=== PATIENT | male | born 1980 | race Caucasian/White ===

== ENCOUNTER 2018-01-23 11:58 | Emergency (ER) | payer MEDICAID, SELFPAY ==
[2018-01-23] VITALS (48 sets, daily range): BP systolic 102–119; BP diastolic 41–70; PULSE 62–82; RESP 8–27; TEMP 36.9; O2SAT 90–99
--- NOTE | 2018-01-23 12:13 | DI.RPTCT_ITS ---
SYMPTOM/DIAGNOSIS: CHEST PAIN, SOB, ABD PAIN, VOMITING CTA CHEST/ABDOMEN AND PELVIS: CT angiography was performed with multi slice acquisition and multi planar and 3D reconstruction. Comparison is made with 06/19/17. ABDOMEN AND PELVIS: There is diffuse decreased attenuation of the liver consistent with fatty infiltration. No hepatic mass is seen. The portal and superior mesenteric veins are patent. The gallbladder is negative by CT criteria. There is no biliary ductal dilatation. The pancreas and spleen are unremarkable. The adrenal glands appear stable. The kidneys show normal and symmetric enhancement. No evidence of a solid renal mass or obstruction. The urinary bladder is intact. The reproductive organs are unremarkable. The bowel shows no evidence of obstruction or inflammation. No findings to suggest an acute appendicitis are present. The abdominal aorta is of normal caliber. No aneurysmal dilatation or dissection is seen. No significant abdominal or pelvic adenopathy, ascites or pneumoperitoneum is present. The bones are intact. IMPRESSION: No evidence of an acute abdomen. CHEST: The thoracic aorta is of normal caliber. No evidence of aneurysm or dissection is present. Heart size is within normal limits. No pericardial effusion is seen. The visualized pulmonary arteries show no evidence of an embolus. No pleural effusion or pneumothorax is identified. No pulmonary infiltrates are seen. The tracheobronchial tree is unremarkable. The bones are intact. IMPRESSION: Negative examination.
--- NOTE | 2018-01-23 12:19 | ED.GENADUL ---
Disposition Clinical Impression: SOB (shortness of breath) Disposition: HOME Condition: Good Instructions: Asthma (ED), Dyspnea (ED) Additional Instructions: Please take your albuterol inhaler 2 puffs every 6 hours for the next week. Please take the steroid as directed. Please stop smoking. We will be scheduling an outpatient stress test for you. It is imperative that you have close follow-up with your primary care provider. Please drink 8-10 cups of water throughout the day. Avoid the hot sun at work as best as possible. Take your insulin and metformin as directed without missing any days. If you notice any worsening of your symptoms, or any new symptoms such as vomiting, diarrhea, fever, chills, shortness of breath, chest pain, numbness, weakness, or fainting , please return immediately to the emergency department for reevaluation. Please follow up with your primary care provider as soon as possible for reassessment and reevaluation. As always, it was a pleasure participating in your medical care today. Prescriptions: Prednisone 50 mg PO DAILY #5 tablet Referrals: Sandy Sanchez NP [Primary Care Provider] - Medical Decision Making - Medical Decision Making This is a pleasant 37-year-old male who presents with multiple complaints. Complaints include both cardiac and GI symptoms. Will evaluate with cardiac workup, CT angios of the chest abdomen and pelvis, we will rehydrate the patient, and look for any electrolyte abnormalities. Patient does have notable family history of cardiac risk factors, and personal history of cardiac risk factors which I feel does merit evaluation of potential cardiac etiology in spite of his young age. 1208 Rate 77, sinus rhythm, intervals normal, no ST elevations or depressions. No T-wave inversions. No significant Q waves. 17:27 Rate 71, intervals normal, normal sinus rhythm, no ST elevations or depressions, no T wave inversions. No significant Q waves. The patient's laboratory workup has returned totally normal. CT angiogram is returned normal. Findings per virtual radiology no evidence of PE, no significant focal consolidation, no pleural effusion, no pneumothorax, no adenopathy, unremarkable upper abdomen. No acute mediastinal aortic abnormality. Impression no specific etiology identified for the patient's symptoms. CT scan of the abdomen demonstrates fatty infiltration of the liver, appendix appears normal, abdominal aorta and visceral vessels appear unremarkable, normal-appearing solid organs, no intestinal obstruction, no obstructive uropathy, no free fluid. No free air. No inflammatory changes, no specific etiology identified for the patient's symptoms. Patient was given a breathing treatment, and he had near complete resolution of his symptoms. I feel that the patient's symptoms are most likely secondary to his history of asthma, and continued smoking. Although I feel that the patient's symptoms are unrelated to a cardiac etiology I did discuss with the patient the potential for observation, continued serial troponins and inpatient stress test, patient made it very clear that he would prefer to be discharged home for an outpatient follow-up. I had a long discussion with him regarding red flags for which to return the patient understands. Additionally we will set up an outpatient stress test for the patient. We discussed the importance of close follow-up with his primary care provider as well. With 2 normal serial troponins, normal EKG x2, normal laboratory workup, normal CT angiogram of the chest abdomen and pelvis, normal vital signs and no hemodynamic instability, I feel that he can be safely discharged home with his current clinical setting and evaluation. Repeat exam continues to demonstrate a well-appearing patient. Patient will be discharged home with outpatient exercise stress test, close follow-up with PCP, and a good understanding of red flags for which she should return. I have extensively reviewed the treatment plan and discharge instructions with the patient. I have addressed all patient concerns at this time. The patient was made aware of what symptoms to monitor for that would warrant a return to the emergency department. Discussed the plan with the patient, they demonstrate verbal understanding and agreement with our assessment and plan at this time. History of Present Illness - General Stated complaint: CHEST PAIN Time Seen by Provider: 01/23/18 12:12 - History of Present Illness Initial comments: This is a 37-year-old male with a past medical history of poorly controlled diabetes for which he takes 50 of Lantus, and metformin on an unregulated basis, sleep apnea, tobacco abuse, strong family history of cardiac disease, who presents today for multiple complaints including chest pain, vomiting, diarrhea, malaise, fatigue, shortness of breath, and occasional syncope. The patient states that over the last few weeks he has had intermittent vomiting and diarrhea, the vomit is usually comprised of just sputum with no bleeding or hematemesis, however the diarrhea is watery, nonbloody. He denies any diarrhea for the last 48 hours old. He has had no foreign travel and been on no antibiotics recently. 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 Over the last 4 days the patient has had chest pain which she describes as mild chest tightness and is associated with mild shortness of breath. It is improved when he takes his albuterol, however he rarely takes this. He denies any pleuritic chest pain though. Symptoms are worse at night after he has been up working all day. They are made worse by palpation, movement of the arms, and occasionally eating. He does have some pain in both of his arms which he describes as an achy-like sensation which is notably made worse with movement of the arms, but not worsened with generalized exertion. States that it may be slightly worse in the left arm than the right. Denies PE risk factors such as recent long car rides, immobilization, recent surgery, prior history of DVT or PE, family history of PE or DVT, morbid obesity, exogenous estrogen and smoking, hemoptysis, history of cancer. Patient denies any previous abdominal surgeries. He denies any other sick contacts. His family history of cardiac disease is notable for having heart attacks in their late 30s to early 40s. Patient has no other complaints at this time. - Related Data Aspirin/Acetaminophen/Caffeine [Excedrin Extra Strength Caplet] 1 each PO PRN #2 05/15/16 Onetouch Ultra Mini 1 PRN 05/15/16 Insulin Glargine [Lantus Solostar] 48 u SQ HS #3 box 02/05/17 Blood Sugar Diagnostic [Onetouch Ultra Blue Test Strp] 1 each MC BID #200 strip 02/26/17 Lancets [Onetouch Delica] 1 each MC BID #200 each 07/14/17 Venlafaxine HCl [Venlafaxine HCl ER] 225 mg PO DAILY #90 tab-cap 07/14/17 Venlafaxine HCl [Venlafaxine HCl ER] 225 mg PO DAILY #90 tab-cap 07/14/17 Albuterol Sulfate [Proair Hfa] 1 - 2 puff IH Q4-6H PRN #1 inhaler 08/26/17 Aspirin [Aspir 81] 81 mg PO DAILY #90 tab-cap 08/26/17 Empagliflozin [Jardiance] 25 mg PO DAILY #90 tab-cap 08/26/17 Fluticasone Propionate [Flonase Allergy Relief] 1 - 2 sprays NS DAILY PRN #1 bottle 08/26/17 Gabapentin 300 mg PO HS #90 tab-cap 08/26/17 MetFORMIN [Glucophage] 0 PO See Instructions #225 tab-cap 08/26/17 Blood-Glucose Meter [Blood Glucose Meter] 1 each MC DAILY #1 unit 11/19/17 Bupropion HCl [Wellbutrin Xl] 450 mg PO DAILY #135 tab-cap 11/19/17 Epinephrine [Epipen 2-Jesus Alberto] 0.3 mg IM ONCE PRN #1 kit 11/19/17 Hydroxyzine HCl 25 - 50 mg PO QID PRN #60 tab-cap 11/19/17 Pen Needle, Diabetic [Bd Ultra-Fine Pen Needle] 1 ndl SQ DAILY #100 11/19/17 Prednisone 50 mg PO DAILY #5 tablet 01/23/18 Allergies Allergy/AdvReac Type Severity Reaction Status Date / Time insect venom Allergy Unknown Anaphylaxsi Unverified 01/23/18 13:23 s Sulfa (Sulfonamide Allergy Unknown HIVES, RASH Unverified 01/23/18 13:23 Antibiotics) Review of Systems Other: 10 point review of systems was performed, pertinent positives and negatives are noted in the history of present illness. Past Medical History - Past Medical History Medical history: diabetes diabetic neuropathy, sleep apnea, migraines Surgical history: no surgical history Family history: CAD/[place], cancer, diabetes - Social History Alcohol use: none Drug use: none General Exam - Other Other exam information: 1.Const: Well-nourished, Well-developed, appearing stated age, notably obese 2.Eyes: PERRL, no conjunctival injection, and symmetrical lids. 3.ENT: Atraumatic external nose and ears. Dry MM. Neck: Symmetric, trachea midline, No thyromegaly. 4.CVS: +S1/S2, No murmurs or gallops. Peripheral pulses 2+ and equal in all extremities. Brisk capillary refill in all extremities. 5.RESP: Unlabored respiratory effort. Clear to auscultation bilaterally. No wheezes rales or rhonchi. Notable reproducible chest pain on palpation of the lower chest and epigastric region. 6.GI: Soft, Nondistended, No hepatosplenomegaly. No guarding or rebound. Tenderness noted in the epigastric region on palpation. No guarding or rebound. No pain at McBurney's point. No focal pain at Knight's point. 7.MSK: Normocephalic/Atraumatic, Extremities w/o deformity or ttp No cyanosis or clubbing, Normal movement of all extremities. No calf tenderness. 8.Skin: Warm, Dry. No rashes or lesions. 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 Sensation grossly intact, no focal neurologic deficits. Sensation is intact in all extremities. Normal muscle strength in all extremities. 10.Psych: (AAO) x3. Appropriate mood and affect Course Vital Signs - 24 hr 01/23/18 01/23/18 12:10 12:13 Temperature 36.9 C Pulse 76 Respiratory 19 23 Rate Blood Pressure 106/49 Pulse Oximetry 98
[2018-01-23] MEDS: Aspirin 81 MG CHEW 324 MG CH (12:20)
[2018-01-23 12:24] LABS: BE (Venous) 4.2 mmol/L (-3-3); HCO3 (Venous) 30 mmol/L (22-28); O2 Sat (Venous) 62 % (70-80); TCO2 (Venous) 27 mmol/L (22-29); pCO2 (Venous) 56 mm/Hg (34-47); pH (Venous) 7.34 (7.32-7.43); pO2 (Venous) 34 mm/Hg (28-44)
--- NOTE | 2018-01-23 12:24 | ED.GENADUL_ITS ---
Disposition Clinical Impression: SOB (shortness of breath) Disposition: HOME Condition: Good Instructions: Asthma (ED), Dyspnea (ED) Additional Instructions: Please take your albuterol inhaler 2 puffs every 6 hours for the next week. Please take the steroid as directed. Please stop smoking. We will be scheduling an outpatient stress test for you. It is imperative that you have close follow-up with your primary care provider. Please drink 8-10 cups of water throughout the day. Avoid the hot sun at work as best as possible. Take your insulin and metformin as directed without missing any days. If you notice any worsening of your symptoms, or any new symptoms such as vomiting, diarrhea, fever, chills, shortness of breath, chest pain, numbness, weakness, or fainting , please return immediately to the emergency department for reevaluation. Please follow up with your primary care provider as soon as possible for reassessment and reevaluation. As always, it was a pleasure participating in your medical care today. Prescriptions: Prednisone 50 mg PO DAILY #5 tablet Referrals: Sandy Sanchez NP [Primary Care Provider] - Medical Decision Making - Medical Decision Making This is a pleasant 37-year-old male who presents with multiple complaints. Complaints include both cardiac and GI symptoms. Will evaluate with cardiac workup, CT angios of the chest abdomen and pelvis, we will rehydrate the patient , and look for any electrolyte abnormalities. Patient does have notable family history of cardiac risk factors, and personal history of cardiac risk factors which I feel does merit evaluation of potential cardiac etiology in spite of his young age. 1208 Rate 77, sinus rhythm, intervals normal, no ST elevations or depressions. No T- wave inversions. No significant Q waves. 17:27 Rate 71, intervals normal, normal sinus rhythm, no ST elevations or depressions , no T wave inversions. No significant Q waves. The patient's laboratory workup has returned totally normal. CT angiogram is returned normal. Findings per virtual radiology no evidence of PE, no significant focal consolidation, no pleural effusion, no pneumothorax, no adenopathy, unremarkable upper abdomen. No acute mediastinal aortic abnormality. Impression no specific etiology identified for the patient's symptoms. CT scan of the abdomen demonstrates fatty infiltration of the liver , appendix appears normal, abdominal aorta and visceral vessels appear unremarkable, normal-appearing solid organs, no intestinal obstruction, no obstructive uropathy, no free fluid. No free air. No inflammatory changes, no specific etiology identified for the patient's symptoms. Patient was given a breathing treatment, and he had near complete resolution of his symptoms. I feel that the patient's symptoms are most likely secondary to his history of asthma, and continued smoking. Although I feel that the patient's symptoms are unrelated to a cardiac etiology I did discuss with the patient the potential for observation, continued serial troponins and inpatient stress test, patient made it very clear that he would prefer to be discharged home for an outpatient follow-up. I had a long discussion with him regarding red flags for which to return the patient understands. Additionally we will set up an outpatient stress test for the patient. We discussed the importance of close follow-up with his primary care provider as well. With 2 normal serial troponins, normal EKG x2, normal laboratory workup, normal CT angiogram of the chest abdomen and pelvis, normal vital signs and no hemodynamic instability, I feel that he can be safely discharged home with his current clinical setting and evaluation. Repeat exam continues to demonstrate a well-appearing patient. Patient will be discharged home with outpatient exercise stress test, close follow-up with PCP, and a good understanding of red flags for which she should return. I have extensively reviewed the treatment plan and discharge instructions with the patient. I have addressed all patient concerns at this time. The patient was made aware of what symptoms to monitor for that would warrant a return to the emergency department. Discussed the plan with the patient, they demonstrate verbal understanding and agreement with our assessment and plan at this time. History of Present Illness - General Stated complaint: CHEST PAIN Time Seen by Provider: 01/23/18 12:12 - History of Present Illness Initial comments: This is a 37-year-old male with a past medical history of poorly controlled diabetes for which he takes 50 of Lantus, and metformin on an unregulated basis, sleep apnea, tobacco abuse, strong family history of cardiac disease, who presents today for multiple complaints including chest pain, vomiting, diarrhea, malaise, fatigue, shortness of breath, and occasional syncope. The patient states that over the last few weeks he has had intermittent vomiting and diarrhea, the vomit is usually comprised of just sputum with no bleeding or hematemesis, however the diarrhea is watery, nonbloody. He denies any diarrhea for the last 48 hours old. He has had no foreign travel and been on no antibiotics recently. 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 Over the last 4 days the patient has had chest pain which she describes as mild chest tightness and is associated with mild shortness of breath. It is improved when he takes his albuterol, however he rarely takes this. He denies any pleuritic chest pain though. Symptoms are worse at night after he has been up working all day. They are made worse by palpation, movement of the arms, and occasionally eating. He does have some pain in both of his arms which he describes as an achy-like sensation which is notably made worse with movement of the arms, but not worsened with generalized exertion. States that it may be slightly worse in the left arm than the right. Denies PE risk factors such as recent long car rides, immobilization, recent surgery, prior history of DVT or PE, family history of PE or DVT, morbid obesity, exogenous estrogen and smoking, hemoptysis , history of cancer. Patient denies any previous abdominal surgeries. He denies any other sick contacts. His family history of cardiac disease is notable for having heart attacks in their late 30s to early 40s. Patient has no other complaints at this time. - Related Data Aspirin/Acetaminophen/Caffeine [Excedrin Extra Strength Caplet] 1 each PO PRN # 2 05/15/16 Onetouch Ultra Mini 1 PRN 05/15/16 Insulin Glargine [Lantus Solostar] 48 u SQ HS #3 box 02/05/17 Blood Sugar Diagnostic [Onetouch Ultra Blue Test Strp] 1 each MC BID #200 strip 02/26/17 Lancets [Onetouch Delica] 1 each MC BID #200 each 07/14/17 Venlafaxine HCl [Venlafaxine HCl ER] 225 mg PO DAILY #90 tab-cap 07/14/17 Venlafaxine HCl [Venlafaxine HCl ER] 225 mg PO DAILY #90 tab-cap 07/14/17 Albuterol Sulfate [Proair Hfa] 1 - 2 puff IH Q4-6H PRN #1 inhaler 08/26/17 Aspirin [Aspir 81] 81 mg PO DAILY #90 tab-cap 08/26/17 Empagliflozin [Jardiance] 25 mg PO DAILY #90 tab-cap 08/26/17 Fluticasone Propionate [Flonase Allergy Relief] 1 - 2 sprays NS DAILY PRN #1 bottle 08/26/17 Gabapentin 300 mg PO HS #90 tab-cap 08/26/17 MetFORMIN [Glucophage] 0 PO See Instructions #225 tab-cap 08/26/17 Blood-Glucose Meter [Blood Glucose Meter] 1 each MC DAILY #1 unit 11/19/17 Bupropion HCl [Wellbutrin Xl] 450 mg PO DAILY #135 tab-cap 11/19/17 Epinephrine [Epipen 2-Jesus Alberto] 0.3 mg IM ONCE PRN #1 kit 11/19/17 Hydroxyzine HCl 25 - 50 mg PO QID PRN #60 tab-cap 11/19/17 Pen Needle, Diabetic [Bd Ultra-Fine Pen Needle] 1 ndl SQ DAILY #100 11/19/17 Prednisone 50 mg PO DAILY #5 tablet 01/23/18 Allergies Allergy/AdvReac Type Severity Reaction Status Date / Time insect venom Allergy Unknown Anaphylaxsi Unverified 01/23/18 13:23 s Sulfa (Sulfonamide Allergy Unknown HIVES, RASH Unverified 01/23/18 13:23 Antibiotics) Review of Systems Other: 10 point review of systems was performed, pertinent positives and negatives are noted in the history of present illness. Past Medical History - Past Medical History Medical history: diabetes diabetic neuropathy, sleep apnea, migraines Surgical history: no surgical history Family history: CAD/[place], cancer, diabetes - Social History Alcohol use: none Drug use: none General Exam - Other Other exam information: 1.Const: Well-nourished, Well-developed, appearing stated age, notably obese 2.Eyes: PERRL, no conjunctival injection, and symmetrical lids. 3.ENT: Atraumatic external nose and ears. Dry MM. Neck: Symmetric, trachea midline, No thyromegaly. 4.CVS: +S1/S2, No murmurs or gallops. Peripheral pulses 2+ and equal in all extremities. Brisk capillary refill in all extremities. 5.RESP: Unlabored respiratory effort. Clear to auscultation bilaterally. No wheezes rales or rhonchi. Notable reproducible chest pain on palpation of the lower chest and epigastric region. 6.GI: Soft, Nondistended, No hepatosplenomegaly. No guarding or rebound. Tenderness noted in the epigastric region on palpation. No guarding or rebound. No pain at McBurney's point. No focal pain at Knight's point. 7.MSK: Normocephalic/Atraumatic, Extremities w/o deformity or ttp No cyanosis or clubbing, Normal movement of all extremities. No calf tenderness. 8.Skin: Warm, Dry. No rashes or lesions. 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 Sensation grossly intact, no focal neurologic deficits. Sensation is intact in all extremities. Normal muscle strength in all extremities. 10.Psych: (AAO) x3. Appropriate mood and affect Course Vital Signs - 24 hr 01/23/18 01/23/18 12:10 12:13 Temperature 36.9 C Pulse 76 Respiratory 19 23 Rate Blood Pressure 106/49 Pulse Oximetry 98
[2018-01-23] MEDS: Ondansetron 4 MG/2 ML VIAL IVP (12:30)
[2018-01-23] MEDS: Albuterol/Ipratropium 3 ML UPD VIAL UPD (12:30)
[2018-01-23 12:33] LABS: Abs Immature Grans 0.01 k/cumm (0.0-0.09); Absolute Basophil Count 0.01 k/cumm (0.0-0.2); Absolute Eosinophil Count 0.07 k/cumm (0.0-0.7); Absolute Lymphocyte Count 1.77 k/cumm (1.2-3.4); Absolute Monocyte Count 0.32 k/cumm (0.11-0.7); Basophils % 0.1; HGB 15.1 g/dL (13.5-17.5); Immature Grans % 0.1; Lymphocytes % 26.1; Mean Corp. HGB Concentration 32.8 g/dL (32.0-36.0); Mean Corpuscular Hemoglobin 28.8 pg (27.0-33.0); Mean Corpuscular Volume 87.8 fL (80-95); Mean Platelet Volume 9.3 fL (8.0-11.0); Monocytes % 4.7; Platelet Count 267 x1000/uL (130-400); RBC 5.24 m/cumm (4.50-6.00); RBC Distribution Width 16.1 % (11.8-14.1); White Blood Cell Count 6.78 k/cumm (4.4-10.8)
[2018-01-23] MEDS: Normal Saline 1,000 ML 1000 ML IV (12:37)
[2018-01-23] MEDS: methylPREDNISolone SUCC 125 MG VIAL IVP (12:37)
[2018-01-23 12:49] LABS: ALT 65 U/L (12-78); AST 30 U/L (15-37); Albumin 3.6 g/dL (3.4-5.0); Alkaline Phosphatase 97 U/L (46-116); Anion Gap 8.3 mmol/L (3-11); BUN 17 mg/dL (7-18); Bilirubin, Total 0.6 mg/dL (0.2-1.0); CO2 28.7 mmol/L (21.0-32.0); CREATININE 1.21 mg/dL (0.70-1.30); Calcium 8.9 mg/dL (8.5-10.1); Chloride 100 mmol/L (98-107); Glucose 238 mg/dL (70-100); Lipase 125 U/L (73-393); Potassium 3.6 mmol/L (3.5-5.1); Sodium 137 mmol/L (136-145)
[2018-01-23] MEDS: Omnipaque 350 MG/ML 100 ML BTL IV (12:53)
[2018-01-23 12:55] LABS: Troponin I < 0.02 ng/mL (0.00-0.06)
[2018-01-23 13:12] LABS: Bilirubin Negative (Negative); Blood Negative (Negative); Clarity Clear; Glucose 500 mg/dL (Negative); Ketones Negative (Negative); Leukocyte Esterase Negative (Negative); Nitrite Negative (Negative); Urobilinogen 0.2 EU/dL (Up TO 0.2)
--- NOTE | 2018-01-23 13:51 | DI.VRAD_ITS ---
EXAM: CT Angiography Chest With Intravenous Contrast CLINICAL HISTORY: 37 years old, male; Signs and symptoms; Other: Chest pain, shortness of epigastric, and abdominal pain with vomiting; Prior surgery; Surgery date: 6+ months; Surgery type: Gallbladder TECHNIQUE: Axial computed tomographic angiography images of the chest with intravenous contrast using pulmonary embolism protocol. All CT scans at this facility use at least one of these dose optimization techniques: automated exposure control; mA and/or kV adjustment per patient size (includes targeted exams where dose is matched to clinical indication); or iterative reconstruction. MIP reconstructed images were created and reviewed. COMPARISON: No relevant prior studies available. FINDINGS: No evidence of PE. No significant focal consolidation. No pleural effusion. No pneumothorax. No adenopathy. Unremarkable upper abdomen. No acute mediastinal or aortic abnormality. Impression: No specific etiology identified for the patient's symptoms. EXAM: CT Angiography Abdomen and Pelvis With Intravenous Contrast CLINICAL HISTORY: 37 years old, male; Signs and symptoms; Other: Chest pain, shortness of epigastric, and abdominal pain with vomiting; Prior surgery; Surgery date: 6+ months; Surgery type: Gallbladder TECHNIQUE: Axial computed tomographic angiography images of the abdomen and pelvis with intravenous contrast. All CT scans at this facility use at least one of these dose optimization techniques: automated exposure control; mA and/or kV adjustment per patient size (includes targeted exams where dose is matched to clinical indication); or iterative reconstruction. MIP reconstructed images were created and reviewed. COMPARISON: FINDINGS: Fatty infiltration of the liver. Appendix appears normal. Abdominal aorta and visceral vessels appear unremarkable. Otherwise normal appearing solid organs. No intestinal obstruction. No obstructive uropathy. No free fluid. No free air. The No inflammatory changes. Impression: No specific etiology identified for the patient's symptoms. Dictated and Authenticated by: Dominic Ospina MD. Ordering:YAMILEX VALVERDE MD
[2018-01-23 16:35] LABS: Troponin I < 0.02 ng/mL (0.00-0.06)
== END 2018-01-23 17:41 | disposition home or self-care (01) ==
PROVIDERS: Emergency Provider Student in an Organized Health Care Education/Training Program; PCP Nurse Practitioner Family
DX: R06.02 Shortness of breath (principal); E11.40 Type 2 diabetes mellitus with diabetic neuropathy, unspecified; Z79.84 Long term (current) use of oral hypoglycemic drugs
CPT/HCPCS: 36415; 74177; 80053; 82805; 83690; 93005; 96361; 96374; 96375; 99285; 81003; 84484; 85025; 93010; J2270; J2405; J2930; J3490; J7620

== ENCOUNTER 2018-02-02 00:14 | Outpatient (CLI) | payer MEDICAID, SELFPAY ==
--- NOTE | 2018-02-02 14:00 | ETT_ITS ---
*[facility]* *[facility]* [address] [place] [address] Stress Electrocardiography Saurabh protocol Date of study: 02/02/2018 *PATIENT PRESENTATION* Height: 167.6cm (66in) Blood Pressure: Weight: 131.8kg (290lb) BSA: 2.55m^2 Ordering physician: Gus Womack Impressions: Indeterminate stress test due to inadequate heart rate. Summary: 1. Stress ECG conclusions: The stress ECG is negative to less than 85% MPHR. The stress ECG is non-diagnostic. The sensitivity of this test is limited by a failure to achieve target heart rate. 2. Stress: The target heart rate was not achieved. The heart rate response to stress is normal. There is a normal resting blood pressure with an appropriate response to stress. The patient experienced no chest pain during stress. Exercise capacity is mildly diminished for age. History: Patient's presenting symptoms: asymptomatic. REASON FOR VISIT: PATIENT PRESENTED TO EMERGENCY ROOM ON 01/23/18 FOR MULTIPLE COMPLAINTS INCLUDING CHEST PAIN, VOMITING, DIARRHEA, MALAISE, FATIGUE, SHORTNESS OF BREATH, AND OCCASIONAL SYNCOPE. FOR FOUR DAYS PATIENT REPORTS 8/10 STERNAL CHEST TIGHTNESS RADIATING DOWN BILATERAL ARMS, ASSOCIATED WITH MILD SHORTNESS OF BREATH. SYMPTOMS ARE WORSE AT NIGHT, WITH PALPATION, MOVEMENT OF ARMS, AND OCCASIONALLY WITH EATING. SYMPTOMS ARE NOT WORSENED WITH EXERTION. PATIENT REPORTS CHEST PAIN LASTS FOR A COUPLE OF DAYS AT A TIME WHEN IT OCCURS. CHEST PAIN LAST OCCURED YESTERDAY. NO CHEST PAIN TODAY. PAST MEDICAL HISTORY: DIABETES, SLEEP APNEA, MIGRAINES, TOBACCO ABUSE, ANXIETY. FAMILY HISTORY: NOT KNOWN. SMOKING STATUS:30 PACK YEAR HISTORY. EXERCISE STATUS: NONE. PMH: Asthma. Risk factors: Family history of coronary artery disease. Current tobacco use. Hypertension. Diabetes mellitus. Obesity. Dyslipidemia. Cholesterol: 210mg/dl. HDL: 31mg/dl. LDL: 152mg/dl. Triglycerides: 176mg/dl. ALLERGIES: INSECT VENOM, SULFA. MEDICATIONS: ALBUTEROL SULFATE 1-2 PUFF, PRN. ASPIRIN 81MG, DAILY. EXCEDRIN EXTRA STRENGTH, PRN. BUPROPION HCL 450MG, DAILY. EMPAGLIFLOZIN 25MG, DAILY. EPINEPHRINE INJECTION 0.3MG, PRN. FLUTICASONE, PRN. GABAPENTIN 300MG, HS. HYDROXYZINE 25-50MG, PRN. INSULIN GLARGINE 48UNITS, HS. METFORMIN 1500MG AM / 1000MG PM. VENLAFAXINE 225MG, DAILY. Protocol: Saurabh protocol. Baseline ECG: SINUS RHYTHM. HEART RATE 65 BPM. Stress protocol: + +---+ + + + !Stage !HR !BP (mmHg) !Symptoms !Comments ! + +---+ + + + !Baseline supine !65 !142/82 (102)! ! ! + +---+ + + + !Baseline standing!69 !112/80 (91) ! !BP 130/68 ON ! ! ! ! ! !RECHECK. ! + +---+ + + + !Stage I; 1.7mph, !98 !154/84 (107)! ! ! !10degrees; 3 min ! ! ! ! ! + +---+ + + + !Stage II; 2.5mph,!117!184/90 (121)!Leg fatigue, leg ! ! !12degrees; 3 min ! ! !pain ! ! + +---+ + + + !Stage III; !---! !Mild dyspnea, leg! ! !3.4mph, ! ! !pain ! ! !14degrees; 3 min ! ! ! ! ! + +---+ + + + !Peak stress !119! ! ! ! + +---+ + + + !Recovery; 1 min !106!170/88 (115)! ! ! + +---+ + + + !Recovery; 3 min !74 !172/80 (111)! ! ! + +---+ + + + !Recovery; 6 min !---!150/78 (102)! ! ! + +---+ + + + * Stress results: Maximal heart rate during stress was 119bpm (65% of maximal predicted heart rate). The maximal predicted heart rate was 183bpm. The target heart rate was not achieved. The heart rate response to stress is normal. There is a normal resting blood pressure with an appropriate response to stress. The rate-pressure product for the peak heart rate and blood pressure was 53280ku Hg/min. The patient experienced no chest pain during stress. Exercise capacity is mildly diminished for age. Stress ECG: TREADMILL PORTION OF EXERCISE STRESS TEST ENDED IN 6MIN 11SEC DUE TO PATIENT COMPLAINTS OF LEG PAIN/BURNING AND DYSPNEA. HYPOTENSIVE BLOOD PRESSURE RESPONSE TO STANDING WITH REPORTS OF LIGHTHEADEDNESS. RESOLVED AFTER FEW SECONDS WITH IMPROVEMENT OF BLOOD PRESSURE ON RECHECK. APPROPRIATE HEART RATE AND BLOOD PRESSURE RESPONSE TO EXERCISE. MAXIMAL HEART RATE 119 BPM, 65% OF TARGET. APPROXIMATE METS ACHIEVED 7.32. NO ANGINA REPORTED. NO ECTOPY NOTED. NO SIGNIFICANT ST SEGMENT CHANGES. MODERATELY DIMINISHED FUNCTIONAL CAPACITY. The stress ECG is negative to less than 85% MPHR. The stress ECG is non-diagnostic. The sensitivity of this test is limited by a failure to achieve target heart rate. Study data: Main Retana MD supervised and was readily available during the procedure. This study was interpreted by [facility]. Study status: Routine. Consent: The risks, benefits, and alternatives to the procedure were explained to the patient and informed consent was obtained. Procedure: Initial setup. A baseline ECG was recorded. Surface ECG leads and manual cuff blood pressure measurements were monitored. Heart sounds: Normal. Lung sounds: Normal. Treadmill exercise testing was performed using the Saruabh protocol. Study completion: The patient tolerated the procedure well and was discharged from the lab. Discharge: The patient left the laboratory in stable condition. Birthdate: Patient birthdate: 1980. Sex: Gender: male. Study date: Study date: 02/02/2018. Study time: 02:00 PM. Signature Documentation: The Stress ECG portion of this study was interpreted by Main Retana MD. Electronically signed by Main Retana 02/02/2018 16:30
== END 2018-02-02 00:34 ==
PROVIDERS: PCP Nurse Practitioner Family; Visit Provider Student in an Organized Health Care Education/Training Program
DX: R07.9 Chest pain, unspecified (principal); R06.02 Shortness of breath; R53.83 Other fatigue; R94.30 Abnormal result of cardiovascular function study, unspecified; R00.2 Palpitations; E11.9 Type 2 diabetes mellitus without complications; Z79.4 Long term (current) use of insulin; I10 Essential (primary) hypertension; Z82.49 Family history of ischemic heart disease and other diseases of the circulatory system
CPT/HCPCS: 93017

== ENCOUNTER 2018-04-26 16:31 | Emergency (ER) | payer MEDICAID, SELFPAY ==
[2018-04-26 16:45] VITALS: BP 136/76; PULSE 83; RESP 16; TEMP 36.6; O2SAT 98
--- NOTE | 2018-04-26 17:03 | W.ED.GENAD ---
Discharge Plan Disposition Patient Disposition: HOME Condition: Fair Discharge Details Chief Complaint: Orthopedic Clinical Impression: Ankle sprain Reason For Visit: left ankle pain Primary Care Provider: Sandy Sanchez ED Provider: Leia Blum Home Meds and New Rx's Prescriptions: New ibuprofen 600 mg tablet 600 mg PO QID PRN (Reason: pain) Qty: 20 RF: 0 Continue [id number]-[id number]-ptfgdsly [Excedrin Extra Strength] 1 EACH tablet 1 ea PO PRN Qty: 2 RF: 0 OneTouch Ultra Mini 1 PRN RF: 0 insulin glargine [Lantus Solostar U-100 Insulin] 100 UNIT/1 ML insulin pen 48 u SQ HS Qty: 3 RF: 3 blood sugar diagnostic [OneTouch Ultra Test] 1 EACH strip 1 ea Miscellaneous BID Qty: 200 RF: 3 venlafaxine 75 MG capsule,extended release 24hr 225 mg PO DAILY Qty: 90 RF: 3 venlafaxine 150 MG capsule,extended release 24hr 225 mg PO DAILY Qty: 90 RF: 3 lancets [OneTouch Delica Lancets] 1 EACH misc 1 ea Miscellaneous BID Qty: 200 RF: 3 aspirin [Aspir-81] 81 MG tablet,delayed release (DR/EC) 81 mg PO DAILY Qty: 90 RF: 3 metformin [Glucophage] 1,000 MG tablet PO See Instructions Qty: 225 RF: 3 albuterol sulfate [ProAir HFA] 8.5 GM HFA aerosol inhaler 1 - 2 puff Inhalation Q4-6H PRN Qty: 1 RF: 3 fluticasone [Flonase Allergy Relief] 9.9 ML spray,suspension 1 - 2 spry NS DAILY PRNQty: 1 RF: 3 empagliflozin [Jardiance] 25 MG tablet 25 mg PO DAILY Qty: 90 RF: 3 blood-glucose meter 1 EACH misc 1 ea Miscellaneous DAILY Qty: 1 RF: 0 epinephrine [EpiPen 2-Jesus Alberto] 0.3 MG/0.3 ML auto-injector 0.3 mg IM ONCE PRNQty: 1 RF: 0 pen needle, diabetic [BD Ultra-Fine Orig Pen Needle] 1 EACH needle 1 ndl SQ DAILY Qty: 100 RF: 3 bupropion HCl [Wellbutrin XL] 150 MG tablet extended release 24 hr 450 mg PO DAILY Qty: 135 RF: 0 Discharge Instructions Instructions: Ankle Sprain (ED) Additional Instructions: Encourage rest, ice, elevation. Tylenol and/or Ibuprofen as needed for discomfort. Please use lace up ankle brace for the next week, if pain persists after this please continue with use. Please follow up with primary care in 2 weeks if symptoms persist. If you develop new/worsening symptoms please seek care urgently once again. Stand Alone Forms: Work Release Referrals: Sandy Sanchez NP [Primary Care Provider] - Medical Decision Making Patient 37-year-old male presents today with chief complaint left ankle pain. He reports that a few hours prior to arrival he missed stepped and the last step going down stairs in his home, suffered internal rotational event and had a sudden onset of pain along the lateral aspect of the ankle. Is concerned that he may have a fracture. Reports the pain is maximal over the lateral and anterior aspect of the ankle. Patient does have history of peripheral neuropathy and reports that he has chronic low-grade discomfort in the foot which is unchanged since the incident. Benefit was not easily reproducible. Did not seem point tender in one spot. However, given the peripheral neuropathy I feel that imaging of this is appropriate as well. Achilles is palpated to be intact. No pain in the fibular head or neck. Plan to obtain x-ray of the patient's ankle and foot. We will treat his discomfort with ibuprofen and Tylenol. He is currently icing and elevating the extremity. Reports that he also struck his head but this is minimal. Denies headache at this time. No loss conscious. No nausea vomiting. Reports that this is not was bring him to the department at this time X-ray left ankle was reviewed by radiologist. Intact ankle mortise. No fracture dislocation. Small calcaneal spurs. Swelling of the lateral left ankle soft tissues. Swelling of anterior ankle soft tissues. No fracture. X-ray of the patient's left foot reviewed by radiologist no acute abnormalities noted Discussed the findings with the patient. Advised likely ankle sprain his pain is maximal over the ATFL. Encouraged rest, ice, elevation. Tylenol and/or ibuprofen as needed for discomfort. Patient will be fitted with a lace up ankle brace. Was ambulated prior to presentation, did ambulate into the department with an antalgic gait. Discussed activities that he should avoid. Work note was given that allowed for elevation. We discussed new/worsening symptoms and when to seek care urgently once again. Advised follow-up with primary care in 2 weeks if symptoms have not improved. All of his questions and concerns were addressed and he is in agreement with this plan HPI General Mode of arrival: ambulatory. Date/Time Provider Initiated Documentation: 04/26/18 17:03. Limitations to Documentation: no limitations. Information obtained by: patient. History of Present Illness 37 year old M presents to the emergency department with the chief complaint of left ankle, described as moderate, with intensity rated at 8. Quality is described as sharp, and is localized to the left and lower extremity. Patient reports no radiation. Patient started experiencing this hour(s) (fell at 1400) and it has been constant. Immobilization improves symptom(s), Movement worsens symptoms . Patient notes no other symptoms.; denies fever/chills, nausea/vomiting, rash and weakness. Patient did receive the following treatments prior to arrival, none Related Data Home Medications Medication Instructions Recorded Confirmed Onetouch Ultra Mini 1 PRN 05/15/16 [id number] 1 ea PO PRN #2 05/15/16 04/26/18 [Excedrin Extra Strength] insulin glargine [Lantus Solostar 48 u SQ HS #3 box 02/05/17 04/26/18 U-100 Insulin] blood sugar diagnostic [OneTouch #200 strip 02/26/17 Ultra Test] lancets [OneTouch Delica Lancets] #200 ea 07/14/17 venlafaxine 225 mg PO DAILY #90 tab-cap 07/14/17 04/26/18 venlafaxine 225 mg PO DAILY #90 tab-cap 07/14/17 04/26/18 albuterol sulfate [ProAir HFA] 1 - 2 puff INHALATION Q4-6H PRN #1 08/26/17 04/26/18 inhaler aspirin [Aspir-81] 81 mg PO DAILY #90 tab-cap 08/26/17 04/26/18 empagliflozin [Jardiance] 25 mg PO DAILY #90 tab-cap 08/26/17 04/26/18 fluticasone [Flonase Allergy 1 - 2 spry NS DAILY PRN #1 bottle 08/26/17 04/26/18 Relief] metformin [Glucophage] 0 PO See Instructions #225 tab-cap 08/26/17 blood-glucose meter #1 unit 11/19/17 bupropion HCl [Wellbutrin XL] 450 mg PO DAILY #135 tab-cap 18 04/26/18 epinephrine [EpiPen 2-Jesus Alberto] 0.3 mg IM ONCE PRN #1 kit 11/19/17 pen needle, diabetic [BD #100 11/19/17 Ultra-Fine Orig Pen Needle] ibuprofen 600 mg PO QID PRN #20 tab 04/26/18 Previous Rx's Medication Instructions Recorded blood sugar diagnostic [OneTouch #200 strip 02/26/17 Ultra Test] lancets [OneTouch Delica Lancets] #200 ea 07/14/17 venlafaxine 225 mg PO DAILY #90 tab-cap 07/14/17 venlafaxine 225 mg PO DAILY #90 tab-cap 07/14/17 albuterol sulfate [ProAir HFA] 1 - 2 puff INHALATION Q4-6H PRN #1 08/26/17 inhaler aspirin [Aspir-81] 81 mg PO DAILY #90 tab-cap 08/26/17 empagliflozin [Jardiance] 25 mg PO DAILY #90 tab-cap 08/26/17 blood-glucose meter #1 unit 11/19/17 bupropion HCl [Wellbutrin XL] 450 mg PO DAILY #135 tab-cap 11/19/17 pen needle, diabetic [BD #100 11/19/17 Ultra-Fine Orig Pen Needle] ibuprofen 600 mg PO QID PRN #20 tab 04/26/18 Allergies Allergy/AdvReac Type Severity Reaction Status Date / Time insect venom Allergy Unknown Anaphylaxsi Unverified 04/26/18 16:49 s Sulfa (Sulfonamide Allergy Unknown HIVES, RASH Unverified 04/26/18 16:49 Antibiotics) General Stated Complaint: Orthopedic GERARDO: 4 Review of Systems Constitutional Reports as per HPI, Denies chills, Denies fever(s), Denies headache(s) and Denies weakness ENT Denies headache(s) Cardiovascular Reports as per HPI Respiratory Reports as per HPI and Denies cough Musculoskeletal Reports as per HPI and Reports abnormal gait (ambulating with antalgic gait) Integumentary/Breasts Reports as per HPI, Denies rash and Denies wounds Neurologic Reports abnormal gait (ambulating with antalgic gait), Denies headache(s), Reports paresthesias (patient has history of peripheral neuropathy, no acute changes) and Denies weakness PFSH Family History Daughter Chiari malformation type I Seizure disorder Mother Diabetes Sister Mental disorder Sister No problems noted. Sister No problems noted. Brother Substance abuse Brother Substance abuse Brother Substance abuse Brother Substance abuse Daughter No problems noted. Father No problems noted. Grandmother Neoplasm Cerebrovascular accident Medical History Depression with Irritability and anxiety Diabetes Mellitus Type II Elevated BP GERD without esophagitis Increased BMI Left Sciatica Male erectile disorder Obstructive Sleep apnea PTSD Thush Tobacco Use Social History Smoking/Tobacco Use Status: Current every day Exam Const General: cooperative, healthy appearing, comfortable, no acute distress, well developed and well groomed Nutritional Appearance: average body habitus and well nourished Orientation: alert and awake HENMT Head: normal to inspection, normocephalic and atraumatic Ears: hearing grossly normal bilaterally Resp Effort & Inspection: normal respiratory effort, able to speak in complete sentences and no respiratory distress Cardio Rate: regular rate Rhythm: regular rhythm Skin General skin exam: no rashes or lesions noted Lesions: no lesions Rashes: no rashes Trauma: no lacerations or abrasions Neuro General: alert and awake Cognition: normal cognition Speech: speech normal Gait: antalgic Motor: muscle tone normal throughout Sensory Exam: no sensory deficits noted Extrem Left lower extremity: normal capillary refill; abnormal to inspection (patient has swelling to lateral malleolus. No discoloration, no opening in the skin. Patient was on palpation over this area, particularly over the ATFL. Patient will not range the ankle secondary to discomfort. He is also expressing pain in the foot this is not easily reproducible. Reports he d), no cyanosis, no edema and joint enlargement noted Psych Appearance: grossly normal and well kempt Mental Status: mental status grossly normal Speech and Movement: speech and movement normal Course Vital Signs Temperature 36.6 C 04/26/18 16:45 Pulse 83 04/26/18 16:45 Respiratory Rate 16 04/26/18 16:45 Blood Pressure 136/76 04/26/18 16:45 Pulse Oximetry 98 04/26/18 16:45 Temperature 36.6 C 04/26/18 16:45 Temperature Source Temporal Artery Scan 04/26/18 16:45 Pulse 83 11/27/18 16:45 Respiratory Rate 16 04/26/18 16:45 Respiratory Effort Non-Labored 04/26/18 17:01 Blood Pressure 136/76 04/26/18 16:45 Blood Pressure Position Standing 04/26/18 16:45 Pulse Oximetry 98 04/26/18 16:45 Pain Level 8 04/26/18 16:45
--- NOTE | 2018-04-26 17:04 | DI.RAD_ITS ---
SYMPTOMS/DIAGNOSIS: TRAUMA LEFT ANKLE: No fracture or dislocation is seen. The ankle mortise is not widened. Heel spurs are incidentally noted. IMPRESSION: No acute abnormality. LEFT FOOT: No fracture or dislocation is seen. Heel spurs are noted. There is mild soft tissue swelling. There are no bony erosions. IMPRESSION: No acute abnormality.
[2018-04-26] MEDS: Acetaminophen 500 MG TAB 1000 MG PO (17:17)
[2018-04-26] MEDS: Ibuprofen 600 MG TAB PO (17:17)
--- NOTE | 2018-04-26 17:18 | ED.GENADUL_ITS ---
Discharge Plan Disposition Patient Disposition: HOME Condition: Fair Discharge Details Chief Complaint: Orthopedic Clinical Impression: Ankle sprain Reason For Visit: left ankle pain Primary Care Provider: Sandy Sanchez ED Provider: Leia Blum Home Meds and New Rx's Prescriptions: New ibuprofen 600 mg tablet 600 mg PO QID PRN (Reason: pain) Qty: 20 RF: 0 Continue [id number] [Excedrin Extra Strength] 1 EACH tablet 1 ea PO PRN Qty: 2 RF: 0 OneTouch Ultra Mini 1 PRN RF: 0 insulin glargine [Lantus Solostar U-100 Insulin] 100 UNIT/1 ML insulin pen 48 u SQ HS Qty: 3 RF: 3 blood sugar diagnostic [OneTouch Ultra Test] 1 EACH strip 1 ea Miscellaneous BID Qty: 200 RF: 3 venlafaxine 75 MG capsule,extended release 24hr 225 mg PO DAILY Qty: 90 RF: 3 venlafaxine 150 MG capsule,extended release 24hr 225 mg PO DAILY Qty: 90 RF: 3 lancets [OneTouch Delica Lancets] 1 EACH misc 1 ea Miscellaneous BID Qty: 200 RF: 3 aspirin [Aspir-81] 81 MG tablet,delayed release (DR/EC) 81 mg PO DAILY Qty: 90 RF: 3 metformin [Glucophage] 1,000 MG tablet PO See Instructions Qty: 225 RF: 3 albuterol sulfate [ProAir HFA] 8.5 GM HFA aerosol inhaler 1 - 2 puff Inhalation Q4-6H PRN Qty: 1 RF: 3 fluticasone [Flonase Allergy Relief] 9.9 ML spray,suspension 1 - 2 spry NS DAILY PRNQty: 1 RF: 3 empagliflozin [Jardiance] 25 MG tablet 25 mg PO DAILY Qty: 90 RF: 3 blood-glucose meter 1 EACH misc 1 ea Miscellaneous DAILY Qty: 1 RF: 0 epinephrine [EpiPen 2-Jesus Alberto] 0.3 MG/0.3 ML auto-injector 0.3 mg IM ONCE PRNQty: 1 RF: 0 pen needle, diabetic [BD Ultra-Fine Orig Pen Needle] 1 EACH needle 1 ndl SQ DAILY Qty: 100 RF: 3 bupropion HCl [Wellbutrin XL] 150 MG tablet extended release 24 hr 450 mg PO DAILY Qty: 135 RF: 0 Discharge Instructions Instructions: Ankle Sprain (ED) Additional Instructions: Encourage rest, ice, elevation. Tylenol and/or Ibuprofen as needed for discomfort. Please use lace up ankle brace for the next week, if pain persists after this please continue with use. Please follow up with primary care in 2 weeks if symptoms persist. If you develop new/worsening symptoms please seek care urgently once again. Stand Alone Forms: Work Release Referrals: Sandy Sanchez NP [Primary Care Provider] - Medical Decision Making Patient 37-year-old male presents today with chief complaint left ankle pain. He reports that a few hours prior to arrival he missed stepped and the last step going down stairs in his home, suffered internal rotational event and had a sudden onset of pain along the lateral aspect of the ankle. Is concerned that he may have a fracture. Reports the pain is maximal over the lateral and anterior aspect of the ankle. Patient does have history of peripheral neuropathy and reports that he has chronic low-grade discomfort in the foot which is unchanged since the incident. Benefit was not easily reproducible. Did not seem point tender in one spot. However, given the peripheral neuropathy I feel that imaging of this is appropriate as well. Achilles is palpated to be intact. No pain in the fibular head or neck. Plan to obtain x- ray of the patient's ankle and foot. We will treat his discomfort with ibuprofen and Tylenol. He is currently icing and elevating the extremity. Reports that he also struck his head but this is minimal. Denies headache at this time. No loss conscious. No nausea vomiting. Reports that this is not was bring him to the department at this time X-ray left ankle was reviewed by radiologist. Intact ankle mortise. No fracture dislocation. Small calcaneal spurs. Swelling of the lateral left ankle soft tissues. Swelling of anterior ankle soft tissues. No fracture. X-ray of the patient's left foot reviewed by radiologist no acute abnormalities noted Discussed the findings with the patient. Advised likely ankle sprain his pain is maximal over the ATFL. Encouraged rest, ice, elevation. Tylenol and/or ibuprofen as needed for discomfort. Patient will be fitted with a lace up ankle brace. Was ambulated prior to presentation, did ambulate into the department with an antalgic gait. Discussed activities that he should avoid. Work note was given that allowed for elevation. We discussed new/worsening symptoms and when to seek care urgently once again. Advised follow-up with primary care in 2 weeks if symptoms have not improved. All of his questions and concerns were addressed and he is in agreement with this plan HPI General Mode of arrival: ambulatory . Date/Time Provider Initiated Documentation: 04/26/18 17:03 . Limitations to Documentation: no limitations . Information obtained by: patient . History of Present Illness 37 year old M presents to the emergency department with the chief complaint of left ankle, described as moderate, with intensity rated at 8. Quality is described as sharp, and is localized to the left and lower extremity. Patient reports no radiation. Patient started experiencing this hour(s) (fell at 1400) and it has been constant. Immobilization improves symptom(s), Movement worsens symptoms . Patient notes no other symptoms.; denies fever/ chills, nausea/vomiting, rash and weakness. Patient did receive the following treatments prior to arrival, none Related Data Home Medications Medication Instructions Recorded Confirmed Onetouch Ultra Mini 1 PRN 05/15/16 [id number] 1 ea PO PRN #2 05/15/16 04/26/18 [Excedrin Extra Strength] insulin glargine [Lantus Solostar 48 u SQ HS #3 box 02/05/17 04/26/18 U-100 Insulin] blood sugar diagnostic [OneTouch #200 strip 02/26/17 Ultra Test] lancets [OneTouch Delica Lancets] #200 ea 07/14/17 venlafaxine 225 mg PO DAILY #90 tab-cap 07/14/17 04/26/18 venlafaxine 225 mg PO DAILY #90 tab-cap 07/14/17 04/26/18 albuterol sulfate [ProAir HFA] 1 - 2 puff INHALATION Q4-6H PRN #1 08/26/1704/26 inhaler aspirin [Aspir-81] 81 mg PO DAILY #90 tab-cap 08/26/17 04/26/18 empagliflozin [Jardiance] 25 mg PO DAILY #90 tab-cap 08/26/17 04/26/18 fluticasone [Flonase Allergy 1 - 2 spry NS DAILY PRN #1 bottle 08/26/17 04/26/18 Relief] metformin [Glucophage] 0 PO See Instructions #225 tab-cap 08/26/17 blood-glucose meter #1 unit 11/19/17 bupropion HCl [Wellbutrin XL] 450 mg PO DAILY #135 tab-cap 18 04/26/18 epinephrine [EpiPen 2-Jesus Alberto] 0.3 mg IM ONCE PRN #1 kit 11/19/17 pen needle, diabetic [BD #100 11/19/17 Ultra-Fine Orig Pen Needle] ibuprofen 600 mg PO QID PRN #20 tab 04/26/18 Previous Rx's Medication Instructions Recorded blood sugar diagnostic [OneTouch #200 strip 02/26/17 Ultra Test] lancets [OneTouch Delica Lancets] #200 ea 07/14/17 venlafaxine 225 mg PO DAILY #90 tab-cap 07/14/17 venlafaxine 225 mg PO DAILY #90 tab-cap 07/14/17 albuterol sulfate [ProAir HFA] 1 - 2 puff INHALATION Q4-6H PRN #1 08/26/17 inhaler aspirin [Aspir-81] 81 mg PO DAILY #90 tab-cap 08/26/17 empagliflozin [Jardiance] 25 mg PO DAILY #90 tab-cap 08/26/17 blood-glucose meter #1 unit 11/19/17 bupropion HCl [Wellbutrin XL] 450 mg PO DAILY #135 tab-cap 11/19/17 pen needle, diabetic [BD #100 11/19/17 Ultra-Fine Orig Pen Needle] ibuprofen 600 mg PO QID PRN #20 tab 04/26/18 Allergies Allergy/AdvReac Type Severity Reaction Status Date / Time insect venom Allergy Unknown Anaphylaxsi Unverified 04/26/18 16:49 s Sulfa (Sulfonamide Allergy Unknown HIVES, RASH Unverified 04/26/18 16:49 Antibiotics) General Stated Complaint: Orthopedic GERARDO: 4 Review of Systems Constitutional Reports as per HPI, Denies chills, Denies fever(s), Denies headache(s) and Denies weakness ENT Denies headache(s) Cardiovascular Reports as per HPI Respiratory Reports as per HPI and Denies cough Musculoskeletal Reports as per HPI and Reports abnormal gait (ambulating with antalgic gait) Integumentary/Breasts Reports as per HPI, Denies rash and Denies wounds Neurologic Reports abnormal gait (ambulating with antalgic gait), Denies headache(s), Reports paresthesias (patient has history of peripheral neuropathy, no acute changes) and Denies weakness PFSH Family History Daughter Chiari malformation type I Seizure disorder Mother Diabetes Sister Mental disorder Sister No problems noted. Sister No problems noted. Brother Substance abuse Brother Substance abuse Brother Substance abuse Brother Substance abuse Daughter No problems noted. Father No problems noted. Grandmother Neoplasm Cerebrovascular accident Medical History Depression with Irritability and anxiety Diabetes Mellitus Type II Elevated BP GERD without esophagitis Increased BMI Left Sciatica Male erectile disorder Obstructive Sleep apnea PTSD Thush Tobacco Use Social History Smoking/Tobacco Use Status: Current every day Exam Const General: cooperative, healthy appearing, comfortable, no acute distress, well developed and well groomed Nutritional Appearance: average body habitus and well nourished Orientation: alert and awake HENMT Head: normal to inspection, normocephalic and atraumatic Ears: hearing grossly normal bilaterally Resp Effort & Inspection: normal respiratory effort, able to speak in complete sentences and no respiratory distress Cardio Rate: regular rate Rhythm: regular rhythm Skin General skin exam: no rashes or lesions noted Lesions: no lesions Rashes: no rashes Trauma: no lacerations or abrasions Neuro General: alert and awake Cognition: normal cognition Speech: speech normal Gait: antalgic Motor: muscle tone normal throughout Sensory Exam: no sensory deficits noted Extrem Left lower extremity: normal capillary refill; abnormal to inspection (patient has swelling to lateral malleolus. No discoloration, no opening in the skin. Patient was on palpation over this area, particularly over the ATFL. Patient will not range the ankle secondary to discomfort. He is also expressing pain in the foot this is not easily reproducible. Reports he d), no cyanosis, no edema and joint enlargement noted Psych Appearance: grossly normal and well kempt Mental Status: mental status grossly normal Speech and Movement: speech and movement normal Course Vital Signs Temperature 36.6 C 04/26/18 16:45 Pulse 83 04/26/18 16:45 Respiratory Rate 16 04/26/18 16:45 Blood Pressure 136/76 04/26/18 16:45 Pulse Oximetry 98 04/26/18 16:45 Temperature 36.6 C 04/26/18 16:45 Temperature Source Temporal Artery Scan 04/26/18 16:45 Pulse 83 11/27/18 16:45 Respiratory Rate 16 04/26/18 16:45 Respiratory Effort Non-Labored 04/26/18 17:01 Blood Pressure 136/76 04/26/18 16:45 Blood Pressure Position Standing 04/26/18 16:45 Pulse Oximetry 98 04/26/18 16:45 Pain Level 8 04/26/18 16:45
--- NOTE | 2018-04-26 17:41 | DI.VRAD_ITS ---
EXAM: XR Left Foot Complete, 3 or more Views EXAM DATE/TIME: 04/26/2018 5:10 PM CLINICAL HISTORY: 37 years old, male; Signs and symptoms; Other: Trauma TECHNIQUE: XR Left foot 3 or more views. COMPARISON: CR LEFT FOOT COMPLETE 07/11/2016 10:08 AM FINDINGS: Bones/joints: Small superior and inferior calcaneal spurs. Normal bone density. No fracture or dislocation. Soft tissues: Mild swelling of the foot soft tissues. IMPRESSION: No fracture. Dictated and Authenticated by: Zoran August MD. Ordering:PARUL SORIA MD
--- NOTE | 2018-04-26 17:42 | DI.VRAD_ITS ---
EXAM: XR Left Ankle Complete, 3 or more Views EXAM DATE/TIME: 04/26/2018 5:10 PM CLINICAL HISTORY: 37 years old, male; Signs and symptoms; Other: Trauma TECHNIQUE: XR Left ankle 3 or more views. COMPARISON: CR LEFT ANKLE COMPLETE 07/11/2016 10:08 AM FINDINGS: Bones/joints: Intact ankle mortise. No fracture or dislocation. Small calcaneal spurs. Soft tissues: Swelling of the lateral ankle soft tissues. Swelling of the anterior ankle soft tissues. IMPRESSION: No fracture. Dictated and Authenticated by: Zoran August MD. Ordering:PARUL SORIA MD
== END 2018-04-26 18:48 | disposition home or self-care (01) ==
PROVIDERS: Emergency Provider Physician Assistant; PCP Nurse Practitioner Family
DX: S93.402A Sprain of unspecified ligament of left ankle, initial encounter (principal); W10.8XXA Fall (on) (from) other stairs and steps, initial encounter
CPT/HCPCS: 29125; 99283; 73610; 73630; 99282; L1902

== ENCOUNTER 2018-06-16 08:44 | Outpatient (CLI) | payer MEDICAID, SELFPAY ==
[2018-06-16 09:54] LABS: Cholesterol 179 mg/dL (50-200); HDL Cholesterol 27 mg/dL (40-60); LDL CHOLESTEROL 127 mg/dL (<100); Triglyceride 163 mg/dL (30-150)
== END 2018-06-16 09:04 ==
PROVIDERS: PCP Nurse Practitioner Family; Visit Provider Nurse Practitioner Family
DX: E78.5 Hyperlipidemia, unspecified (principal)
CPT/HCPCS: 36415; 80061; 83721

== ENCOUNTER 2018-06-20 00:15 | Outpatient (CLI) | payer MEDICAID, SELFPAY ==
--- NOTE | 2018-06-20 10:25 | DI.CT_ITS ---
SYMPTOMS/DIAGNOSIS: ADRENAL NODULE, E27.9, INCIDENTAL, 1-YEAR F/U CT SCAN OF THE ABDOMEN AND PELVIS: CT scan of the abdomen and pelvis was performed following the uneventful administration of intravenous contrast material. Oral contrast was also administered. Comparison examinations are 06/19/17 and 01/23/18. The lung bases are clear. There is diffuse decreased attenuation of the liver consistent with hepatic steatosis. No discrete hepatic mass is seen. The gallbladder is negative. No biliary ductal dilatation is present. The portal, superior mesenteric and splenic veins are patent. The pancreas and spleen are unremarkable. The left adrenal gland has a normal appearance. There is again seen a hypodense fat attenuation 1.9 cm x 1.2 cm nodule on the right adrenal gland. This is unchanged in size or appearance compared to the prior examination. The kidneys show normal and symmetric enhancement. No evidence of a solid renal mass, calculus or obstruction is identified. The urinary bladder is intact. The reproductive organs are unremarkable. The abdominal aorta is of normal caliber. No aneurysmal dilatation is present. No significant abdominal or pelvic adenopathy, ascites or pneumoperitoneum is present. The bowel is unremarkable. No findings to suggest an acute appendicitis are present. The bones are intact. IMPRESSION: 1. Stable right adrenal nodule. 2. Hepatic steatosis.
[2018-06-20] MEDS: Breeza Beverage 473 ML BTL PO ×2 (13:55→13:56)
[2018-06-20] MEDS: Omnipaque 350 MG/ML 50 ML BTL PO (13:56)
== END 2018-06-20 00:35 ==
PROVIDERS: PCP Nurse Practitioner Family; Visit Provider Nurse Practitioner Family
DX: E27.9 Disorder of adrenal gland, unspecified (principal); K76.0 Fatty (change of) liver, not elsewhere classified
CPT/HCPCS: 74177; Q9967

== ENCOUNTER 2018-11-21 16:28 | Outpatient (CLI) | payer MEDICAID, SELFPAY ==
[2018-11-21 18:04] LABS: HCT 44.5 % (40.0-50.0); HGB 14.9 g/dL (13.5-17.5); Mean Corp. HGB Concentration 33.5 g/dL (32.0-36.0); Mean Corpuscular Hemoglobin 29.7 pg (27.0-33.0); Mean Corpuscular Volume 88.6 fL (80-95); Mean Platelet Volume 9.4 fL (8.0-11.0); Platelet Count 291 x1000/uL (130-400); RBC 5.02 m/cumm (4.50-6.00); White Blood Cell Count 8.17 k/cumm (4.4-10.8)
[2018-11-21 23:02] LABS: ALT 62 U/L (12-78); AST 26 U/L (15-37); Albumin 3.8 g/dL (3.4-5.0); Alkaline Phosphatase 96 U/L (46-116); Anion Gap 11.8 mmol/L (3-11); BUN 16 mg/dL (7-18); Bilirubin, Total 0.3 mg/dL (0.2-1.0); CO2 28.2 mmol/L (21.0-32.0); Calcium 9.1 mg/dL (8.5-10.1); Chloride 101 mmol/L (98-107); Glucose 137 mg/dL (70-100); Potassium 4.1 mmol/L (3.5-5.1); Sodium 141 mmol/L (136-145); TSH (W/Ref FT4) 1.61 uIU/mL (0.358-3.74); Total Protein 7.3 g/dL (6.4-8.2)
== END 2018-11-21 16:48 ==
PROVIDERS: Nurse Practitioner; PCP Nurse Practitioner Family; Visit Provider Nurse Practitioner Family
DX: R00.0 Tachycardia, unspecified (principal); R11.0 Nausea; R42 Dizziness and giddiness; I10 Essential (primary) hypertension
CPT/HCPCS: 36415; 80053; 85027; 84443

== ENCOUNTER 2018-11-23 05:52 | Emergency (ER) | payer MEDICAID, SELFPAY ==
[2018-11-23 05:54] VITALS: BP 100/60; PULSE 81; RESP 18; TEMP 36.4; O2SAT 98
--- NOTE | 2018-11-23 05:57 | ED.GENADUL_ITS ---
Discharge Plan Disposition Patient Disposition: HOME Condition: Stable Discharge Details Chief Complaint: EyeProblem Clinical Impression: Dermatitis Primary Care Provider: Sandy Sanchez ED Provider: Cesar Liu Home Meds and New Rx's Prescriptions: New triamcinolone acetonide 0.1 % ointment 1 applic TP TID 7 Days Qty: 30 RF: 0 erythromycin 5 mg/gram (0.5 %) ointment 1.25 cm OP TID 7 Days Qty: 3.5 RF: 0 No Action albuterol sulfate [ProAir HFA] 90 mcg/actuation HFA aerosol inhaler 1 - 2 puff Inhalation .Q4-6H PRN (Reason: shortness of breath or wheezing) Qty: 1 RF: 3 epinephrine [EpiPen 2-Jesus Alberto] 0.3 mg/0.3 mL auto-injector 0.3 mg IM ONCE PRN (Reason: anaphylaxis) Qty: 1 RF: 0 OneTouch Ultra Test strip 1 ea Miscellaneous BID Qty: 200 RF: 3 lancets [OneTouch Delica Lancets] 33 gauge misc 1 ea Miscellaneous BID Qty: 200 RF: 3 Jardiance 25 mg tablet 25 mg PO DAILY Qty: 90 RF: 3 venlafaxine 150 mg capsule,extended release 24hr 225 mg PO DAILY Qty: 90 RF: 3 venlafaxine 75 mg capsule,extended release 24hr 225 mg PO DAILY Qty: 90 RF: 3 metformin [Glucophage] 1,000 mg tablet See Rx Instructions PO BID Qty: 225 RF: 3 bupropion HCl [Wellbutrin XL] 150 mg tablet extended release 24 hr 450 mg PO DAILY Qty: 135 RF: 0 Excedrin Extra Strength 1 EACH tablet 1 ea PO PRN Qty: 2 RF: 0 OneTouch Ultra Mini 1 PRN RF: 0 aspirin [Aspir-81] 81 MG tablet,delayed release (DR/EC) 81 mg PO DAILY Qty: 90 RF: 3 fluticasone propionate [Flonase Allergy Relief] 9.9 ML spray,suspension 1 - 2 spry NS DAILY PRNQty: 1 RF: 3 blood-glucose meter 1 EACH misc 1 ea Miscellaneous DAILY Qty: 1 RF: 0 pen needle, diabetic [BD Ultra-Fine Orig Pen Needle] 1 EACH needle 1 ndl SQ DAILY Qty: 100 RF: 3 Lantus Solostar U-100 Insulin 100 unit/mL (3 mL) insulin pen 48 unit subcut HS Qty: 15 RF: 0 ibuprofen 600 mg tablet 600 mg PO QID PRN (Reason: pain) Qty: 20 RF: 0 Discharge Instructions Additional Instructions: use the steroid cream on the skin below the eyes and the antibiotic in the eye if not better after 5 days see your primary care provider if you feel you are worsening, have high fevers or severe worsening of pain return to the emergency department Discharge Data Discharge Date/Time-TO BE ENTERED AT DEPARTURE: 11/23/18 06:04 Medical Decision Making 38 yo male comes in with burning sensation around his lower eyes since this morning. Denies any trauma, falls, vision changes. He has mild erythema of the skin inferior to the eyes bilaterally with no warmth, no tenderness or crepitus. HAs very mild conjunctival injection of lower eyes bilaterally otherwise no corneal abrasions, perrl, eomi without pain. NO deep eye pain. Appears to have some local dermatitis of the skin so will start topical abx and also start topical abx to cover for conjunctivitis. No findings to suggest oribtal cellulitis and skin doesn't have appearnace of cellulitis. ADvised f/u with his ancillary specialist if not better within a week and return if worsening Differential Diagnosis dermatitis, conjunctivitis HPI General Mode of arrival: ambulatory . Date/Time Provider Initiated Documentation: 11/23/18 05:52 . Limitations to Documentation: no limitations . Information obtained by: patient . History of Present Illness 38 year old M presents to the emergency department with the chief complaint of burning around the eyes, described as mild, Quality is described as burning, and is localized to the eyes. Patient reports no radiation. and it has been constant. No relieving factors improve symptom(s), No exacerbating factors reported . Patient notes no other symptoms.. Patient did receive the following treatments prior to arrival, none Related Data Home Medications Medication Instructions Recorded Confirmed Excedrin Extra Strength 1 ea PO PRN #2 05/15/16 11/23/18 Onetouch Ultra Mini 1 PRN 05/15/16 11/21/18 aspirin [Aspir-81] 81 mg PO DAILY #90 tab-cap 08/26/17 11/23/18 fluticasone propionate [Flonase 1 - 2 spry NS DAILY PRN #1 bottle 08/26/17 11/23/18 Allergy Relief] blood-glucose meter #1 unit 11/19/17 11/21/18 pen needle, diabetic [BD #100 11/19/17 11/21/18 Ultra-Fine Orig Pen Needle] ibuprofen 600 mg PO QID PRN #20 tab 04/26/18 11/23/18 insulin glargine (U-100) 100 48 unit SUBCUT HS #15 ml 08/31/18 11/23/18 unit/mL (3 mL) subcutaneous pen albuterol sulfate HFA 90 1 - 2 puff INHALATION .Q4-6H PRN 09/14/18 11/23/18 mcg/actuation aerosol inhaler #1 device blood sugar diagnostic strips #200 strip 09/14/18 11/21/18 empagliflozin 25 mg tablet 25 mg PO DAILY #90 tab-cap 09/14/18 11/23/18 epinephrine 0.3 mg/0.3 mL 0.3 mg IM ONCE PRN #1 kit 09/14/18 11/23/18 injection, auto-injector lancets 33 gauge #200 ea 09/14/18 11/21/18 metformin 1,000 mg tablet See Rx Instructions PO BID #225 09/14/18 11/23/18 tab-cap venlafaxine ER 150 mg 225 mg PO DAILY #90 tab-cap 09/14/18 11/23/18 capsule,extended release 24 hr venlafaxine ER 75 mg 225 mg PO DAILY #90 tab-cap 09/14/18 11/23/18 capsule,extended release 24 hr bupropion HCl XL 150 mg 24 hr 450 mg PO DAILY #135 tab-cap 10/19/18 11/23/18 tablet, extended release erythromycin 1.25 cm OP TID 7 Days #3.5 gm 11/23/18 triamcinolone acetonide 1 applic TP TID 7 Days #30 gm 11/23/18 Previous Rx's Medication Instructions Recorded aspirin [Aspir-81] 81 mg PO DAILY #90 tab-cap 08/26/17 blood-glucose meter #1 unit 11/19/17 pen needle, diabetic [BD #100 11/19/17 Ultra-Fine Orig Pen Needle] ibuprofen 600 mg PO QID PRN #20 tab 04/26/18 insulin glargine (U-100) 100 48 unit SUBCUT HS #15 ml 08/31/18 unit/mL (3 mL) subcutaneous pen albuterol sulfate HFA 90 1 - 2 puff INHALATION .Q4-6H PRN 09/14/18 mcg/actuation aerosol inhaler #1 device blood sugar diagnostic strips #200 strip 09/14/18 empagliflozin 25 mg tablet 25 mg PO DAILY #90 tab-cap 09/14/18 epinephrine 0.3 mg/0.3 mL 0.3 mg IM ONCE PRN #1 kit 09/14/18 injection, auto-injector lancets 33 gauge #200 ea 09/14/18 metformin 1,000 mg tablet See Rx Instructions PO BID #225 09/14/18 tab-cap venlafaxine ER 150 mg 225 mg PO DAILY #90 tab-cap 09/14/18 capsule,extended release 24 hr venlafaxine ER 75 mg 225 mg PO DAILY #90 tab-cap 09/14/18 capsule,extended release 24 hr bupropion HCl XL 150 mg 24 hr 450 mg PO DAILY #135 tab-cap 10/19/18 tablet, extended release erythromycin 1.25 cm OP TID 7 Days #3.5 gm 11/23/18 triamcinolone acetonide 1 applic TP TID 7 Days #30 gm 11/23/18 Allergies Allergy/AdvReac Type Severity Reaction Status Date / Time insect venom Allergy Unknown Anaphylaxsi Verified 11/21/18 15:42 s Sulfa (Sulfonamide Allergy Unknown HIVES, RASH Verified 11/21/18 15:42 Antibiotics) General Stated Complaint: EyeProblem GERARDO: 4 Review of Systems Review of Systems All systems reviewed & are unremarkable except as noted in HPI and below Constitutional Denies chills, Denies fever(s) and Denies weakness Cardiovascular Denies chest pain and Denies dyspnea Respiratory Denies cough and Denies dyspnea Gastrointestinal Denies abdominal pain, Denies nausea and Denies vomiting Integumentary/Breasts Denies rash Neurologic Denies weakness PFS Social History Smoking/Tobacco Use Status: Current every day Tobacco Type: cigarettes Alcohol Intake: current Alcohol Intake frequency: holidays/special occasions only Drug use: Never Substance use type: does not use Caregiver/Support person: No Household members: spouse Number of Children: 2 Communication Needs: None Education Level: high school Details: 10 current occupation: [employer] Pets and animals: Yes Pets and animals: cat(s), dog(s) and guinea pig(s) Current gender identity: male What type of physical activity do you participate in: none Seatbelt use: sometimes Helmet use: No Do you feel safe at home: Yes Do you feel safe in your relationship?: Yes Exam Const General: no acute distress Orientation: alert HENMT Head: normal to inspection Ears: external ears normal General nose exam: external nose normal Mouth: moist mucous membranes Eyes Pupils: PERRL Neck Neck: normal visual inspection Resp Effort & Inspection: normal respiratory effort and able to speak in complete sentences Cardio Rate: regular rate Skin General skin exam: no rashes or lesions noted Neuro General: alert and oriented x3 Extrem General: normal to inspection Psych Mental Status: mental status grossly normal Course Vital Signs Temperature 36.4 C L 11/23/18 05:54 Pulse 81 11/23/18 05:54 Respiratory Rate 18 11/23/18 05:54 Blood Pressure 100/60 11/23/18 05:54 Pulse Oximetry 98 11/23/18 05:54 Temperature 36.4 C L 11/23/18 05:54 Temperature Source Temporal Artery Scan 11/23/18 05:54 Pulse 81 11/23/18 05:54 Respiratory Rate 18 11/23/18 05:54 Respiratory Effort 11/23/18 05:54 Blood Pressure 100/60 11/23/18 05:54 Pulse Oximetry 98 11/23/18 05:54 Oxygen Delivery Method Room Air 11/23/18 05:54 Oxygen Flow Rate 0 11/23/18 05:54
== END 2018-11-23 06:04 | disposition home or self-care (01) ==
LOC: ER 06:02
PROVIDERS: Emergency Provider Emergency Medicine; PCP Nurse Practitioner Family
DX: L30.9 Dermatitis, unspecified (principal); E11.9 Type 2 diabetes mellitus without complications; Z79.4 Long term (current) use of insulin
CPT/HCPCS: 99283

== ENCOUNTER 2018-11-24 01:50 | Outpatient (CLI) | payer MEDICAID, SELFPAY ==
--- NOTE | 2018-11-29 13:21 | HOLTER_ITS ---
DATE OF DICTATION: November 29, 2018 STUDY INDICATION: Heart racing. REQUESTING PROVIDER: Sonya Saul N.P. FINDINGS: The patient was monitored for 1 day and 4 hours. Baseline sinus rhythm. Average heart rate 83 bpm, range 62-120 bpm. One PVC. One PAC. One 3-beat atrial run 133 bpm. No pauses greater than 3 seconds. No high-degree heart block. No patient events. FINAL INTERPRETATION: No significant tachy- or bradyarrhythmias.
== END 2018-11-24 02:10 ==
PROVIDERS: PCP Nurse Practitioner Family; Visit Provider Nurse Practitioner
DX: R42 Dizziness and giddiness (principal); R00.2 Palpitations
CPT/HCPCS: 93225

== ENCOUNTER 2018-11-28 16:48 | Outpatient (CLI) | payer MEDICAID, SELFPAY | END 2018-11-28 17:08 | PROVIDERS: PCP Nurse Practitioner Family; Visit Provider Nurse Practitioner | DX: R42 Dizziness and giddiness (principal); R00.2 Palpitations | CPT/HCPCS: 93226 ==

== ENCOUNTER 2019-03-24 16:13 | Outpatient (REF) | payer MEDICAID, SELFPAY ==
[2019-03-24 20:35] LABS: COMMENT (LAB VIEW ONLY) 44.02 mg/dL; Microalb ug/mg Crea 11.1 ug/mg Cr
== END 2019-03-24 16:33 ==
LOC: LBN 16:13
PROVIDERS: PCP Nurse Practitioner Family; Visit Provider Nurse Practitioner Family
DX: E11.65 Type 2 diabetes mellitus with hyperglycemia (principal)
CPT/HCPCS: 82043; 82570

== ENCOUNTER 2019-05-30 22:37 | Emergency (ER) | payer MEDICAID, SELFPAY ==
[2019-05-30 22:41] VITALS: BP 137/73; PULSE 83; RESP 16; TEMP 36.2; O2SAT 99
--- NOTE | 2019-05-30 22:54 | ED.GENADUL_ITS ---
Discharge Plan Disposition Patient Disposition: HOME Condition: Good Discharge Details Chief Complaint: Nausea/Vomit/Diar Clinical Impression: Gastroenteritis Primary Care Provider: Sandy Sanchez ED Provider: Edilson Kendrick Home Meds and New Rx's Prescriptions: No Action Victoza 3-Jesus Alberto 0.6 mg/0.1 mL (18 mg/3 mL) pen injector 1.2 mg SC DAILY Qty: 9 RF: 3 Lantus Solostar U-100 Insulin 100 unit/mL (3 mL) insulin pen 52 unit subcut HS Qty: 45 RF: 3 (DME) pen needle, diabetic [BD Ultra-Fine Orig Pen Needle] 29 gauge x 1/2 needle 1 ndl SQ DAILY Qty: 100 RF: 3 fluticasone propionate [Flonase Allergy Relief] 50 mcg/actuation spray,suspension 1 - 2 spray NS DAILY PRN (Reason: nasal congestion) Qty: 1 RF: 3 albuterol sulfate [ProAir HFA] 90 mcg/actuation HFA aerosol inhaler 1 - 2 puff Inhalation .Q4-6H PRN (Reason: shortness of breath or wheezing) Qty: 1 RF: 3 epinephrine [EpiPen 2-Jesus Alberto] 0.3 mg/0.3 mL auto-injector 0.3 mg IM ONCE PRN (Reason: anaphylaxis) Qty: 1 RF: 0 (DME) OneTouch Ultra Test strip 1 ea Miscellaneous BID Qty: 200 RF: 3 (DME) lancets [OneTouch Delica Lancets] 33 gauge misc 1 ea Miscellaneous BID Qty: 200 RF: 3 Jardiance 25 mg tablet 25 mg PO DAILY Qty: 90 RF: 3 venlafaxine 150 mg capsule,extended release 24hr 225 mg PO DAILY Qty: 90 RF: 3 venlafaxine 75 mg capsule,extended release 24hr 225 mg PO DAILY Qty: 90 RF: 3 metformin [Glucophage] 1,000 mg tablet See Rx Instructions PO BID Qty: 225 RF: 3 Excedrin Extra Strength 1 EACH tablet 1 ea PO PRN Qty: 2 RF: 0 aspirin [Aspir-81] 81 MG tablet,delayed release (DR/EC) 81 mg PO DAILY Qty: 90 RF: 3 (DME) blood-glucose meter 1 EACH misc 1 ea Miscellaneous DAILY Qty: 1 RF: 0 bupropion HCl [Wellbutrin XL] 150 mg tablet extended release 24 hr 450 mg PO DAILY Qty: 270 RF: 3 ibuprofen 600 mg tablet 600 mg PO QID PRN (Reason: pain) Qty: 20 RF: 0 Discharge Instructions Instructions: Gastroenteritis (ED) Additional Instructions: At this time after imaging and labs I suspect your symptoms are from gastroenteritis which is likely from a virus. Please continue to drink plenty of fluids, and try to stick with an easy diet of bread, rice, applesauce. Avoid anything spicy or greasy. Please take twoc-bto-ocehtro Pepto-Bismol as needed to help with the diarrhea. Once you do have a bowel movement please bring it back in for testing. If you notice any worsening of your symptoms, or any new symptoms such as vomiting, diarrhea, fever, chills, shortness of breath, chest pain, numbness, weakness, or fainting , please return immediately to the emergency department for reevaluation. Please follow up with your primary care provider as soon as possible for reassessment and reevaluation. As always, it was a pleasure participating in your medical care today. Referrals: Sandy Sanchez NP [Primary Care Provider] - Medical Decision Making This is a 38-year-old male who presents with 4 days of diffuse watery diarrhea, abdominal cramping, epigastric and mid abdominal pain, with occasional dry heaving and vomiting. Exam demonstrates mild tenderness in these areas. No red flags of bleeding, bloody stool, foreign travel, recent antibiotics, or other abnormalities. He did have some sick contacts with diarrhea few weeks ago, but there was quite the variability between when his family members data and when he had it. Due to the patient's longevity of symptoms, mild abdominal tenderness, we will rehydrate, get a CT scan and reassess. 12:[address] results have returned, no evidence of acute process per radiology. No evidence of appendicitis or acute gallbladder pathology. There is evidence of mild enteritis, no evidence of obstruction. Laboratory work-up is unremarkable, the patient has not yet had a bowel movement here. We will give a stool slip for home. Electrolytes are normal. Lipase normal. After fluids and medication patient feels much better and would like to go home. Signs and symptoms appear clinically consistent with gastroenteritis, likely of a viral etiology. Recommend Pepto-Bismol for home use, continued fluids and brat diet. I have extensively reviewed the treatment plan and discharge instructions with the patient. I have addressed all patient concerns at this time. The patient was made aware of what symptoms to monitor for that would warrant a return to the emergency department. Discussed the plan with the patient, they demonstrate verbal understanding and agreement with our assessment and plan at this time. FINDINGS: Liver: Mild fatty liver changes. Gallbladder and bile ducts: Normal. No calcified stones. No ductal dilation. Pancreas: Normal. No ductal dilation. Spleen: Normal. No splenomegaly. Adrenals: Benign fatty right adrenal nodule measuring 19 mm. . No mass. Kidneys and ureters: Normal. No hydronephrosis. Stomach and bowel: Bowel pattern consistent with enteritis. Fluid-filled small bowel loops and large bowel loops without edema or obstructive pattern. Appendix: No evidence of appendicitis. Intraperitoneal space: Unremarkable. No free air. No significant fluid collection. Vasculature: Unremarkable. No abdominal aortic aneurysm. Lymph nodes: Lymph nodes are seen scattered through the mesenteric root measuring up to approximately 11 mm in transverse diameter. Bladder: Unremarkable as visualized. Reproductive: Unremarkable as visualized. Bones/joints: Unremarkable. No acute fracture. Soft tissues: Unremarkable. IMPRESSION: 1. Bowel pattern suggesting enteritis. No mechanical obstruction. Mild mesenteric adenitis. 2. Fatty liver changes. 3. Benign right adrenal nodule. Thank you for allowing us to participate in the care of your patient. Dictated and Authenticated by: Julian Lowe MD [facility] General Date/Time Provider Initiated Documentation: 05/30/19 22:41 . [facility] Narrative: This is a 38-year-old male with past medical history of diabetes, obesity, high cholesterol who presents today for evaluation of diarrhea. The patient states that few weeks ago multiple family members had brief 2 to 3-day episodes of diarrhea. Over the last 4 days he has endured diarrhea, nausea, dry heaving, and 1 or 2 episodes of vomiting. States he has 10 episodes of loose watery stool per day. He denies any blood. He denies any foreign travel, camping, antibiotic use, history of C. difficile. He does admit to mild generalized abdominal pain she describes in the supraumbilical region. He has no other complaints at this time. He has not been eating much because of his illness. He denies any other complaints at this time. No other modifying factors. Related Data Home Medications Medication Instructions Recorded Confirmed Excedrin Extra Strength 1 ea PO PRN #2 05/15/16 11/23/18 aspirin [Aspir-81] 81 mg PO DAILY #90 tab-cap 08/26/17 11/23/18 blood-glucose meter #1 unit 11/19/17 11/21/18 ibuprofen 600 mg PO QID PRN #20 tab 04/26/18 11/23/18 albuterol sulfate 90 mcg/actuation 1 - 2 puff INHALATION .Q4-6H PRN 09/14/18 11/23/18 aerosol inhaler #1 device blood sugar diagnostic #200 strip 09/14/18 11/21/18 empagliflozin 25 mg tablet 25 mg PO DAILY #90 tab-cap 09/14/18 11/23/18 epinephrine 0.3 mg/0.3 mL 0.3 mg IM ONCE PRN #1 kit 09/14/18 11/23/18 injection, auto-injector lancets 33 gauge #200 ea 09/14/18 11/21/18 metformin 1,000 mg tablet See Rx Instructions PO BID #225 09/14/18 11/23/18 tab-cap venlafaxine 150 mg 225 mg PO DAILY #90 tab-cap 09/14/18 11/23/18 capsule,extended release 24 hr venlafaxine 75 mg capsule,extended 225 mg PO DAILY #90 tab-cap 09/14/18 11/23/18 release 24 hr insulin glargine 100 unit/mL (3 52 unit SUBCUT HS #45 syringe 12/23/18 12/23/18 mL) subcutaneous pen liraglutide 0.6 mg/0.1 mL (18 mg/3 1.2 mg SC DAILY #9 ml 12/23/18 12/23/18 mL) subcutaneous pen injector pen needle, diabetic 29 gauge x #100 each 12/23/18 12/23/18 1/2 bupropion HCl 150 mg 24 hr tablet, 450 mg PO DAILY #270 tab-cap 03/22/19 extended release fluticasone propionate 50 1 - 2 spray NS DAILY PRN #1 unit 03/24/19 03/24/19 mcg/actuation nasal spray,suspension Previous Rx's Medication Instructions Recorded aspirin [Aspir-81] 81 mg PO DAILY #90 tab-cap 08/26/17 blood-glucose meter #1 unit 11/19/17 ibuprofen 600 mg PO QID PRN #20 tab 04/26/18 albuterol sulfate 90 mcg/actuation 1 - 2 puff INHALATION .Q4-6H PRN 09/14/18 aerosol inhaler #1 device blood sugar diagnostic #200 strip 09/14/18 empagliflozin 25 mg tablet 25 mg PO DAILY #90 tab-cap 09/14/18 epinephrine 0.3 mg/0.3 mL 0.3 mg IM ONCE PRN #1 kit 09/14/18 injection, auto-injector lancets 33 gauge #200 ea 09/14/18 metformin 1,000 mg tablet See Rx Instructions PO BID #225 09/14/18 tab-cap venlafaxine 150 mg 225 mg PO DAILY #90 tab-cap 09/14/18 capsule,extended release 24 hr venlafaxine 75 mg capsule,extended 225 mg PO DAILY #90 tab-cap 09/14/18 release 24 hr insulin glargine 100 unit/mL (3 52 unit SUBCUT HS #45 syringe 12/23/18 mL) subcutaneous pen liraglutide 0.6 mg/0.1 mL (18 mg/3 1.2 mg SC DAILY #9 ml 12/23/18 mL) subcutaneous pen injector pen needle, diabetic 29 gauge x #100 each 12/23/18 1/2 bupropion HCl 150 mg 24 hr tablet, 450 mg PO DAILY #270 tab-cap 03/22/19 extended release fluticasone propionate 50 1 - 2 spray NS DAILY PRN #1 unit 03/24/19 mcg/actuation nasal spray,suspension Allergies Allergy/AdvReac Type Severity Reaction Status Date / Time insect venom Allergy Unknown Anaphylaxsi Verified 05/30/19 22:44 s Sulfa (Sulfonamide Allergy Unknown HIVES, RASH Verified 05/30/19 22:44 Antibiotics) General Stated Complaint: Nausea/Vomit/Diar GERARDO: 3 Review of Systems All systems reviewed & are unremarkable except as noted in HPI and below [facility] Medical History (Updated 03/24/19 @ 16:36 by Sandy Sanchez NP) Adrenal mass, right (Chronic) 06/20/2018 1 year follow-up CT: stable --> recommended 2-year f/u (due 05/2020) Adult BMI > 30 (Chronic) Agoraphobia with panic attacks (Chronic) Anxiety disorder, unspecified (Chronic 06/15/16) Chronic laryngitis (Chronic 05/13/17) Chronic post-traumatic stress disorder (PTSD) (Chronic) 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 (Chronic 06/10/16) Last eye exam 06/10/2016: mild B/L GERD without esophagitis (Chronic) Hepatic steatosis (Chronic) Hyperlipidemia (Chronic 07/01/16) Major depressive disorder (Chronic) Male erectile disorder (Chronic) Mild intermittent asthma without complication (Chronic) Obstructive sleep apnea (Chronic) CPAP Peripheral polyneuropathy (Chronic 03/19/17) Tobacco use disorder (Chronic) 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) Goal HbA1c </= 7% Type 2 diabetes mellitus, with long-term current use of insulin (Acute) Social History Smoking/Tobacco Use Status: Current every day Tobacco Type: cigarettes Smoking packs per day: 1 Smoking cigarettes per day: 20.0 Years smoked: 20 Smoking pack- years: 20.00 Alcohol Intake: current Alcohol Intake frequency: holidays/special occasions only Drug use: Never Substance use type: does not use Caregiver/Support person: No Household members: spouse Number of Children: 2 Communication Needs: None and Corrective Lenses Education Level: high school Details: 10 current occupation: [employer] Pets and animals: Yes Pets and animals: cat(s), dog(s) and guinea pig(s) Current gender identity: male What is your relationship status?: Panel score (0-1 are the most socially isolated patients): 1 What type of physical activity do you participate in: none Seatbelt use: sometimes Helmet use: No Do you feel safe at home: Yes Do you feel safe in your relationship?: Yes Exam Narrative Exam Narrative: 1.Const: Well-nourished, Well-developed, appearing stated age 2.Eyes: PERRL, no conjunctival injection, and symmetrical lids. 3.ENT: Atraumatic external nose and ears. Moist MM. Neck: Symmetric, trachea midline, No thyromegaly. 4.CVS: +S1/S2, No murmurs or gallops. Peripheral pulses 2+ and equal in all extremities. Brisk capillary refill in all extremities. 5.RESP: Unlabored respiratory effort. Clear to auscultation bilaterally. No wheezes rales or rhonchi 6.GI: Soft,nondistended, No hepatosplenomegaly. No guarding or rebound. Mild tenderness throughout, primarily over the epigastric region, as well as the left mid abdominal quadrant. No genital pain or tenderness. 7.MSK: Normocephalic/Atraumatic, Extremities w/o deformity or ttp No cyanosis or clubbing, Normal movement of all extremities 8.Skin: Warm, Dry. No rashes or lesions. 9.Neuro: design assistant II-XII grossly intact. Sensation grossly intact, no focal neurolog ic deficits. 10.Psych: (AAO) x3. Appropriate mood and affect Course Vital Signs Vital signs: Vital Signs Temperature 36.2 C L 05/30/19 22:41 Pulse 83 05/30/19 22:41 Respiratory Rate 16 05/30/19 22:41 Blood Pressure 137/73 05/30/19 22:41 Pulse Oximetry 99 05/30/19 22:41 Temperature 36.2 C L 05/30/19 22:41 Temperature Source Temporal Artery Scan 05/30/19 22:41 Pulse 83 05/30/19 22:41 Respiratory Rate 16 05/30/19 22:41 Respiratory Effort Non-Labored 05/30/19 22:41 Blood Pressure 137/73 05/30/19 22:41 Blood Pressure Position Sitting 05/30/19 22:41 Pulse Oximetry 99 05/30/19 22:41 Oxygen Delivery Method Room Air 05/30/19 22:41 Oxygen Flow Rate 0 05/30/19 22:41 Pain Level 2 05/30/19 22:41
[2019-05-30 22:59] LABS: Lactate 1.5 mmol/L (0.6-1.4)
[2019-05-30 23:00] LABS: Abs Immature Grans 0.01 k/cumm (0.0-0.09); Absolute Basophil Count 0.02 k/cumm (0.0-0.2); Absolute Eosinophil Count 0.11 k/cumm (0.0-0.7); Absolute Lymphocyte Count 2.67 k/cumm (1.2-3.4); Absolute Monocyte Count 0.58 k/cumm (0.11-0.7); Absolute Neutrophil Count 4.72 k/cumm (1.2-6.7); Basophils % 0.2; Eosinophils % 1.4; HCT 49.9 % (40.0-50.0); HGB 17.1 g/dL (13.5-17.5); Immature Grans % 0.1; Lymphocytes % 32.9; Mean Corp. HGB Concentration 34.3 g/dL (32.0-36.0); Mean Corpuscular Hemoglobin 29.4 pg (27.0-33.0); Mean Corpuscular Volume 85.7 fL (80-95); Mean Platelet Volume 8.6 fL (8.0-11.0); Monocytes % 7.2; Neutrophils % 58.2; Platelet Count 298 x1000/uL (130-400); RBC 5.82 m/cumm (4.50-6.00); RBC Distribution Width 14.9 % (11.8-14.1); White Blood Cell Count 8.11 k/cumm (4.4-10.8)
[2019-05-30] MEDS: Ondansetron 4 MG/2 ML VIAL IVP (23:06)
[2019-05-30] MEDS: Normal Saline 1,000 ML 1000 ML IV (23:07)
[2019-05-30 23:14] LABS: ALT 82 U/L (16-63); AST 30 U/L (15-37); Albumin 3.8 g/dL (3.4-5.0); Alkaline Phosphatase 91 U/L (46-116); Anion Gap 12.6 mmol/L (3-11); BUN 13 mg/dL (7-18); Bilirubin, Total 0.4 mg/dL (0.2-1.0); CO2 25.4 mmol/L (21.0-32.0); CREATININE 1.13 mg/dL (0.70-1.30); Calcium 8.7 mg/dL (8.5-10.1); Chloride 103 mmol/L (98-107); Glucose 156 mg/dL (74-106); Lipase 117 U/L (73-393); Potassium 3.8 mmol/L (3.5-5.1); Sodium 141 mmol/L (136-145); Total Protein 8.1 g/dL (6.4-8.2)
[2019-05-30] MEDS: Omnipaque 350 MG/ML 100 ML BTL IJ (23:17)
--- NOTE | 2019-05-30 23:19 | DI.CT_ITS ---
EXAM: CT ABDOMEN PELVIS W CLINICAL HISTORY: Vomiting, generalized abdominal pain, diarrhea. TECHNIQUE: FINDINGS: CT examination of the abdomen and pelvis was performed with bolus infusion of 100 cc of Omnipaque 35 0. Images obtained through the lung bases are unremarkable. No significant abdominal wall hernia se en. Mild prominence of lymph nodes noted in the mesenteric root. Liver and spleen are grossly unrem arkable as is the pancreas. Adrenals and kidneys appear normal. Abdominal aorta is of normal diamet er and no major vascular abnormality is seen. Appendix is normal. No evidence of diverticulitis. M ild prominence of fluid-filled small bowel loops noted, this could be associated with enteritis. No other focal bowel abnormality seen. IMPRESSION: Section no evidence of acute intra-abdominal process except for possible enteritis.
[2019-05-30 23:34] VITALS: O2SAT 97
[2019-05-30 23:35] VITALS: BP 115/62; PULSE 70; O2SAT 97
--- NOTE | 2019-05-30 23:54 | DI.VRAD_ITS ---
PROCEDURE INFORMATION: Exam: CT Abdomen And Pelvis With Contrast Exam date and time: 05/30/2019 11:19 PM Age: 38 years old Clinical indication: Vomiting and other: Diarrhea; Patient HX: Diarrhea, vomiting, generalized abdominal pain TECHNIQUE: Imaging protocol: Computed tomography of the abdomen and pelvis with intravenous contrast. Radiation optimization: All CT scans at this facility use at least one of these dose optimization techniques: automated exposure control; mA and/or kV adjustment per patient size (includes targeted exams where dose is matched to clinical indication); or iterative reconstruction. Contrast material: OMNIPAQUE 350; Contrast volume: 100 ml; Contrast route: IV RAC; COMPARISON: CT Abdomen^ROUTINE ABDOMEN PELVIS WITH CONTRAST (Adult) 06/20/2018 3:08 PM FINDINGS: Liver: Mild fatty liver changes. Gallbladder and bile ducts: Normal. No calcified stones. No ductal dilation. Pancreas: Normal. No ductal dilation. Spleen: Normal. No splenomegaly. Adrenals: Benign fatty right adrenal nodule measuring 19 mm. . No mass. Kidneys and ureters: Normal. No hydronephrosis. Stomach and bowel: Bowel pattern consistent with enteritis. Fluid-filled small bowel loops and large bowel loops without edema or obstructive pattern. Appendix: No evidence of appendicitis. Intraperitoneal space: Unremarkable. No free air. No significant fluid collection. Vasculature: Unremarkable. No abdominal aortic aneurysm. Lymph nodes: Lymph nodes are seen scattered through the mesenteric root measuring up to approximately 11 mm in transverse diameter. Bladder: Unremarkable as visualized. Reproductive: Unremarkable as visualized. Bones/joints: Unremarkable. No acute fracture. Soft tissues: Unremarkable. IMPRESSION: 1. Bowel pattern suggesting enteritis. No mechanical obstruction. Mild mesenteric adenitis. 2. Fatty liver changes. 3. Benign right adrenal nodule. Dictated and Authenticated by: Julian Lowe MD. Ordering:YAMILEX Waggoner MD
[2019-05-31 00:21] VITALS: BP 109/63; PULSE 71; RESP 16; TEMP 36.7; O2SAT 96
== END 2019-05-31 00:20 | disposition home or self-care (01) ==
PROVIDERS: Emergency Provider Student in an Organized Health Care Education/Training Program; PCP Nurse Practitioner Family
DX: R10.13 Epigastric pain (principal); K52.9 Noninfective gastroenteritis and colitis, unspecified; E11.9 Type 2 diabetes mellitus without complications; Z79.4 Long term (current) use of insulin
CPT/HCPCS: 36415; 80053; 83690; 96361; 96374; 96375; 99285; 74177; 83605; 85025; 99284; J2405; J3490

== ENCOUNTER 2019-06-29 03:29 | Emergency (ER) | payer MEDICAID, SELFPAY ==
[2019-06-29 03:37] VITALS: BP 130/69; PULSE 81; RESP 20; TEMP 36.5; O2SAT 98
--- NOTE | 2019-06-29 04:01 | ED.GENADUL_ITS ---
Discharge Plan Disposition Patient Disposition: HOME Condition: Good Discharge Details Chief Complaint: RespSymp Clinical Impression: Viral URI Primary Care Provider: Sandy Sanchez ED Provider: Lance Curtis [place] Meds and New Rx's Prescriptions: Continued Victoza 3-Jesus Alberto 0.6 mg/0.1 mL (18 mg/3 mL) pen injector 1.2 mg SC DAILY Qty: 9 RF: 3 Lantus Solostar U-100 Insulin 100 unit/mL (3 mL) insulin pen 52 unit subcut HS Qty: 45 RF: 3 (DME) pen needle, diabetic [BD Ultra-Fine Orig Pen Needle] 29 gauge x 1/2 needle 1 ndl SQ DAILY Qty: 100 RF: 3 fluticasone propionate [Flonase Allergy Relief] 50 mcg/actuation spray,suspension 1 - 2 spray NS DAILY PRN (Reason: nasal congestion) Qty: 1 RF: 3 albuterol sulfate [ProAir HFA] 90 mcg/actuation HFA aerosol inhaler 1 - 2 puff Inhalation .Q4-6H PRN (Reason: shortness of breath or wheezing) Qty: 1 RF: 3 epinephrine [EpiPen 2-Jesus Alberto] 0.3 mg/0.3 mL auto-injector 0.3 mg IM ONCE PRN (Reason: anaphylaxis) Qty: 1 RF: 0 (DME) OneTouch Ultra Test strip 1 ea Miscellaneous BID Qty: 200 RF: 3 (DME) lancets [OneTouch Delica Lancets] 33 gauge misc 1 ea Miscellaneous BID Qty: 200 RF: 3 Jardiance 25 mg tablet 25 mg PO DAILY Qty: 90 RF: 3 venlafaxine 150 mg capsule,extended release 24hr 225 mg PO DAILY Qty: 90 RF: 3 venlafaxine 75 mg capsule,extended release 24hr 225 mg PO DAILY Qty: 90 RF: 3 metformin [Glucophage] 1,000 mg tablet See Rx Instructions PO BID Qty: 225 RF: 3 Excedrin Extra Strength 1 EACH tablet 1 ea PO PRN Qty: 2 RF: 0 aspirin [Aspir-81] 81 MG tablet,delayed release (DR/EC) 81 mg PO DAILY Qty: 90 RF: 3 (DME) blood-glucose meter 1 EACH misc 1 ea Miscellaneous DAILY Qty: 1 RF: 0 bupropion HCl [Wellbutrin XL] 150 mg tablet extended release 24 hr 450 mg PO DAILY Qty: 270 RF: 3 ibuprofen 600 mg tablet 600 mg PO QID PRN (Reason: pain) Qty: 20 RF: 0 Discharge Instructions Instructions: Upper Respiratory Infection (ED), How to Use a Metered-Dose Inhaler and a Spacer (ED) Additional Instructions: Rest and stay hydrated. Continue ibuprofen and pseudoephedrine as directed on the packaging. Use your inhaler every 4-6 hours with a spacer we have provided. Follow-up with your doctor next week if not doing better. Return to ED for altered mental status, increased difficulty breathing, new or worsening chest pain, vomiting, other concerns or problems. Referrals: Sandy Sanchez NP [Primary Care Provider] - Medical Decision Making Suspect this is all viral URI and bronchitis. Cough and chest burning likely related to the bronchitis mild asthma that he has history of. Doubt that this is cardiac at all. However he is obese, smokes and has diabetes. Will obtain EKG and troponin, but if troponin negative after having 3 days of chest pain not cardiac. Will give DuoNeb treatment here. We will also check glucose. EKG is normal. Troponin is negative. Glucose is just above 200. Chest burning and inability to take deep breaths better after DuoNeb. Patient will be given spacer to use with his inhaler. Recommend ibuprofen and pseudoephedrine on a regular basis as opposed to just twice daily. Patient to follow-up with primary care next week if not better. Return to ED if worse. Lab Data Lab results reviewed: Yes I reviewed the patient's lab results. ECG Data Attestation: I personally reviewed and interpreted this ECG (s) as follows: Interpretation: Sinus rhythm at 74. Normal axis and intervals. Normal ST segments. HPI General Mode of arrival: ambulatory . Date/Time Provider Initiated Documentation: 06/29/19 03:51 . Limitations to Documentation: no limitations . Information obtained by: patient and RN notes reviewed . HPI Narrative: Patient presents to ED with complaint of congestion, earache, cough. He has a burning sensation in his chest and feels like he cannot take a deep breath. That has been going on for about 3 to 4 days. He is feeling worse with congestion and ear pain. He denies having fever. He denies body aches, nausea, vomiting or abdominal pain. He has been using his inhalers. He took ibuprofen and pseudoephedrine yesterday morning but nothing since. He does smoke. He is also diabetic and obese. Related Data Home Medications Medication Instructions Recorded Confirmed Excedrin Extra Strength 1 ea PO PRN #2 05/15/16 06/29/19 aspirin [Aspir-81] 81 mg PO DAILY #90 tab-cap 08/26/17 06/29/19 blood-glucose meter #1 unit 11/19/17 06/29/19 ibuprofen 600 mg PO QID PRN #20 tab 04/26/18 06/29/19 albuterol sulfate 90 mcg/actuation 1 - 2 puff INHALATION .Q4-6H PRN 09/14/18 06/29/19 aerosol inhaler #1 device blood sugar diagnostic #200 strip 09/14/18 06/29/19 empagliflozin 25 mg tablet 25 mg PO DAILY #90 tab-cap 09/14/18 06/29/19 epinephrine 0.3 mg/0.3 mL 0.3 mg IM ONCE PRN #1 kit 09/14/18 06/29/19 injection, auto-injector lancets 33 gauge #200 ea 09/14/18 06/29/19 metformin 1,000 mg tablet See Rx Instructions PO BID #225 09/14/18 06/29/19 tab-cap venlafaxine 150 mg 225 mg PO DAILY #90 tab-cap 09/14/18 06/29/19 capsule,extended release 24 hr venlafaxine 75 mg capsule,extended 225 mg PO DAILY #90 tab-cap 09/14/18 06/29/19 release 24 hr insulin glargine 100 unit/mL (3 52 unit SUBCUT HS #45 syringe 12/23/18 06/29/19 mL) subcutaneous pen liraglutide 0.6 mg/0.1 mL (18 mg/3 1.2 mg SC DAILY #9 ml 12/23/18 06/29/19 mL) subcutaneous pen injector pen needle, diabetic 29 gauge x #100 each 12/23/18 06/29/19 1/2 bupropion HCl 150 mg 24 hr tablet, 450 mg PO DAILY #270 tab-cap 03/22/19 06/29/19 extended release fluticasone propionate 50 1 - 2 spray NS DAILY PRN #1 unit 03/24/19 06/29/19 mcg/actuation nasal spray,suspension Previous Rx's Medication Instructions Recorded aspirin [Aspir-81] 81 mg PO DAILY #90 tab-cap 08/26/17 blood-glucose meter #1 unit 11/19/17 ibuprofen 600 mg PO QID PRN #20 tab 04/26/18 albuterol sulfate 90 mcg/actuation 1 - 2 puff INHALATION .Q4-6H PRN 09/14/18 aerosol inhaler #1 device blood sugar diagnostic #200 strip 09/14/18 empagliflozin 25 mg tablet 25 mg PO DAILY #90 tab-cap 09/14/18 epinephrine 0.3 mg/0.3 mL 0.3 mg IM ONCE PRN #1 kit 09/14/18 injection, auto-injector lancets 33 gauge #200 ea 09/14/18 metformin 1,000 mg tablet See Rx Instructions PO BID #225 09/14/18 tab-cap venlafaxine 150 mg 225 mg PO DAILY #90 tab-cap 09/14/18 capsule,extended release 24 hr venlafaxine 75 mg capsule,extended 225 mg PO DAILY #90 tab-cap 09/14/18 release 24 hr insulin glargine 100 unit/mL (3 52 unit SUBCUT HS #45 syringe 12/23/18 mL) subcutaneous pen liraglutide 0.6 mg/0.1 mL (18 mg/3 1.2 mg SC DAILY #9 ml 12/23/18 mL) subcutaneous pen injector pen needle, diabetic 29 gauge x #100 each 12/23/18 1/2 bupropion HCl 150 mg 24 hr tablet, 450 mg PO DAILY #270 tab-cap 03/22/19 extended release fluticasone propionate 50 1 - 2 spray NS DAILY PRN #1 unit 03/24/19 mcg/actuation nasal spray,suspension Allergies Allergy/AdvReac Type Severity Reaction Status Date / Time insect venom Allergy Unknown Anaphylaxsi Verified 06/29/19 03:39 s Sulfa (Sulfonamide Allergy Unknown HIVES, RASH Verified 06/29/19 03:39 Antibiotics) General Stated Complaint: RespSymp GERARDO: 3 Review of Systems Narrative: As documented in HPI otherwise negative as below. 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 (Chronic 06/10/16) Last eye exam 06/10/2016: mild B/L GERD without esophagitis (Chronic) Hepatic steatosis (Chronic) Hyperlipidemia (Chronic 07/01/16) Major depressive disorder (Chronic) Male erectile disorder (Chronic) Mild intermittent asthma without complication (Chronic) Obstructive sleep apnea (Chronic) CPAP Peripheral polyneuropathy (Chronic 03/19/17) Tobacco use disorder (Chronic) 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) Goal HbA1c </= 7% Type 2 diabetes mellitus, with long-term current use of insulin (Acute) Social History Smoking/Tobacco Use Status: Current every day Tobacco Type: cigarettes Smoking packs per day: 1 Smoking cigarettes per day: 20.0 Years smoked: 20 Smoking pack- years: 20.00 Alcohol Intake: current Alcohol Intake frequency: holidays/special occasions only Substance use type: marijuana Caregiver/Support person: No Household members: spouse Number of Children: 2 Communication Needs: None and Corrective Lenses Education Level: high school Details: 10 current occupation: [employer] Pets and animals: Yes Pets and animals: cat(s), dog(s) and guinea pig(s) Current gender identity: male What is your relationship status?: Panel score (0-1 are the most socially isolated patients): 1 What type of physical activity do you participate in: none Seatbelt use: sometimes Helmet use: No Do you feel safe at home: Yes Do you feel safe in your relationship?: Yes Exam Narrative Exam Narrative: Vitals: Afebrile. Normal vital signs and room air pulse oximetry. Const: Obese male in NAD. HEENT: NC/AT. Normal facial exam. TMs are retracted without effusion, mild erythema. Eyes: Normal conjunctiva and sclera. Neck: Supple. Trachea midline. Lungs: Normal respiratory effort. Lungs diminished slightly with faint wheezing heard. Cor: RRR without murmur/gallop. Good radial pulses. Neuro: A+O x 3. Normal speech, mentation, gait. Cranial nerves II - XII grossly intact. No gross motor or sensory deficit. Skin: Warm and dry without rash. Course Vital Signs Vital signs: Vital Signs Temperature 97.7 F 06/29/19 03:37 Pulse 81 06/29/19 03:37 Respiratory Rate 20 06/29/19 03:37 Blood Pressure 130/69 06/29/19 03:37 Pulse Oximetry 98 06/29/19 03:37 Temperature 97.7 F 06/29/19 03:37 Temperature Source Temporal Artery Scan 06/29/19 03:37 Pulse 81 06/29/19 03:37 Respiratory Rate 20 06/29/19 03:37 Respiratory Effort 06/29/19 03:40 Respiratory Depth Normal 06/29/19 03:40 Blood Pressure 130/69 06/29/19 03:37 Pulse Oximetry 98 06/29/19 03:37 Oxygen Delivery Method Room Air 06/29/19 03:37 Oxygen Flow Rate 0 06/29/19 03:37 Pain Level 4 06/29/19 03:37
[2019-06-29 04:20] VITALS: RESP 1
[2019-06-29] MEDS: Albuterol/Ipratropium 3 ML UPD VIAL UPD (04:20)
[2019-06-29 04:27] LABS: Glucose 208 mg/dL (74-106); Troponin I < 0.05 ng/Ml (<0.06)
[2019-06-29] MEDS: Inhaler, Assist Device 1 EACH MC (04:50)
[2019-06-29 04:53] VITALS: BP 130/69; PULSE 81; RESP 20; TEMP 36.5; O2SAT 98
== END 2019-06-29 04:50 | disposition home or self-care (01) ==
PROVIDERS: Emergency Provider Emergency Medicine; PCP Nurse Practitioner Family
DX: J06.9 Acute upper respiratory infection, unspecified (principal); J20.9 Acute bronchitis, unspecified; F17.210 Nicotine dependence, cigarettes, uncomplicated; E11.9 Type 2 diabetes mellitus without complications; Z79.4 Long term (current) use of insulin
CPT/HCPCS: 36416; 82947; 82962; 93005; 94640; 99283; 84484; 93010; J7620

== ENCOUNTER 2019-11-21 01:08 | Outpatient (CLI) | payer MEDICAID, SELFPAY ==
[2019-11-21 08:31] LABS: Hemoglobin A1C 8.5 % (3.8-5.6)
[2019-11-21 09:58] LABS: ALT 68 U/L (16-63); AST 29 U/L (15-37); Albumin 3.7 g/dL (3.4-5.0); Alkaline Phosphatase 95 U/L (46-116); Anion Gap 10.3 mmol/L (3-11); BUN 21 mg/dL (7-18); Bilirubin, Total 0.3 mg/dL (0.2-1.0); CO2 27.7 mmol/L (21.0-32.0); CREATININE 1.15 mg/dL (0.70-1.30); Calcium 9.2 mg/dL (8.5-10.1); Chloride 102 mmol/L (98-107); Cholesterol 213 mg/dL (<200); Glucose 204 mg/dL (74-106); HDL Cholesterol 22 mg/dL (40-60); Sodium 140 mmol/L (136-145); Total Protein 7.3 g/dL (6.4-8.2); Triglyceride 448 mg/dL (<150)
[2019-11-21 10:11] LABS: LDL CHOLESTEROL 128 mg/dL (<100)
== END 2019-11-21 01:28 ==
PROVIDERS: PCP Nurse Practitioner Family; Visit Provider Nurse Practitioner Family
DX: E11.65 Type 2 diabetes mellitus with hyperglycemia (principal); K76.0 Fatty (change of) liver, not elsewhere classified; E78.5 Hyperlipidemia, unspecified
CPT/HCPCS: 36415; 80053; 80061; 83721; 83036

== ENCOUNTER 2019-12-21 11:11 | Outpatient (CLI) | payer MEDICAID, SELFPAY ==
--- NOTE | 2019-12-21 13:45 | DI.CT_ITS ---
EXAM: CT ABDOMEN PELVIS W CLINICAL HISTORY: perianal abscess, hematoma L hip trauma ?infection, K61.0, S70.02XA, E11.42 TECHNIQUE: Imaging Protocol: Axial computed tomography images with coronal and sagittal reformatted images were created and reviewed CONTRAST MATERIAL: Intravenous: Omnipaque 350 Contrast volume:125 mL Oral: Yes COMPARISON: CT CT ABDOMEN PELVIS W from 05/30/2019 FINDINGS: ABDOMEN: Lung Bases: Normal where visualized. Liver: Diffuse fatty infiltration. No measurable mass. 21 cm in length. Portal, Superior Mesenteric, and Splenic Veins: Unremarkable. Gallbladder and Biliary Tract: No radiodense calculus or dilation. Pancreas: Normal density, no abnormal calcifications or inflammatory process. Spleen: Normal. 17 cm in length. Adrenals: 2.2 x 1.7 cm fat density right adrenal mass. This probably represents a myelolipoma. Kidneys: Normal size, contour and axis. No radiodense stones or obstructive uropathy. No masses seen. Abdominal Aorta: Abdominal portion non-dilated. Bowel: No obstruction or bowel wall thickening. Appendix is unremarkable. Peritoneal Cavity: No ascites, collection or mesenteric inflammatory response. Lymph Nodes: Within normal limits. Bones: Mild degenerative changes. Soft Tissues: There is a 4.1 cm AP x 2 cm transverse by 3.1 cm craniocaudad thick-walled enhancing fl uid collection in the perianal soft tissues suggestive of an abscess. There is a 10.2 x 5.7 x 10.9 cm subcutaneous fluid collection adjacent to the left hip. It does not involve the underlying musculatu re. PELVIS: Bladder: Symmetric distention, no gross wall thickening. Reproductive Organs: Unremarkable as visualized. Lymph Nodes: Within normal limits. Bones: Mild degenerative changes. IMPRESSION: 1. 4.1 x 2 x 3.1 cm in capsulated fluid collection in the perianal soft tissues most suggestive of an abscess. 2. 10.2 x 5.7 x 10.9 cm subcutaneous fluid collection adjacent to the left hip. This may represent a hematoma, seroma or possible abscess. 3. Incidental findings in the abdomen or pelvis as described above. RADIATION DOSE DELIVERED: Total DLP DATA REPOSITORY: All CT scans at this facility are submitted to the National Radiology Data Registry (NRDR) Dose Index Registry (DIR) with the [employer] (ACR). RADIATION OPTIMIZATION: All CT scans at this facility use at least one of these dose optimization te chniques: automated exposure control; mA and/or kV adjustment per patient size (includes targeted exa ms where dose is matched to clinical indication); or iterative reconstruction.
[2019-12-21] MEDS: Omnipaque 350 MG/ML 50 ML BTL IJ ×2 (14:08→14:09)
[2019-12-21] MEDS: Omnipaque 350 MG/ML 100 ML BTL IJ (14:08)
[2019-12-21 14:38] LABS: INR 1.1 (0.9-1.1); Prothrombin Time 10.8 sec (9.3-11.0)
== END 2019-12-21 11:31 ==
PROVIDERS: PCP Nurse Practitioner Family; Visit Provider Physical Therapy Assistant
DX: E11.42 Type 2 diabetes mellitus with diabetic polyneuropathy (principal); K61.0 Anal abscess; S70.02XA Contusion of left hip, initial encounter; Z79.4 Long term (current) use of insulin; X58.XXXA Exposure to other specified factors, initial encounter
CPT/HCPCS: 36415; 74177; 85610; J3490; Q9967

== ENCOUNTER 2019-12-21 12:05 | Outpatient (REF) | payer MEDICAID, SELFPAY ==
[2019-12-21 12:19] LABS: Abs Immature Grans 0.02 k/cumm (0.0-0.09); Absolute Basophil Count 0.01 k/cumm (0.0-0.2); Absolute Eosinophil Count 0.06 k/cumm (0.0-0.7); Absolute Lymphocyte Count 1.73 k/cumm (1.2-3.4); Absolute Monocyte Count 0.42 k/cumm (0.11-0.7); Basophils % 0.1; Eosinophils % 0.7; HCT 47.3 % (40.0-50.0); HGB 15.8 g/dL (13.5-17.5); Immature Grans % 0.2 %; Lymphocytes % 20.3; Mean Corp. HGB Concentration 33.4 g/dL (32.0-36.0); Mean Corpuscular Hemoglobin 29.3 pg (27.0-33.0); Mean Corpuscular Volume 87.8 fL (80-95); Mean Platelet Volume 9.5 fL (8.0-11.0); Monocytes % 4.9; Neutrophils % 73.8; Platelet Count 303 x1000/uL (130-400); RBC 5.39 m/cumm (4.50-6.00); RBC Distribution Width 15.5 % (11.8-14.1); White Blood Cell Count 8.54 k/cumm (4.4-10.8)
[2019-12-21 13:08] LABS: BUN 17 mg/dL (7-18); Chloride 100 mmol/L (98-107); Glucose 229 mg/dL (74-106); Potassium 4.1 mmol/L (3.5-5.1); Sodium 139 mmol/L (136-145)
== END 2019-12-21 12:25 ==
LOC: LBN 12:05
PROVIDERS: PCP Nurse Practitioner Family; Visit Provider Physical Therapy Assistant
DX: K61.0 Anal abscess (principal); S70.02XA Contusion of left hip, initial encounter
CPT/HCPCS: 80048; 85025

== ENCOUNTER 2019-12-21 16:32 | Inpatient (IN) | payer MEDICAID, SELFPAY ==
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
[2019-12-21 17:31] VITALS: BP 128/77; PULSE 78; RESP 20; TEMP 37; O2SAT 97
[2019-12-21 17:42] VITALS: BP 128/77; PULSE 78; RESP 20; TEMP 37; O2SAT 97
[2019-12-21] MEDS: Normal Saline Flush 10 ML SYR IVP ×2 (19:02→22:05)
[2019-12-21] MEDS: PIPERACILLIN/TAZO 3.375 GM in Normal Saline 50 ML IVPB (19:02)
[2019-12-21 19:20] VITALS: BP 111/67; PULSE 83; RESP 17; TEMP 36.5; O2SAT 97
[2019-12-21] MEDS: busPIRone 5 MG TAB 7.5 MG PO (20:26)
[2019-12-21] MEDS: Sennosides/Docusate Sodium TAB 1 TAB PO (20:26)
[2019-12-21] MEDS: Acetaminophen 500 MG TAB 1000 MG PO (20:36)
[2019-12-21] MEDS: MORPHine 2 MG/ML SYR IVP (22:03)
[2019-12-21] MEDS: Chlorhexidine 4% 120 ML BTL TP (22:47)
[2019-12-21 23:40] VITALS: BP 121/83; PULSE 67; RESP 17; TEMP 36.5; O2SAT 98
[2019-12-22] VITALS (10 sets, daily range): BP systolic 106–134; BP diastolic 60–84; PULSE 61–73; RESP 16–20; TEMP 36–36.6; O2SAT 96–99
[2019-12-22] MEDS: PIPERACILLIN/TAZO 3.375 GM in Normal Saline 50 ML IVPB ×5 (00:49→23:56)
[2019-12-22] MEDS: Venlafaxine 37.5 MG CAPCR 75 MG PO (08:33)
[2019-12-22] MEDS: busPIRone 5 MG TAB 7.5 MG PO ×2 (08:33→19:16)
[2019-12-22] MEDS: MORPHine 2 MG/ML SYR IVP (08:33)
[2019-12-22] MEDS: Venlafaxine 150 MG CAPCR PO (08:33)
[2019-12-22] MEDS: Acetaminophen 500 MG TAB 1000 MG PO (08:33)
[2019-12-22] MEDS: Normal Saline Flush 10 ML SYR IVP ×4 (08:34→23:56)
[2019-12-22 14:30] LABS: COVID-19 RT-PCR UVMMC Result Negative (Negative)
--- NOTE | 2019-12-22 15:10 | PHACLINREV_ITS ---
Pharmacy Admission Review - Admission Clinical Review (Last Reviewed 12/16/19 @ 07:15 by Tamy Arenas DO) Hematoma of left hip (Acute) Perianal abscess (Acute) bee venom protein (honey bee) Allergy (Severe, Verified 12/21/19 08:50) Anaphylaxsis Sulfa (Sulfonamide Antibiotics) Allergy (Unknown, Verified 12/21/19 08:50) HIVES, RASH Height 5 ft 6.14 in Weight 128.367 kg - Renal Dosing Medications needing adjustments: Reviewed (Crcl ~114.5 mL/min using adjusted body weight. Current meds okay) - Anticoagulation DVT Prohphylaxis: Reviewed (OR today, watch for start postop) - Opiate Usage Scheduled Bowel Reg ordered if on Opiates?: Yes - Relevant Labs Electrolytes, C-Reactive P, ESR: N/A - DM Control DM Control: Finger Stick Blood Glucose 166 Finger Stick Blood Glucose 166 Finger Stick Blood Glucose 174 Insulin Dosing: Reviewed (currently has sliding scale aspart ordered and pt's own jardiance (has not been brought in)) - Heart Failure/[place] EF%, ALYSSA's, B-Blockers, Diuretics: N/A - BP Control BP Control: Blood Pressure 106/71 Blood Pressure 122/84 Blood Pressure 110/65 If elevated: N/A - Qtc Review If Elevated: N/A - IV to PO Switch IV Medications: N/A - Home Meds Home Med List reviewed: Reviewed (venlafaxine may enhance the tachycardic effect of epinephrine; avoid if possible or if used monitor for increased sympathomimetic effects. Empagliflozin and liraglutide may increase the hypoglycemic effects of insulin glargine, consider decreasing insulin dose when initiating therpy and monitor closely. Some discrepancies between home med list and external med history. I talked to the provider about this before verifying med orders. Some meds held while admitted (Insulin glargine, liraglutide).) Relevent Home Meds Not ordered & why?: aspirin, excedrin, ibuprofen, insulin glargine (held), liraglutide (held), metformin (held due to iohexol dose yest erday) - Current meds Current Medication Order Review: Intervened (talked to provider about home med orders and duplicate meds (different doses/frequencies)) - Comments Comments/Follow Ups: Watch BG and for med changes (dvt/pe prophylaxis postop). Antibiotic Activity - Pharmacy Antibiotic Review Pharmacy Antibiotic Activity: Reviewed, no change (zosyn continues (day 2 starts this afternoon), watch for BC results (currently pending))
[2019-12-22] MEDS: Lactated Ringers 1,000 ML 30 ML IV (15:15)
[2019-12-22] MEDS: Bupivacaine 0.5% Pres-Free 30 ML VIAL (15:45)
[2019-12-22] MEDS: Bupivacaine LIPOSOME/PF 133 MG/10 ML VIAL IJ (16:01)
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
[2019-12-22] MEDS: Ketorolac 30 MG/ML VIAL IVP ×2 (16:30→22:39)
[2019-12-22] MEDS: Insulin Aspart 300 UNITS/3 ML PEN SC (17:12)
[2019-12-22] MEDS: Sennosides/Docusate Sodium TAB 1 TAB PO (19:16)
[2019-12-23 03:47] VITALS: BP 127/78; PULSE 66; RESP 18; TEMP 36.6; O2SAT 99
[2019-12-23] MEDS: Normal Saline Flush 10 ML SYR IVP ×2 (03:56→06:49)
[2019-12-23] MEDS: Ketorolac 30 MG/ML VIAL IVP (04:01)
[2019-12-23] MEDS: PIPERACILLIN/TAZO 3.375 GM in Normal Saline 50 ML IVPB (06:48)
--- NOTE | 2019-12-23 07:16 | PGE_ITS ---
Date of Service Date of service: 12/23/19 Time of Service: 07:16 Assessment and Plan Assessment and plan (1) Hematoma of left hip: Status: Acute Assessment and plan: A\\ POD #1 s/p Incision and drainage. JARRED drain in place. I cut the tubing just past the small puncture and re-attached to the bulb. Bulb now suctioning without issue. P\\ Teach patient how to care for the JARRED drain and suction bulb Follow up with Dr. Lujan next week Qualifiers: Encounter type: initial encounter Qualified Code(s): S70.02XA - Contusion of left hip, initial encounter (2) Perianal abscess: Status: Acute Assessment and plan: A\\ POD #1 s/p Incision and drainage of abscess. Packing removed P\\ Showers 3-4 times a day and after each BM. 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 Patient states that is normal for him in the am. P\\ Albuterol is ordered will have nursing give him 2 puffs. (5) Mild intermittent asthma without complication: Status: Chronic Subjective Subjective Interval history since last seen: Mr. Bañuelos is doing well. Pain is controlled. Per Nursing staff they could not get the bulb to suction because of a small leak in the tubing. They tried placing tape over it. Exam Const General: cooperative, comfortable and no acute distress Orientation: alert and oriented x3 HENMT Head: normocephalic and atraumatic Resp Effort & Inspection: normal respiratory effort Auscultation: wheezes expiratory wheezes Cardio Rate: regular rate Rhythm: regular rhythm Heart Sounds: no murmurs GI Inspection: normal to inspection and obesity Palpation: soft and nontender Auscultation: normal bowel sounds Other: Jie-rectal area- abscess cavity with packing. There is serosanguinous discharge on the peripad. Packing removed. Extrem Other: Left Hip- JARRED drain in place. Serosanguinous discharge in the bulb. Objective Objective Clinical Data: Vital Signs Temperature 97.9 F 12/23/19 03:47 Temperature Source Tympanic 12/23/19 03:47 Pulse 66 12/23/19 03:47 Pulse Rhythm Regular 12/23/19 01:12 Respiratory Rate 18 12/23/19 03:47 Respiratory Effort Non-Labored 12/23/19 01:12 Respiratory Depth Normal 12/23/19 01:12 Respiratory Pattern Normal 12/23/19 01:12 Blood Pressure 127/78 12/23/19 03:47 Pulse Oximetry 99 12/23/19 03:47 Oxygen Delivery Method Room Air 12/23/19 03:47 Oxygen Flow Rate 0 12/23/19 03:47 Fraction of Inspired Oxygen (FIO2) 21 12/22/19 10:05 Pain Level 3 12/23/19 03:47 Intake & Output 12/22/19 12/22/19 12/23/19 11:59 23:59 11:59 Intake Total 340 / 1006.5 666.5 / 1006.5 50 / 50 Output Total 1400 / 1400 50 / 50 Balance -1060 / -393.5 666.5 / -393.5 0 / 0 Intake: IV 100 / 516.5 416.5 / 516.5 50 / 50 Oral 240 / 490 250 / 490 Output: Drainage 50 / 50 Left Posterior Sacrum 50 / 50 Urine 1400 / 1400 Other: Urine Color Yellow Yellow Straw Urine Appearance Clear Clear Cloudy Urine Odor Normal Strong Comment not viewed Emesis Description None Voiding Methods Toilet Toilet Laboratory Results COVID-19 PCR Negative (Negative) 12/22/19 07:10 Nasopharyn COVID-19 PCR Not Applicable 12/22/19 07:10 Ref Test Perform Site [place] [facility] 12/22/19 07:10
[2019-12-23 07:58] VITALS: BP 140/79; PULSE 69; RESP 18; TEMP 36.1; O2SAT 100
[2019-12-23] MEDS: Insulin Aspart 300 UNITS/3 ML PEN SC (08:12)
[2019-12-23] MEDS: busPIRone 5 MG TAB 7.5 MG PO (08:12)
[2019-12-23] MEDS: Venlafaxine 37.5 MG CAPCR 75 MG PO (08:12)
[2019-12-23] MEDS: Venlafaxine 150 MG CAPCR PO (08:13)
[2019-12-23] MEDS: Aspirin E.C. 81 MG TABEC PO (08:13)
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
--- NOTE | 2019-12-23 09:33 | PDOC.HHF2F_ITS ---
Home Health Certification Home Health Certification: 1. Encounter Date and Reason I certify that NIDU BARRIENTOS was seen by Jessica Dwyer MD on 12/23/19 and that I had a [id number] encounter with this patient that meets the physician face to face encounter requirements. 2. Clinical Findings Supporting Skilled Need and Homebound Status I certify that home health services are medically necessary, include either intermittent group home and/or physical/speech therapy, and that this pat ient is homebound in that absences from the home require considerable and taxing effort and are infrequent or of short duration, or are attributable to the need to receive medical care. [X] (a) Attached documentation from encounter provides clinical findings supporting skilled need and homebound status (including what assistance patient requires to leave the home). The encounter with the patient was in whole, or in part, for the following medical condition, which is the primary reason for home health care: L HIP ABSCESS VS HEMATOMA,PERIANAL ABSCESS Retirement: JARRED drain left hip. Please assist patient with JARRED care Has a perirectal wound Physical Therapy: Speech Therapy: Homebound: Patient is Homebound except for Dr. Tolbert due to drain in left Hip. 3. Certification and Authentication I certify that I composed the above information based on my clinical judgement relating to this patient's medical condition and, if applicable, clinical findings communicated to me by the NPP or inpatient physician who performed the Home Health Referral. All further orders will be obtained through Dr. Lujan
== END 2019-12-23 10:32 | disposition home health service (06) | DRG 982 ==
PROVIDERS: Admitting Provider Surgery; PCP Nurse Practitioner Family; Visit Provider Surgery
PROC: 0J9900Z Drainage of Buttock Subcutaneous Tissue and Fascia with Drainage Device, Open Approach (ICD-10-PCS; CPT 46040; principal; 2019-12-22 15:00)
DX: S30.0XXA Contusion of lower back and pelvis, initial encounter (principal); K61.1 Rectal abscess; F41.9 Anxiety disorder, unspecified; F43.12 Post-traumatic stress disorder, chronic; K21.9 Gastro-esophageal reflux disease without esophagitis; E11.9 Type 2 diabetes mellitus without complications; G47.33 Obstructive sleep apnea (adult) (pediatric); F17.210 Nicotine dependence, cigarettes, uncomplicated; Z11.59 Encounter for screening for other viral diseases; Z79.4 Long term (current) use of insulin; J45.20 Mild intermittent asthma, uncomplicated
CPT/HCPCS: 10140; 46040; 87040; 99223; NC; U0003; 71046; J1885; J2001; J2250; J2270; J2543; J2704

== ENCOUNTER 2020-06-17 11:52 | Outpatient (REF) | payer MEDICAID, SELFPAY ==
[2020-06-17 14:14] LABS: COMMENT (LAB VIEW ONLY) 93.54 mg/dL; Microalb ug/mg Crea 7.2 ug/mg Cr
== END 2020-06-17 12:12 ==
LOC: LBN 11:52
PROVIDERS: PCP Nurse Practitioner Family; Visit Provider Nurse Practitioner Family
DX: E11.42 Type 2 diabetes mellitus with diabetic polyneuropathy (principal); Z79.4 Long term (current) use of insulin
CPT/HCPCS: 82043; 82570

== ENCOUNTER 2020-06-18 01:02 | Outpatient (CLI) | payer MEDICAID, SELFPAY ==
--- NOTE | 2020-06-18 08:15 | DI.RAD_ITS ---
EXAM: XR SHOULDER RT COMPLETE 2+V CLINICAL HISTORY: persistent R should pain, s/p PT,M25.511. TECHNIQUE: 2D digital imaging was performed. COMPARISON: No exams were available for comparison FINDINGS: BONES: No acute fracture is present. No bony destructive lesion is seen. JOINTS: No dislocation present. SOFT TISSUE: Normal. IMPRESSION: Unremarkable radiographs of the right shoulder. DATA REPOSITORY: RADIATION DOSE DELIVERED:
== END 2020-06-18 01:22 ==
PROVIDERS: PCP Nurse Practitioner Family; Visit Provider Nurse Practitioner Family
DX: M25.511 Pain in right shoulder (principal)
CPT/HCPCS: 73030

== ENCOUNTER 2020-11-29 16:15 | Emergency (ER) | payer MEDICAID, SELFPAY ==
[2020-11-29 16:16] VITALS: BP 136/89; PULSE 82; RESP 20; TEMP 37.2; O2SAT 96
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
[2020-11-29 16:30] VITALS: PULSE 81; RESP 21; O2SAT 95
[2020-11-29] MEDS: Dexamethasone 10 MG/ML VIAL PO (16:34)
[2020-11-29] MEDS: FAMOTIDINE 20 MG/50 ML BAG 200 MG IVPB (16:34)
[2020-11-29 16:40] VITALS: PULSE 75; RESP 20
[2020-11-29 16:50] VITALS: PULSE 73; RESP 19
[2020-11-29] MEDS: predniSONE 20 MG TAB 60 MG PO (17:42)
[2020-11-29] MEDS: EPINEPHrine 0.3 MG KIT IM (17:42)
[2020-11-29] MEDS: Famotidine 20 MG TAB PO (17:42)
[2020-11-29 17:44] VITALS: BP 126/62; PULSE 70; RESP 18; O2SAT 99
--- NOTE | 2020-11-29 18:31 | NUR.NOTE ---
patient informed me that he is unable to pay for a new epipen. PAtient is here due to an allergic reaction from bees. His epipen had . With further questioning, patient stated that he does not have food in his house to feed himself, and 2 children. I reached out to . CM informed me that it was 1630 on wednesday of a holiday weekend and there was nothing she could do. I then called [facility] food services. They were very helpful with supplying 4 days of food for this family. I also sent them home with information of area food shelves, community health and RCT.
== END 2020-11-29 18:20 | disposition home or self-care (01) ==
PROVIDERS: Emergency Provider Registered Nurse Emergency; PCP Nurse Practitioner Family
DX: T63.441A Toxic effect of venom of bees, accidental (unintentional), initial encounter (principal)
CPT/HCPCS: 96374; 99284; 99283; J0171; J1100; J7512

== ENCOUNTER 2020-12-30 01:08 | Outpatient (CLI) | payer MEDICAID, SELFPAY ==
--- NOTE | 2020-12-30 | DI.MRI_ITS ---
Exam(s) MR UPPER JOINT RT WO EXAM: MR UPPER JOINT RT WO CLINICAL HISTORY: persistent pain, weakness,rt rotator cuff tear.tendonitis,m75.101,m75.21, TECHNIQUE: Multiplanar multisequence MRI of the shoulder was performed. COMPARISON: CR XR SHOULDER RT COMPLETE 2+V from 06/18/2020 CR XR SHOULDER RT COMPLETE 2+V from 06/18/2020 CR XR EYE FOREIGN BODY from 12/30/2020 FINDINGS: MARROW:There is no evidence of fracture, Hill-Sachs deformity, bony Bankart lesion, nor ominous osseo us lesions. ROTATOR CUFF MECHANISM: AC JOINT/ACROMIUM: Minimal degenerative changes in the AC joint. No impingement. Undersurface of th e acromion is flat. No undersurface hook.. There is no evidence of os acromiale. Supraspinatus: Some mild tendinitis signal is seen. No full-thickness tear. No fluid in the subacro mial-subdeltoid bursa. No retraction of the musculotendinous junction. No muscle atrophy. Infraspinatus: Mild tendinitis. No significant tearing. No atrophy. Teres Minor: Intact. No evidence of tear nor muscle atrophy. Subscapularis/anterior cuff: Intact. No abnormal signal at the level of the multipennate insertional fibers. No significant tear nor atrophy. BICEPS TENDON: Normally position in the intertubercular groove. However, there appears to be some sp litting of this structure within the intertubercular groove. LABRUM: No obvious tearing of the superior labrum although there is a degenerative subarticular cyst in the posterior osseous glenoid.. Posterior labrum appears intact. Inferior labrum appears intact. Anterior labrum appears intact. No evidence of paralabral cyst GLENOHUMERAL JOINT: Small amount of increased joint fluid. No loose intra-articular body. No osteop hytes. No evidence of capsular tear. The inferior glenohumeral ligament is intact. QUADRILATERAL SPACE: No evidence of mass in the region of the axillary nerve and dorsal circumflex hu meral vessels. Visualized triceps muscle at this level appears unremarkable. IMPRESSION: 1. There is some tendinitis signal evident at the rotator cuff foot pad insertional tendon above the greater tuberosity. There does not appear to be a full-thickness tear. 2. No muscle atrophy. Minimal degenerative changes at the level of the AC joint mild impingement. 3. There appears to be some splitting of the biceps tendon within the intertubercular groove. Howeve r it does not appear detached from the labrum. There is no obvious labral tearing. No evidence of p aralabral cyst 4. Minimal amount of increased fluid in the glenohumeral joint. No large joint effusion. No intra- articular loose body evident. DATA REPOSITORY:
--- NOTE | 2020-12-30 13:35 | DI.RAD_ITS ---
Exam(s) XR EYE FOREIGN BODY EXAM: XR EYE FOREIGN BODY CLINICAL HISTORY: PRE MRI FOR ? FB IN EYE,[id number]. TECHNIQUE: 2D digital imaging was performed. COMPARISON: No exams were available for comparison FINDINGS: No fractures no radiopaque foreign body seen in the region of the orbits. No fluid in the visualized paranasal sinuses. IMPRESSION: DATA REPOSITORY: RADIATION DOSE DELIVERED:
== END 2020-12-30 01:28 ==
PROVIDERS: PCP Nurse Practitioner Family; Visit Provider Student in an Organized Health Care Education/Training Program
DX: Z01.818 Encounter for other preprocedural examination (principal); M75.21 Bicipital tendinitis, right shoulder; M75.101 Unspecified rotator cuff tear or rupture of right shoulder, not specified as traumatic; M19.011 Primary osteoarthritis, right shoulder; M25.811 Other specified joint disorders, right shoulder; M75.51 Bursitis of right shoulder; R53.1 Weakness
CPT/HCPCS: 70030; 73221

== ENCOUNTER 2021-01-03 02:39 | Outpatient (CLI) | payer MEDICAID, SELFPAY | END 2021-01-03 02:40 | disposition home or self-care (01) | PROVIDERS: PCP Nurse Practitioner Family; Visit Provider Internal Medicine Endocrinology, Diabetes & Metabolism | DX: E27.8 Other specified disorders of adrenal gland (principal) | CPT/HCPCS: 36415; 82533 ==

== ENCOUNTER 2021-05-10 21:21 | Observation (INO) | payer MEDICAID, SELFPAY ==
[2021-05-10 21:31] VITALS: BP 133/84; PULSE 84; RESP 18; TEMP 36.7; O2SAT 98
[2021-05-10 21:58] LABS: Abs Immature Grans 0.02 10^3/uL (0.0-0.06); Absolute Basophil Count 0.03 10^3/uL (0.0-0.2); Absolute Eosinophil Count 0.07 10^3/uL (0.0-0.7); Absolute Lymphocyte Count 2.61 10^3/uL (1.2-3.4); Absolute Monocyte Count 0.51 10^3/uL (0.1-0.8); Absolute Neutrophil Count 5.61 10^3/uL (1.2-6.7); Basophils % 0.3; Eosinophils % 0.8; HCT 49.2 % (40.0-50.0); HGB 16.5 g/dL (13.5-17.5); Immature Grans % 0.2; Lymphocytes % 29.5; MCH 29.2 pg (27.0-33.0); MCHC 33.5 % (32.0-36.0); MCV 87.1 fL (80-95); MPV 8.8 fL (8.0-11.0); Monocytes % 5.8; Neutrophils % 63.4; Nucleated RBC 0 %; Platelet Count 278 10^3/uL (130-400); RBC 5.65 10^6/uL (4.36-5.78); RDW 13.7 % (11.8-14.1); RDW-SD 43.6 fL; WBC 8.85 10^3/uL (4.4-10.8)
--- NOTE | 2021-05-10 22:04 | SUR.PHASEI ---
pt states he wants to shoot himself in the head pt states he has multiple fire arms
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
[2021-05-10 22:15] LABS: Bilirubin Negative (Negative); Blood Negative (Negative); Clarity Clear (Clear); Glucose Negative (Negative); Ketones Negative (Negative); Leukocyte Esterase Negative (Negative); Nitrite Negative (Negative); Specific Gravity >= 1.030 (1.005-1.025); Urobilinogen 0.2 EU/dL (Up TO 0.2); pH 5.5 (5-8)
[2021-05-10 22:20] LABS: *AMPHETAMINES SCREEN URINE Negative (Negative); *BARBITURATES SCREEN URINE Negative (Negative); *BENZODIAZEPINES SCREEN URINE Negative (Negative); Cannabinoids THC Positive (Negative); Cocaine Screen,Urine Negative (Negative); METHADONE URINE SCREEN Negative (Negative); OPIATES URINE SCREEN Negative (Negative); Tricyclic Antidepressants Negative (Negative)
[2021-05-10 22:23] LABS: ALT 39 U/L (16-63); AST 17 U/L (15-37); Albumin 3.7 g/dL (3.4-5.0); Alkaline Phosphatase 93 U/L (46-116); Anion Gap 9.1 mmol/L (3-11); BUN 21 mg/dL (7-18); Bilirubin, Total 0.5 mg/dL (0.2-1.0); CO2 25.9 mmol/L (21.0-32.0); Calcium 8.6 mg/dL (8.5-10.1); Chloride 104 mmol/L (98-107); Glucose 108 mg/dL (74-106); Potassium 3.7 mmol/L (3.5-5.1); Sodium 139 mmol/L (136-145); TSH (W/Ref FT4) 3.06 uIU/mL (0.36-3.74); Total Protein 7.8 g/dL (6.4-8.2)
[2021-05-10 22:24] LABS: ETHANOL BLOOD < 3.0 mg/dL (<10)
[2021-05-10 22:26] LABS: Acetaminophen < 2 ug/mL (10-30); Salicylate < 2.8 mg/dL (<2.8)
[2021-05-10 23:08] LABS: Source Nasal/Nares
[2021-05-10] MEDS: Nicotine 21 MG/24 HR PATCH TD (23:27)
--- NOTE | 2021-05-10 23:32 | PDOC.MHCN_ITS ---
Date of service: 05/10/21 Time of Service: 23:33 Mental Health Crisis Note Presenting Issue How did you arrive at the ED and why did you come: Client arrived via [facility] after a MH warrant was written due to client endorsing SI with intent and plan. Precipitating Factors Client is currently endorsing SI, however he denies current intent or plan. He took a considerable amount of time to answer if he was having HI, however when he did answer he states: No I would rather see myself hurt than anybody else. Disposition BEHAVIOR: Client is laying down on hospital bed dressed in proper paper hospital attire when this telegraphic typewriter installer arrives via zoom. Client sits up and engages with this clinician answering all questions that are asked of him. Client is cooperative. EYE CONTACT: Client makes good eye contact. MOOD: Clients mood appears to be depressed, he stated that he is disappointed and is in the middle of a mental breakdown. AFFECT: Client presents with flat affect. APPETITE: Client states that he does not have an appetite and has not eaten anything today. Client states that the last time he ate anything was Wednesday morning. SLEEP(trouble falling/staying asleep: Client states that he always has trouble falling asleep, but states that recently it has gotten worse. Client states that on average he gets about 2-4 hours of sleep a night. Plan Client stated that he would like to go voluntary instead of being held involuntary. Client states that he feels like he needs to get his thoughts organized and thinks that he would benefit from inpatient treatment. All hospitals called and referrals will be sent to [place], [facility], and [facility]. Pennie nt will screened daily by [facility] until secure placement can be found or client can safety plan to go home. Should client attempt to leave the hospital AMA [facility] ES should ne notified so client can be assessed. Signature Clinician's Name/Title: Katelyn Murphy [facility] Emergency Clinician
[2021-05-10 23:46] LABS: COVID-19 PCR Negative (Negative)
[2021-05-11] MEDS: buPROPion-XL 150 MG TABCR 300 MG PO (08:19)
[2021-05-11] MEDS: Venlafaxine 150 MG CAPCR PO (08:19)
[2021-05-11] MEDS: Nicotine 21 MG/24 HR PATCH TD ×2 (08:36→23:14)
[2021-05-11] MEDS: metFORMIN C.R. 500 MG TABCR 2000 MG PO (09:00)
--- NOTE | 2021-05-11 10:35 | PDOC.MHCN ---
Date of service: 05/11/21 Time of Service: 10:35 Mental Health Crisis Note Presenting Issue How did you arrive at the ED and why did you come: Client arrived at [facility] ED on 05/10/21 via [facility] after MH warrant was executed due to client making SI statements with intent and plan. Client was screened last night and his status changed from involuntary to voluntary. Client is seen today for check-in assessment. Precipitating Factors Client denies current SI/HI with no intent or plan. Disposition BEHAVIOR: Client is laying down in hospital bed dressed in proper paper hospital attire when this food writer arrives via zoom Client is cooperative and engages with this food writer answering all questions that are being asked of him. EYE CONTACT: Client makes good eye contact with this food writer. MOOD: Clients mood appears to be depressed and hopeless, however he is able to crack jokes at times. AFFECT: Normal affect. APPETITE: Client states that he was able to eat breakfast this morning, prior to this morning he reports that he had not eaten since Wednesday morning. SLEEP(trouble falling/staying asleep: Client states that he did not sleep well last night. He states that he always has trouble falling asleep, however he states that there was a lot of noise in the ED. Client states he probably got about 3-4 hours of sleep. Plan Client will remain at [facility] ED on voluntary status awaiting inpatient hospitalization. Updated with Dr. King. Referrals have been sent to [place], [facility], and [facility]. Client will be screened daily by [facility] until proper placement can be secured. Signature Clinician's Name/Title: Katelyn Murphy [facility] Emergency Clinician.
--- NOTE | 2021-05-11 11:08 | PDOC.CMSAFED ---
- If Service Date Differs Date of service: 05/11/21 Time of Service: 11:09 Care Management Safety Plan Status: Voluntary - Reason for Wait Reason for Wait: Inpatient Admission VOLUNTARY FOR INPATIENT PSYCHIATRIC STABILIZATION. Patient is appropriate in all interactions since arriving at [facility]; Pt has demonstrated appropriate coping and communication skills, has articulated his or her needs and concerns and is fully engaged during staff interactions. Brought in by [facility] on EE Warrant filed by [facility]-2nd Cert cleared Ramana-he is now on VOLUNTARY status, seeking placement for suicidal ideation and intent with plan. Identifies feeling as if he is in the middle of a mental breakdown per [facility] crisis note. Was able to eat this morning; reports not eating since Wednesday prior to breakfast today. Also struggles with sleep and did not sleep well last night. Ramana reports current seperation from his is exacerbating his mental health, suicidal ideation with intent and plan, please refer to psychiatric note for further information. Safety plan has been established with patient, and care team, to adhere to patient goals, identify restrictions based on behavioral status, address nutrition, and determine allowed personal belongings, tools for hygiene and personal care. Determine level of activity including ambulation, level of supervision, visitors, and determine privileges based on behaviors and level of engagement by pt. SAFETY PLAN: 1. Will remain on suicide precautions. In Paper Clothes. 2. Will remain in room under direct supervision of one-on-one staff at all times provided by [employer]; JUAN, CHIEF TECHNICAL OFFICER silk winding machine operator. 3. May have paper cups, plates, finger foods as well as a cardboard spoon with which to eat meals. 4. Follow [facility] Management of the Admitted Behavioral Health Patient policy. 5. Comfort bath system only. 6. No personal belongings at this time. 7. Visitors-No visitors at this time 8. Activities: soft cart items, tablet permitted at RN discretion. 9. Bathroom privileges with escort in ED. 10. Phone: incoming and outgoing calls permitted, per patient preference at RN discretion. 11. Due to VOLUNTARY status, if patient wishes to leave [facility], staff will contact [facility] Crisis Screener ([phone]) and On-Call Alarm Adjuster ([phone]) as soon as possible. In the event of elopement, notify [facility] Police ([phone]). Patient is currently voluntarily at [facility] and seeking inpatient admission when a bed becomes available. [facility] Frontline Strategic Partnership Manager will continue seeking placement. Please contact the Legal Writing Professor Alarm Adjuster ([phone]) and [facility] Strategic Partnership Manager ([phone]) for any needed changes in the Safety Plan. Safety plan has been provided to interdepartmental care team.
[2021-05-11 12:51] VITALS: BP 131/88; PULSE 78; RESP 18; TEMP 36; O2SAT 97
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
[2021-05-11] MEDS: Venlafaxine 37.5 MG CAPCR 75 MG PO (14:49)
[2021-05-11 16:06] VITALS: BP 155/88; PULSE 83; RESP 19; TEMP 37; O2SAT 97
[2021-05-11] MEDS: ARIPiprazole 5 MG TAB 10 MG PO (21:19)
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
[2021-05-11] MEDS: Atorvastatin 20 MG TAB PO (21:20)
[2021-05-11] MEDS: LORazepam 1 MG TAB PO (21:20)
[2021-05-11] MEDS: Mirtazapine 15 MG TAB PO (21:21)
[2021-05-11 22:30] VITALS: BP 125/79; PULSE 72; RESP 16; TEMP 36.2; O2SAT 97
[2021-05-11 23:00] VITALS: BP 125/79; PULSE 72; RESP 16; TEMP 36.2; O2SAT 97
[2021-05-12 07:55] VITALS: BP 113/74; PULSE 68; RESP 18; TEMP 34.6; O2SAT 97
[2021-05-12] MEDS: Aspirin E.C. 81 MG TABEC PO (08:05)
[2021-05-12] MEDS: buPROPion-XL 150 MG TABCR 300 MG PO (08:05)
[2021-05-12] MEDS: metFORMIN C.R. 500 MG TABCR 1000 MG PO ×2 (08:05→16:44)
[2021-05-12] MEDS: Venlafaxine 75 MG TAB 225 MG PO (08:33)
--- NOTE | 2021-05-12 15:00 | PDOC.CMSAFE ---
- If Service Date Differs Date of service: 05/12/21 Time of Service: 15:00 Care Management Safety Plan Status: Voluntary - Reason for Wait Reason for Wait: Inpatient Admission VOLUNTARY FOR INPATIENT PSYCHIATRIC STABILIZATION. Patient is appropriate in all interactions since arriving at [facility]; Pt has demonstrated appropriate coping and communication skills, has articulated his or her needs and concerns and is fully engaged during staff interactions. Brought in by P on EE Warrant filed by [facility]-2nd Cert cleared Ramana-he is now on VOLUNTARY status, seeking placement for suicidal ideation and intent with plan. Identifies feeling as if he is in the middle of a mental breakdown per [facility] crisis note. 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 A huddle is held at approximately 13:30 pm with Marycruz, Nursing Staff Readiness Officer, Lilliam, Coordinator, ERIK Melissa, and JEROMY Hernandez, in attendance. Safety plan has been established with patient, and care team, to adhere to patient goals, identify restrictions based on behavioral status, address nutrition, and determine allowed personal belongings, tools for hygiene and personal care. Determine level of activity including ambulation, level of supervision, visitors, and determine privileges based on behaviors and level of engagement by pt. SAFETY PLAN: 1. Will remain on suicide precautions. In Paper Clothes. 2. Will remain in room under direct supervision of one-on-one staff at all times provided by CPSO, JUAN, SUPERVISOR DENTURE DEPARTMENT supervisor dock. 3. May have paper cups, plates, finger foods as well as a cardboard spoon with which to eat meals. 4. Follow [facility] Management of the Admitted Behavioral Health Patient policy. 5. May shower with supervision and at RN discretion. 6. No personal belongings at this time. 7. Visitors-No visitors at this time 8. Activities: soft cart items, crayons, coloring book, paper, music tablet, television, and other activities at RN discretion. 9. May use bathroom in room without restriction. 10. Phone: incoming and outgoing calls permitted, per patient preference at RN discretion. 11. Due to VOLUNTARY status, if patient wishes to leave [facility], staff will contact [facility] Crisis Screener ([phone]) and On-Call Scientific Database Curator ([phone]) as soon as possible. In the event of elopement, notify [facility] Police ([phone]). Patient is currently voluntarily at [facility] and seeking inpatient admission when a bed becomes available. [facility] Frontline Envelope Machine Operator will continue seeking placement. Please contact the [employer] Helper Scientific Database Curator ([phone]) and [facility] Envelope Machine Operator ([phone]) for any needed changes in the Safety Plan. Safety plan has been provided to interdepartmental care team.
--- NOTE | 2021-05-12 15:12 | PGE_ITS ---
Documented by User: Iveth Carrero NP 05/12/21 15:19 Date of Service Date of service: 05/12/21 Time of Service: 15:12 Assessment and Plan Assessment and plan (1) Suicidal ideations: Start date: 05/12/21 Start time: 15:17 Status: Acute Assessment and plan: Depression with suicidal ideation apparently secondary to stress of divorce. Change medication based on telehealth with Dr. Flores Continue CPSO 2. DM: usual meds, track FBS 3. Tobacco: prn Nicotrol Discussed with Dr. Holder Subjective Subjective Patient reports: other Interval history since last seen: Continues to have thoughts of harm, continue CPSO. Met with Dr. Flores will follow medical recommendations. Exam Narrative Exam Narrative: AAOx3. HEENT atraumatic; neck supple; lungs clear; heart RRR; abdomen soft and NT; extremities w/o edema; neuro Ox3, lucid, calm and a ppropriate, moves all 4s Psych Mental Status: mental status grossly abnormal and other Speech and Movement: speech and movement normal Mood: other Affect: sad Attitude: cooperative Thought Process: illogical Thought Content: suicidality Insight: poor Judgment: poor Objective Last Vital Signs Temp 34.6 C L 05/12/21 07:55 Pulse 68 05/12/21 07:55 Resp 18 05/12/21 07:55 BP 113/74 05/12/21 07:55 Pulse Ox 97 05/12/21 07:55 PAWSS Have you Been Recently Intoxicated or Drunk Within the Last 30 days?: Yes Have you Ever Experienced Previous Episodes of Alcohol Withdrawal?: No Have you ever Experienced Withdrawal Seizures?: No Have you ever Experienced Delirium Tremens(DT)s?: No Have you ever undergone Alcohol Rehabilitation Treatment (i.e, inpt ot outpatient treatment programs)?: No Have you ever Experienced Blackouts?: No Have you ever Combined Alcohol with other Downers within the last 90 days?: No Have you ever Combined Alcohol with any other Substance of Abuse during the last 90 days?: No Positive Blood Alcohol level on Presentation? [PCS.BAL]: Unable to Obtain Evidence of Increased Autonomic Activity (i.e. HR>120, tremor, sweating, agitation, nausea)?: No Result: 1 Documented by User: Candi Simmons 05/13/21 10:29
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
--- NOTE | 2021-05-12 18:15 | RT.EKG_ITS ---
APPROVED REPORT Exam: Resting ECG Reason for Exam: required for transfer Patient Location: I HR:67 bpm ECG Measurements Heart Rate 67 AXIS DE 164 P 38 QRSd 98 QRS -22 QT 389 T 66 QTc 411 Conclusion Sinus rhythm...normal P axis, V-rate 60- 99 Normal Electrocardiogram
[2021-05-12 20:30] VITALS: BP 134/84; PULSE 72; RESP 18; TEMP 36.4; O2SAT 97
[2021-05-12] MEDS: Atorvastatin 20 MG TAB PO (20:32)
[2021-05-12] MEDS: Mirtazapine 15 MG TAB PO (21:53)
[2021-05-12] MEDS: ARIPiprazole 5 MG TAB 10 MG PO (21:53)
[2021-05-12] MEDS: LORazepam 0.5 MG TAB PO (22:48)
[2021-05-12] MEDS: Calcium Carbonate *TUMS* 500 MG CHEW PO (22:48)
[2021-05-12 23:20] VITALS: BP 130/85; PULSE 81; RESP 18; TEMP 36.3; O2SAT 97
[2021-05-13 08:12] VITALS: BP 126/85; PULSE 78; RESP 18; TEMP 36.4; O2SAT 98
[2021-05-13] MEDS: metFORMIN C.R. 500 MG TABCR 1000 MG PO (08:26)
[2021-05-13] MEDS: Pantoprazole 40 MG TABCR PO (08:26)
[2021-05-13] MEDS: Aspirin E.C. 81 MG TABEC PO (08:26)
[2021-05-13] MEDS: buPROPion-XL 150 MG TABCR 300 MG PO (08:26)
[2021-05-13] MEDS: Venlafaxine 150 MG CAPCR 300 MG PO (08:27)
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
--- NOTE | 2021-05-13 13:14 | CMDISCH_ITS ---
- If Service Date Differs Date of service: 05/13/21 Time of Service: 13:14 LACE Index Scoring Tool - Questions: Length of Stay (in days): 2 Acuity (Admit via E.D.?): Yes Comorbidities: Diabetes w/o Complication E.D. Visits: 2 - Answers: Total Score: 8 Risk of Readmission: Low Risk Care Management Discharge Reason for Hospitalization: Suicidal ideation. Discharge Plan: Ronni is discharged to the community on a safety plan. He will reside with his friend, Chan, will do daily check-in phone calls at 10:00 am with [facility], and will follow up with his PCP, community providers, and plan of care as instructed. Ronni is driven home by his friend via private vehicle. Patient/Family Education Needs: Review discharge instructions and discuss Ask Me Three and self-management. - Disposition Disposition: Community Discharge Transport via of: Private Vechicle (with friend Chan.)
--- NOTE | 2021-05-14 08:22 | PDOC.MHCN ---
Date of service: 05/14/21 Time of Service: 08:22 Mental Health Crisis Note Presenting Issue How did you arrive at the ED and why did you come: Pt arrived on 05.11.2021 via a MH Warrant executed by SRINATH Victor. He had made suicidal statements and left his home with a handgun. Precipitating Factors Pt denied SI and HI today. He reported that he is heart broken and knows he needs to address this in healthier ways. He is not showing any signs of delusions at the time of this assessment. Disposition BEHAVIOR: Pt is cooperative and engaged. He has good insight and judgment. He has already made plans for his firearms to be locked up by a friend. He shared this friends information with this clinician so this clinician could verify. EYE CONTACT: Pt made good eye contact. MOOD: Pt's mood appears depressed. AFFECT: Pt's affect is congruent to mood. APPETITE: Pt reported he has been eating. SLEEP(trouble falling/staying asleep: Pt reported his sleep has been fair. Plan Pt would like to go home today although he does not have a home to go to since his admission. This clinician explained that [facility] would like to see him remain stable, locate housing, and be set up with services prior to discharge. As well, this clinician would like to verify with his friend that he will secure the firearms where the Pt cannot get to them. He is agreeable to this plan. Discharge planning will be discussed again on 05.13.2021. Signature Clinician's Name/Title: Keri Cortez MS, [facility] Emergency Services Clinician, [facility]
== END 2021-05-13 15:04 | disposition home or self-care (01) ==
LOC: ER 05-11 21:39 → MS 05-11 22:14
PROVIDERS: Physician Assistant; Admitting Provider General Practice; Emergency Provider Emergency Medicine; PCP Nurse Practitioner Family; Visit Provider General Practice
DX: F31.30 Bipolar disorder, current episode depressed, mild or moderate severity, unspecified (principal); R45.851 Suicidal ideations; Z79.899 Other long term (current) drug therapy; F12.90 Cannabis use, unspecified, uncomplicated; E11.42 Type 2 diabetes mellitus with diabetic polyneuropathy; Z79.4 Long term (current) use of insulin; F17.210 Nicotine dependence, cigarettes, uncomplicated; G47.33 Obstructive sleep apnea (adult) (pediatric); E78.5 Hyperlipidemia, unspecified; K21.9 Gastro-esophageal reflux disease without esophagitis; J45.20 Mild intermittent asthma, uncomplicated; Z23 Encounter for immunization; Z20.822 Contact with and (suspected) exposure to COVID-19
CPT/HCPCS: 80053; 80307; 87635; 90686; 99285; Q3014; 80320; 80329; 81003; 84443; 85025; 93005; 93010; 99217; 99218; 99225; G0378

== ENCOUNTER 2021-08-13 11:08 | Outpatient (REF) | payer MEDICAID, SELFPAY ==
[2021-08-13 15:17] LABS: COMMENT (LAB VIEW ONLY) 132.34 mg/dL; Microalb ug/mg Crea 8.5 ug/mg Cr
== END 2021-08-13 11:09 | disposition home or self-care (01) ==
LOC: LBN 11:08
PROVIDERS: PCP Nurse Practitioner Family; Referring Provider Nurse Practitioner Family; Visit Provider Nurse Practitioner Family
DX: E11.9 Type 2 diabetes mellitus without complications (principal)
CPT/HCPCS: 82043; 82570

== ENCOUNTER 2021-08-19 03:21 | Outpatient (CLI) | payer MEDICAID, SELFPAY | END 2021-08-19 03:22 | disposition home or self-care (01) | LOC: DS 03:21 | PROVIDERS: PCP Nurse Practitioner Family; Visit Provider Dietitian, Registered ==

== ENCOUNTER 2021-09-20 04:40 | Emergency (ER) | payer MEDICAID, SELFPAY ==
[2021-09-20] VITALS (21 sets, daily range): BP systolic 110–149; BP diastolic 52–94; PULSE 78–93; RESP 14–24; TEMP 36.6–36.7; O2SAT 94–100
--- NOTE | 2021-09-20 04:45 | RT.EKG_ITS ---
APPROVED REPORT Exam: Resting ECG Reason for Exam: chest pain Patient Location: E HR:82 bpm ECG Measurements Heart Rate 82 AXIS IA 157 P 39 QRSd 98 QRS -20 QT 366 T 67 QTc 428 Conclusion Sinus rhythm...normal P axis, V-rate 60- 99 Physician: no stemi, no significant st elevations or depressions. V2 ST morphology unchanged from zechariah or ekg on 05/12/21
--- NOTE | 2021-09-20 04:45 | DI.RAD_ITS ---
Exam(s) XR PORTABLE CHEST AP EXAM: XR PORTABLE CHEST AP CLINICAL HISTORY: cough, sob, r/o pneumonia TECHNIQUE: COMPARISON: CR,XR XR CHEST 2V PA LATERAL from 12/23/2019 FINDINGS: Portable AP chest at 0605 hours. The heart is not enlarged. Lungs are grossly clear and well expand ed. IMPRESSION: No evidence of acute process. RADIATION DOSE DELIVERED: Total DLP
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
[2021-09-20] MEDS: Albuterol/Ipratropium 3 ML UPD VIAL 6 ML UPD (05:17)
[2021-09-20] MEDS: Normal Saline 500 ML IV (05:18)
[2021-09-20] MEDS: ACETAMINOPHEN 1,000 MG/100 ML BTL 400 MG IVPB (05:24)
[2021-09-20 05:48] LABS: BE (Venous) 1 mmol/L (-2-3); HCO3 (Venous) 26 mmol/L (23-28); O2 Sat (Venous) 97 %; TCO2 (Venous) 23 mmol/L (24-29); pCO2 (Venous) 41 mmHg (41-51); pH (Venous) 7.41 (7.31-7.41); pO2 (Venous) 84 mmHg
[2021-09-20 06:15] LABS: Abs Immature Grans 0.01 10^3/uL (0.0-0.06); Absolute Basophil Count 0.01 10^3/uL (0.0-0.2); Absolute Eosinophil Count 0.05 10^3/uL (0.0-0.7); Absolute Lymphocyte Count 1.13 10^3/uL (1.2-3.4); Absolute Monocyte Count 0.48 10^3/uL (0.1-0.8); Absolute Neutrophil Count 2.84 10^3/uL (1.2-6.7); Basophils % 0.2; Eosinophils % 1.1; HCT 40.7 % (40.0-50.0); HGB 13.8 g/dL (13.5-17.5); Immature Grans % 0.2; MCH 29.4 pg (27.0-33.0); MCHC 33.9 % (32.0-36.0); MCV 86.6 fL (80-95); MPV 9.3 fL (8.0-11.0); Monocytes % 10.6; Neutrophils % 62.9; Platelet Count 230 10^3/uL (130-400); RDW 12.7 % (11.8-14.1); RDW-SD 40.5 fL; WBC 4.52 10^3/uL (4.4-10.8)
[2021-09-20 06:18] LABS: Bilirubin Negative (Negative); Blood Negative (Negative); Clarity Clear (Clear); Glucose >=1000 mg/dL (Negative); Ketones Negative (Negative); Leukocyte Esterase Negative (Negative); Nitrite Negative (Negative); Specific Gravity 1.015 (1.005-1.025); Urobilinogen 0.2 EU/dL (Up TO 0.2)
[2021-09-20 06:20] LABS: ALT 47 U/L (16-63); AST 18 U/L (15-37); Albumin 3.4 g/dL (3.4-5.0); Alkaline Phosphatase 84 U/L (46-116); Anion Gap 6.8 mmol/L (3-11); BUN 11 mg/dL (7-18); Bilirubin, Total 0.5 mg/dL (0.2-1.0); CO2 27.2 mmol/L (21.0-32.0); CREATININE 1.1 mg/dL (0.70-1.30); Calcium 8.4 mg/dL (8.5-10.1); Chloride 100 mmol/L (98-107); Glucose 464 mg/dL (74-106); Lipase 150 U/L (73-393); NT-proBNP 120 pg/mL (<300); Potassium 3.8 mmol/L (3.5-5.1); Sodium 134 mmol/L (136-145); Troponin I < 50 ng/L (<or=60)
[2021-09-20] MEDS: Insulin REGULAR-Human 100 UNITS/ML UNIT 12 UNITS SC (06:38)
[2021-09-20 07:11] LABS: COVID-19 PCR Negative (Negative); Influenza A PCR Negative (Negative); Influenza B PCR Negative (Negative); RSV PCR Negative (Negative)
[2021-09-20 07:13] LABS: Source Nasopharynx
[2021-09-20] MEDS: Doxycycline Hyclate 100 MG CAP PO (07:32)
[2021-09-20] MEDS: Doxycycline Hyclate 100 MG, 2 CAPS/BTL PO (07:33)
[2021-09-20] MEDS: Inhaler, Assist Device 1 EACH MC (07:34)
[2021-09-20] MEDS: Albuterol HFA 8 GM 60 PUFF INH IH (07:34)
--- NOTE | 2021-09-20 08:40 | DI.VRAD_ITS ---
PROCEDURE INFORMATION: Exam: XR Chest Exam date and time: 09/20/2021 5:47 AM Age: 40 years old Clinical indication: Shortness of breath TECHNIQUE: Imaging protocol: XR of the chest. Views: 1 view. COMPARISON: CR XR CHEST 2V PA LATERAL 12/23/2019 8:20 AM FINDINGS: Lungs: Symmetric hypoinflation of the lungs with linear and patchy perihilar and bibasilar opacities. Pleural spaces: No pleural effusion. No pneumothorax. Heart/Mediastinum: Cardiac silhouette is accentuated by technique and hypoinflation, likely within normal limits. Bones/joints: No acute osseous findings. IMPRESSION: Low lung volumes with patchy atelectasis. Dictated and Authenticated by: Laura Huff MD. Ordering:YAMILEX Waggoner MD
== END 2021-09-20 07:42 | disposition home or self-care (01) ==
PROVIDERS: Emergency Provider Student in an Organized Health Care Education/Training Program; PCP Nurse Practitioner Family
DX: J18.9 Pneumonia, unspecified organism (principal); E11.9 Type 2 diabetes mellitus without complications; Z79.4 Long term (current) use of insulin; Z20.822 Contact with and (suspected) exposure to COVID-19
CPT/HCPCS: 36415; 80053; 82805; 83690; 87637; 93005; 94640; 96361; 96365; 96372; 99285; 71045; 81003; 83880; 84484; 85025; 93010; 99284; J0131; J7620

== ENCOUNTER → 2021-11-20 02:34 | Outpatient (CLI) | payer MEDICAID, SELFPAY | PROVIDERS: PCP Nurse Practitioner Family; Visit Provider Nurse Practitioner Family ==

== ENCOUNTER → 2022-04-30 10:08 | Outpatient (CLI) | payer MEDICAID, SELFPAY ==
--- NOTE | 2022-04-30 09:30 | DI.RAD_ITS ---
Exam(s) XR CHEST 2V PA LATERAL EXAM: XR CHEST 2V PA LATERAL CLINICAL HISTORY: 8 wk PNA f/u J18.9 PNEUMONIA TECHNIQUE: 2D digital imaging was performed. COMPARISON: CR,XR XR PORTABLE CHEST AP from 09/20/2021 FINDINGS: The heart is not enlarged. The lungs are clear and well expanded. No pleural effusion seen. Mediastin al contours appear intact. IMPRESSION: Normal chest. RADIATION DOSE DELIVERED: Total DLP
== END ==
PROVIDERS: PCP Nurse Practitioner Family; Visit Provider Nurse Practitioner Family
DX: J18.9 Pneumonia, unspecified organism (principal)
CPT/HCPCS: 71046

== ENCOUNTER 2022-05-20 18:03 | Emergency (ER) | payer MEDICAID, SELFPAY ==
[2022-05-20] VITALS (21 sets, daily range): BP systolic 114–140; BP diastolic 52–74; PULSE 63–76; RESP 15–23; TEMP 36.4; O2SAT 94–99
--- NOTE | 2022-05-20 18:00 | RT.EKG_ITS ---
APPROVED REPORT Exam: Resting ECG Reason for Exam: chest pain Patient Location: E HR:71 bpm ECG Measurements Heart Rate 71 AXIS MS 162 P 36 QRSd 100 QRS -31 QT 389 T 65 QTc 424 Conclusion Sinus rhythm...normal P axis, V-rate 60- 99 Left axis deviation...QRS axis (-30,-90)
--- NOTE | 2022-05-20 18:15 | DI.RAD_ITS ---
Exam(s) XR CHEST 2V PA LATERAL EXAM: XR CHEST 2V PA LATERAL CLINICAL HISTORY: cough, back pain TECHNIQUE: 2D digital imaging was performed. COMPARISON: CR XR CHEST 2V PA LATERAL from 04/30/2022 FINDINGS: HEART: Normal size. Aorta: Not dilated. PULMONARY VASCULATURE: Normal. LUNGS: Clear. PLEURAL SPACE: No pleural effusion or pneumothorax. BONE:Unremarkable for age. IMPRESSION: No acute abnormality. DATA REPOSITORY: RADIATION DOSE DELIVERED:
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
[2022-05-20 18:41] LABS: Abs Immature Grans 0.02 10^3/uL (0.0-0.06); Absolute Basophil Count 0.04 10^3/uL (0.0-0.2); Absolute Eosinophil Count 0.06 10^3/uL (0.0-0.7); Absolute Lymphocyte Count 2.12 10^3/uL (1.2-3.4); Absolute Monocyte Count 0.37 10^3/uL (0.1-0.8); Absolute Neutrophil Count 5.08 10^3/uL (1.2-6.7); Basophils % 0.5; Eosinophils % 0.8; HCT 48.7 % (40.0-50.0); HGB 16.2 g/dL (13.5-17.5); Immature Grans % 0.3; Lymphocytes % 27.6; MCH 29.2 pg (27.0-33.0); MCHC 33.3 % (32.0-36.0); MCV 88 fL (80-95); Monocytes % 4.8; Platelet Count 260 10^3/uL (130-400); RBC 5.54 10^6/uL (4.36-5.78); RDW 13.8 % (11.8-14.1); RDW-SD 44.1 fL; WBC 7.69 10^3/uL (4.4-10.8)
[2022-05-20] MEDS: Ketorolac 15 MG/ML VIAL IVP (18:49)
[2022-05-20] MEDS: Normal Saline Flush 10 ML SYR IVP (18:50)
[2022-05-20 18:59] LABS: ALT 43 U/L (16-63); AST 23 U/L (15-37); Albumin 3.9 g/dL (3.4-5.0); Alkaline Phosphatase 103 U/L (46-116); Anion Gap 5.8 mmol/L (3-11); BUN 23 mg/dL (7-18); Bilirubin, Total 0.4 mg/dL (0.2-1.0); CO2 33.2 mmol/L (21.0-32.0); CREATININE 1.3 mg/dL (0.70-1.30); Calcium 9.3 mg/dL (8.5-10.1); Chloride 100 mmol/L (98-107); Estimated GFR 70.78 (mL/min/1.73m2); Glucose 249 mg/dL (74-106); Magnesium 2.1 mg/dL (1.8-2.4); Potassium 3.7 mmol/L (3.5-5.1); Sodium 139 mmol/L (136-145); Troponin I < 50 ng/L (<or=60)
--- NOTE | 2022-05-20 19:00 | DI.VRAD_ITS ---
PROCEDURE INFORMATION: Exam: XR Chest Exam date and time: 05/20/2022 6:52 PM Age: 41 years old Clinical indication: Cough and other: Back pain TECHNIQUE: Imaging protocol: Radiologic exam of the chest. Views: 2 views. COMPARISON: XR PORTABLE CHEST AP 09/20/2021 5:47 AM FINDINGS: Lungs: Mild chronic interstitial prominence. No consolidation. Pleural spaces: Unremarkable. No pleural effusion. No pneumothorax. Heart/Mediastinum: Unremarkable. No cardiomegaly. Bones/joints: Unremarkable. IMPRESSION: No acute findings. No radiographic evidence for pneumonia Dictated and Authenticated by: Osbaldo Layton MD. Ordering:COLEMAN Bob MD
[2022-05-20 19:35] LABS: COVID-19 PCR Negative (Negative); Influenza A PCR Negative (Negative); Influenza B PCR Negative (Negative); RSV PCR Negative (Negative)
[2022-05-20 19:38] LABS: Source Nasopharynx
== END 2022-05-20 20:17 | disposition home or self-care (01) ==
PROVIDERS: Emergency Provider Emergency Medicine; PCP Nurse Practitioner Family
DX: B34.9 Viral infection, unspecified (principal); E11.319 Type 2 diabetes mellitus with unspecified diabetic retinopathy without macular edema; Z79.82 Long term (current) use of aspirin; Z20.822 Contact with and (suspected) exposure to COVID-19; Z79.4 Long term (current) use of insulin
CPT/HCPCS: 80053; 87637; 93005; 96374; 99284; 71046; 83735; 84484; 85025; 93010; 99285; J1885

== ENCOUNTER 2022-06-12 11:33 | Outpatient (REF) | payer MEDICAID, SELFPAY | END 2022-06-12 11:34 | disposition home or self-care (01) | LOC: LBN 11:33 | PROVIDERS: PCP Nurse Practitioner Family; Visit Provider Nurse Practitioner Family | DX: J02.9 Acute pharyngitis, unspecified (principal) | CPT/HCPCS: 87070 ==

== ENCOUNTER 2022-09-11 00:24 | Outpatient (CLI) | payer MEDICAID, SELFPAY ==
--- NOTE | 2022-09-11 08:28 | DI.MRI_ITS ---
Exam(s) MR UPPER JOINT RT WO EXAM: MR UPPER JOINT RT WO CLINICAL HISTORY: R SHOULDER PAIN,rt rotator cuff tear, m75.101. TECHNIQUE: Multiplanar multisequence MRI was performed. COMPARISON: Plain films 18 June 2020 and MRI 30 December 2020. FINDINGS: Exam is limited by patient motion and body habitus. BONES: There is no fracture or contusion pattern. Degenerative signal changes in the glenoid. JOINTS:The acromioclavicular joint is normal. The glenohumeral joint shows no effusion. TENDONS: Supraspinatus: Mild thickening and increased signal consistent with tendinitis, similar appearance to prior. Infraspinatus: Unremarkable. Subscapularis: Unremarkable. Teres Minor: Unremarkable. Biceps and [place]: Again there is a question of a longitudinal split of the biceps tendon. Not well evaluated due to lack of surrounding fluid. MUSCLES: Unremarkable. GLENOID LABRUM: Not well seen due to lack of joint effusion. SOFT TISSUES: Unremarkable. OTHER: Subacromial and subdeltoid bursae shows no fluid.. IMPRESSION: Limited exam due to motion and body habitus. Supraspinatus tendon thickening this is and high signal consistent with tendinitis. Longitudinal split of the biceps tendon. Degenerative signal changes i n the glenoid. DATA REPOSITORY:
== END 2022-09-11 00:44 ==
LOC: DI 00:24
PROVIDERS: PCP Nurse Practitioner Family; Visit Provider Student in an Organized Health Care Education/Training Program
DX: M75.101 Unspecified rotator cuff tear or rupture of right shoulder, not specified as traumatic (principal)
CPT/HCPCS: 73221

== ENCOUNTER 2022-10-07 21:24 | Emergency (ER) | payer MEDICAID, SELFPAY ==
[2022-10-07 21:29] VITALS: BP 142/86; PULSE 75; RESP 20; TEMP 36.3; O2SAT 98
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
[2022-10-07] MEDS: Amoxicillin 875/Clav. 125 TAB PO (21:57)
== END 2022-10-07 22:01 | disposition home or self-care (01) ==
PROVIDERS: Emergency Provider Nurse Practitioner Acute Care; PCP Nurse Practitioner Family
DX: H66.92 Otitis media, unspecified, left ear (principal)
CPT/HCPCS: 99283; 99284

== ENCOUNTER 2022-11-18 16:04 | Outpatient (CLI) | payer MEDICAID, SELFPAY ==
--- NOTE | 2022-11-18 14:45 | DI.RAD_ITS ---
Exam(s) XR FOOT RT COMPLETE EXAM: XR FOOT RT COMPLETE CLINICAL HISTORY: pain prox to 5th toe s/p fall M79.671 PAIN RT FOOT G89.29 CHRONIC PAIN. TECHNIQUE: 2D digital imaging was performed of the right foot. Three images were obtained. AP, obl ique and lateral views were obtained. COMPARISON: No exams were available for comparison FINDINGS: BONES: No acute fracture is present. No bony destructive lesion is seen. There is a small plantar aggie caneal spur. There is an enthesophyte at the posterior calcaneus. JOINTS: No dislocation present. SOFT TISSUE: Normal. IMPRESSION: No acute fracture or dislocation. DATA REPOSITORY: RADIATION DOSE DELIVERED:
== END 2022-11-18 16:24 ==
LOC: DI 16:05
PROVIDERS: PCP Nurse Practitioner Family; Visit Provider Nurse Practitioner Family
DX: G89.29 Other chronic pain (principal); M79.671 Pain in right foot
CPT/HCPCS: 73630

== ENCOUNTER 2022-12-16 10:29 | Emergency (ER) | payer OTHER, SELFPAY ==
[2022-12-16 10:31] VITALS: BP 140/98; PULSE 80; RESP 16; TEMP 36.6; O2SAT 100
--- NOTE | 2022-12-16 11:00 | DI.RAD_ITS ---
Exam(s) XR FINGER RT INDEX EXAM: XR FINGER RT INDEX CLINICAL HISTORY: Laceration R/O Glass FB. TECHNIQUE: 2D digital imaging was performed. Three views. COMPARISON: No exams were available for comparison FINDINGS: BONES: No acute fracture is present. No bony destructive lesion is seen. JOINTS: No dislocation present. SOFT TISSUE: Gauze overlies the finger. No foreign body visible. IMPRESSION: Visible foreign body. DATA REPOSITORY: RADIATION DOSE DELIVERED:
--- NOTE | 2022-12-16 11:04 | W.ED.GENAD ---
Discharge Plan Disposition Patient Disposition: Home Condition: Stable Discharge Details Clinical Impression: Soft tissue avulsion, Laceration of right index finger Primary Care Provider: Sandy Sanchez ED Provider: Urszula Molina Home Meds and New Rx's Prescriptions: New cephalexin 500 mg tablet 500 mg PO BID 7 Days Qty: 14 0RF No Action (DME) FreeStyle Hina 2 [place] Misc See Rx Instructions .ROUTE .MEDSUPPLY Qty: 1 0RF Rx Instructions: As directed polyethylene glycol 3350 17 gram/dose powder 17 g PO ONCE Qty: 238 0RF Patient Comments: pt states not taking Rx Instructions: To be taken as directed by prescriber's office for colonoscopy prep. fluticasone propionate 50 mcg/actuation spray,suspension 1 - 2 spray NS DAILY PRN (Reason: nasal congestion) Qty: 47.4 3RF (DME) lancets [OneTouch Delica Lancets] 33 gauge misc 1 ea Miscellaneous BID Qty: 200 3RF Rx Instructions: To check twice daily blood glucose to maintain HbA1c less than 7%. On insulin. (DME) pen needle, diabetic [BD Ultra-Fine Orig Pen Needle] 29 gauge x 1/2 needle 1 ndl SQ DAILY Qty: 200 3RF Rx Instructions: Dx: E11.9 to maintain HbA1C less than 7% (31 g X 5 mm) atorvastatin 20 mg tablet 20 mg PO DAILY Qty: 90 3RF bupropion HCl [Wellbutrin XL] 300 mg tablet extended release 24 hr 300 mg PO QAM Qty: 90 1RF Jardiance 25 mg tablet 25 mg PO DAILY Qty: 90 3RF insulin aspart U-100 [Novolog FlexPen U-100 Insulin] 100 unit/mL (3 mL) insulin pen 4 unit subcut AC Qty: 11 3RF insulin glargine [Lantus Solostar U-100 Insulin] 100 unit/mL (3 mL) insulin pen 56 unit subcut HS Qty: 51 3RF mirtazapine 15 mg tablet 15 mg PO HS Qty: 90 0RF albuterol sulfate [ProAir HFA] 90 mcg/actuation HFA aerosol inhaler 1 - 2 puff Inhalation .Q4-6H PRN (Reason: shortness of breath or wheezing) Qty: 1 3RF Rx Instructions: DISPENSE ALBUTEROL INHALER BRAND COVERED BY INSURANCE (DME) FreeStyle Hina 2 Sensor Kit See Rx Instructions .ROUTE .MEDSUPPLY Qty: 6 3RF Rx Instructions: As directed epinephrine [EpiPen 2-Jesus Alberto] 0.3 mg/0.3 mL auto-injector 0.3 mg IM ONCE PRN (Reason: anaphylaxis) Qty: 2 1RF acetic acid 2 % solution 5 drp otic (ear) TID Qty: 15 0RF Excedrin Extra Strength 1 EACH tablet 1 ea PO PRN Qty: 2 aspirin [Aspir-81] 81 MG tablet,delayed release (DR/EC) 81 mg PO DAILY Qty: 90 3RF Patient Comments: pt states not taking (DME) blood-glucose meter 1 EACH misc 1 ea Miscellaneous DAILY Qty: 1 0RF Rx Instructions: Dx: E11.9 to maintain HbA1c less than 7%. Takes insulin. Please dispense brand covered by insurance. (DME) Blood Glucose Test Strip See Rx Instructions .ROUTE .MEDSUPPLY Qty: 200 3RF Rx Instructions: As directed to check blood glucose twice daily. On insulin. Dispense covered brand. metformin 500 mg tablet extended release 24 hr 1,000 mg PO BID Qty: 360 3RF Rx Instructions: Administer once daily with the evening meal venlafaxine 150 mg capsule,extended release 24hr 300 mg PO DAILY Qty: 180 3RF aripiprazole 10 mg tablet 10 mg PO HS Qty: 90 0RF Ozempic 0.25 mg or 0.5 mg(2 mg/1.5 mL) pen injector 0.5 mg subcut QWEEK Qty: 4 3RF Rx Instructions: Take 0.25 mg once weekly for first 4 weeks, then increase to 0.5 mg once weekly thereafter. ibuprofen 600 mg tablet 600 mg PO QID PRN (Reason: pain) Qty: 20 0RF Discharge Instructions Instructions: Finger Laceration (ED) Additional Instructions: Please take the antibiotic twice daily as directed with yogurt or probiotic. Keep the dressing on for the next 12 to 24 hours. You may change it if it feels too tight. Do not scrub the tissue adhesive. Return if you are unable to get the bleeding to stop or if you have any signs of infection including red streaks drainage swelling. Follow up with primary care provider in 3-5 days. Return to ED sooner if any worsening or concerns. Increase oral fluids. Please take Tylenol or Ibuprofen with food every 4-6 hours as needed for pain and swelling. Stand Alone Forms: Work Release Referrals: Sandy Sanchez NP [Primary Care Provider] - 3 days Discharge Data Discharge Date/Time-TO BE ENTERED AT DEPARTURE: 12/16/22 12:49 Medical Decision Making 42-year-old male presents to the ER with a chief complaint of right index finger laceration/avulsion after throwing some trash approximately an hour prior to arrival. Patient states that there was glass in the trash bag and he was not wearing gloves and it cut his finger. Last tetanus vaccination was 2020. Upon arrival he does have full range of motion noted to his digit full sensation. He has approximately 2 cm avulsion to the dorsal aspect of his index finger pad and a small distal approximately 0.5 cm irregular laceration to the distal tip. Bleeding controlled with a pressure dressing upon arrival. Past medical history includes insulin-dependent type 2 diabetes with retinopathy, arthritis, tendinitis peripheral polyneuropathy, anxiety, allergy to bee stings hyperlipidemia bipolar disorder tobacco use disorder, hepatic steatosis, mild intermittent asthma. 3 sided ring block performed on patient's finger. Tolerated well. X-ray of digit ordered to rule out glass foreign body. Patient is up-to-date on his tetanus vaccination. At this time it does not appear there is a suturable laceration. Will consider Dermabond and or Telfa pressure dressing and heal by secondary intention. We will consider approximately 5 days of antibiotics due to the nature of the injury. X-ray shows no visible foreign body. Wound care performed by tax staff accountant and unit staff Chidi MARTINEZ with chlorhexidine. Tourniquet applied was on for less than 10 minutes. Dermabond applied. Bleeding was controlled with pressure thereafter. Xeroform gauze placed. Pressure dressing. I did discuss home care to allow wound to heal by secondary intention. Patient was given cephalexin 1 tablet here in the department and a prescription for 7 days to treat empirically for infection due to a contaminated wound. Instructed to follow-up with PCP verbalized understanding. This text was generated using Poolam[employer] system, please disregard any oddities of phrase or misspellings. Imaging Data Radiologic Study: Imaging: X-Ray My impression: No visible Foreign body Radiologist's impression: EXAM:? XR FINGER RT INDEX CLINICAL HISTORY: ? Laceration R/O Glass FB.? TECHNIQUE:? 2D digital imaging was performed.? Three views. COMPARISON:? No exams were available for comparison FINDINGS: BONES: No acute fracture is present. No bony destructive lesion is seen. JOINTS: No dislocation present. SOFT TISSUE: Gauze overlies the finger.? No foreign body visible. IMPRESSION: Visible foreign body. HPI General Mode of arrival: ambulatory. Date/Time Provider Initiated Documentation: 12/16/22 10:40. Limitations to Documentation: no limitations. Information obtained by: patient, RN notes reviewed and old records reviewed. HPI Narrative: 42-year-old male presents to the ER with a chief complaint of right index finger laceration/avulsion after throwing some trash approximately an hour prior to arrival. Patient states that there was glass in the trash bag and he was not wearing gloves and it cut his finger. Last tetanus vaccination was 2020. Upon arrival he does have full range of motion noted to his digit full sensation. He has approximately 2 cm avulsion to the dorsal aspect of his index finger pad and a small distal approximately 0.5 cm irregular laceration to the distal tip. Bleeding controlled with a pressure dressing upon arrival. Past medical history includes insulin-dependent type 2 diabetes with retinopathy, arthritis, tendinitis peripheral polyneuropathy, anxiety, allergy to bee stings hyperlipidemia bipolar disorder tobacco use disorder, hepatic steatosis, mild intermittent asthma. Related Data Home Medications Medication Instructions Recorded Confirmed [id number] 250 1 ea PO PRN ##2 05/15/16 12/16/22 mg-250 mg-65 mg tablet (Excedrin Extra Strength) aspirin 81 mg tablet,delayed 81 mg PO DAILY #90 tab-caps 08/26/17 11/18/22 release (Aspir-) blood-glucose meter #1 unit 11/19/17 11/18/22 ibuprofen 600 mg tablet 600 mg PO QID PRN pain #20 tabs 04/26/18 12/16/22 lancets 33 gauge (OneTouch Delica #200 ea 09/14/18 11/18/22 Lancets) pen needle, diabetic 29 gauge x #200 ea 02/08/20 11/18/22 1/2 (BD Ultra-Fine Original Pen Needle) blood sugar diagnostic (Blood #200 ea 06/20/20 11/18/22 Glucose Test strips) polyethylene glycol 3350 17 17 g PO ONCE #238 grams 09/11/21 11/18/22 gram/dose oral powder flash glucose scanning reader #1 ea 09/24/21 11/18/22 (FreeStyle Hina 2 [place]) metformin 500 mg tablet,extended 1,000 mg PO BID #360 tabs 04/08/22 12/16/22 release 24 hr venlafaxine 150 mg 300 mg PO DAILY #180 caps 04/08/22 12/16/22 capsule,extended release 24 hr albuterol sulfate 90 mcg/actuation 1 - 2 puff inhalation .Q4-6H PRN 06/12/22 12/16/22 aerosol inhaler (ProAir HFA) shortness of breath or wheezing #1 unit flash glucose sensor (FreeStyle #6 ea 06/12/22 11/18/22 Hina 2 Sensor kit) atorvastatin 20 mg tablet 20 mg PO DAILY #90 tab-caps 07/31/22 12/16/22 bupropion HCl 300 mg 24 hr tablet, 300 mg PO QAM #90 tab-caps 07/31/22 12/16/22 extended release (Wellbutrin XL) empagliflozin 25 mg tablet 25 mg PO DAILY #90 tab-caps 07/31/22 12/16/22 (Jardiance) insulin aspart U-100 100 unit/mL 4 unit (0.04 mL) subcut AC Dx: 07/31/22 12/16/22 (3 mL) subcutaneous pen (Novolog E11.9 to maintain HbA1c less than FlexPen U-100 Insulin aspart) 8% #11 mL insulin glargine 100 unit/mL (3 56 unit (0.56 mL) subcut HS Dx: 07/31/22 12/16/22 mL) subcutaneous pen (Lantus E11.9 to maintain HbA1c less than Solostar U-100 Insulin) 7% #51 mL mirtazapine 15 mg tablet 15 mg PO HS #90 tabs 07/31/22 12/16/22 aripiprazole 10 mg tablet 10 mg PO HS #90 tabs 08/04/22 12/16/22 semaglutide 0.25 mg or 0.5 mg (2 0.5 mg (0.4 mL) subcut QWEEK #4 08/14/22 12/16/22 mg/1.5 mL) subcutaneous pen SYRGS injector (Ozempic) epinephrine 0.3 mg/0.3 mL 0.3 mg (0.3 mL) IM ONCE PRN 10/12/22 12/16/22 injection, auto-injector (EpiPen anaphylaxis #2 ea 2-Jesus Alberto) fluticasone propionate 50 1 - 2 spray NS DAILY PRN nasal 10/30/22 12/16/22 mcg/actuation nasal congestion #47.4 grams spray,suspension acetic acid 2 % ear solution 5 drp otic (ear) TID #15 mL 11/18/22 12/16/22 cephalexin 500 mg tablet 500 mg PO BID 7 days #14 tabs 12/16/22 Previous Rx's Medication Instructions Recorded aspirin 81 mg tablet,delayed 81 mg PO DAILY #90 tab-caps 08/26/17 release (Aspir-) blood-glucose meter #1 unit 11/19/17 ibuprofen 600 mg tablet 600 mg PO QID PRN pain #20 tabs 04/26/18 lancets 33 gauge (OneTouch Delica #200 ea 09/14/18 Lancets) pen needle, diabetic 29 gauge x #200 ea 02/08/20 1/2 (BD Ultra-Fine Original Pen Needle) blood sugar diagnostic (Blood #200 ea 06/20/20 Glucose Test strips) polyethylene glycol 3350 17 17 g PO ONCE #238 grams 09/11/21 gram/dose oral powder flash glucose scanning reader #1 ea 09/24/21 (FreeStyle Hina 2 [place]) metformin 500 mg tablet,extended 1,000 mg PO BID #360 tabs 04/08/22 release 24 hr venlafaxine 150 mg 300 mg PO DAILY #180 caps 04/08/22 capsule,extended release 24 hr albuterol sulfate 90 mcg/actuation 1 - 2 puff inhalation .Q4-6H PRN 06/12/22 aerosol inhaler (ProAir HFA) shortness of breath or wheezing #1 unit flash glucose sensor (FreeStyle #6 ea 06/12/22 Hina 2 Sensor kit) atorvastatin 20 mg tablet 20 mg PO DAILY #90 tab-caps 07/31/22 bupropion HCl 300 mg 24 hr tablet, 300 mg PO QAM #90 tab-caps 07/31/22 extended release (Wellbutrin XL) empagliflozin 25 mg tablet 25 mg PO DAILY #90 tab-caps 07/31/22 (Jardiance) insulin aspart U-100 100 unit/mL 4 unit (0.04 mL) subcut AC Dx: 07/31/22 (3 mL) subcutaneous pen (Novolog E11.9 to maintain HbA1c less than FlexPen U-100 Insulin aspart) 8% #11 mL insulin glargine 100 unit/mL (3 56 unit (0.56 mL) subcut HS Dx: 07/31/22 mL) subcutaneous pen (Lantus E11.9 to maintain HbA1c less than Solostar U-100 Insulin) 7% #51 mL mirtazapine 15 mg tablet 15 mg PO HS #90 tabs 07/31/22 aripiprazole 10 mg tablet 10 mg PO HS #90 tabs 08/04/22 semaglutide 0.25 mg or 0.5 mg (2 0.5 mg (0.4 mL) subcut QWEEK #4 08/14/22 mg/1.5 mL) subcutaneous pen SYRGS injector (Ozempic) epinephrine 0.3 mg/0.3 mL 0.3 mg (0.3 mL) IM ONCE PRN 10/12/22 injection, auto-injector (EpiPen anaphylaxis #2 ea 2-Jesus Alberto) fluticasone propionate 50 1 - 2 spray NS DAILY PRN nasal 10/30/22 mcg/actuation nasal congestion #47.4 grams spray,suspension acetic acid 2 % ear solution 5 drp otic (ear) TID #15 mL 11/18/22 cephalexin 500 mg tablet 500 mg PO BID 7 days #14 tabs 12/16/22 Allergies Allergy/AdvReac Type Severity Reaction Status Date / Time bee venom protein (honey bee) Allergy Severe Anaphylaxsi Verified 12/16/22 10:35 s Sulfa (Sulfonamide Allergy Unknown HIVES, RASH Verified 12/16/22 10:35 Antibiotics) General Stated Complaint: Laceration GERARDO: 4 Review of Systems Integumentary/Breasts Skin/Breast: Reports as per HPI and Reports wounds (Right index finger laceration and avulsion) PFSH All Active Problems (Updated 12/16/22 @ 12:26 by Urszula Molina NP) Soft tissue avulsion (Acute) Laceration of right index finger (Acute) Chronic pain in right foot (Acute) Arthritis of right glenohumeral joint (Acute) Tendonitis of long head of biceps brachii of right shoulder (Acute) Obesity (Chronic) 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) Goal HbA1c </= 7% 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 (Chronic 06/10/16) Last eye exam 06/10/2016: mild B/L Peripheral polyneuropathy (Chronic 03/19/17) Anxiety disorder, unspecified (Chronic 06/15/16) Allergy to bee sting (Acute) Chronic post-traumatic stress disorder (PTSD) (Chronic) Male erectile disorder (Acute) Tobacco use disorder (Acute) Hepatic steatosis (Acute) Hyperlipidemia (Chronic 07/01/16) 05/2020: started moderate intensity statin Bipolar disorder (Chronic) Type 2 diabetes mellitus, with long-term current use of insulin (Acute) Obstructive sleep apnea (Chronic) CPAP Mild intermittent asthma without complication (Chronic) Agoraphobia with panic attacks (Chronic) Medical History Adrenal mass, right 09/2018 [facility] [place] consult: stable imaging, no further need for imaging & normal labs Arthritis of right acromioclavicular joint Bursitis of right shoulder Chronic laryngitis (05/13/17) GERD without esophagitis Hematoma of left hip Iliotibial band syndrome Intertrigo Lateral epicondylitis of right elbow Family History Daughter Chiari malformation type I Did well with operation Seizure disorder Mother Diabetes Sister Mental disorder Bipolar? Brother Substance abuse Brother Substance abuse Brother Substance abuse Brother Substance abuse Father Cancer Bladder Grandmother , Colon CA at age 70. Stroke Colon cancer Social History Smoking/Tobacco Use Status: Current every day Tobacco Type: cigarettes Smoking packs per day: 1 Smoking cigarettes per day: 20.0 Years smoked: 20 Smoking pack-years: 20.00 Quit status: considering quitting Second Hand Exposure: No Smoking risk assessment performed?: Yes Alcohol Intake: current Alcohol Intake frequency: holidays/special occasions only Drug use: Daily Substance use type: marijuana Adopted: No Caregiver/Support person: No Foster care: No Household members: significant other and other Housing: apartment Number of Children: 2 Communication Needs: None and Corrective Lenses Education Level: middle school Do you need help understanding health information?: Rarely 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) Pets and animals: No Sexually active: Yes Do you think of yourself as: straight/heterosexual Current gender identity: male What is your relationship status?: living with partner How often do you talk on the phone with friends or family?: once per week How often do you get together with friends or relatives?: once per week Do you belong to any clubs or organized social groups?: no Panel score (0-1 are the most socially isolated patients): 1 What type of physical activity do you participate in: walking Duration: 30-45 minutes/day Frequency: 3-4 times per week Janet/Jainism: None Seatbelt use: never Helmet use: No Drive intox or ride w/intox jukebox route driver: No Fire extinguisher in home: Yes Do you feel safe at home: Yes Do you feel safe in your relationship?: Yes Exam Extrem Right upper extremity: hand Details: normal capillary refill, neurosensory exam normal, tendon exam normal, normal ROM of fingers and laceration 2nd digit palmar aspect distal Details: irregular, L-shaped (Lac #1 Distal tip), avulsion (Lac #2), actively bleeding (Controlled with pressure bandage), contaminated, involving subcutaneous tissue and with sensation intact; no pulsatile bleeding Hand/finger images: 1. Approximately 2 cm avulsion shearing type laceration. Involves subcutaneous tissue slow venous ooze. 2. Approximately 0.5 cm irregular laceration bleeding controlled L-shaped. Course Vital Signs Vital signs: Vital Signs Temperature 36.6 C 12/16/22 10:31 Pulse 80 12/16/22 10:31 Respiratory Rate 16 12/16/22 10:31 Blood Pressure 140/98 H 12/16/22 10:31 Pulse Oximetry 100 12/16/22 10:31 Temperature 36.6 C 12/16/22 10:31 Temperature Source Oral 12/16/22 10:31 Pulse 80 12/16/22 10:31 Respiratory Rate 16 12/16/22 10:31 Respiratory Effort Normal, Non-Labored 12/16/22 10:37 Blood Pressure 140/98 H 12/16/22 10:31 Blood Pressure Position Sitting 12/16/22 10:31 Pulse Oximetry 100 12/16/22 10:31 Oxygen Delivery Method Room Air 12/16/22 10:31 Oxygen Flow Rate 0 12/16/22 10:31 Pain Level 3 12/16/22 10:31 Procedures Nerve Block Nerve Block 1: Time out performed: No Amount of anesthesia used (mL): 3 Side: right Nerve Blocks: digital Procedure Successful: Yes Patient Tolerated Procedure: well and no complications Complications: none
[2022-12-16] MEDS: Cephalexin 500 MG CAP PO (12:37)
== END 2022-12-16 12:49 | disposition home or self-care (01) ==
PROVIDERS: Emergency Provider Registered Nurse Emergency; PCP Nurse Practitioner Family
DX: S61.210A Laceration without foreign body of right index finger without damage to nail, initial encounter (principal); E11.319 Type 2 diabetes mellitus with unspecified diabetic retinopathy without macular edema; E78.5 Hyperlipidemia, unspecified; F17.210 Nicotine dependence, cigarettes, uncomplicated; Z79.4 Long term (current) use of insulin; Z79.82 Long term (current) use of aspirin; W25.XXXA Contact with sharp glass, initial encounter; Y93.89 Activity, other specified; Y92.89 Other specified places as the place of occurrence of the external cause; Y99.9 Unspecified external cause status
CPT/HCPCS: 12002; 99283; 73140

== ENCOUNTER 2022-12-31 15:41 | Outpatient (CLI) | payer MEDICAID, SELFPAY ==
--- NOTE | 2022-12-31 | DI.RAD_ITS ---
Exam(s) XR CHEST 2V PA LATERAL EXAM: XR CHEST 2V PA LATERAL CLINICAL HISTORY: COUGH, R05.8, EVALUATE FOR POSSIBILITY OF PNEUMONIA TECHNIQUE: 2D digital imaging was performed. COMPARISON: CR,XR XR CHEST 2V PA LATERAL from 05/20/2022 FINDINGS: HEART: Normal size. Aorta: Not dilated. PULMONARY VASCULATURE: Normal. LUNGS: Clear. PLEURAL SPACE: No pleural effusion or pneumothorax. BONE:Unremarkable for age. IMPRESSION: No acute abnormality. DATA REPOSITORY: RADIATION DOSE DELIVERED:
== END 2022-12-31 16:01 ==
PROVIDERS: PCP Nurse Practitioner Family; Visit Provider Physician Assistant Medical
DX: R05.8 Other specified cough (principal)
CPT/HCPCS: 71046

== ENCOUNTER 2023-02-15 07:33 | Emergency (ER) | payer MEDICAID, SELFPAY ==
[2023-02-15 07:48] VITALS: BP 145/110; PULSE 80; RESP 18; TEMP 37.1; O2SAT 98
[2023-02-15 08:55] LABS: Lactate 1.3 mmol/L (0.6-1.4)
[2023-02-15 08:58] LABS: Abs Immature Grans 0.02 10^3/uL (0.0-0.06); Absolute Basophil Count 0.02 10^3/uL (0.0-0.2); Absolute Eosinophil Count 0.07 10^3/uL (0.0-0.7); Absolute Lymphocyte Count 1.33 10^3/uL (1.2-3.4); Absolute Monocyte Count 0.34 10^3/uL (0.1-0.8); Absolute Neutrophil Count 4.43 10^3/uL (1.2-6.7); Basophils % 0.3; Eosinophils % 1.1; HCT 45.3 % (40.0-50.0); HGB 15.8 g/dL (13.5-17.5); Immature Grans % 0.3; Lymphocytes % 21.4; MCH 29.8 pg (27.0-33.0); MCHC 34.9 % (32.0-36.0); MCV 85 fL (80-95); Monocytes % 5.5; Neutrophils % 71.4; Platelet Count 258 10^3/uL (130-400); RBC 5.31 10^6/uL (4.36-5.78); RDW 13.3 % (11.8-14.1); RDW-SD 41.1 fL; WBC 6.21 10^3/uL (4.4-10.8)
--- NOTE | 2023-02-15 08:58 | ED.GENADUL_ITS ---
Discharge Plan Disposition Patient Disposition: Home Condition: Stable Discharge Details Clinical Impression: Anxiety disorder, unspecified, Depression with suicidal ideation, Poorly controlled diabetes mellitus, Noncompliance with medication regimen Primary Care Provider: Sandy Sanchez ED Provider: Leia Blum Home Meds and New Rx's Prescriptions: Continued (DME) FreeStyle Hina 2 [place] Misc See Rx Instructions .ROUTE .MEDSUPPLY Qty: 1 0RF Rx Instructions: As directed polyethylene glycol 3350 17 gram/dose powder 17 g PO ONCE Qty: 238 0RF Patient Comments: pt states not taking Rx Instructions: To be taken as directed by prescriber's office for colonoscopy prep. fluticasone propionate 50 mcg/actuation spray,suspension 1 - 2 spray NS DAILY PRN (Reason: nasal congestion) Qty: 47.4 3RF (DME) lancets [OneTouch Delica Lancets] 33 gauge misc 1 ea Miscellaneous BID Qty: 200 3RF Rx Instructions: To check twice daily blood glucose to maintain HbA1c less than 7%. On insulin. (DME) pen needle, diabetic [BD Ultra-Fine Orig Pen Needle] 29 gauge x 1/2 needle 1 ndl SQ DAILY Qty: 200 3RF Rx Instructions: Dx: E11.9 to maintain HbA1C less than 7% (31 g X 5 mm) atorvastatin 20 mg tablet 20 mg PO DAILY Qty: 90 3RF bupropion HCl [Wellbutrin XL] 300 mg tablet extended release 24 hr 300 mg PO QAM Qty: 90 1RF Jardiance 25 mg tablet 25 mg PO DAILY Qty: 90 3RF insulin aspart U-100 [Novolog FlexPen U-100 Insulin] 100 unit/mL (3 mL) insulin pen 4 unit subcut AC Qty: 11 3RF insulin glargine [Lantus Solostar U-100 Insulin] 100 unit/mL (3 mL) insulin pen 56 unit subcut HS Qty: 51 3RF mirtazapine 15 mg tablet 15 mg PO HS Qty: 90 0RF albuterol sulfate [ProAir HFA] 90 mcg/actuation HFA aerosol inhaler 1 - 2 puff Inhalation .Q4-6H PRN (Reason: shortness of breath or wheezing) Qty: 1 3RF Rx Instructions: DISPENSE ALBUTEROL INHALER BRAND COVERED BY INSURANCE (DME) FreeStyle Hina 2 Sensor Kit See Rx Instructions .ROUTE .MEDSUPPLY Qty: 6 3RF Rx Instructions: As directed epinephrine [EpiPen 2-Jesus Alberto] 0.3 mg/0.3 mL auto-injector 0.3 mg IM ONCE PRN (Reason: anaphylaxis) Qty: 2 1RF acetic acid 2 % solution 5 drp otic (ear) TID Qty: 15 0RF Excedrin Extra Strength 1 EACH tablet 1 ea PO PRN Qty: 2 aspirin [Aspir-81] 81 MG tablet,delayed release (DR/EC) 81 mg PO DAILY Qty: 90 3RF Patient Comments: pt states not taking (DME) blood-glucose meter 1 EACH misc 1 ea Miscellaneous DAILY Qty: 1 0RF Rx Instructions: Dx: E11.9 to maintain HbA1c less than 7%. Takes insulin. Please dispense brand covered by insurance. (DME) Blood Glucose Test Strip See Rx Instructions .ROUTE .MEDSUPPLY Qty: 200 3RF Rx Instructions: As directed to check blood glucose twice daily. On insulin. Dispense covered brand. metformin 500 mg tablet extended release 24 hr 1,000 mg PO BID Qty: 360 3RF Rx Instructions: Administer once daily with the evening meal venlafaxine 150 mg capsule,extended release 24hr 300 mg PO DAILY Qty: 180 3RF aripiprazole 10 mg tablet 10 mg PO HS Qty: 90 0RF Ozempic 0.25 mg or 0.5 mg(2 mg/1.5 mL) pen injector 0.5 mg subcut QWEEK Qty: 4 3RF Rx Instructions: Take 0.25 mg once weekly for first 4 weeks, then increase to 0.5 mg once we ekly thereafter. ibuprofen 600 mg tablet 600 mg PO QID PRN (Reason: pain) Qty: 20 0RF Discharge Instructions Instructions: Depression (ED), Help Prevent Suicide (ED) Additional Instructions: As we discussed, and there is not an emergent issue with your sugars today. However, your A1c is quite elevated and long-term this could cause a lot of problems. Please take your medications as prescribed by your primary care. Please keep your appointment this week for follow-up with primary care. Please follow the safety plan as set up by mental health. This will include your daily check ins, establishing therapist and continue with your medications. If you develop increased thoughts of self-harm, thoughts of harming others, fever/chills or other new/worsening symptom please seek care urgently once again. You may call [facility] anytime for further help at [phone]. Referrals: Sandy Sanchez NP [Primary Care Provider] - Discharge Data Discharge Date/Time-TO BE ENTERED AT DEPARTURE: 02/15/23 12:38 Medical Decision Making Patient is a pleasant 42 year old male with c/c of SI. States that he has had SI imtermittently for years, more consistent over recent months. Has attempted SI with gun in the past. Current plan is to not treat his DM and from the disease. He states his glucose has been >600 at home. Intermittently takes his mediations, sounds like this depends on where he is at mentally. States he iis concerned that he will be displaced soon for unkn own period of time. Denies ETOH. Smoke marijuana every other day to help with sleep. No real support system. Has had panic attacks. On exam, patient appears nontoxic. He is resting in bed. He has normal respiratory pattern with no evidence of tachypnea or difficulty breathing. His lungs are clear, normal cardiac exam. He does have thoughts of suicidality but the exact plan seems to be difficult for the patient to define although he does believe he will kill himself for his diabetes by not treating them appropriately. However, he does intermittently take his insulin and continues to take his other medications. Glucose 240 here. Clinical exam and his current glucose does not suggest DKA. However, at abundance of caution I do feel that it would be appropriate to continue with laboratory evaluation and ensure that there is no organic cause of his thoughts of self-harm. Patient has sitter at bedside, is in paper clothing. We will replace his nicotine as the patient smokes 1 to 2 packs/day. Patient evaluated by . They feel he is safe for d/c to home with safety plan in place. They advised that patient has largely fallen off of MH care as he stopped going but is now open. Theyw ill be checking in with him daily, they will set him up with therapist. Will also reach out to PCP. Discussed mental health recommendations with the patient. He does feel safe going home and is very interested in continuing with his outpatient care. He was also be in touch with community connections regarding his housing situation and that he would likely be displaced from set housing. Strict return precautions were discussed. I did encourage that he follow-up closely with his primary care. Contact information for emergent mental health care was given to the patient. Safety plan was completed and patient has a copy of this as well. At the time he left, call the primary care still unanswered. HPI General Date/Time Provider Initiated Documentation: 02/15/23 08:21 . Limitations to Documentation: no limitations . Information obtained by: patient and RN notes reviewed . History of Present Illness 42 year old M presents to the emergency department with the chief complaint of SI, described as moderate and similar to prior episodes (has attempted with gun in the past), and it has been intermittent. Other factors that worsen symptoms (social stressors) . Patient notes no other symptoms.. Patient did receive the following treatments prior to arrival, none Related Data Home Medications Medication Instructions Recorded Confirmed [id number] 250 1 ea PO PRN ##2 05/15/16 12/16/22 mg-250 mg-65 mg tablet (Excedrin Extra Strength) aspirin 81 mg tablet,delayed 81 mg PO DAILY #90 tab-caps 08/26/17 11/18/22 release (Aspir-) blood-glucose meter #1 unit 11/19/17 11/18/22 ibuprofen 600 mg tablet 600 mg PO QID PRN pain #20 tabs 04/26/18 12/16/22 lancets 33 gauge (OneTouch Delica #200 ea 09/14/18 11/18/22 Lancets) pen needle, diabetic 29 gauge x #200 ea 02/08/20 11/18/22 1/2 (BD Ultra-Fine Original Pen Needle) blood sugar diagnostic (Blood #200 ea 06/20/20 11/18/22 Glucose Test strips) polyethylene glycol 3350 17 17 g PO ONCE #238 grams 09/11/21 11/18/22 gram/dose oral powder flash glucose scanning reader #1 ea 09/24/21 11/18/22 (FreeStyle Hina 2 [place]) metformin 500 mg tablet,extended 1,000 mg PO BID #360 tabs 04/08/22 12/16/22 release 24 hr venlafaxine 150 mg 300 mg PO DAILY #180 caps 04/08/22 12/16/22 capsule,extended release 24 hr albuterol sulfate 90 mcg/actuation 1 - 2 puff inhalation .Q4-6H PRN 06/12/22 12/16/22 aerosol inhaler (ProAir HFA) shortness of breath or wheezing #1 unit flash glucose sensor (FreeStyle #6 ea 06/12/22 11/18/22 Hina 2 Sensor kit) atorvastatin 20 mg tablet 20 mg PO DAILY #90 tab-caps 07/31/22 12/16/22 bupropion HCl 300 mg 24 hr tablet, 300 mg PO QAM #90 tab-caps 07/31/22 12/16/22 extended release (Wellbutrin XL) empagliflozin 25 mg tablet 25 mg PO DAILY #90 tab-caps 07/31/22 12/16/22 (Jardiance) insulin aspart U-100 100 unit/mL 4 unit (0.04 mL) subcut AC Dx: 07/31/22 12/16/22 (3 mL) subcutaneous pen (Novolog E11.9 to maintain HbA1c less than FlexPen U-100 Insulin aspart) 8% #11 mL insulin glargine 100 unit/mL (3 56 unit (0.56 mL) subcut HS Dx: 07/31/22 12/16/22 mL) subcutaneous pen (Lantus E11.9 to maintain HbA1c less than Solostar U-100 Insulin) 7% #51 mL mirtazapine 15 mg tablet 15 mg PO HS #90 tabs 07/31/22 12/16/22 aripiprazole 10 mg tablet 10 mg PO HS #90 tabs 08/04/22 12/16/22 semaglutide 0.25 mg or 0.5 mg (2 0.5 mg (0.374 mL) subcut QWEEK #4 08/14/22 12/16/22 mg/1.5 mL) subcutaneous pen SYRGS injector (Ozempic) epinephrine 0.3 mg/0.3 mL 0.3 mg (0.3 mL) IM ONCE PRN 10/12/22 12/16/22 injection, auto-injector (EpiPen anaphylaxis #2 ea 2-Jesus Alberto) fluticasone propionate 50 1 - 2 spray NS DAILY PRN nasal 10/30/22 12/16/22 mcg/actuation nasal congestion #47.4 grams spray,suspension acetic acid 2 % ear solution 5 drp otic (ear) TID #15 mL 11/18/22 12/16/22 Previous Rx's Medication Instructions Recorded aspirin 81 mg tablet,delayed 81 mg PO DAILY #90 tab-caps 08/26/17 release (Aspir-) blood-glucose meter #1 unit 11/19/17 ibuprofen 600 mg tablet 600 mg PO QID PRN pain #20 tabs 04/26/18 lancets 33 gauge (OneTouch Delica #200 ea 09/14/18 Lancets) pen needle, diabetic 29 gauge x #200 ea 02/08/20 1/2 (BD Ultra-Fine Original Pen Needle) blood sugar diagnostic (Blood #200 ea 06/20/20 Glucose Test strips) polyethylene glycol 3350 17 17 g PO ONCE #238 grams 09/11/21 gram/dose oral powder flash glucose scanning reader #1 ea 09/24/21 (FreeStyle Hina 2 [place]) metformin 500 mg tablet,extended 1,000 mg PO BID #360 tabs 04/08/22 release 24 hr venlafaxine 150 mg 300 mg PO DAILY #180 caps 04/08/22 capsule,extended release 24 hr albuterol sulfate 90 mcg/actuation 1 - 2 puff inhalation .Q4-6H PRN 06/12/22 aerosol inhaler (ProAir HFA) shortness of breath or wheezing #1 unit flash glucose sensor (FreeStyle #6 ea 06/12/22 Hina 2 Sensor kit) atorvastatin 20 mg tablet 20 mg PO DAILY #90 tab-caps 07/31/22 bupropion HCl 300 mg 24 hr tablet, 300 mg PO QAM #90 tab-caps 07/31/22 extended release (Wellbutrin XL) empagliflozin 25 mg tablet 25 mg PO DAILY #90 tab-caps 07/31/22 (Jardiance) insulin aspart U-100 100 unit/mL 4 unit (0.04 mL) subcut AC Dx: 07/31/22 (3 mL) subcutaneous pen (Novolog E11.9 to maintain HbA1c less than FlexPen U-100 Insulin aspart) 8% #11 mL insulin glargine 100 unit/mL (3 56 unit (0.56 mL) subcut HS Dx: 07/31/22 mL) subcutaneous pen (Lantus E11.9 to maintain HbA1c less than Solostar U-100 Insulin) 7% #51 mL mirtazapine 15 mg tablet 15 mg PO HS #90 tabs 07/31/22 aripiprazole 10 mg tablet 10 mg PO HS #90 tabs 08/04/22 semaglutide 0.25 mg or 0.5 mg (2 0.5 mg (0.374 mL) subcut QWEEK #4 08/14/22 mg/1.5 mL) subcutaneous pen SYRGS injector (Ozempic) epinephrine 0.3 mg/0.3 mL 0.3 mg (0.3 mL) IM ONCE PRN 10/12/22 injection, auto-injector (EpiPen anaphylaxis #2 ea 2-Jesus Alberto) fluticasone propionate 50 1 - 2 spray NS DAILY PRN nasal 10/30/22 mcg/actuation nasal congestion #47.4 grams spray,suspension acetic acid 2 % ear solution 5 drp otic (ear) TID #15 mL 11/18/22 Allergies Allergy/AdvReac Type Severity Reaction Status Date / Time bee venom protein (honey bee) Allergy Severe Anaphylaxsi Verified 02/15/23 07:52 s Sulfa (Sulfonamide Allergy Unknown HIVES, RASH Verified 02/15/23 07:52 Antibiotics) General Stated Complaint: Diabetes GERARDO: 2 Review of Systems Constitutional Constitutional: Reports as per HPI, Denies fever(s), Denies headache(s) and Denies weakness Eyes Eyes: Denies change in vision ENT Ears, Nose, Mouth, and Throat: Denies headache(s) Cardiovascular Cardiovascular: Reports as per HPI, Denies chest pain, Denies lightheadedness, Denies dyspnea and Denies dyspnea on exertion Respiratory Respiratory: Reports as per HPI, Denies cough, Denies dyspnea and Denies dyspnea on exertion Gastrointestinal Gastrointestinal: Reports as per HPI, Denies abdominal pain, Denies change in bowel habits, Denies nausea and Denies vomiting Genitourinary Genitourinary: Denies system reviewed and no additional complaints, except as documented (denies any change in urinary habits) Integumentary/Breasts Skin/Breast: Reports as per HPI and Denies rash Neurologic Neurologic: Denies abnormal movements, Denies abnormal speech, Denies headache(s), Denies paresthesias and Denies weakness Psychiatric Psychiatric: Reports abnormal sleep pattern (difficulty sleeping), Reports anxiety, Reports depression, Denies auditory hallucinations, Reports hopelessness, Reports mood swings, Reports panic attacks, Denies homicidal ideation and Reports suicidal ideation PFSH All Active Problems (Updated 02/15/23 @ 12:30 by YUE Ames) Depression with suicidal ideation (Acute) Poorly controlled diabetes mellitus (Acute) Noncompliance with medication regimen (Acute) Chronic pain in right foot (Acute) Arthritis of right glenohumeral joint (Acute) Tendonitis of long head of biceps brachii of right shoulder (Acute) Obesity (Chronic) 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) Goal HbA1c </= 7% 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 (Chronic 06/10/16) Last eye exam 06/10/2016: mild B/L Peripheral polyneuropathy (Chronic 03/19/17) Anxiety disorder, unspecified (Chronic 06/15/16) Allergy to bee sting (Acute) Chronic post-traumatic stress disorder (PTSD) (Chronic) Male erectile disorder (Acute) Tobacco use disorder (Acute) Hepatic steatosis (Acute) Hyperlipidemia (Chronic 07/01/16) 05/2020: started moderate intensity statin Bipolar disorder (Chronic) Type 2 diabetes mellitus, with long-term current use of insulin (Acute) Obstructive sleep apnea (Chronic) CPAP Mild intermittent asthma without complication (Chronic) Agoraphobia with panic attacks (Chronic) Medical History Adrenal mass, right 09/2018 [facility] Endo consult: stable imaging, no further need for imaging & normal labs Arthritis of right acromioclavicular joint Bursitis of right shoulder Chronic laryngitis (05/13/17) GERD without esophagitis Hematoma of left hip Iliotibial band syndrome Intertrigo Lateral epicondylitis of right elbow Family History Daughter Chiari malformation type I Did well with operation Seizure disorder Mother Diabetes Sister Mental disorder Bipolar? Brother Substance abuse Brother Substance abuse Brother Substance abuse Brother Substance abuse Father Cancer Bladder Grandmother , Colon CA at age 70. Stroke Colon cancer Social History Smoking/Tobacco Use Status: Current every day Tobacco Type: cigarettes Smoking packs per day: 1 Smoking cigarettes per day: 20.0 Years smoked: 20 Smoking pack- years: 20.00 Quit status: considering quitting Second Hand Exposure: No Smoking risk assessment performed?: Yes Alcohol Intake: current Alcohol Intake frequency: holidays/special occasions only Drug use: Daily Substance use type: marijuana Adopted: No Caregiver/Support person: No Foster care: No Household members: significant other and other Housing: apartment Number of Children: 2 Communication Needs: None and Corrective Lenses Education Level: middle school Do you need help understanding health information?: Rarely 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) Pets and animals: No Sexually active: Yes Do you think of yourself as: straight/heterosexual Current gender identity: male What is your relationship status?: living with partner How often do you talk on the phone with friends or family?: once per week How often do you get together with friends or relatives?: once per week Do you belong to any clubs or organized social groups?: no Panel score (0-1 are the most socially isolated patients): 1 What type of physical activity do you participate in: walking Duration: 30-45 minutes/day Frequency: 3-4 times per week Janet/Rastafari: None Seatbelt use: never Helmet use: No Drive intox or ride w/intox tow motor driver: No Fire extinguisher in home: Yes Do you feel safe at home: Yes Do you feel safe in your relationship?: Yes Exam Const General: cooperative, healthy appearing, comfortable, no acute distress, well developed and well groomed Nutritional Appearance: well nourished and overweight Orientation: alert and awake Eyes General: appearance normal, both eyes and all related structures Resp Effort & Inspection: normal respiratory effort, able to speak in complete sentences and no respiratory distress Auscultation: clear to auscultation bilaterally, no rales, no rhonchi and no wheezes Cardio Rate: regular rate Rhythm: regular rhythm Heart Sounds: S1 normal and S2 normal Skin General skin exam: no rashes or lesions noted Trauma: no lacerations or abrasions Neuro General: patient alert and patient awake Cognition: normal cognition Speech: speech normal Gait: normal gait Psych Appearance: grossly normal and well kempt Mental Status: mental status grossly normal Speech and Movement: speech and movement normal Mood: congruent mood Affect: sad Attitude: cooperative Thought Process: normal Thought Content: suicidality Insight: fair Judgment: fair Course Vital Signs Vital signs: Vital Signs Temperature 37.1 C 02/15/23 07:48 Pulse 80 02/15/23 07:48 Respiratory Rate 18 02/15/23 07:48 Blood Pressure 145/110 H 02/15/23 07:48 Pulse Oximetry 98 02/15/23 07:48 Temperature 37.1 C 02/15/23 07:48 Temperature Source Skin 02/15/23 07:48 Pulse 80 02/15/23 07:48 Respiratory Rate 18 02/15/23 07:48 Blood Pressure 145/110 H 02/15/23 07:48 Blood Pressure Position Sitting 02/15/23 07:48 Pulse Oximetry 98 02/15/23 07:48 Oxygen Delivery Method Room Air 02/15/23 07:48 Oxygen Flow Rate 0 02/15/23 07:48 Pain Level 2 02/15/23 07:48 Lab/Test Results Lab/Test Results: Laboratory Tests Range/Units 02/15/23 08:40 VBG Lactate (0.6-1.4) mmol/L 1.3
[2023-02-15 09:17] LABS: Bilirubin Negative (Negative); Blood Negative (Negative); Clarity Clear (Clear); Glucose 250 mg/dL (Negative); Ketones Negative (Negative); Leukocyte Esterase Negative (Negative); Nitrite Negative (Negative); Specific Gravity >= 1.030 (1.005-1.025); pH 5.5 (5-8)
[2023-02-15 09:19] LABS: Salicylate 3.3 mg/dL (<2.8)
[2023-02-15 09:22] LABS: Acetaminophen < 2 ug/mL (10-30)
[2023-02-15 09:23] LABS: Bacteria Rare HPF (Negative); Crystals Negative HPF (Negative); Epithelial Cells Rare HPF (Negative); Mucus Moderate (Negative); Other Cells Negative (Negative); RBC 0-2 HPF (0-2); WBC 0-2 HPF (0-5)
[2023-02-15 09:24] LABS: C & S Indicated? No; Casts 3-5 Hyaline LPF (Negative)
[2023-02-15] MEDS: Nicotine 4 MG GUM CH (09:24)
[2023-02-15] MEDS: Acetaminophen 325 MG TAB 650 MG PO (09:24)
[2023-02-15 09:25] LABS: *AMPHETAMINES SCREEN URINE Negative (Negative); *BARBITURATES SCREEN URINE Negative (Negative); *BENZODIAZEPINES SCREEN URINE Negative (Negative); Cannabinoids THC Positive (Negative); Cocaine Screen,Urine Negative (Negative); METHADONE URINE SCREEN Negative (Negative); OPIATES URINE SCREEN Negative (Negative)
[2023-02-15 09:25] LABS: ALT 94 U/L (16-63); AST 45 U/L (15-37); Albumin 3.6 g/dL (3.4-5.0); Alkaline Phosphatase 111 U/L (46-116); Anion Gap 8.1 mmol/L (3-11); BUN 13 mg/dL (7-18); Bilirubin, Total 0.7 mg/dL (0.2-1.0); CO2 27.9 mmol/L (21.0-32.0); Calcium 9.4 mg/dL (8.5-10.1); Chloride 100 mmol/L (98-107); Estimated GFR 96.37 (mL/min/1.73m2); Glucose 283 mg/dL (74-106); Magnesium 1.9 mg/dL (1.8-2.4); Potassium 3.9 mmol/L (3.5-5.1); Sodium 136 mmol/L (136-145); TSH (W/Ref FT4) 1.35 uIU/mL (0.36-3.74); Total Protein 7.8 g/dL (6.4-8.2)
[2023-02-15 09:26] LABS: Tricyclic Antidepressants Negative (Negative)
[2023-02-15 09:26] LABS: ETHANOL BLOOD < 3.0 mg/dL (<10)
[2023-02-15 09:41] LABS: Hemoglobin A1C 12.1 % (<5.7)
[2023-02-15] MEDS: Lactated Ringers 1,000 ML 1000 ML IV (09:41)
[2023-02-15 12:42] VITALS: BP 135/90; PULSE 80; RESP 18; TEMP 37.1; O2SAT 98
--- NOTE | 2023-02-15 15:37 | PDOC.MHCN_ITS ---
Date of service: 02/15/23 Time of Service: 10:30 PHQ-9 Over the last 2 weeks, how often have you been bothered by any of the following problems? 1. Little interest or pleasure in doing things: several days 2. Feeling down, depressed, or hopeless: more than half the days 3. Trouble falling or staying asleep, or sleeping too much: several days 4. Feeling tired or having little energy: more than half the days 5. Poor appetite or overeating: several days 6. Feeling bad about yourself - or that you are a failure or have let yourself and your family down: several days 7. Trouble concentrating on things, such as reading the newspaper or watching television: not at all 8. Moving or speaking so slowly that other people could have noticed? - Or the opposite - being so fidgety or restless that you have been moving around a lot more than usual: several days 9. Thoughts that you would be better off or of hurting yourself in some way: several days Total score: 10 If you checked off any problems, how difficult have these problems made it for you to do your work, take care of things at home, or get along with other people?: somewhat difficult Source: Developed by Drs. Lance Rolon, Kaela Olvera, Gustavo Hargrove and colleagues, with an educational caty from [employer]. Suicide Severity Rate CSSRS Have you wished you were or wished you could go to sleep and not wake up?: No Have you actually had any thoughts of killing yourself?: Yes CSSRS2 Have you been thinking about how you might do this?: Yes Have you had these thoughts and had some intention of acting on them?: No Have you started to work out or worked out the details of how to kill yourself? Do you intend to carry out this plan?: No CSSRS4 Was this within the past three months?: No Screening Score Total Score: 2 Screening: Positive Mental Health Emergency Note Release [facility] release signed:: Yes Reason for Visit Client was feeling very hopeless and depressed and stopped taking all prescribed medications. In the last 2 weeks has the pt presented for ES prior to today?: No Client Information Client is: Adult Outpatient Well Housed: Yes Non Suicidal Self Injury Current: No History: yes, alcohol, marijuana sometimes daily Safety Risk/Harm to Self or Others Current Ideation to Harm Self or Others: No Risk: Does risk to harm exist?: yes. Risk: Low Risk Duty to warn indicated: Yes Asssessment/Mental Status Appearance: Other Attitude: Cooperative and Friendly Behavior: Unremarkable Speech: Normal Affect: Cogruent with mood Mood: Stressed, Depressed and Anxious Thought process: Unremarkable Hallucinations: No Delusions: No Attention: Unremarkable Perception: Not impaired Orientation: Fully orientated Memory: Intact Insight: Fair Judgement: Fair Neurovegetative Symptoms Sleep: Increase Appetitie: Disordered Interests: Decrease Energy: Decrease Libido: Not applicable Substance Use: Other Drug Issues: Other Do you use nicotine?: Yes Have you used substances in the last 7 days?: yes, daily Additional Issues: Assaultive/Threatening Behavior: No Medical Concerns: Yes Client engaged in active self harm w/weapon: No Threatening to run away: No Child reported abuse/neglect: No Voluntarily presenting for services: Yes Domestic violence is a concern: No Extreme Psychosis or extreme behavior is present: No Resources Reosurces reviewed and given:: 988 and [facility] Plan/Disposition Recommended Disposition: [facility] Services [facility] Services: Therapy, Therapy and Med management. Plan: This client will go home with a Safety Plan and engagement with [facility] services like therapy and med management Reports/communication Outcome discussed with: ED/Personnel
== END 2023-02-15 12:38 | disposition home or self-care (01) ==
PROVIDERS: Emergency Provider Physician Assistant; PCP Nurse Practitioner Family
DX: R45.851 Suicidal ideations (principal); F41.9 Anxiety disorder, unspecified; F32.A Depression, unspecified; E11.65 Type 2 diabetes mellitus with hyperglycemia; Z91.148 Patient's other noncompliance with medication regimen for other reason; Z79.4 Long term (current) use of insulin; Z79.84 Long term (current) use of oral hypoglycemic drugs; F17.210 Nicotine dependence, cigarettes, uncomplicated
CPT/HCPCS: 36415; 80053; 80307; 96360; 96361; 99285; 80320; 80329; 81003; 81015; 83036; 83605; 83735; 84443; 85025; 99284

== ENCOUNTER 2023-04-18 15:32 | Emergency (ER) | payer MEDICAID, SELFPAY ==
[2023-04-18] VITALS (26 sets, daily range): BP systolic 114–157; BP diastolic 58–84; PULSE 51–78; RESP 12–31; TEMP 36.7; O2SAT 95–98
--- NOTE | 2023-04-18 15:30 | RT.EKG_ITS ---
APPROVED REPORT Exam: Resting ECG Reason for Exam: chest pain Patient Location: E HR:77 bpm ECG Measurements Heart Rate 77 AXIS WA 170 P 61 QRSd 100 QRS -33 QT 375 T 85 QTc 426 Conclusion Sinus rhythm...normal P axis, V-rate 60- 99 Left axis deviation...QRS axis (-30,-90) ST elevation, consider inferior injury...ST >0.08mV, II III aVF sinus rhythm, normal rhythm, poor baseline inferior
[2023-04-18 16:08] LABS: Abs Immature Grans 0.01 10^3/uL (0.0-0.06); Absolute Basophil Count 0.02 10^3/uL (0.0-0.2); Absolute Eosinophil Count 0.08 10^3/uL (0.0-0.7); Absolute Monocyte Count 0.29 10^3/uL (0.1-0.8); Absolute Neutrophil Count 3.94 10^3/uL (1.2-6.7); Basophils % 0.4; Eosinophils % 1.4; HGB 14.9 g/dL (13.5-17.5); Immature Grans % 0.2; Lymphocytes % 21.7; MCH 29.4 pg (27.0-33.0); MCHC 33.9 % (32.0-36.0); MCV 87 fL (80-95); MPV 9.2 fL (8.0-11.0); Monocytes % 5.2; Neutrophils % 71.1; Platelet Count 208 10^3/uL (130-400); RBC 5.07 10^6/uL (4.36-5.78); RDW 13.6 % (11.8-14.1); RDW-SD 42.6 fL; WBC 5.54 10^3/uL (4.4-10.8)
[2023-04-18] MEDS: Normal Saline 1,000 ML 1000 ML IV (16:18)
[2023-04-18 16:19] LABS: Bilirubin Negative (Negative); Blood Negative (Negative); Clarity Clear (Clear); Glucose 500 mg/dL (Negative); Ketones Negative (Negative); Leukocyte Esterase Negative (Negative); Nitrite Negative (Negative); Specific Gravity <= 1.005 (1.005-1.025); Urobilinogen 0.2 mg/dL (Up to 0.2); pH 5.5 (5-8)
[2023-04-18 16:20] LABS: Lipase 36 U/L (16-77)
[2023-04-18 16:29] LABS: ALT 80 U/L (16-63); AST 39 U/L (15-37); Albumin 3.1 g/dL (3.4-5.0); Alkaline Phosphatase 103 U/L (46-116); Anion Gap 6.9 mmol/L (3-11); BUN 12 mg/dL (7-18); Bilirubin, Total 0.4 mg/dL (0.2-1.0); CO2 26.1 mmol/L (21.0-32.0); CREATININE 1.2 mg/dL (0.70-1.30); Calcium 8.6 mg/dL (8.5-10.1); Chloride 101 mmol/L (98-107); Estimated GFR 77.43 (mL/min/1.73m2); Glucose 492 mg/dL (74-106); Potassium 3.9 mmol/L (3.5-5.1); Sodium 134 mmol/L (136-145); Troponin I < 50 ng/L (<or=60)
[2023-04-18 16:30] LABS: COVID-19 PCR Negative (Negative); Influenza A PCR Negative (Negative); Influenza B PCR Negative (Negative); RSV PCR Negative (Negative)
--- NOTE | 2023-04-18 16:30 | DI.CT_ITS ---
Exam(s) CT ABDOMEN PELVIS W EXAM: CT ABDOMEN PELVIS W CLINICAL HISTORY: epigastric/LUQ pain/CVA tenderness. TECHNIQUE: Imaging Protocol: Axial computed tomography images with coronal and sagittal reformatted images were created and reviewed CONTRAST MATERIAL: Intravenous: Omnipaque 350 Contrast volume:100 ml Oral: no COMPARISON: CT CT ABDOMEN PELVIS W from 12/21/2019 FINDINGS: ABDOMEN and PELVIS: Lung Bases: No acute findings. Liver: Enlarged. Hepatic steatosis.. No measurable mass. Gallbladder and biliary tract: No radiodense calculus or dilation. Pancreas: Normal density. No abnormal calcifications or inflammatory process. No evidence of mass. Spleen: Enlarged, unchanged. Kidneys: Normal size, contour and axis. No radiodense stones. No obstructive uropathy. No suspicious masses seen. Adrenal glands: No change right adrenal myelolipoma. Vasculature: Abdominal aorta non-dilated. Soft tissues: Unremarkable. Bladder: Distended. No gross wall thickening. No calculi.No focal mass. Bowel: No obstruction. No bowel wall thickening. Appendix normal. Peritoneal cavity: No ascites. No focal collection or mesenteric inflammatory response. Bones: Unremarkable for age. Reproductive organs: Within normal limits. Lymph nodes: Unremarkable. IMPRESSION:: No acute abnormality. Stable splenomegaly. Stable hepatic steatosis. RADIATION DOSE DELIVERED: Total DLP DATA REPOSITORY: All CT scans at this facility are submitted to the National Radiology Data Registry (NRDR) Dose Index Registry (DIR) with the [employer] (ACR). RADIATION OPTIMIZATION: All CT scans at this facility use at least one of these dose optimization te chniques: automated exposure control; mA and/or kV adjustment per patient size (includes targeted exa ms where dose is matched to clinical indication); or iterative reconstruction.
[2023-04-18 16:35] LABS: Source NASOPHARYNX
--- NOTE | 2023-04-18 16:51 | ED.GENADUL_ITS ---
Discharge Plan Disposition Patient Disposition: Home Discharge Details Clinical Impression: Hyperglycemia, Nausea & vomiting, Abdominal pain Primary Care Provider: Sandy Sanchez ED Provider: Hamilton White Home Meds and New Rx's Prescriptions: Continued (DME) FreeStyle Hina 2 Comer Misc See Rx Instructions .ROUTE .MEDSUPPLY Qty: 1 0RF Rx Instructions: As directed Jardiance 25 mg tablet 25 mg PO DAILY Qty: 90 3RF nicotine 10 mg cartridge 1 inh inhalation 4-6XD PRN (Reason: nicotine cravings) Qty: 168 3RF (DME) lancets [OneTouch Delica Lancets] 33 gauge misc 1 ea Miscellaneous BID Qty: 200 3RF Rx Instructions: To check twice daily blood glucose to maintain HbA1c less than 7%. On insulin. (DME) pen needle, diabetic [BD Ultra-Fine Orig Pen Needle] 29 gauge x 1/2 needle 1 ndl SQ DAILY Qty: 200 3RF Rx Instructions: Dx: E11.9 to maintain HbA1C less than 7% (31 g X 5 mm) atorvastatin 20 mg tablet 20 mg PO DAILY Qty: 90 3RF insulin aspart U-100 [Novolog FlexPen U-100 Insulin] 100 unit/mL (3 mL) insulin pen 4 unit subcut AC Qty: 11 3RF insulin glargine [Lantus Solostar U-100 Insulin] 100 unit/mL (3 mL) insulin pen 56 unit subcut HS Qty: 51 3RF albuterol sulfate [ProAir HFA] 90 mcg/actuation HFA aerosol inhaler 1 - 2 puff Inhalation .Q4-6H PRN (Reason: shortness of breath or wheezing) Qty: 1 3RF Rx Instructions: DISPENSE ALBUTEROL INHALER BRAND COVERED BY INSURANCE epinephrine [EpiPen 2-Jesus Alberto] 0.3 mg/0.3 mL auto-injector 0.3 mg IM ONCE PRN (Reason: anaphylaxis) Qty: 2 1RF semaglutide 0.25 mg or 0.5 mg(2 mg/1.5 mL) pen injector 0.5 mg subcut QWEEK Qty: 4 3RF Rx Instructions: Take 0.25 mg once weekly for first 4 weeks, then increase to 0.5 mg once weekly thereafter. aripiprazole 10 mg tablet 5 mg PO HS Qty: 7 0RF Rx Instructions: x 2 weeks, then stop. * Switching to Latuda * lurasidone [Latuda] 20 mg tablet 20 mg PO QPM Qty: 30 1RF Rx Instructions: must administer with food (at least 350 calories) bupropion HCl [Wellbutrin XL] 150 mg tablet extended release 24 hr See Rx Instructions PO QAM MDD 450 mg Qty: 30 1RF Rx Instructions: Take one 150 mg pill + one 300 mg pill for a total daily dose of 450 mg daily PO every morning; bupropion HCl [Wellbutrin XL] 300 mg tablet extended release 24 hr See Rx Instructions .ROUTE QAM Qty: 30 1RF Rx Instructions: Take one 150 mg pill + one 300 mg pill for a total daily dose of 450 mg daily every morning; mirtazapine 15 mg tablet 15 mg PO HS Qty: 30 1RF Excedrin Extra Strength 1 EACH tablet 1 ea PO PRN Qty: 2 (DME) blood-glucose meter 1 EACH misc 1 ea Miscellaneous DAILY Qty: 1 0RF Rx Instructions: Dx: E11.9 to maintain HbA1c less than 7%. Takes insulin. Please dispense brand covered by insurance. (DME) Blood Glucose Test Strip See Rx Instructions .ROUTE .MEDSUPPLY Qty: 200 3RF Rx Instructions: As directed to check blood glucose twice daily. On insulin. Dispense covered brand. metformin 500 mg tablet extended release 24 hr 1,000 mg PO BID Qty: 360 3RF Rx Instructions: Administer once daily with the evening meal venlafaxine 150 mg capsule,extended release 24hr 300 mg PO DAILY Qty: 180 3RF (DME) FreeStyle Hina 2 Sensor Kit See Rx Instructions .ROUTE .MEDSUPPLY Qty: 6 3RF Rx Instructions: As directed ibuprofen 600 mg tablet 600 mg PO QID PRN (Reason: pain) Qty: 20 0RF Discontinued aspirin [Aspir-81] 81 MG tablet,delayed release (DR/EC) 81 mg PO DAILY Qty: 90 3RF Patient Comments: pt states not taking Discharge Instructions Instructions: Acute Nausea and Vomiting (ED), Abdominal Pain (ED), Diabetic Hyperglycemia (ED) Additional Instructions: It is very important that you continue to take your normally prescribed medications and monitor your blood sugar. You may slowly advance your diet as tolerated and return to the emergency department for any new or significant worsening of symptoms otherwise follow-up with your primary care provider Stand Alone Forms: Work Release Referrals: Sandy Sanchez NP [Primary Care Provider] - 1 week Discharge Data Discharge Date/Time-TO BE ENTERED AT DEPARTURE: 04/18/23 19:33 Medical Decision Making Patient presenting the emergency department for chief complaint of nausea vomiting and upper abdominal pain for the past 2 days. Patient states some intermittent coughing and some epigastric burning that he describes as a little bit of shortness of breath and chest pain but that is more intermittent compared to the persistent abdominal pain. Patient denies any fever chills, rash, diarrhea. Patient has a significant past medical history of diabetes that is poorly controlled with last A1c being 14, history of GERD, obesity. Physical exam shows mild epigastric and left upper quadrant tenderness, and some reported left CVA tenderness otherwise exam is noncontributory. Patient also did state that he had an elevated blood sugar reading at home in the 400s. We will plan on checking labs and CT imaging for any intra-abdominal pathology versus symptoms related to hyperglycemia. Pending results will give patient IV fluids and ketorolac. Please see physician interpretation for full interpretation of EKG but upon my review patient is in sinus rhythm, some difficulty in interpreting due to irregular baseline reading from artifact but I do not see any findings to suggest acute STEMI. We will continue to monitor Reviewed patient's labs and CBC is all within normal limits, lactate slightly elevated at 3, CMP shows slightly low sodium at 134, glucose of 492, elevated AST and ALT which are lower than last time patient had labs performed. Labs are otherwise nondiagnostic. Urinalysis does show urine glucose but no ketones. CT imaging shows splenomegaly and fatty liver disease otherwise no emergent findings noted. Reassessed patient and patient does state improvement of overall symptoms. Given his report of chest pain and risk factors will perform 1 additional troponin but the first was nondetected. Also given splenomegaly will check mono and will recheck lactate. Patient negative for mono, so will refer back to primary care provider for recheck of splenomegaly, lactate is not 1 which is reassuring, and fingerstick glucose is 309 with patient stating significant improvement of symptoms. Patient was able to tolerate p.o. intake. Will discharge patient with Zofran to use at home so that he can continue to take his normally prescribed medications and to follow-up with primary care provider for reassessment. Second troponin was rechecked and also nondetected so I feel that there is low clinical suspicion for ACS or cardiac nature of complaint. Repeat EKG was performed and please see physician interpretation for full interpretation of EKG per my review patient is in sinus rhythm with again no acute findings to suggest STEMI or emergent need of intervention. After discussion of diagnosis and plan of care patient has no further needs, questions, or concerns and states clear understanding to return to the emergency department for any worsening symptoms. This documentation was generated using [employer] Systemsation system, please disregard any oddities of phrase or misspellings. Imaging Data Radiologic Study: Imaging: CT Scan Radiologist's impression: Exam(s) PROCEDURE INFORMATION: Exam: CT Abdomen And Pelvis With Contrast Exam date and time: 04/18/2023 5:09 PM Age: 42 years old Clinical indication: Other: Epigastric/luq pain, CVA tenderness TECHNIQUE: Imaging protocol: Computed tomography of the abdomen and pelvis with contrast. Radiation optimization: All CT scans at this facility use at least one of these dose optimization techniques: automated exposure control; mA and/or kV adjustment per patient size (includes targeted exams where dose is matched to clinical indication); or iterative reconstruction. Contrast material: OMNI 350; Contrast volume: 100 ml; Contrast route: INTRAVENOUS (IV); COMPARISON: CT ABDOMEN PELVIS W 12/21/2019 2:06 PM FINDINGS: Lungs: Lung bases clear. Liver: Diffuse fatty infiltration of the liver. Gallbladder and bile ducts: Gallbladder partially collapsed. No calcified gallstones seen. No biliary dilatation. Pancreas: Normal appearing pancreas. Spleen: Splenomegaly, 17.5 cm craniocaudal dimension. Adrenal glands: Normal appearing left adrenal gland. 3.2 cm x 2.7 cm right adrenal myelolipoma. Kidneys and ureters: Normal appearing kidneys. No hydronephrosis. No obstructing ureteral stones. Stomach and bowel: No oral contrast. Stomach partially distended with ingested material. No small bowel dilatation to suggest obstruction. Normal-appearing colon. No evidence of diverticulitis or colitis. Appendix: Normal diminutive appendix. Intraperitoneal space: No gross ascites or free air. Vasculature: Normal caliber abdominal aorta. Lymph nodes: Scattered mildly prominent mesenteric lymph nodes, nonspecific. No pathologically enlarged retroperitoneal or pelvic sidewall nodes. Urinary bladder: Normal appearing urinary bladder. Reproductive: Normal-appearing prostate gland and seminal vesicles. Bones/joints: No acute fracture seen among the bones of the abdomen or pelvis. Soft tissues: No significant ventral or inguinal hernia. IMPRESSION: 1. Normal-appearing kidneys with uniform enhancement and no hydronephrosis. 2. Diffuse fatty infiltration of the liver. Correlation with liver function testing recommended. 3. Splenomegaly, 17.5 cm craniocaudal dimension. Lab Data Lab results reviewed: Yes I reviewed the patient's lab results. HPI General Mode of arrival: ambulatory . Date/Time Provider Initiated Documentation: 04/18/23 15:50 . Limitations to Documentation: no limitations . Information obtained by: patient and RN notes reviewed . History of Present Illness 42 year old M presents to the emergency department with the chief complaint of Abdominal pain, described as moderate, Quality is described as sharp, and is localized to the abdomen. Patient reports no radiation. Patient started experiencing this day(s) (2) and it has been constant. No relieving factors improve symptom(s), No exacerbating factors reported . Patient notes chest pain and nausea/vomiting. Patient did receive the following treatments prior to arrival, none Related Data Home Medications Medication Instructions Recorded Confirmed [id number] 250 1 ea PO PRN ##2 05/15/16 04/18/23 mg-250 mg-65 mg tablet (Excedrin Extra Strength) blood-glucose meter #1 unit 11/19/17 04/18/23 ibuprofen 600 mg tablet 600 mg PO QID PRN pain #20 tabs 04/26/18 04/18/23 lancets 33 gauge (OneTouch Delica #200 ea 09/14/18 04/18/23 Lancets) pen needle, diabetic 29 gauge x #200 ea 02/08/20 04/18/23 1/2 (BD Ultra-Fine Original Pen Needle) blood sugar diagnostic (Blood #200 ea 06/20/20 04/18/23 Glucose Test strips) flash glucose scanning reader #1 ea 09/24/21 04/18/23 (FreeStyle Hina 2 Comer) metformin 500 mg tablet,extended 1,000 mg (2 x 500 mg) PO BID #360 04/08/22 04/18/23 release 24 hr tabs venlafaxine 150 mg 300 mg (2 x 150 mg) PO DAILY #180 04/08/22 04/18/23 capsule,extended release 24 hr caps albuterol sulfate 90 mcg/actuation 1 - 2 puff inhalation .Q4-6H PRN 06/12/22 04/18/23 aerosol inhaler (ProAir HFA) shortness of breath or wheezing #1 unit atorvastatin 20 mg tablet 20 mg PO DAILY #90 tab-caps 07/31/22 04/18/23 insulin aspart U-100 100 unit/mL 4 unit (0.04 mL) subcut AC Dx: 07/31/22 04/18/23 (3 mL) subcutaneous pen (Novolog E11.9 to maintain HbA1c less than FlexPen U-100 Insulin aspart) 8% #11 mL insulin glargine 100 unit/mL (3 56 unit (0.56 mL) subcut HS Dx: 07/31/22 04/18/23 mL) subcutaneous pen (Lantus E11.9 to maintain HbA1c less than Solostar U-100 Insulin) 7% #51 mL epinephrine 0.3 mg/0.3 mL 0.3 mg (0.3 mL) IM ONCE PRN 10/12/22 04/18/23 injection, auto-injector (EpiPen anaphylaxis #2 ea 2-Jesus Alberto) empagliflozin 25 mg tablet 25 mg PO DAILY #90 tab-caps 02/17/23 04/18/23 (Jardiance) semaglutide 0.25 mg or 0.5 mg (2 0.5 mg (0.374 mL) subcut QWEEK #4 03/03/23 04/18/23 mg/1.5 mL) subcutaneous pen SYRGS injector nicotine 10 mg inhalation cartridge 1 inh inhalation 4-6XD PRN 04/06/23 04/18/23 nicotine cravings #168 ea aripiprazole 10 mg tablet 5 mg (1/2 x 10 mg) PO HS #7 tabs 04/12/23 04/18/23 bupropion HCl 150 mg 24 hr tablet, See Rx Instructions PO QAM #30 04/12/23 04/18/23 extended release (Wellbutrin XL) tab-caps bupropion HCl 300 mg 24 hr tablet, See Rx Instructions .Route QAM #30 04/12/23 04/18/23 extended release (Wellbutrin XL) tab-caps flash glucose sensor (FreeStyle #6 ea 04/12/23 04/18/23 Hina 2 Sensor kit) lurasidone 20 mg tablet (Latuda) 20 mg PO QPM #30 tabs 04/12/23 04/18/23 mirtazapine 15 mg tablet 15 mg PO HS #30 tabs 04/12/23 04/18/23 Previous Rx's Medication Instructions Recorded blood-glucose meter #1 unit 11/19/17 ibuprofen 600 mg tablet 600 mg PO QID PRN pain #20 tabs 04/26/18 lancets 33 gauge (OneTouch Delica #200 ea 09/14/18 Lancets) pen needle, diabetic 29 gauge x #200 ea 02/08/20 1/2 (BD Ultra-Fine Original Pen Needle) blood sugar diagnostic (Blood #200 ea 06/20/20 Glucose Test strips) flash glucose scanning reader #1 ea 09/24/21 ([employer] Hina 2 Comer) metformin 500 mg tablet,extended 1,000 mg (2 x 500 mg) PO BID #360 04/08/22 release 24 hr tabs venlafaxine 150 mg 300 mg (2 x 150 mg) PO DAILY #180 04/08/22 capsule,extended release 24 hr caps albuterol sulfate 90 mcg/actuation 1 - 2 puff inhalation .Q4-6H PRN 06/12/22 aerosol inhaler (ProAir HFA) shortness of breath or wheezing #1 unit atorvastatin 20 mg tablet 20 mg PO DAILY #90 tab-caps 07/31/22 insulin aspart U-100 100 unit/mL 4 unit (0.04 mL) subcut AC Dx: 07/31/22 (3 mL) subcutaneous pen (Novolog E11.9 to maintain HbA1c less than FlexPen U-100 Insulin aspart) 8% #11 mL insulin glargine 100 unit/mL (3 56 unit (0.56 mL) subcut HS Dx: 07/31/22 mL) subcutaneous pen (Lantus E11.9 to maintain HbA1c less than Solostar U-100 Insulin) 7% #51 mL epinephrine 0.3 mg/0.3 mL 0.3 mg (0.3 mL) IM ONCE PRN 10/12/22 injection, auto-injector (EpiPen anaphylaxis #2 ea 2-Jesus Alberto) empagliflozin 25 mg tablet 25 mg PO DAILY #90 tab-caps 02/17/23 (Jardiance) semaglutide 0.25 mg or 0.5 mg (2 0.5 mg (0.374 mL) subcut QWEEK #4 10/04/23 mg/1.5 mL) subcutaneous pen SYRGS injector nicotine 10 mg inhalation cartridge 1 inh inhalation 4-6XD PRN 04/06/23 nicotine cravings #168 ea aripiprazole 10 mg tablet 5 mg (1/2 x 10 mg) PO HS #7 tabs 04/12/23 bupropion HCl 150 mg 24 hr tablet, See Rx Instructions PO QAM #30 04/12/23 extended release (Wellbutrin XL) tab-caps bupropion HCl 300 mg 24 hr tablet, See Rx Instructions .Route QAM #30 04/12/23 extended release (Wellbutrin XL) tab-caps flash glucose sensor (FreeStyle #6 ea 04/12/23 Hina 2 Sensor kit) lurasidone 20 mg tablet (Latuda) 20 mg PO QPM #30 tabs 04/12/23 mirtazapine 15 mg tablet 15 mg PO HS #30 tabs 04/12/23 Allergies Allergy/AdvReac Type Severity Reaction Status Date / Time bee venom protein (honey bee) Allergy Severe Anaphylaxsi Verified 04/18/23 16:21 s Sulfa (Sulfonamide Allergy Unknown HIVES, RASH Verified 04/18/23 16:21 Antibiotics) General Stated Complaint: Abd Prob GERARDO: 3 Review of Systems Constitutional Constitutional: Denies chills and Denies fever(s) Cardiovascular Cardiovascular: Reports chest pain, Denies syncope and Reports dyspnea Respiratory Respiratory: Denies cough and Reports dyspnea Gastrointestinal Gastrointestinal: Reports as per HPI, Reports abdominal pain, Denies melena, Denies change in bowel habits, Denies constipation, Denies diarrhea, Reports nausea and Reports vomiting Genitourinary Genitourinary: Denies hematuria, Denies difficulty urinating and Reports flank pain Integumentary/Breasts Skin/Breast: Denies rash Neurologic Neurologic: Denies syncope PFSH All Active Problems (Updated 04/18/23 @ 19:16 by Hamilton White NP) Abdominal pain (Acute) Nausea & vomiting (Acute) Hyperglycemia (Acute) Chronic pain in right foot (Acute) Arthritis of right glenohumeral joint (Acute) Tendonitis of long head of biceps brachii of right shoulder (Acute) Obesity (Chronic) 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) Goal HbA1c </= 7% 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 (Chronic 06/10/16) Last eye exam 06/10/2016: mild B/L Peripheral polyneuropathy (Chronic 03/19/17) Anxiety disorder, unspecified (Chronic 06/15/16) Allergy to bee sting (Acute) Chronic post-traumatic stress disorder (PTSD) (Chronic) Male erectile disorder (Acute) Tobacco use disorder (Acute) Hepatic steatosis (Acute) Hyperlipidemia (Chronic 07/01/16) 05/2020: started moderate intensity statin Bipolar disorder (Chronic) Type 2 diabetes mellitus, with long-term current use of insulin (Acute) Obstructive sleep apnea (Chronic) CPAP Mild intermittent asthma without complication (Chronic) Agoraphobia with panic attacks (Chronic) Medical History Lateral epicondylitis of right elbow Arthritis of right acromioclavicular joint Bursitis of right shoulder Intertrigo Hematoma of left hip Iliotibial band syndrome Adrenal mass, right 09/2018 [facility] [place] Endo consult: stable imaging, no further need for imaging & normal labs GERD without esophagitis Chronic laryngitis (05/13/17) Family History Daughter Chiari malformation type I Did well with operation Seizure disorder Mother Diabetes Sister Mental disorder Bipolar? Brother Substance abuse Brother Substance abuse Brother Substance abuse Brother Substance abuse Father Cancer Bladder Grandmother , Colon CA at age 70. Stroke Colon cancer Social History Smoking/Tobacco Use Status: Current every day Tobacco Type: cigarettes Smoking packs per day: 1 Smoking cigarettes per day: 20.0 Years smoked: 20 Smoking pack- years: 20.00 Quit status: considering quitting Second Hand Exposure: No Smoking risk assessment performed?: Yes Alcohol Intake: current Alcohol Intake frequency: holidays/special occasions only Drug use: Daily Substance use type: marijuana Adopted: No Caregiver/Support person: No Foster care: No Household members: significant other and other Housing: apartment Number of Children: 2 Communication Needs: None and Corrective Lenses Education Level: middle school Do you need help understanding health information?: Rarely 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) Pets and animals: No Sexually active: Yes Do you think of yourself as: straight/heterosexual Current gender identity: male What is your relationship status?: living with partner How often do you talk on the phone with friends or family?: once per week How often do you get together with friends or relatives?: once per week Do you belong to any clubs or organized social groups?: no Panel score (0-1 are the most socially isolated patients): 1 What type of physical activity do you participate in: walking Duration: 30-45 minutes/day Frequency: 3-4 times per week Janet/Roman Catholic: None Seatbelt use: never Helmet use: No Drive intox or ride w/intox 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 Fire extinguisher in home: Yes Do you feel safe at home: Yes Do you feel safe in your relationship?: Yes Exam Const General: cooperative Orientation: alert, awake and oriented x3 Resp Effort & Inspection: normal respiratory effort and able to speak in complete sentences Auscultation: clear to auscultation bilaterally Cardio Rate: regular rate Rhythm: regular rhythm Heart Sounds: S1 normal and S2 normal GI Inspection: obesity Palpation: soft, not firm, no guarding, no masses, no pulsatile masses, not rigid, no splenomegaly and tender in the epigastrum and in the LUQ Auscultation: normal bowel sounds General: CVA tenderness on the left Back/Spine/Pelvis Back: CVA tenderness Neuro General: patient alert, patient awake, patient oriented x3, gait normal and moves all extremities Course Vital Signs Vital signs: Vital Signs Temperature 36.7 C 04/18/23 15:43 Pulse 78 04/18/23 15:43 Respiratory Rate 22 04/18/23 15:43 Blood Pressure 157/76 H 04/18/23 15:43 Pulse Oximetry 96 04/18/23 15:43 Temperature 36.7 C 04/18/23 15:43 Temperature Source Skin 04/18/23 15:43 Pulse 78 04/18/23 15:43 Respiratory Rate 22 04/18/23 15:43 Respiratory Effort Normal, Non-Labored 04/18/23 16:20 Blood Pressure 157/76 H 04/18/23 15:43 Blood Pressure Position Sitting 04/18/23 15:43 Pulse Oximetry 96 04/18/23 15:43 Oxygen Delivery Method Room Air 04/18/23 15:43 Oxygen Flow Rate 0 04/18/23 15:43 Pain Level 4 04/18/23 15:43 Lab/Test Results Lab/Test Results: Laboratory Tests Range/Units 04/18/23 04/18/23 04/18/23 15:50 16:00 16:11 WBC (4.4-10.8) 10^3/uL 5.54 RBC (4.36-5.78) 10^6/uL 5.07 Hgb (13.5-17.5) g/dL 14.9 Hct (40.0-50.0) % 44.0 MCV (80-95) fL 87 MCH (27.0-33.0) pg 29.4 MCHC (32.0-36.0) % 33.9 RDW (11.8-14.1) % 13.6 Plt Count (130-400) 10^3/uL 208 MPV (8.0-11.0) fL 9.2 Immature Gran % 0.2 Neutrophils % 71.1 Lymphocytes % 21.7 Monocytes % 5.2 Eosinophils % 1.4 Basophils % 0.4 Nucleated RBC % (0.0-0.3) % 0.0 Absolute Neutrophils (1.2-6.7) 10^3/uL 3.94 Absolute Lymphocytes (1.2-3.4) 10^3/uL 1.20 Absolute Monocytes (0.1-0.8) 10^3/uL 0.29 Absolute Eosinophils (0.0-0.7) 10^3/uL 0.08 Absolute Basophils (0.0-0.2) 10^3/uL 0.02 VBG Lactate (0.6-1.4) mmol/L 3.0 H* Sodium (136-145) mmol/L 134 L Potassium (3.5-5.1) mmol/L 3.9 Chloride (98-107) mmol/L 101 Carbon Dioxide (21.0-32.0) mmol/L 26.1 Anion Gap (3-11) mmol/L 6.9 BUN (7-18) mg/dL 12 Creatinine (0.70-1.30) mg/dL 1.2 Est GFR (CKD-EPI 2020) (mL/min/1.73m2) 77.43 Glucose (74-106) mg/dL 492 H Calcium (8.5-10.1) mg/dL 8.6 Magnesium (1.8-2.4) mg/dL 2.0 Total Bilirubin (0.2-1.0) mg/dL 0.4 AST (15-37) U/L 39 H ALT (16-63) U/L 80 H Alkaline Phosphatase (46-116) U/L 103 Troponin I (<or=60) ng/L < 50 Total Protein (6.4-8.2) g/dL 7.0 Albumin (3.4-5.0) g/dL 3.1 L Lipase (16-77) U/L 36 Urine Color (Yellow) Yellow Urine Clarity (Clear) Clear Urine pH (5-8) 5.5 Ur Specific [place] (1.005-1.025) <= 1.005 Urine Protein (Negative) mg/dL Negative Urine Ketones (Negative) mg/dL Negative Urine Blood (Negative) Negative Urine Nitrite (Negative) Negative Urine Bilirubin (Negative) Negative Urine Urobilinogen (Up to 0.2) mg/dL 0.2 Ur Leukocyte Esterase (Negative) Negative Urine Glucose (Negative) mg/dL 500 H COVID-19 Source NASOPHARYNX SARS-CoV-2 (PCR) (Negative) Negative Influenza Type A (PCR) (Negative) Negative Influenza Type B (PCR) (Negative) Negative RSV (PCR) (Negative) Negative
[2023-04-18] MEDS: Ketorolac 15 MG/ML VIAL IVP (16:59)
[2023-04-18] MEDS: Normal Saline - Diluent 50 ML VIAL IJ (17:10)
[2023-04-18] MEDS: Normal Saline Flush 10 ML SYR IVP (17:11)
[2023-04-18] MEDS: Omnipaque 350 MG/ML 100 ML BTL IJ (17:12)
--- NOTE | 2023-04-18 18:08 | DI.VRAD_ITS ---
PROCEDURE INFORMATION: Exam: CT Abdomen And Pelvis With Contrast Exam date and time: 04/18/2023 5:09 PM Age: 42 years old Clinical indication: Other: Epigastric/luq pain, CVA tenderness TECHNIQUE: Imaging protocol: Computed tomography of the abdomen and pelvis with contrast. Radiation optimization: All CT scans at this facility use at least one of these dose optimization techniques: automated exposure control; mA and/or kV adjustment per patient size (includes targeted exams where dose is matched to clinical indication); or iterative reconstruction. Contrast material: OMNI 350; Contrast volume: 100 ml; Contrast route: INTRAVENOUS (IV); COMPARISON: CT ABDOMEN PELVIS W 12/21/2019 2:06 PM FINDINGS: Lungs: Lung bases clear. Liver: Diffuse fatty infiltration of the liver. Gallbladder and bile ducts: Gallbladder partially collapsed. No calcified gallstones seen. No biliary dilatation. Pancreas: Normal appearing pancreas. Spleen: Splenomegaly, 17.5 cm craniocaudal dimension. Adrenal glands: Normal appearing left adrenal gland. 3.2 cm x 2.7 cm right adrenal myelolipoma. Kidneys and ureters: Normal appearing kidneys. No hydronephrosis. No obstructing ureteral stones. Stomach and bowel: No oral contrast. Stomach partially distended with ingested material. No small bowel dilatation to suggest obstruction. Normal-appearing colon. No evidence of diverticulitis or colitis. Appendix: Normal diminutive appendix. Intraperitoneal space: No gross ascites or free air. Vasculature: Normal caliber abdominal aorta. Lymph nodes: Scattered mildly prominent mesenteric lymph nodes, nonspecific. No pathologically enlarged retroperitoneal or pelvic sidewall nodes. Urinary bladder: Normal appearing urinary bladder. Reproductive: Normal-appearing prostate gland and seminal vesicles. Bones/joints: No acute fracture seen among the bones of the abdomen or pelvis. Soft tissues: No significant ventral or inguinal hernia. IMPRESSION: 1. Normal-appearing kidneys with uniform enhancement and no hydronephrosis. 2. Diffuse fatty infiltration of the liver. Correlation with liver function testing recommended. 3. Splenomegaly, 17.5 cm craniocaudal dimension. Dictated and Authenticated by: Andrei Montague MD. Ordering:DANLIO Villasenor MD
[2023-04-18 18:52] LABS: Mono Screening Negative (Negative)
--- NOTE | 2023-04-18 19:00 | RT.EKG_ITS ---
APPROVED REPORT Exam: Resting ECG Reason for Exam: chest pain Patient Location: E HR:55 bpm ECG Measurements Heart Rate 55 AXIS DC 170 P 43 QRSd 104 QRS -21 QT 411 T 60 QTc 393 Conclusion Sinus bradycardia...rate< 60 I have reviewed and interpreted ECG and agree with software generated interpretation.
[2023-04-18 19:04] LABS: Troponin I < 50 ng/L (<or=60)
[2023-04-18] MEDS: Ondansetron O.D.T. 4 MG TABEF, 3 TABS/BTL PO (19:28)
--- NOTE | 2023-04-19 11:39 | NUR.NOTE ---
Accessed chart to determine orders for EKG and to determine whether or not one needs to be cancelled. Nursing Note:
== END 2023-04-18 19:33 | disposition home or self-care (01) ==
PROVIDERS: Emergency Provider Nurse Practitioner Family; PCP Nurse Practitioner Family
DX: R11.2 Nausea with vomiting, unspecified (principal); R05.9 Cough, unspecified; R10.13 Epigastric pain; E11.65 Type 2 diabetes mellitus with hyperglycemia; R94.31 Abnormal electrocardiogram [ECG] [EKG]; Z79.4 Long term (current) use of insulin; Z20.822 Contact with and (suspected) exposure to COVID-19
CPT/HCPCS: 80053; 82962; 83690; 87637; 93005; 96361; 96374; 99285; 74177; 81003; 83605; 83735; 84484; 85025; 86308; 93010; 99284; J1885; J3490

== ENCOUNTER → 2023-11-12 19:22 | Outpatient (CLI) | payer MEDICAID, SELFPAY ==
--- NOTE | 2023-11-12 | DI.RAD_ITS ---
Exam(s) XR FINGER RT INDEX EXAM: XR FINGER RT INDEX CLINICAL HISTORY: s69.91XA unspecified injury of right index finger. TECHNIQUE: 2D digital imaging was performed. COMPARISON: CR XR FINGER RT INDEX from 12/16/2022 FINDINGS: 3 views No evidence of fracture or dislocation nor radiopaque foreign body. Bone density normal. No osseous lesions. IMPRESSION: No acute osseous findings. DATA REPOSITORY: RADIATION DOSE DELIVERED:
--- NOTE | 2023-11-12 20:31 | DI.VRAD_ITS ---
PROCEDURE INFORMATION: Exam: XR Right Finger(s) Exam date and time: 11/12/2023 7:52 PM Age: 42 years old Clinical indication: Injury or trauma; Blunt trauma (contusions or hematomas); Hand; Injury details: S69.91xa unspecified injury of right index finger. Car door TECHNIQUE: Imaging protocol: Radiologic exam of the right fingers. Views: Minimum 2 views. COMPARISON: CR XR FINGER RT INDEX 12/16/2022 11:09 AM FINDINGS: Bones/joints: Normal. No fracture, dislocation or osseous abnormality. No arthropathic changes. Soft tissues: No swelling. IMPRESSION: Normal extremity. Dictated and Authenticated by: Paulino Iniguez MD. Ordering:PURA Ibanez MD
== END ==
PROVIDERS: PCP Nurse Practitioner; Visit Provider Physician Assistant Medical
DX: M79.641 Pain in right hand (principal)
CPT/HCPCS: 73140

== ENCOUNTER 2023-12-01 16:41 | Emergency (ER) | payer MEDICAID, SELFPAY ==
[2023-12-01] VITALS (40 sets, daily range): BP systolic 134–218; BP diastolic 73–127; PULSE 72–93; RESP 9–31; TEMP 37; O2SAT 96–99
--- NOTE | 2023-12-01 16:30 | RT.EKG_ITS ---
APPROVED REPORT Exam: Resting ECG Reason for Exam: Chest Pain Patient Location: E HR:90 bpm ECG Measurements Heart Rate 90 AXIS OK 141 P 40 QRSd 99 QRS -50 QT 352 T 102 QTc 432 Conclusion Sinus rhythm...normal P axis, V-rate 60- 99 Left anterior fascicular block...axis(240,-40), init forces inf Probable anterolateral infarct, old...Q>35mS, abnrm ST-T, V2-V6,I,aVL Narrow complex normal sinus rhythm at a rate of 90. Normal axis. Intervals within normal limits. N o ST segment abnormalities. T wave inversions leads I and aVL. No acute injury pattern. Compared t o prior dated last year T wave inversions have replaced lateral T wave flattening.
--- NOTE | 2023-12-01 16:55 | ED.GENADUL_ITS ---
Discharge Plan Disposition Patient Disposition: Home Discharge Details Clinical Impression: Chest pain, unspecified Primary Care Provider: Sonya Saul ED Provider: Johann Cooper Home Meds and New Rx's Prescriptions: Continued (DME) FreeStyle Hina 2 Eola Misc See Rx Instructions .ROUTE .MEDSUPPLY Qty: 1 0RF Rx Instructions: As directed Jardiance 25 mg tablet 25 mg PO DAILY Qty: 90 3RF metformin 500 mg tablet extended release 24 hr 1,000 mg PO BID Qty: 360 3RF Rx Instructions: Administer once daily with the evening meal insulin glargine [Lantus Solostar U-100 Insulin] 100 unit/mL (3 mL) insulin pen 80 unit subcut HS hydroxyzine HCl 10 mg tablet See Rx Instructions PO TID PRN (Reason: itching) Qty: 60 0RF Rx Instructions: 1-2 tabs TID PRN (DME) lancets [OneTouch Delica Lancets] 33 gauge misc 1 ea Miscellaneous BID Qty: 200 3RF Rx Instructions: To check twice daily blood glucose to maintain HbA1c less than 7%. On insulin. (DME) pen needle, diabetic [BD Ultra-Fine Orig Pen Needle] 29 gauge x 1/2 needle 1 ndl SQ DAILY Qty: 200 3RF Rx Instructions: Dx: E11.9 to maintain HbA1C less than 7% (31 g X 5 mm) atorvastatin 20 mg tablet 20 mg PO DAILY Qty: 90 3RF albuterol sulfate [ProAir HFA] 90 mcg/actuation HFA aerosol inhaler 1 - 2 puff Inhalation .Q4-6H PRN (Reason: shortness of breath or wheezing) Qty: 1 3RF Rx Instructions: DISPENSE ALBUTEROL INHALER BRAND COVERED BY INSURANCE epinephrine [EpiPen 2-Jesus Alberto] 0.3 mg/0.3 mL auto-injector 0.3 mg IM ONCE PRN (Reason: anaphylaxis) Qty: 2 1RF mirtazapine 15 mg tablet 15 mg PO HS Qty: 90 0RF lurasidone [Latuda] 20 mg tablet 20 mg PO QPM Qty: 90 0RF Rx Instructions: must administer with food (at least 350 calories) bupropion HCl [Wellbutrin XL] 300 mg tablet extended release 24 hr See Rx Instructions .ROUTE QAM Qty: 90 0RF Rx Instructions: Take one 150 mg pill + one 300 mg pill for a total daily dose of 450 mg daily every morning; bupropion HCl [Wellbutrin XL] 150 mg tablet extended release 24 hr See Rx Instructions PO QAM MDD 450 mg Qty: 90 0RF Rx Instructions: Take one 150 mg pill + one 300 mg pill for a total daily dose of 450 mg daily PO every morning; Excedrin Extra Strength 1 EACH tablet 1 ea PO PRN Qty: 2 (DME) blood-glucose meter 1 EACH misc 1 ea Miscellaneous DAILY Qty: 1 0RF Rx Instructions: Dx: E11.9 to maintain HbA1c less than 7%. Takes insulin. Please dispense brand covered by insurance. (DME) Blood Glucose Test Strip See Rx Instructions .ROUTE .MEDSUPPLY Qty: 200 3RF Rx Instructions: As directed to check blood glucose twice daily. On insulin. Dispense covered brand. (DME) FreeStyle Hina 2 Sensor Kit See Rx Instructions .ROUTE .MEDSUPPLY Qty: 6 3RF Rx Instructions: As directed venlafaxine 150 mg capsule,extended release 24hr See Rx Instructions .ROUTE .COMPLEX Qty: 180 3RF Dose Instruction: TAKE TWO CAPSULES BY MOUTH EVERY DAY Rx Instructions: TAKE TWO CAPSULES BY MOUTH EVERY DAY insulin aspart U-100 [Novolog FlexPen U-100 Insulin] 100 unit/mL (3 mL) insulin pen See Rx Instructions .ROUTE .COMPLEX Qty: 15 3RF Dose Instruction: INJECT 4 UNITS UNDER THE SKIN BEFORE MEALS DIRECTED Rx Instructions: INJECT 4 UNITS UNDER THE SKIN BEFORE MEALS DIRECTED ibuprofen 600 mg tablet 600 mg PO QID PRN (Reason: pain) Qty: 20 0RF Discharge Instructions Additional Instructions: You were seen in the emergency department for your chest pain. Your blood work showed no sign of heart attack. As we discussed please follow-up with your primary care provider. Please return to the emergency department if you pass out or develop chest pain associated with sweating or if you have any other concerns. Discharge Data Discharge Date/Time-TO BE ENTERED AT DEPARTURE: 12/01/23 20:34 HPI General Date/Time Provider Initiated Documentation: 12/01/23 16:54 . HPI Narrative: MDM This is a 43-year-old normothermic and not tachycardic diabetic male with chest pain concerning for the possibility of ACS for which patient will undergo troponin testing to assess for ACS in the setting of his nonischemic ECG. No tearing quality to pain to suggest aortic dissection. No considered PE as patient is short of breath however he is not tachypneic and he is PERC negative so I did not order a D-dimer. No trauma to chest to suggest pneumothorax. No tearing quality to suggest aortic dissection. No pain out of proportion to suggest necrotizing soft tissue infection. Patient is not a dialysis patient nor is he tachycardic nor hypotensive so I am not suspicious for tamponade. No significant lower extremity edema to suggest acute heart failure. Concerning his syncopal episode he had no tonic-clonic activity no postictal phase to suggest seizures I do not feel he requires an EEG. He said no black or bloody stools to suggest acute blood loss anemia. He has no dysrhythmias on ECG. His AK is within normal limits without blocks. No recent tick bites to suggest Lyme carditis. No signs of arrhythmogenic right ventricular cardiomyopathy. No de lta wave to suggest WPW. No LE edema nor hx of CHF to suggest acute HF. Will repeat delta 1 hour troponin and reassess patient. No vomiting to suggest esophageal rupture. 6:35 PM Patient metabolic panel showing hyperglycemia but no anion gap normal bicarbonate??not consistent with DKA. No RICARDO. CBC shows no anemia no leukocytosis and no thrombocytopenia. Initial troponin negative. Normal reassuring magnesium. Yandy from care management has met with this patient and offered him community resources for food. She also advised an [facility] consult. Will repeat troponin prior to reaching out to [facility] chest. 7:54 PM Negative troponin. UA not consistent with UTI. 8:25 PM I met with the patient after his repeat troponin was negative. He felt improved. He denied dysuria or frequency. I offered him an nightly evaluation with [facility] as recommended by care management. He declined. I advised if he developed recurrent chest pain if he passed out developed any headaches nausea or vomiting that he should return to the emergency department. Otherwise advised primary care follow-up. He understood his return indications and was discharged with empiric trial of expectant outpatient management. Chronic conditions affecting the care of the patient: Obesity diabetes History obtained from an outside historian: N/A External record review: [facility] [place] [facility] EMR [Diagnostic interpretations performed by me: Per my independent interpretation chest x-ray shows: No acute cardiopulmonary process. Per my independent interpretation EKG shows: Narrow complex normal sinus rhythm at a rate of 90. Normal axis. Intervals within normal limits. No ST segment abnormalities. T wave inversions leads I and aVL. No acute injury pattern. Compared to prior dated last year T wave inversions have replaced lateral T wave flattening. ]Medications: n/a Social determinants of health affecting disposition: food insecurity Management discussed with: care managment Treatment/interventions considered: n/a Response to therapies provided: n/a HPI This is a 43-year-old male with history of diabetes and obesity arrived to emergency department via private vehicle in setting of multiple complaints. Patient reports that he has been urinating more frequently in the dorsum shaking chills. He reports that his blood glucose has been slightly elevated. He reports that he has not eaten anything in 4 days. He reports that this is because he has difficulty affording food. He has left-sided chest pain. He he reported that he was in an argument today with left-sided chest pain began. It went into his left shoulder. He reportedly lost consciousness at that time. He denies history of coronary artery disease but there is significant family history of coronary artery disease. He has had no sick contacts. He reports a 50 pound unintentional weight loss in the last 3 weeks. He does not have a job. No flank pain. No history of PE nor DVT. Exam General: Chronically ill-appearing in no acute distress speaking in complete sentences. Head: Normocephalic, atraumatic. Eye: Extraocular eye movements intact. No conjunctival injection. No scleral icterus. Ear, nose, mouth, throat: Grossly normal inspection. Normal voice, handling secretions normally. Neck: Trachea midline. Cardiovascular: Well-perfused distal extremities. Regular rate and rhythm Respiratory: Nonlabored respiration. Clear lungs bilaterally. Gastrointestinal: Nondistended abdomen. Soft nontender obese Musculoskeletal: No edema. Moving all 4 extremities spontaneously. Skin: Normal for age and race, grossly normal temperature and turgor. No acute rash. Neurologic: Alert and appropriate, no apparent acute deficits. GCS 15. Psychiatric: Mood and manner are appropriate. Grooming and personal hygiene are appropriate. Related Data Home Medications Medication Instructions Recorded Confirmed [id number] 250 1 ea PO PRN ##2 05/15/1611/30/ mg-250 mg-65 mg tablet (Excedrin Extra Strength) blood-glucose meter #1 unit 11/19/17 12/01/23 ibuprofen 600 mg tablet 600 mg PO QID PRN pain #20 tabs 04/26/18 12/01/23 lancets 33 gauge (OneTouch Delica #200 ea 09/14/18 12/01/23 Lancets) pen needle, diabetic 29 gauge x #200 ea 02/08/20 12/01/23 1/2 (BD Ultra-Fine Original Pen Needle) blood sugar diagnostic (Blood #200 ea 06/20/20 12/01/23 Glucose Test strips) flash glucose scanning reader #1 ea 09/24/21 12/01/23 (FreeStyle Hina 2 Eola) albuterol sulfate 90 mcg/actuation 1 - 2 puff inhalation .Q4-6H PRN 06/12/22 12/01/23 aerosol inhaler (ProAir HFA) shortness of breath or wheezing #1 unit atorvastatin 20 mg tablet 20 mg PO DAILY #90 tab-caps 07/31/22 12/01/23 epinephrine 0.3 mg/0.3 mL 0.3 mg (0.3 mL) IM ONCE PRN 10/12/22 12/01/23 injection, auto-injector (EpiPen anaphylaxis #2 ea 2-Jesus Alberto) empagliflozin 25 mg tablet 25 mg PO DAILY #90 tab-caps 02/17/23 12/01/23 (Jardiance) flash glucose sensor (FreeStyle #6 ea 04/12/23 12/01/23 Hina 2 Sensor kit) bupropion HCl 150 mg 24 hr tablet, See Rx Instructions PO QAM #90 05/13/23 12/01/23 extended release (Wellbutrin XL) tab-caps bupropion HCl 300 mg 24 hr tablet, See Rx Instructions .Route QAM #90 05/13/23 12/01/23 extended release (Wellbutrin XL) tab-caps lurasidone 20 mg tablet (Latuda) 20 mg PO QPM #90 tabs 05/13/23 12/01/23 mirtazapine 15 mg tablet 15 mg PO HS #90 tabs 05/13/23 12/01/23 venlafaxine 150 mg See Rx Instructions .Route 07/05/23 12/01/23 capsule,extended release 24 hr .COMPLEX #180 caps insulin aspart U-100 100 unit/mL See Rx Instructions .Route 10/20/23 12/01/23 (3 mL) subcutaneous pen (Novolog .COMPLEX #15 mL FlexPen U-100 Insulin aspart) hydroxyzine HCl 10 mg tablet See Rx Instructions PO TID PRN 11/08/23 12/01/23 itching #60 tabs insulin glargine 100 unit/mL (3 80 unit subcut HS Dx: E11.9 to 11/08/23 12/01/23 mL) subcutaneous pen (Lantus maintain HbA1c less than 7% Solostar U-100 Insulin) metformin 500 mg tablet,extended 1,000 mg (2 x 500 mg) PO BID #360 11/08/23 12/01/23 release 24 hr tabs Previous Rx's Medication Instructions Recorded blood-glucose meter #1 unit 11/19/17 ibuprofen 600 mg tablet 600 mg PO QID PRN pain #20 tabs 04/26/18 lancets 33 gauge (OneTouch Delica #200 ea 09/14/18 Lancets) pen needle, diabetic 29 gauge x #200 ea 02/08/20 1/2 (BD Ultra-Fine Original Pen Needle) blood sugar diagnostic (Blood #200 ea 06/20/20 Glucose Test strips) flash glucose scanning reader #1 ea 09/24/21 (FreeStyle Hina 2 Eola) albuterol sulfate 90 mcg/actuation 1 - 2 puff inhalation .Q4-6H PRN 06/12/22 aerosol inhaler (ProAir HFA) shortness of breath or wheezing #1 unit atorvastatin 20 mg tablet 20 mg PO DAILY #90 tab-caps 07/31/22 epinephrine 0.3 mg/0.3 mL 0.3 mg (0.3 mL) IM ONCE PRN 10/12/22 injection, auto-injector (EpiPen anaphylaxis #2 ea 2-Jesus Alberto) empagliflozin 25 mg tablet 25 mg PO DAILY #90 tab-caps 02/17/23 (Jardiance) flash glucose sensor (FreeStyle #6 ea 04/12/23 Hina 2 Sensor kit) bupropion HCl 150 mg 24 hr tablet, See Rx Instructions PO QAM #90 05/13/23 extended release (Wellbutrin XL) tab-caps bupropion HCl 300 mg 24 hr tablet, See Rx Instructions .Route QAM #90 05/13/23 extended release (Wellbutrin XL) tab-caps lurasidone 20 mg tablet (Latuda) 20 mg PO QPM #90 tabs 05/13/23 mirtazapine 15 mg tablet 15 mg PO HS #90 tabs 05/13/23 venlafaxine 150 mg See Rx Instructions .Route 07/05/23 capsule,extended release 24 hr .COMPLEX #180 caps insulin aspart U-100 100 unit/mL See Rx Instructions .Route 10/20/23 (3 mL) subcutaneous pen (Novolog .COMPLEX #15 mL FlexPen U-100 Insulin aspart) hydroxyzine HCl 10 mg tablet See Rx Instructions PO TID PRN 11/08/23 itching #60 tabs metformin 500 mg tablet,extended 1,000 mg (2 x 500 mg) PO BID #360 11/08/23 release 24 hr tabs Allergies Allergy/AdvReac Type Severity Reaction Status Date / Time bee venom protein (honey bee) Allergy Severe Anaphylaxsi Verified 12/01/23 16:51 s Sulfa (Sulfonamide Allergy Unknown HIVES, RASH Verified 12/01/23 16:51 Antibiotics) General Stated Complaint: Chest Pain GERARDO: 3 Course Vital Signs Vital signs: Vital Signs Temperature 37.0 C 12/01/23 16:51 Pulse 88 12/01/23 16:51 Respiratory Rate 16 12/01/23 16:51 Blood Pressure 191/99 H 12/01/23 16:51 Pulse Oximetry 98 12/01/23 16:51 Temperature 37.0 C 12/01/23 16:51 Temperature Source Temporal Artery Scan 12/01/23 16:51 Pulse 88 12/01/23 16:51 Respiratory Rate 16 12/01/23 16:51 Blood Pressure 191/99 H 12/01/23 16:51 Blood Pressure Position Sitting 12/01/23 16:51 Pulse Oximetry 98 12/01/23 16:51 Oxygen Delivery Method Room Air 12/01/23 16:51 Oxygen Flow Rate 0 12/01/23 16:51 Pain Level 10 12/01/23 16:51 Comment to touch on left chest wall 12/01/23 16:51 Medical Decision Making Quality:SDOH Health Related Social Needs: No Data to Display PFSH All Active Problems (Updated 12/01/23 @ 20:26 by Johann Cooper MD) Chest pain, unspecified (Acute) Bipolar disorder with psychotic features (Acute) Chronic pain in right foot (Acute) Arthritis of right glenohumeral joint (Acute) Tendonitis of long head of biceps brachii of right shoulder (Acute) Obesity (Chronic) 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) Goal HbA1c </= 7% 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 (Chronic 06/10/16) Last eye exam 06/10/2016: mild B/L Peripheral polyneuropathy (Chronic 03/19/17) Anxiety disorder, unspecified (Chronic 06/15/16) Allergy to bee sting (Acute) Chronic post-traumatic stress disorder (PTSD) (Chronic) Male erectile disorder (Acute) Tobacco use disorder (Acute) Hepatic steatosis (Acute) Hyperlipidemia (Chronic 07/01/16) 05/2020: started moderate intensity statin Type 2 diabetes mellitus, with long-term current use of insulin (Acute) Obstructive sleep apnea (Chronic) CPAP Mild intermittent asthma without complication (Chronic) Agoraphobia with panic attacks (Chronic) Medical History (Updated 12/01/23 @ 20:26 by Johann Cooper MD) Bipolar disorder Lateral epicondylitis of right elbow Arthritis of right acromioclavicular joint Bursitis of right shoulder Intertrigo Hematoma of left hip Iliotibial band syndrome Adrenal mass, right 09/2018 [facility] [place] [facility] Endo consult: stable imaging, no further need for imaging & nor mal labs GERD without esophagitis Chronic laryngitis (05/13/17) Family History Daughter Chiari malformation type I Did well with operation Seizure disorder Mother Diabetes Sister Mental disorder Bipolar? Brother Substance abuse Brother Substance abuse Brother Substance abuse Brother Substance abuse Father Cancer Bladder Grandmother , Colon CA at age 70. Stroke Colon cancer Social History Smoking/Tobacco Use Status: Current every day Tobacco Type: cigarettes Smoking packs per day: 1 Smoking cigarettes per day: 20.0 Years smoked: 20 Smoking pack- years: 20.00 Quit status: considering quitting Second Hand Exposure: No Smoking risk assessment performed?: Yes Alcohol Intake: current Alcohol Intake frequency: holidays/special occasions only Drug use: Daily Substance use type: marijuana Adopted: No Caregiver/Support person: No Foster care: No Household members: significant other and other Housing: apartment Number of Children: 2 Communication Needs: None and Corrective Lenses Education Level: middle school Do you need help understanding health information?: Rarely 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) Pets and animals: No Sexually active: Yes Do you think of yourself as: straight/heterosexual Current gender identity: male What is your relationship status?: living with partner How often do you talk on the phone with friends or family?: once per week How often do you get together with friends or relatives?: once per week Do you belong to any clubs or organized social groups?: no Panel score (0-1 are the most socially isolated patients): 1 What type of physical activity do you participate in: walking Duration: 30-45 minutes/day Frequency: 3-4 times per week Janet/Muslim: None Seatbelt use: never Helmet use: No Drive intox or ride w/intox gas truck driver: No Fire extinguisher in home: Yes Do you feel safe at home: Yes Do you feel safe in your relationship?: Yes
--- NOTE | 2023-12-01 17:15 | DI.RAD_ITS ---
Exam(s) XR PORTABLE CHEST AP EXAM: XR PORTABLE CHEST AP CLINICAL HISTORY: Chest pain TECHNIQUE: 2D digital imaging was performed of the chest. One image was obtained. An AP view was ob tained. COMPARISON: CR XR CHEST 2V PA LATERAL from 12/31/2022 FINDINGS: MEDIASTINUM: Normal. HEART: Normal. PULMONARY VASCULATURE: Normal. LUNGS: Clear. PLEURAL SPACE: No pleural effusion or pneumothorax. BONE:Within normal limits for the patient's age. OTHER FINDINGS:Normal. IMPRESSION: No acute pulmonary findings. DATA REPOSITORY: RADIATION DOSE DELIVERED:
[2023-12-01 17:39] LABS: Abs Immature Grans 0.02 10^3/uL (0.0-0.06); Absolute Basophil Count 0.02 10^3/uL (0.0-0.2); Absolute Eosinophil Count 0.02 10^3/uL (0.0-0.7); Absolute Lymphocyte Count 1.82 10^3/uL (1.2-3.4); Absolute Monocyte Count 0.37 10^3/uL (0.1-0.8); Absolute Neutrophil Count 5.48 10^3/uL (1.2-6.7); Basophils % 0.3 %; Eosinophils % 0.3 %; HCT 49.1 % (40.0-50.0); HGB 17.2 g/dL (13.5-17.5); Immature Grans % 0.3 %; Lymphocytes % 23.5 %; MCH 29.7 pg (27.0-33.0); MCV 85 fL (80-95); MPV 9.1 fL (8.0-11.0); Monocytes % 4.8 %; Neutrophils % 70.8 %; Platelet Count 282 10^3/uL (130-400); RBC 5.79 10^6/uL (4.36-5.78); RDW 13.5 % (11.8-14.1); RDW-SD 41.1 fL; WBC 7.73 10^3/uL (4.4-10.8)
--- NOTE | 2023-12-01 17:45 | PDOC.CMPRO ---
Date of service: 12/01/23 Time of Service: 17:45 Care Management Progress Note Progress Note Text Progress Note Text: Huseyin was lying in bed in the ED when CM met with him. The ED provider requested a CM consult as Ronni had shared that he has food insecurity. CM asked Huseyin if he was aware of the food shelves in [facility] and Huseyin stated that he was. He has been to [facility] in the past. He has a car, so transportation is not an issue and he has secure housing. After discussion, Huseyin was able to identify that he knows how to access the resources he needs, but his anxiety gets in the way and he is unable to take action. He stated that he is not sure how much longer he can go on this way. He has a therapist and he has not had the emotional strength to reach out to her either. After discussion with the provider, a consult with mental health will be ordered when he is medically cleared. SDOH(Care Management) Screening Will the Patient Participate in the Screening?: Declined to provide
[2023-12-01 17:56] LABS: Anion Gap 10.3 mmol/L (3-11); BUN 10 mg/dL (7-18); CO2 25.7 mmol/L (21.0-32.0); CREATININE 1.1 mg/dL (0.70-1.30); Chloride 102 mmol/L (98-107); Estimated GFR 85.42 (mL/min/1.73m2); Glucose 236 mg/dL (74-106); Magnesium 2.3 mg/dL (1.8-2.4); Potassium 3.7 mmol/L (3.5-5.1); Sodium 138 mmol/L (136-145); Troponin I < 50 ng/L (< or =60)
[2023-12-01 19:47] LABS: Troponin I < 50 ng/L (< or =60)
[2023-12-01 20:27] LABS: Bilirubin Negative (Negative); Blood Negative (Negative); Clarity Clear (Clear); Glucose >=1000 mg/dL (Negative); Ketones Negative (Negative); Leukocyte Esterase Negative (Negative); Nitrite Negative (Negative); Specific Gravity 1.015 (1.005-1.025)
[2023-12-01 20:35] LABS: Bacteria Negative HPF (Negative); C & S Indicated? No; Casts Negative LPF (Negative); Crystals Negative HPF (Negative); Epithelial Cells Rare HPF (Negative); Mucus Negative (Negative); RBC Negative HPF (0-2); WBC Negative HPF (0-5)
--- NOTE | 2023-12-01 22:20 | PDOC.MHCN_ITS ---
Date of service: 12/01/23 Time of Service: 20:15 [facility] Emergency Note Release [facility] release signed:: Yes Reason for Visit Ronni reports he was having chest pains he has never felt so he presented to [facility]. In the last 2 weeks has the pt presented for ES prior to today?: Yes, presented at [facility] ED Client Information Client is: Adult Outpatient Well Housed: Yes Non Suicidal Self Injury Current: No History: No Safety Risk/Harm to Self or Others Current Ideation to Harm Self or Others: No Risk: Does risk to harm exist?: No Risk: N/A Duty to warn indicated: No Asssessment/Mental Status Appearance: Unremarkable Attitude: Cooperative Behavior: Unremarkable Speech: Normal Affect: Cogruent with mood Mood: Stressed and Anxious Thought process: Unremarkable Hallucinations: No evidence Delusions: No evidence Attention: Unremarkable Perception: Not impaired Orientation: Fully orientated Memory: Intact Insight: Fair Judgement: Fair Neurovegetative Symptoms Sleep: No change Appetitie: No change Interests: No change Energy: No change Libido: Not applicable Substance Use: Do you use nicotine?: No Have you used substances in the last 7 days?: No Additional Issues: Assaultive/Threatening Behavior: No Medical Concerns: Yes Client engaged in active self harm w/weapon: No Threatening to run away: No Child reported abuse/neglect: No Voluntarily presenting for services: Yes Domestic violence is a concern: No Extreme Psychosis or extreme behavior is present: No Impression Ronni presented to [facility] due to chest pain. 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 Ronni reports he came to the hospital due to chest pain. Ronni was unsure what the chest pain was from but he had never felt this pain before. Ronni reports he has been under a lot of stress and been feeling very anxious recently and is unsure if it is related to his anxiety or his physical health. Ronni reports he already sees a therapist and missed his last appointment, he plans to call Wednesday to reschedule this appointment. Ronni reports that at this time there is nothing [facility] can do to better support him. Ronni denies SI, HI, or NSSI. Ronni denied the need for check ins or a safety plan. Resources Reosurces reviewed and given:: Community therapist and HS Plan/Disposition Recommended Disposition: Therapy. Plan: Ronni will remain at [facility] for medical evaluation. Ronni does not need further support from [facility] at this time, but will call if that changes. Person reported agreement to plan: Yes Reports/communication Outcome discussed with: ED/Personnel
== END 2023-12-01 20:34 | disposition home or self-care (01) ==
PROVIDERS: Emergency Provider Emergency Medicine; PCP Nurse Practitioner
DX: E11.65 Type 2 diabetes mellitus with hyperglycemia (principal); R07.9 Chest pain, unspecified; R55 Syncope and collapse; Z79.4 Long term (current) use of insulin; Z79.899 Other long term (current) drug therapy; E66.9 Obesity, unspecified; Z68.41 Body mass index [BMI] 40.0-44.9, adult; Z59.41 Food insecurity; Z82.49 Family history of ischemic heart disease and other diseases of the circulatory system
CPT/HCPCS: 00123; 36415; 80048; 82962; 93005; 99285; 71045; 81003; 81015; 83735; 84484; 85025; 93010

== ENCOUNTER 2024-06-16 11:17 | Day surgery (SDC) | payer MEDICAID, SELFPAY ==
--- NOTE | 2024-06-15 20:29 | W.PREOPHP ---
Assessment and Plan Assessment and plan (1) Posterior subcapsular age-related cataract, right eye: Status: Acute Assessment and plan: Assessment: Visually significant cataract, right eye. Plan: Cataract extraction with intraocular lens implantation, right eye. Cleared to proceed with cataract surgery in the right eye. History of Present Illness History of Present Illness Chief Complaint: Progressive decreased vision, right eye Narrative: The patient is a 43-year-old male who presented in July 2023 with complaints of progressive decreased vision in his right eye. He noted difficulty reading pill bottles, magazines and street signs. Can only go drive at night due to glare and has difficulty with fine near work, as well as poor balance and depth perception. 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 (Chronic 06/10/16) Last eye exam 06/10/2016: mild B/L Peripheral polyneuropathy (Chronic 03/19/17) Anxiety disorder, unspecified (Chronic 06/15/16) Allergy to bee sting (Acute) Chronic post-traumatic stress disorder (PTSD) (Chronic) Male erectile disorder (Acute) Tobacco use disorder (Acute) Hepatic steatosis (Acute) Hyperlipidemia (Chronic 07/01/16) 05/2020: started moderate intensity statin Type 2 diabetes mellitus, with long-term current use of insulin (Acute) Obstructive sleep apnea (Chronic) CPAP Mild intermittent asthma without complication (Chronic) Agoraphobia with panic attacks (Chronic) Medical History Bipolar disorder Lateral epicondylitis of right elbow Arthritis of right acromioclavicular joint Bursitis of right shoulder Intertrigo Hematoma of left hip Iliotibial band syndrome Adrenal mass, right 09/2018 [facility] [place] Endo consult: stable imaging, no further need for imaging & normal labs GERD without esophagitis Chronic laryngitis (05/13/17) Family History Daughter Chiari malformation type I Did well with operation Seizure disorder Mother Diabetes Sister Mental disorder Bipolar? Brother Substance abuse Brother Substance abuse Brother Substance abuse Brother Substance abuse Father Cancer Bladder Grandmother , Colon CA at age 70. Stroke Colon cancer Social History (Updated 05/16/24 @ 14:11 by Lolly Sanders LPN) Smoking/Tobacco Use Status: Current every day Tobacco Type: cigarettes Smoking packs per day: 1 Smoking cigarettes per day: 20.0 Years smoked: 20 Smoking pack-years: 20.00 Quit status: considering quitting Second Hand Exposure: No Smoking risk assessment performed?: Yes Alcohol Intake: current Alcohol Intake frequency: holidays/special occasions only Drug use: Daily Substance use type: marijuana Adopted: No Caregiver/Support person: No Foster care: No Household members: other Housing: apartment Number of Children: 2 Communication Needs: None and Corrective Lenses Education Level: middle school Do you need help understanding health information?: Rarely 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) Pets and animals: No Sexually active: Yes Do you think of yourself as: straight/heterosexual Current gender identity: male How often do you talk on the phone with friends or family?: once per week How often do you get together with friends or relatives?: once per week Do you belong to any clubs or organized social groups?: no Panel score (0-1 are the most socially isolated patients): 0 What type of physical activity do you participate in: walking Duration: 30-45 minutes/day Frequency: 3-4 times per week Janet/Confucianism: None Seatbelt use: never Helmet use: No Drive intox or ride w/intox tour bus 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: No Fire extinguisher in home: Yes Do you feel safe at home: Yes Do you feel safe in your relationship?: Yes Meds Allergies and Home Medications Allergies Allergy/AdvReac Type Severity Reaction Status Date / Time bee venom protein (honey bee) Allergy Severe Anaphylaxsi Verified 06/16/24 11:27 s Sulfa (Sulfonamide Allergy Unknown HIVES, RASH Verified 06/16/24 11:27 Antibiotics) Home Medications ?Medication ?Instructions ?Recorded ?Confirmed ?Type [id number]-qmvnobgkoiyou-gnlvngcp 250 1 ea PO PRN ##2 05/15/16 06/14/24 History mg-250 mg-65 mg tablet (Excedrin Extra Strength) blood-glucose meter #1 unit 11/19/17 12/01/23 Rx ibuprofen 600 mg tablet 600 mg PO QID PRN pain #20 tabs 04/26/18 06/14/24 Rx lancets 33 gauge (OneTouch Delica #200 ea 09/14/18 12/01/23 Rx Lancets) pen needle, diabetic 29 gauge x #200 ea 02/08/20 12/01/23 Rx 1/2 (BD Ultra-Fine Original Pen Needle) blood sugar diagnostic (Blood #200 ea 06/20/20 12/01/23 Rx Glucose Test strips) lurasidone 20 mg tablet (Latuda) 20 mg PO QPM #90 tabs 05/13/23 06/14/24 Rx hydroxyzine HCl 10 mg tablet See Rx Instructions PO TID PRN 11/08/23 06/14/24 Rx itching #60 tabs metformin 500 mg tablet,extended 1,000 mg (2 x 500 mg) PO BID #360 11/08/23 06/14/24 Rx release 24 hr tabs albuterol sulfate 90 mcg/actuation 1 - 2 puff inhalation .Q4-6H PRN 05/16/24 06/14/24 Rx aerosol inhaler shortness of breath or wheezing #1 unit atorvastatin 20 mg tablet 20 mg PO DAILY #90 tab-caps 05/16/24 06/16/24 Rx bupropion HCl 150 mg 24 hr tablet, See Rx Instructions PO QAM #90 05/16/24 06/16/24 Rx extended release (Wellbutrin XL) tab-caps bupropion HCl 300 mg 24 hr tablet, See Rx Instructions .Route QAM #90 05/16/24 06/16/24 Rx extended release (Wellbutrin XL) tab-caps empagliflozin 25 mg tablet 25 mg PO DAILY #90 tab-caps 05/16/24 06/14/24 Rx (Jardiance) epinephrine 0.3 mg/0.3 mL 0.3 mg (0.3 mL) IM ONCE PRN 05/16/24 06/14/24 Rx injection, auto-injector (EpiPen anaphylaxis #2 ea 2-Jesus Alberto) flash glucose scanning reader #1 ea 05/16/24 05/16/24 Rx (FreeStyle Hina 2 [place]) flash glucose sensor (FreeStyle #6 ea 05/16/24 05/16/24 Rx Hina 2 Sensor kit) insulin aspart U-100 100 unit/mL See Rx Instructions .Route 05/16/24 06/14/24 Rx (3 mL) subcutaneous pen (Novolog .COMPLEX #15 mL FlexPen U-100 Insulin aspart) insulin glargine 100 unit/mL (3 80 unit (0.8 mL) subcut HS Dx: 05/16/24 06/14/24 Rx mL) subcutaneous pen (Lantus E11.9 to maintain HbA1c less than Solostar U-100 Insulin) 7% #30 mL mirtazapine 15 mg tablet 15 mg PO HS #90 tabs 05/16/24 06/14/24 Rx venlafaxine 150 mg See Rx Instructions .Route 05/16/24 06/14/24 Rx capsule,extended release 24 hr .COMPLEX #180 caps Exam Eyes Other: Most recent ocular examination is significant for corrected visual acuity of counting fingers right eye, 20/40 left eye. Extraocular motility is normal. Intraocular pressure is 22 OD, 23 OS. Slit-lamp examination shows 3+ posterior subcapsular cataract in the right eye. 1+ posterior subcapsular cataract in the left eye. Funduscopic examination is unable to be performed in the right eye due to the dense cataract. In the left eye disc cupping is noted as 0.1 with normal vessels, macula, peripheral retina and vitreous. Resp Auscultation: clear to auscultation bilaterally Cardio Rate: regular rate Rhythm: regular rhythm
[2024-06-16 11:30] VITALS: BP 125/74; PULSE 69; RESP 20; TEMP 36.4; O2SAT 97
[2024-06-16] MEDS: Tropicam./Phenyleph. (1/2.5%) 5 ML BTL OD ×3 (11:43→11:53)
--- NOTE | 2024-06-16 11:55 | ANES.PREOP_ITS ---
General Info Date of Service Date Performed: 06/16/24 Height: 5 ft 6.5 in Weight: 113 kg Body Mass Index (BMI): 39.6 Surgical Procedure: Operation Date: 06/16/24 13:40 Proposed Procedure Side Surgeon p Cataract Extraction with IOL Implant Right Sesar Liu MD Meds Allergies and Home Medications Allergies Allergy/AdvReac Type Severity Reaction Status Date / Time bee venom protein (honey bee) Allergy Severe Anaphylaxsi Verified 06/16/24 11:27 s Sulfa (Sulfonamide Allergy Unknown HIVES, RASH Verified 06/16/24 11:27 Antibiotics) Home Medication ?Medication ?Instructions ?Recorded iyxoree-awpsbdxbcxqfg-mtwhittt 250 1 ea PO PRN ##2 05/15/16 mg-250 mg-65 mg tablet (Excedrin Extra Strength) blood-glucose meter #1 unit 11/19/17 ibuprofen 600 mg tablet 600 mg PO QID PRN pain #20 tabs 04/26/18 lancets 33 gauge (OneTouch Delica #200 ea 09/14/18 Lancets) pen needle, diabetic 29 gauge x #200 ea 02/08/20 1/2 (BD Ultra-Fine Original Pen Needle) blood sugar diagnostic (Blood #200 ea 06/20/20 Glucose Test strips) lurasidone 20 mg tablet (Latuda) 20 mg PO QPM #90 tabs 05/13/23 hydroxyzine HCl 10 mg tablet See Rx Instructions PO TID PRN 11/08/23 itching #60 tabs metformin 500 mg tablet,extended 1,000 mg (2 x 500 mg) PO BID #360 11/08/23 release 24 hr tabs albuterol sulfate 90 mcg/actuation 1 - 2 puff inhalation .Q4-6H PRN 05/16/24 aerosol inhaler shortness of breath or wheezing #1 unit atorvastatin 20 mg tablet 20 mg PO DAILY #90 tab-caps 05/16/24 bupropion HCl 150 mg 24 hr tablet, See Rx Instructions PO QAM #90 05/16/24 extended release (Wellbutrin XL) tab-caps bupropion HCl 300 mg 24 hr tablet, See Rx Instructions .Route QAM #90 05/16/24 extended release (Wellbutrin XL) tab-caps empagliflozin 25 mg tablet 25 mg PO DAILY #90 tab-caps 05/16/24 (Jardiance) epinephrine 0.3 mg/0.3 mL 0.3 mg (0.3 mL) IM ONCE PRN 05/16/24 injection, auto-injector (EpiPen anaphylaxis #2 ea 2-Jesus Alberto) flash glucose scanning reader #1 ea 05/16/24 (FreeStyle Hina 2 [place]) flash glucose sensor (FreeStyle #6 ea 05/16/24 Hina 2 Sensor kit) insulin aspart U-100 100 unit/mL See Rx Instructions .Route 05/16/24 (3 mL) subcutaneous pen (Novolog .COMPLEX #15 mL FlexPen U-100 Insulin aspart) insulin glargine 100 unit/mL (3 80 unit (0.8 mL) subcut HS Dx: 05/16/24 mL) subcutaneous pen (Lantus E11.9 to maintain HbA1c less than Solostar U-100 Insulin) 7% #30 mL mirtazapine 15 mg tablet 15 mg PO HS #90 tabs 05/16/24 venlafaxine 150 mg See Rx Instructions .Route 05/16/24 capsule,extended release 24 hr .COMPLEX #180 caps Current Visit Medications: Current Medications Generic Name Dose Route Start Last Admin Trade Name Freq PRN Reason Stop Dose Admin Acetaminophen 1,000 mg 06/16/24 06:00 Acetaminophen 500 Mg Tab PO 07/16/24 05:59 Q4H PRN PRN Balanced Salt Solution 500 ml 06/16/24 06:00 Balanced Salt Soln.-Plus 500 Ml Bag OP 07/16/24 05:59 DIRECTED [facility] Miscellaneous Medication 0 ml 06/16/24 06:00 Prednisolone 1%, Moxifloxacin 0.5%, Bromfenac 0.09% 5.6ml Btl OD 07/16/24 05:59 DIRECTED [facility] Miscellaneous Medication 0 ml 06/16/24 06:00 06/16/24 11:53 Tropicam./Phenyleph. (1/2.5%) 5 Ml Btl OD 07/16/24 05:59 1 drp DIRECTED [facility] Administration Tetracaine HCl 0 ml 06/16/24 06:00 Tetracaine 0.5% 4 Ml Btl OD 07/16/24 05:59 DIRECTED [facility] PFSH Active Problems Active Problems: Problem Status Onset Code Posterior subcapsular age-related cataract, right eye Acute H25.041 Bipolar disorder with psychotic features Acute F31.9 Chronic pain in right foot Acute M79.671, G89.29 Arthritis of right glenohumeral joint Acute M19.011 Tendonitis of long head of biceps brachii of right shoulder Acute M75.21 Obesity Chronic E66.9 Type 2 diabetes mellitus with retinopathy of both eyes Chronic 06/10/16 E11.319 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 Chronic 06/10/16 E11.319 Peripheral polyneuropathy Chronic 03/19/17 G62.9 Anxiety disorder, unspecified Chronic 06/15/16 F41.9 Allergy to bee sting Acute Z91.030 Chronic post-traumatic stress disorder (PTSD) Chronic F43.12 Male erectile disorder Acute N52.9 Tobacco use disorder Acute F17.200 Hepatic steatosis Acute K76.0 Hyperlipidemia Chronic 07/01/16 E78.5 Type 2 diabetes mellitus, with long-term current use of insulin Acute E11.9, Z79.4 Obstructive sleep apnea Chronic G47.33 Mild intermittent asthma without complication Chronic J45.20 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 Medical History Medical History Bipolar disorder Lateral epicondylitis of right elbow Arthritis of right acromioclavicular joint Bursitis of right shoulder Intertrigo Hematoma of left hip Iliotibial band syndrome Adrenal mass, right 09/2018 [facility] [place]o consult: stable imaging, no further need for imaging & normal labs GERD without esophagitis Chronic laryngitis (05/13/17) Tobacco Smoking/Tobacco Use Status: Current every day Tobacco Type: cigarettes Smoking packs per day: 1 Smoking cigarettes per day: 20.0 Years smoked: 20 Smoking pack- years: 20.00 Passive smoking exposure: No Second hand exposure: No Alcohol Alcohol Intake: current Alcohol intake frequency: holidays/special occasions only Substance Use Substance use: Daily Substance use type: marijuana Vital Signs and Lab Results Vital Signs Most Recent Vital Signs in EMR: Most Recent Vital Signs Temp Pulse Resp BP Pulse Ox 36.4 C L 69 20 125/74 97 06/16/24 11:30 06/16/24 11:30 06/16/24 11:30 06/16/24 11:30 06/16/24 11:30 Point of Care Results Point of Care Results: Finger Stick Blood Glucose 224 06/16/24 11:37 Lab Results Blood Type / Crossmatch: No Data to Display Complete Blood Count: No Data to Display Complete Metabolic Panel: No Data to Display Liver Function Panel: No Data to Display Coagulation Panel: No Data to Display Cardiac Panel: No Data to Display Arterial Blood Gas: No Data to Display Venous Blood Gas: No Data to Display Pancreas Panel: No Data to Display Thyroid Panel: No Data to Display Infectious Disease: No Data to Display Blood Cultures: No Data to Display Toxicology Panel: No Data to Display Anesthesia Assessment and Plan Anesthesia History Personal History: No History of Anesthesia Complications Family History: No Family History of Anesthesia Complications Exercise Tolerance Exercise Tolerance: Metabolic Equivalents>4 Pertinent Negatives Pertinent Negatives: No Symptoms of GERD Cardiac & Pulmonary Exam Cardiac Exam: Normal S1/S2 Heart Sounds Pulmonary Exam: Clear Bilateral Breath Sounds Implantable Cardiac Device Does patient have a Pacemaker or an ICD?: No Airway Exam Known Difficult Airway: No Mallampati Class: 2 Mouth Opening: Normal (> 3cm) Thyromental Distance: Greater than 3 cm Neck Range of Motion: Full ROM Neck Circumference: Normal Teeth Condition: Generalized Poor Dentition ASA Classification ASA Score: ASA 3 Emergency Case?: No NPO Status NPO Status: NPO Clears >2 hours, Solids >8 hours Anesthesia Plan Resuscitation Status: Full Code Anesthesia Technique: MAC Anesthesia Airway Planned: Natural Airway Monitors Used: Standard Monitors
[2024-06-16 11:56] VITALS: BMI 39.6
[2024-06-16] MEDS: Povidone-Iodine Ophth 30 ML BTL (12:43)
[2024-06-16] MEDS: Tetracaine 0.5% 4 ML BTL OD (12:45)
[2024-06-16] MEDS: Balanced Salt Soln.-PLUS 500 ML BAG OP (12:50)
[2024-06-16] MEDS: Phenylephrine/Lidocaine (15/10) MG/ML 1 ML VIAL (12:51)
[2024-06-16] MEDS: Lidocaine 1% Pres-Free 5 ML VIAL (12:51)
[2024-06-16] MEDS: Duovisc Viscoelastic System EACH 1 EACH (12:51)
[2024-06-16] MEDS: Trypan Blue 0.06% 0.5 ML SYR (12:52)
[2024-06-16] MEDS: Prednisolone 1%, Moxifloxacin 0.5%, Bromfenac 0.09% 5.6ML BTL OD (13:06)
[2024-06-16 13:15] VITALS: BP 120/83; PULSE 69; RESP 18; TEMP 36.2; O2SAT 98
--- NOTE | 2024-06-16 13:16 | PDOC.DSDIS_ITS ---
Date of service: 06/16/24 Discharge Plan Disposition Patient Disposition: Home Discharge Details Attending Provider: Sesar Liu Primary Care Provider: Sonya Saul Home Meds and New Rx's Prescriptions: No Action metformin 500 mg tablet extended release 24 hr 1,000 mg PO BID Qty: 360 3RF Rx Instructions: Administer once daily with the evening meal hydroxyzine HCl 10 mg tablet See Rx Instructions PO TID PRN (Reason: itching) Qty: 60 0RF Rx Instructions: 1-2 tabs TID PRN (DME) lancets [OneTouch Delica Lancets] 33 gauge misc 1 ea Miscellaneous BID Qty: 200 3RF Rx Instructions: To check twice daily blood glucose to maintain HbA1c less than 7%. On insulin. (DME) pen needle, diabetic [BD Ultra-Fine Orig Pen Needle] 29 gauge x 1/2 needle 1 ndl SQ DAILY Qty: 200 3RF Rx Instructions: Dx: E11.9 to maintain HbA1C less than 7% (31 g X 5 mm) albuterol sulfate 90 mcg/actuation HFA aerosol inhaler 1 - 2 puff Inhalation .Q4-6H PRN (Reason: shortness of breath or wheezing) Qty: 1 3RF Rx Instructions: DISPENSE ALBUTEROL INHALER BRAND COVERED BY INSURANCE atorvastatin 20 mg tablet 20 mg PO DAILY Qty: 90 3RF venlafaxine 150 mg capsule,extended release 24hr See Rx Instructions .ROUTE .COMPLEX Qty: 180 3RF Dose Instruction: TAKE TWO CAPSULES BY MOUTH EVERY DAY Rx Instructions: TAKE TWO CAPSULES BY MOUTH EVERY DAY mirtazapine 15 mg tablet 15 mg PO HS Qty: 90 0RF bupropion HCl [Wellbutrin XL] 300 mg tablet extended release 24 hr See Rx Instructions .ROUTE QAM Qty: 90 0RF Rx Instructions: Take one 150 mg pill + one 300 mg pill for a total daily dose of 450 mg daily every morning; bupropion HCl [Wellbutrin XL] 150 mg tablet extended release 24 hr See Rx Instructions PO QAM MDD 450 mg Qty: 90 0RF Rx Instructions: Take one 150 mg pill + one 300 mg pill for a total daily dose of 450 mg daily PO every morning; Jardiance 25 mg tablet 25 mg PO DAILY Qty: 90 3RF epinephrine [EpiPen 2-Jesus Alberto] 0.3 mg/0.3 mL auto-injector 0.3 mg IM ONCE PRN (Reason: anaphylaxis) Qty: 2 1RF (DME) FreeStyle Hina 2 Sensor Kit See Rx Instructions .ROUTE .MEDSUPPLY Qty: 6 3RF Rx Instructions: As directed (DME) FreeStyle Hina 2 [place] Misc See Rx Instructions .ROUTE .MEDSUPPLY Qty: 1 0RF Rx Instructions: As directed insulin glargine [Lantus Solostar U-100 Insulin] 100 unit/mL (3 mL) insulin pen 80 unit subcut HS Qty: 30 12RF insulin aspart U-100 [Novolog FlexPen U-100 Insulin] 100 unit/mL (3 mL) insulin pen See Rx Instructions .ROUTE .COMPLEX Qty: 15 3RF Dose Instruction: INJECT 4 UNITS UNDER THE SKIN BEFORE MEALS DIRECTED Rx Instructions: INJECT 4 UNITS UNDER THE SKIN BEFORE MEALS DIRECTED lurasidone [Latuda] 20 mg tablet 20 mg PO QPM Qty: 90 0RF Rx Instructions: must administer with food (at least 350 calories) Excedrin Extra Strength 1 EACH tablet 1 ea PO PRN Qty: 2 (DME) blood-glucose meter 1 EACH misc 1 ea Miscellaneous DAILY Qty: 1 0RF Rx Instructions: Dx: E11.9 to maintain HbA1c less than 7%. Takes insulin. Please dispense brand covered by insurance. (DME) Blood Glucose Test Strip See Rx Instructions .ROUTE .MEDSUPPLY Qty: 200 3RF Rx Instructions: As directed to check blood glucose twice daily. On insulin. Dispense covered brand. ibuprofen 600 mg tablet 600 mg PO QID PRN (Reason: pain) Qty: 20 0RF Discharge Instructions Stand Alone Forms: DSU Post-Op CataractSara (DSU) Discharge Orders Discharge Orders: Discharge Order (Routine); Ordered 06/16/24 Ordered By: Sesar Liu DS: Diagnosis Discharge Diagnosis (1) Posterior subcapsular age-related cataract, right eye: Status: Resolved
--- NOTE | 2024-06-16 13:17 | W.PM.OP ---
Operative Note Operative Note POST-OP DIAGNOSIS: same PROCEDURE: Cataract extraction using phacoemulsification with intraocular lens implant, right eye SURGEON: Sesar Liu ANESTHESIA TYPE: Local By Surgeon and MAC Refer to Anesthesia Record ESTIMATED BLOOD LOSS: 0 PATHOLOGY: none sent COMPLICATIONS: None Patient was transported to: same day Patient's condition: stable Implants: Adrian & Adrian Tecnis Eyhance [id number] Indications: Progressive visual loss due to cataract, right eye Procedure Description: CATARACT SURGERY OPERATIVE REPORT PREOPERATIVE DIAGNOSIS: 1. Dense posterior subcapsular cataract, right eye POSTOPERATIVE DIAGNOSIS: Same OPERATION: 1. Cataract extraction using phacoemulsification with posterior chamber intraocular lens implant, right eye. IOL: IOL Mailroom Courier/Model: Adrian & Adrian Tecnis Eyhance DIB00 IOL Power: + 27.0 diopters IOL Serial Number: [id number] Optic Diameter: 6.0mm Haptic/Overall Diameter: 13.0mm PHACO INFO: Heath Kashmir Luxury Hairurion Vision System with OZil and Active Fluidics Cumulative Dispersed Energy (CDE): 8.61 seconds SURGEON: Sesar Liu MD, PAGE ANESTHESIA: Monitored Anesthesia Care (MAC), with local sub-tenon's anesthetic infiltration COMPLICATIONS: None SPECIMENS: None INDICATIONS FOR PROCEDURE: The patient is a 43-year-old male with history of progressive decreased vision in his right eye secondary to the development of dense posterior subcapsular cataract. He was seen many months ago with counting fingers vision due to dense posterior subcapsular cataract. The option of cataract surgery was offered to the patient and he wished to proceed. See office notes for detailed information. PROCEDURE: The correct surgical eye was identified and marked as the right eye and the pupil was dilated in the preoperative area using mydriatics and cycloplegics. The dilated pupil size was 8.0 mm. Oral sedation was administered in the form of an Imprimis MKO Melt (midazolam 3mg/ketamine 25mg/ondansetron 2mg). The patient was brought to the operating room where cardiopulmonary monitoring was instituted and surgical time-out was performed, confirming the correct operative eye and IOL power. Topical anesthesia was administered and ophthalmic povidone-iodine 5% was instilled into the conjunctival fornices. The bronson-ocular area was prepped with Betadine 10% solution and draped in the usual sterile fashion for intraocular surgery, including an aperture drape. A Tegaderm transparent film dressing was cut in half and used to cover the lashes and lid margins. Care was taken to sequester the lashes and lid margins under the Tegaderm dressing. A lid speculum was placed between the lids of the operative eye and the Heath LuxOR Revalia operating microscope was maneuvered into position. Alexandra scissors were then used to make a conjunctival buttonhole approximately 6mm posterior to the limbus in the inferonasal quadrant. Blunt dissection was carried out to expose bare sclera, and a blunt-tipped sub-tenon?s anesthesia cannula was introduced and passed posteriorly along the globe where non-preserved plain lidocaine was injected into posterior sub-Tenon?s space. A sideport knife was used to make a paracentesis port. VisionBlue was injected into the anterior chamber and allowed to sit for 30 seconds. Intraocular phenylephrine/lidocaine was injected into the anterior chamber. The anterior chamber was filled with viscoelastic. Viscoat was used initially. A keratome knife was used to construct a 2-plane clear corneal tunnel extending 2.0mm into clear cornea. A flap was raised on the anterior capsule and capsulorhexis forceps were used to complete a continuous curvilinear capsulorhexis of 5.5 mm. The capsulorrhexis had a tendency to radial eyes peripherally, so additional Viscoat was injected into the anterior chamber to flatten the capsule throughout the capsulorrhexis process and control the tendency toward peripheral extension. Balanced salt solution was then used to perform cortical cleaving hydrodissection and nuclear hydrodelineation until the lens could be freely rotated within the capsular bag. The lens nucleus was then disassembled and removed within the capsular bag and iris plane using phacoemulsification. Residual cortical material was removed using the I/A handpiece. The posterior capsule was carefully polished to remove as much residual lens epithelial cells as safely possible. There was some residual posterior subcapsular plaque which cannot be safely removed. The capsular bag was then inflated and the anterior chamber deepened with cohesive viscoelastic. The lens implant described above was inserted into the capsular bag using the Adrian and Dusty Simplicity pre-loaded injector. A Kuglen hook was used to dial the IOL into position. Residual viscoelastic was then removed first from posterior to the IOL, then from the anterior chamber using the I/A handpiece. The lens implant was noted to center nicely within the capsular bag. The incisions were stromally hydrated, and the anterior chamber was reformed using BSS. Then 0.5cc of moxifloxacin 1.0mg/ml were injected into the capsular bag and anterior chamber. The incisions were checked with a Weck spear and found to be secure. Several drops of ophthalmic povidone-iodine 5% were then applied to the eye followed by two drops ocombination steroid/NSAID/antibiotic solution. The drapes were removed and a clear plastic protective eye shield was placed over the eye. The patient was then returned to Same Day Surgery in stable condition. Date of Procedure: 06/16/24
[2024-06-16 13:46] VITALS: BP 121/80; PULSE 66; RESP 16; TEMP 36.5; O2SAT 98
--- NOTE | 2024-06-16 13:51 | W.ANESPOSTOP ---
Postoperative Evaluation Date, Time and Location Date Performed: 06/16/24 Time Performed: 13:25 Patient Location: Day Surgery Unit Vital Signs Most Recent Imported Vital Signs: Most Recent Vital Signs Temp Pulse Resp BP Pulse Ox 36.5 C 66 16 121/80 98 06/16/24 13:46 06/16/24 13:46 06/16/24 13:46 06/16/24 13:46 06/16/24 13:46 Pain Score Most Recent Pain Score: Most Recent Pain Score Pain Level 0 06/16/24 13:46 Assessment Mental Status: Awake (Alert & Oriented to Patient Baseline) Airway and Respiratory Function: Patent airway with normal (patient baseline) respiratory exam Cardiovascular Function: Hemodynamically Stable Hydration Status: Adequately Hydrated Nausea & Vomiting: No Nausea or Vomiting Pain: Pt. Denies Any Pain Peripheral Nerve Block: Other (Local by Dr. Liu)
== END 2024-06-16 13:51 | disposition home or self-care (01) ==
LOC: SUR 11:17
PROVIDERS: PCP Nurse Practitioner; Visit Provider Ophthalmology
PROC: (CPT 66984; principal; 2024-06-16 13:30)
DX: H25.041 Posterior subcapsular polar age-related cataract, right eye (principal)
CPT/HCPCS: 66984; 00123; V2632; J2003

== ENCOUNTER 2024-06-21 01:58 | Outpatient (CLI) | payer MEDICAID, SELFPAY ==
[2024-06-21 14:01] LABS: ALT 29 U/L (16-63); AST 11 U/L (15-37); Albumin 3.4 g/dL (3.4-5.0); Alkaline Phosphatase 100 U/L (46-116); Anion Gap 9.5 mmol/L (3-11); BUN 21 mg/dL (7-18); Bilirubin, Total 0.34 mg/dL (0.2-1.0); CO2 28.5 mmol/L (21.0-32.0); CREATININE 1.2 mg/dL (0.70-1.30); Calcium 9.1 mg/dL (8.5-10.1); Calculated LDL 92 mg/dL (<100); Chloride 103 mmol/L (98-107); Cholesterol 159 mg/dL (<200); Estimated GFR 76.95 (mL/min/1.73m2); Glucose 281 mg/dL (74-106); HDL Cholesterol 30 mg/dL (40-60); Potassium 4.3 mmol/L (3.5-5.1); Sodium 141 mmol/L (136-145); Total Protein 7.5 g/dL (6.4-8.2); Triglyceride 185 mg/dL (<150)
== END 2024-06-21 01:59 | disposition home or self-care (01) ==
LOC: LBO 01:58
PROVIDERS: PCP Nurse Practitioner; Visit Provider Nurse Practitioner
DX: E66.01 Morbid (severe) obesity due to excess calories (principal); Z68.41 Body mass index [BMI] 40.0-44.9, adult; E11.319 Type 2 diabetes mellitus with unspecified diabetic retinopathy without macular edema; E78.5 Hyperlipidemia, unspecified
CPT/HCPCS: 36415; 80053; 80061

== ENCOUNTER 2024-07-14 00:49 | Outpatient (CLI) | payer MEDICAID, SELFPAY ==
--- OUTSIDE RECORDS SUMMARY | 2024-07-14 00:52 | XMS_ITS | Encounter Summary ---
[place] [address] Care Team Providers Care Extended Day Teacher Name Role Phone Sandy Sanchez APRN Primary Care Provider [phone] Reason for Visit * Consultation (Routine) - Closed Specialty Diagnoses / Procedures Referred By Mike t Referred To Contact Endocrinology Diagnoses ENDOCRINE Procedures E27.9 Sandy Sanchez APRN [address] [address] [facility] [address] [place] [phone] Referral ID Status Reason Start Date Expiration Date Visits Re quested Visits Authorized [id number] Closed 06/26/2020 06/26/2021 1 1 Encounter Details Date Type Department Care Team (Latest Contact Info) Description 09/25/2020 2:30 PM EDT TH Visit (TeleHealth) [place] [address] Michaelle Ramirez MD Adrenal incidentaloma (Primary Dx); Adrenal mass, right; Type 2 diabetes mellitus with retinopathy of both eyes, with long-term current use of insulin, macular edema presence unspecified, unspecified retinopathy severity Social History Tobacco Use Types Packs/Day Years Used Date Smoking Tobacco: Every Day Cigarettes Smokeless Tobacco: Never Sex and Gender Information Value Date Recorded Sex Assigned at Not on file Gender Identity Not on file Sexual Orientation Not on file documented as of this encounter Progress Notes * Michaelle Ramirez MD - 09/25/2020 2:30 PM EDT Endocrinology Clinic Follow-up Visit CC: Right adrenal nodule HISTORY OF PRESENT ILLNESS: Indu Barrientos is a 39 y.o. male with history significant for Right Adrenal nodule, DM2, Depression, Anxiety, PTSD, MANUEL on CPAP and Obesity who presents for follow-up of adrenal incidentaloma. Mr. Barrientos was seen by us in 2019 for his adrenal incidentaloma. He had plasma metanephrines checked which were normal but he never completed his LDDST. He was re-referred to us to complete testing. He has had [address] scans done in 2018 and 2019 which showed a stable R adrenal 1.9 x 1.2 cm read as an adenoma with HU <10. Therefore, if he completes hormonal evaluation and his LDDST is neg ative, he does not need further follow-up imaging. Workup for hyperaldosteronism was not pursued asthe patient has no history of HTN. He denies any current elevated BP and states his highest systolic BP that he's seen was in the 120s. DM2 is currently well controlled with the changes made on his last visit with his PCP in May. BG runs 120-130s usually. He states compliance with all medications including his recently started Atorvastatin 20 mg daily. He has intentionally lost a lot of weight, around 100 lbs in the past 5 years. REVIEW OF SYSTEMS: Constitutional: stable weight Cardiovascular: no elevated BP GI: +striae (not violaceous or thick), +mild nausea, +sulfur burps All other review of systems negative except as above in HPI. PAST MEDICAL/SURGICAL HISTORY: Past Medical History: Diagnosis Date ??? Adrenal nodule ??? Diabetes No Known Allergies Current Outpatient Medications: ? insulin glargine (Lantus) 100 unit/mL (3 mL) pen, Inject 52 Units subcutaneously., Disp: , Rfl: ? liraglutide (VICTOZA) 0.6 mg/0.1 mL (18 mg/3 mL) Pen Injector, Inject 1.8 mg subcutaneously daily., Disp: , Rfl: ? EPINEPHrine 0.3 mg/0.3 mL Auto-Injector, Inject into the muscle., Disp: , Rfl: ? aspirin EC 81 mg Tablet, Delayed Release (E.C.), Take by mouth., Disp: , Rfl: ? albuteroL 90 mcg/actuation HFA Aerosol Inhaler, Inhale into the lungs., Disp: , Rfl: ? dexamethasone (Decadron) 0.5 mg Tablet, Take 2 tablets by mouth once for 1 dose. Take at 11 pm the night before 8 am lab, Disp: 2 tablet, Rfl: 0 ? metFORMIN XR (Glucophage XR) 500 mg Tablet Sustained Release 24 hr, TAKE 4 TABLETS 2000MG ORALLY DAILY WITH EVENING MEAL, Disp: , Rfl: ? OneTouch Ultra Blue Test Strip Strip, TEST BLOOD GLUCOSE TWICE A DAY DIRECTED, Disp: , Rfl: ? atorvastatin (Lipitor) 20 mg Tablet, TAKE ONE TABLET BY MOUTH EVERY DAY, Disp: , Rfl: ? venlafaxine (EFFEXOR-XR) 75 mg Capsule, Sust. Release 24 hr, , Disp: , Rfl: ? JARDIANCE 25 mg Tablet, , Disp: , Rfl: ? buPROPion (WELLBUTRIN XL) 300 mg Tablet Extended Release 24 hr, , Disp: , Rfl: No past surgical history on file. FAMILY HISTORY: No family history on file. SOCIAL HISTORY: Social History Tobacco Use ??? Smoking status: Current Every Day Smoker Packs/day: 1.00 Types: Cigarettes ??? Smokeless tobacco: Never Used Substance Use Topics ??? Alcohol use: Not on file ??? Drug use: Not on file PHYSICAL EXAM: There were no vitals taken for this visit. Gen: NAD, speaking full sentences, pleasant demeanor LABS: Results for INDU BARRIENTOS ( ) as of 09/25/2020 14:23 Ref. Range 09/28/2018 10:37 Normetane Free Latest Ref Range: <0.90 nmol/L 0.45 Metanephr Free Latest Ref Range: <0.50 nmol/L <0.20 IMAGIN06/20/18 CT A/P w/: Hypodense fat attenuation 1.9 x 1.2 cm nodule on right adrenal gland. This is unchanged in size or appearance compared to the prior examination. ASSESSMENT: Indu Barrientos is a 39 y.o. male with history significant for Right Adrenal nodule, DM2, Depression, Anxiety, PTSD, MANUEL on CPAP and Obesity who presents for follow-up of adrenal incidentaloma. Ms. Barrientos was re-referred to us for completion of R adrenal incidentaloma workup. Plasma metanephrines were negative. He does not have any significant signs to suggest [place]'s but we will check with a LDDST. He denies any elevated BP readings to warrant workup for hyperaldosteronism. Given benign imaging findings, this is likely a benign adenoma and does not require further imaging per 2017 ACR White Paper guidelines. His DM2 seems moderately well controlled and improved since his last visit with his PCP who is doing an excellent job of his DM management. We do not recommend any changes currently. PLAN: #Right Adrenal Nodule - metanephrines neg - pending LDDST, lab order sent to [facility] - no need for renin/calin Orders Placed This Encounter Procedures ??? Cortisol Patient was seen and discussed with Attending Physician, Dr Hunt. Follow up TBD. Michaelle Ramirez MD Endocrinology, Diabetes and Metabolism 09/25/2020 * Paulino Hunt MD - 09/25/2020 2:30 PM EDT Patient evaluated with me and at tele visit. I agree with his above assessment and plan. Pt with small adrenal incidentaloma with low HU, will do DEX surpression tests to complete work-up.If pt develops HTN, any other symptoms to suggest [place], hyperaldo state, pt may need to have repeat hormonal tests, but usually not imaging. Other as per fellow. Paulino Hunt MD Professor documented in this encounter Plan of Treatment Not on file documented as of this encounter Visit Diagnoses Diagnosis Adrenal incidentaloma- Primary Other specified disorders of adrenal glands Adrenal mass, right Unspecified disorder of adrenal glands Type 2 diabetes mellitus with retinopathy of both eyes, with long-term current use of insulin, macular edema presence unspecified, unspecified retinopathy severity documented in this encounter Care Teams Extended Day Teacher Relationship Specialty Start Date End Date Sandy Sanchez, PORT ENGINEER PCP - General Family Medicine 06/29/17 04/15/23 documented as of this encounter
--- OUTSIDE RECORDS SUMMARY | 2024-07-14 00:52 | XMS_ITS | Encounter Summary ---
Author Organization [facility] Address [address] [place] [address] Care Team Providers Care Cnc Wood Lathe Operator Name Role Phone Sesar Lua MD Primary Care Provider [phone] Encounter Details Date Type Department Care Team (Late st Contact Info) Description 01/03/2021 Lab Requisition [facility] Pathology & Laboratory Medicine - [facility] [address], [place] [id number] Outr Resulting Lab, Provider Social History Tobacco Use Types Packs/Day Years Used Date Smoking Tobacco: Never Assessed Interpersonal Safety Answer Date Record ed Physically Hurt Never 12/31/2019 Verbally Threaten Not on file 12/31/2019 Sex and Gender Information Value Date Recorded Sex Assigned at Not on file Legal Sex Male 18:55 EST Gender Identity Not on file Sexual Orientation Not on file documented as of this encounter Plan of Treatment Not on file documented as of this encounter Procedures Procedure Name Priority Date/Time Associated Diagnosis Comments CORTISOL Routine 01/03/2021 8:02 EDT documented in this encounter Results * CORTISOL (01/03/2021 8:02 EDT) Cortisol <1 See Note ug/dL 01/03/2021 17:41 EDT [facility] Comment: NOTE: Reference Ranges (from OCD IFU): Collected Before 10:00 AM: ??4 - 23 ug/dL Collected After 5:00 PM: ?2 - 14 ug/dL The results of this assay can be falsely elevated due to the consumption of Biotin. Blood VENOUS BLOOD / Unknown 01/03/2021 8:02 EDT 01/03/2021 16:11 EDT us Provider Outr Resulting Lab CHEMISTRY & BLOOD GA S ORDERABLES Final Result [facility] [address] [place] [address] documented in this encounter Visit Diagnoses Not on filedocumented in this encounter Care Teams Cnc Wood Lathe Operator Relationship Specialty Start Date End Date Sesar Lua MD [facility] [address] [place] [address] PCP - General 08/28/11 documented as of this encounter
--- OUTSIDE RECORDS SUMMARY | 2024-07-14 00:52 | XMS_ITS | Encounter Summary ---
[place] [address] Care Team Providers Care Manager Creative Services Name Role Phone Sandy Sanchez APRN Primary Care Provider Encounter Details Date Type Department Care Team (Late st Contact Info) Description 06/08/2023 Telephone [place] [phone] Lance Palacios MD Social History Tobacco Use Types Packs/Day Years Used Date Smoking Tobacco: Every Day Cigarettes Smokeless Tobacco: Never Sex and Gender Information Value Date Recorded Sex Assigned at Not on file Gender Identity Not on file Sexual Orientation Not on file documented as of this encounter Miscellaneous Notes * Telephone Encounter - Radha Rose - 06/08/2023 10:24 AM EST Mail box full. Sent Letter to call and schedule Diabetic Education 90 mins with Maegan per Dr. Palacios. documented in this encounter Plan of Treatment Not on file documented as of this encounter Visit Diagnoses Not on filedocumented in this encounter Care Teams Manager Creative Services Relationship Specialty Start Date End Date Sandy Sanchez APRN PCP - General Family Medicine 04/16/23 documented as of this encounter
--- OUTSIDE RECORDS SUMMARY | 2024-07-14 00:52 | XMS_ITS | Encounter Summary ---
[place] [address] Care Team Providers Care Party Plan Sales Unit Advisor Name Role Phone Sandy Sanchez APRN Primary Care Provider Encounter Details Date Type Department Care Team (Latest Contact Info) Description 09/28/2018 10:45 AM EDT Laboratory Appointment Lab [address] [place] [address] Adrenal incidentaloma Social History Tobacco Use Types Packs/Day Years [...] Procedure Name Priority Date/Time Associated Diagnosis Comments METANEPHRINES, FRACTIONATED FREE, PLASMA Routine 09/28/2018 10:37 AM EDT Adrenal incidentaloma documented in this encounter Results * Metanephrines, Fractionated Free, plasma (09/28/2018 10:37 AM EDT) Normetanephrine, Free (SEPTEMBER) 0.45 <0.90 nmol/L [facility] Comment: Test Performed by: [facility] [address] [place] [address] Metanephrine, Free (SEPTEMBER) <0.20 <0.50 nmol/L [facility] Comment: ADDITIONAL INFORMATION This test was developed and its performance characteristics determined by [facility] in a manner consistent with CLIA requirements. This test has not been cleared or approved by the U.S. Food and Drug Administration. Test Performed by: [facility] [address] [place] [address] Blood specimen (specimen) 09/28/2018 10:37 AM EDT 09/28/2018 12:42 PM EDT Narrative Resulting Agency Comment Spec In Lab Willian Smiley MD LAB SEND OUT ORDERA REGS [facility] [place] [address] documented in this encounter Visit Diagnoses Diagnosis Adrenal incidentaloma Other specified disorders of adrenal glands documented in this encounter Care Teams Party Plan Sales Unit Advisor Relationship Specialty Start Date End Date Sandy Sanchez APRN PCP - General Family Medicine 06/29/17 04/15/23 documented as of this encounter
--- OUTSIDE RECORDS SUMMARY | 2024-07-14 00:52 | XMS_ITS | Encounter Summary ---
Author Organization [facility] Address [address] [place] [address] Care Team Providers Care Janitorial Cleaner Name Role Phone Sesar Lua MD Primary Care Provider [phone] Encounter Details Date Type Department Care Team (Late st Contact Info) Description 12/09/2015 Historical Results Only [facility] [address] [place] [id number] Cesar Garrison MD [address] [place] [address] Social History Tobacco Use Types Packs/Day Years Used Date Smoking Tobacco: Never Assessed Sex and Gender Information Value Date Recorded Sex Assigned at Not on file Legal Sex Male 18:55 EST Gender Identity Not on file Sexual Orientation Not on file documented as of this encounter Plan of Treatment Not on file documented as of this encounter Procedures Procedure Name Priority Date/Time Associated Diagnosis Comments BUN Routine 12/09/2015 18:45 EDT documented in this encounter Results * BUN (12/09/2015 18:45 EDT) BUN 14 7 - 25 12/09/2015 19:51 EDT [facility] 12/09/2015 18:4 5 EDT 12/09/2015 19:03 EDT Narrative [facility] - 12/09/2015 20:21 EDT Sample collected at time of saline lock or IV placement. Sample markedly lipemic which may interfere with accuracy of test results. @[id number] us Cesar Garrison MD CHEMISTRY & BLOOD GAS ORDER JAMES Final Result [facility] [address], [place] [id number] documented in this encounter Visit Diagnoses Not on filedocumented in this encounter Care Teams Janitorial Cleaner Relationship Specialty Start Date End Date Sesar Lua MD [facility] [address] [place] [address] PCP - General 08/28/11 documented as of this encounter
--- OUTSIDE RECORDS SUMMARY | 2024-07-14 00:52 | XMS_ITS | Patient Health Record ---
Author Organization [facility] Address [address] [place] [address] Care Team Providers Care Street Light Servicer Supervisor Name Role Phone [facility] Primary Care Provider Unavailable Ariela Manuel Unavailable [phone] ALLERGIES Allergen (clinical drug ingredient) Drug/Non Drug Allergy documented on EMR Reaction Allergy Type Onset Date Status Insect venom insect venom (uncoded) anaphylaxis Allergy Active sulfamethizole (uncoded) hives Allergy Active REASON FOR REFERRAL No Information MEDICATIONS Medication SIG (Take, Route, Frequency, Duration) Notes Start Date End Date Status ProAir HFA 90 mcg/inh 2 puff(s) inhaled 4 times a day Unknown Fluticasone Propionate 50 mcg/inh 1-2 spray(s) intranasally once a day Unknown EpiPen 2-Jesus Alberto 0.3 mg intramuscularly once Unknown VENLAFAXINE 75 mg take 225mg orally on ce a day STOP*please review for potential update for e-prescription and drug interaction check* Active GABAPENTIN 300 mg 1 cap(s) orally 3 times a day STOP*please review for potential update for e-prescription and drug interaction check* Active Excedrin Extra Strength 250 mg-250 mg-65 mg 1 tab(s) orally prn Activ e Ciclopirox 0.77% 1 vanessa applied topically 2 times a day for 30 day(s) 04/12/2017 Active ONE TOUCH LANCET FINE POINT STOP*please review for potential update for e-prescription and drug interaction check* Unknown BD PEN, ULTRA FINE as directed sc with insulin STOP*please review for potential update for e-prescription and drug interaction check* Active LANTUS SOLOSTAR PEN 100 units/mL 48 subcutaneously HS STOP*please review for potential update for e-prescription and drug interaction check* Unknown Terbinafine HCl 250 mg 1 tab(s) orally once a day for 30 days 06/01/2017 Unknown Jardiance 25 mg 1 tab(s) orally once a day (in the morning) Unknown metFORMIN HCl 1000 mg 1 tab(s) orally 2 times a day Active Wellbutrin XL 300 mg/24 hours 1 tab(s) orally every 24 hours Unknown SOCIAL HISTORY Tobacco Use: Social History Observation Description Date Details (start date - stop date) Current Smoker NA - NA Sex Assigned At : Social History Observation Description Sex Assigned At Unknown SMOKING Question Answer Notes Are you a: current smoker How many cigarettes a day do you smoke? 11-20 (1 /2 to 1 pack) How soon after you wake up d o you smoke your first cigarette? 6-30 min How often do you smoke cigarettes? every day Are you interested in quitting? Thinking about q uitting Pt offered quit smoking literature 04/12/2017 Quit To Fax form completed and faxed No PROBLEMS Problem Type ICD Code Onset Dates Problem Status W/U Status Risk SNOMED Code Notes Problem Type 2 diabetes mellitus with hyperglycemia (E11.65) Active confirmed [id number] Problem Type 2 diabetes mellitus with unspecified complications (E11.8) Active confirmed 08081561 Problem longterm current use of insulin (Z79.4) Active confirmed 464878478 Problem Diabetic polyneuropathy associated with type 2 diabetes mellitus (E11.42) Active confirmed [id number] PLAN OF TREATMENT Future Test Test Name Order Date CBC WITH AUTO DIFF 04/21/2017 LIVER FUNCTION TESTS 04/21/2017 Insurance Providers Payer Name Payer Address Payer Phone Subscriber Number Group Number Insured Name Patient Relationship to Insured Coverage Start Date Coverage End Date [place] [employer] [place], [place] [id number] INDU BARRIENTOS Self - patient is the insured SELF [place]Y [place] [address] INDU BARRIENTOS Self - patient is the insured MEDICAL (GENERAL) HISTORY Medical History History ICD Code Peripheral Polyneuropathy DM II Depression with irritability and anxiety Elevated BP GERD Increased BMI Left sciatica Erectile dysfunction Obstrictive sleep apnea PTSD Thrush Tobacco use Hyperlipidemia Diabetic retinopathy Agoraphobia with oanick attacks Hospitalization History Reason Date(Month/Year) Chest pain 2015
--- OUTSIDE RECORDS SUMMARY | 2024-07-14 00:52 | XMS_ITS | Encounter Summary ---
Author Organization [facility] [place] [address] Care Team Providers Care Olive Grower Name Role Phone Sandy Sanchez APRN Primary Care Provider [phone] Reason for Visit * Consultation (Routine) - Closed Specialty Diagnoses / Procedures Referred By Contac t Referred To Contact Endocrinology Diagnoses Type 2 diabetes mellitus without complication, with long-term current use of insulin Bruno Brown DO [address] [place] [address] [facility] [address] [place] [address] Referral ID Status Reason Start Date Expiration Date V isits Requested Visits Authorized [id number] Closed Consult, Test & Treat PCP Updated and/or Approved 04/06/2023 04/06/2024 6 6 Encounter Details Date Type Department Care Team (Latest Contact Info) Description 05/12/2023 8:00 AM EST Office [place] [address] Lance Palacios MD 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, macular edema presence unspecified; Severe obesity; Mixed hyperlipidemia Social History Tobacco Use Types Packs/Day Years Used Date Smoking Tobacco: Every Day Cigarettes Smokeless Tobacco: Never Sex and Gender Information Value Date Recorded Sex Assigned at Not on file Gender Identity Not on file Sexual Orientation Not on file documented as of this encounter Last Filed Vital Signs Vital Sign Reading Time Taken Comments Blood Pressure 138/81 05/12/2023 7:50 AM EST Pulse 79 05/12/2023 7:50 AM EST Temperature 36.6 ??C (97.8 ??F) 05/12/2023 7:50 AM ES T Respiratory Rate 20 05/12/2023 7:50 AM EST Oxygen Saturation 97% 05/12/2023 7:50 AM EST Inhaled Oxygen Concentration - - Weight 123.7 kg (272 lb 12.8 oz) 05/12/2023 7:50 AM EST Height 167.6 cm (5' 6) 05/12/2023 7:50 AM EST Body Mass Index 44.03 05/12/2023 7:50 AM EST documented in this encounter Progress Notes * Lance Palacios MD - 05/12/2023 8:00 AM EST Mr. Ronni Bañuelos is an 42 y.o. male who presents in consultation for chief complaint of Uncontrolled T2 Diabetes with Neuropathy and Retinopathy Referred by: Brnuo Brown DO Acquisition, Review and Summation of Old Medical Records: Past Medical History: Diagnosis Date Adrenal nodule Diabetes No past surgical history on file. Social History Socioeconomic History Marital status: Spouse name: Not on file Number of children: Not on file Years of education: Not on file Highest education level: Not on file Occupational History Not on file Tobacco Use Smoking status: Every Day Packs/day: 1 Types: Cigarettes Smokeless tobacco: Never Vaping Use Vaping Use: Every day Substances: Nicotine, Flavoring Devices: Disposable Substance and Sexual Activity Alcohol use: Not on file Drug use: Not on file Sexual activity: Not on file Other Topics Concern Not on file Social History Narrative Not on file Social Determinants of Health Financial Resource Strain: Not on file Food Insecurity: Not on file Transportation Needs: Not on file Physical Activity: Not on file Intimate Partner Violence: Not on file Housing Stability: Not on file Review of Systems: General: normal energy level HEENT: no difficulty swallowing or vision change Skin: no rashes CV: no palpitations or chest pain Resp: no breathing difficulty Abd: no diarrhea, nausea or abdominal pain Heme: no easy bruising : no dysuria Psych: mood is stable MSK: no muscle or joint aches He does report sleep apnea utilizing his CPAP. Does have intermittent diarrhea but this is tolerable HPI: Mr. Bañuelos is a very pleasant 42-year-old white male who reports being diagnosed with diabetes approximately 15 years ago, thus far he is struggled with morbid obesity and has multiple complications of diabetes and obesity including obstructive sleep apnea, fatty liver disease, diabetic retinopathyand neuropathy. Currently his blood sugars are well out of control despite a vigorous medical regimen including basal and bolus insulins, GLP-1 receptor agonists, metformin, and SGLT2 inhibitors. Current diabetes regimen: Metformin ER 500 mg tablets, 1000 twice daily orally Empagliflozin (Jardiance ) 25 mg orally daily Semaglutide (Ozempic) believes he is on 2 mg weekly subcutaneously Insulin glargine (Lantus) 60 units subcutaneously at bedtime daily Insulin aspart (NovoLog) taking 6 units with meals 3X a day believe he was taking this after meals, He is also on atorvastatin 20 mg daily Allergies; Sulfa antibiotics resulting hives Anaphylaxis to bee stings glucose monitoring: Utilizing a uVore 2 Review of his meter download reveals more than 90% of his readings are running in the very high range 10% are running high none are in target and he is having no lows. His average glucose is 334 and his GMI is 11.3% which would be consistent with his last known A1c of greater than 13% Review of his ambulatory glucose profile simply reveals undulating glucoses well above 250 on average indicating need for more aggressive insulin treatment Complications: He denies known cardiovascular, cerebrovascular or peripheral vascular disease.Hyperlipidemia treated with a statin Denies any known nephropathy but already has established retinopathy and neuropathy PMHx: Please see problem list above Pertinent to his diabetes he has morbid obesity retinopathy, neuropathy, fatty liver disease, and obstructive sleep apnea. FamHx: Family history is strongly positive for diabetes and obesity affecting his mother father and paternal grandfather SocHx: He is not following any specific diet. He did just start walking 45 minutes 5 days/week. He was congratulated on this and encouraged to continue Current tobacco use he was smoking 2-1/2 packs of cigarettes daily but has started cutting down currently at three quarters of a pack daily he cannot afford nicotine substitute/craving therapies Alcohol intake is rare perhaps 3 drinks per month. Current Outpatient Medications: ARIPiprazole (Abilify) 10 mg tablet, TAKE ONE-HALF TABLET BY MOUTH AT BEDTIME FOR 14 DAYS THEN STOP, Disp: , Rfl: rzgyroo-luocgjbdsqiis-bkgxftcb (Excedrin Migraine) 250-250-65 mg Tablet, 1 tab(s) orally prn, Disp:, Rfl: FreeStyle Hina 2 Sensor Kit, See Admin Instructions., Disp: , Rfl: fluticasone propionate (Flonase) 50 mcg/actuation Preston, Suspension, every 24 hours., Disp: , Rfl: Kendra Jones [facility] Spacer, USE WITH INHALER, Disp: , Rfl: lurasidone (Latuda) 20 mg tablet, TAKE 1 TABLET BY MOUTH EVERY EVENING; MUST ADMINISTER WITH FOOD (AT LEAST 350 CALORIES), Disp: , Rfl: mirtazapine (Remeron) 15 mg tablet, Take 15 mg by mouth nightly., Disp: , Rfl: Ozempic 0.25 mg or 0.5 mg (2 mg/3 mL) Pen Injector, , Disp: , Rfl: metFORMIN XR (Glucophage XR) 500 mg Tablet Sustained Release 24 hr, 1,000 mg 2 times daily., Disp: , Rfl: insulin glargine (Lantus) 100 unit/mL (3 mL) pen, Inject 52 Units subcutaneously., Disp: , Rfl: liraglutide (VICTOZA) 0.6 mg/0.1 mL (18 mg/3 mL) Pen Injector, Inject 1.8 mg subcutaneously daily.,Disp: , Rfl: EPINEPHrine 0.3 mg/0.3 mL Auto-Injector, Inject into the muscle., Disp: , Rfl: OneTouch Ultra Blue Test Strip Strip, For back up if pump failure, Disp: , Rfl: atorvastatin (Lipitor) 20 mg Tablet, TAKE ONE TABLET BY MOUTH EVERY DAY, Disp: , Rfl: aspirin EC 81 mg Tablet, Delayed Release (E.C.), Take by mouth., Disp: , Rfl: albuteroL 90 mcg/actuation HFA Aerosol Inhaler, Inhale into the lungs., Disp: , Rfl: venlafaxine (EFFEXOR-XR) 75 mg Capsule, Sust. Release 24 hr, , Disp: , Rfl: JARDIANCE 25 mg Tablet, , Disp: , Rfl: buPROPion (WELLBUTRIN XL) 300 mg Tablet Extended Release 24 hr, , Disp: , Rfl: Insulin Toujeo Max U-300 SoloStar 300 unit/mL (3 mL) Insulin Pen, Inject 70 Units subcutaneously nightly for 90 days., Disp: 36 mL, Rfl: 3 insulin needles, disposable, 32 gauge x 5/32 Needle, Inject 1 each subcutaneously daily for 90 days. Indications: diabetes, Disp: 300 each, Rfl: 3 Allergies Allergen Reactions Bee Venom Protein (Honey Bee) Anaphylaxis Sulfa (Sulfonamide Antibiotics) Other reaction(s): HIVES, RASH Physical Exam: Patient Vitals for the past 24 hrs: Temp Pulse Resp BP SpO2 05/12/23 0750 36.6 ??C (97.8 ??F) 79 20 138/81 97 % Temp: [36.6 ??C (97.8 ??F)] Heart Rate: [79] [id number]@ Resp: [20] SpO2: [97 %] General appearance: Significant obesity, in no acute distress. HEENT: NCAT, PERRL, EOMI, Sclera non-icteric Neck: No thyroid goiter, no cervical lymphadenopathy Carotids 2+ bilaterally, no bruits Chest: Clear to auscultation without rales, few inspiratory wheezes CV: Distant heart sounds regular rate and rhythm without murmurs rubs or gallops Abd: Morbid obesity with pannus, soft nontender, no rebound, no hepatomegaly to percussion or palpation, no palpable abdominal aortic mass or pulsation or bruit. No lipoatrophy or lipohypertrophy at insulin injection sites mild ecchymoses Neuro: General nonfocal neurologic examination Achilles DTR's diminished 10-pt Monofilament testing in both feet is absent until the midfoot arch on both feet Ext: 2+ dorsalis pedis pulses palpable bilaterally 1+ posterior tibialis's bilaterally, Skin: No focal skin breakdown but dry scaling skin and onychomycosis bilaterally LABS: By his report last outside lab revealed an A1c of greater than 13% Assessment & Plan: 1. Uncontrolled type 2 diabetes mellitus complicated by known retinopathy and neuropathy This gentleman is markedly insulin resistant with his morbid excess weight. He is already treated with basal and bolus insulins, GLP-1 receptor agonist therapy, SGLT2 inhibitor therapy and metformin. Encourage efforts at dietary restriction and increased exercise aiming at weight reduction. Patient will check on his Ozempic dose and if he is not at the maximal dose we will consider upwardtitration. He is clearly in need of significant higher insulin doses. I will have him immediately increase his glargine to 70 units at bedtime and instructed him to monitor his blood sugars via CGM. If blood sugars do not fall below 200 mg/dL after 3 days he may increase his glargine/Lantus dose by 10 units every 3 to 4 days first to 80 units nightly then 100 units nightly. If this fails to result in improving blood glucose controls we may need further titration upwards if he is taking more than 100 units of Lantus daily he can begin taking this in divided doses. Thus once over 100 units daily he may split this to two 50Unit injections which I would take morning and bedtime. He can then continue the upward titration in his bedtime Lantus dose as needed. Once we see his blood sugars at least fall to below 200 mg/dL we may begin looking at his meal related insulins and adjusting these doses as well. Suspect this gentleman will need significant assistance in his insulin dosage titration. I will arrange for him to communicate with our certified breastfeeding educator to help guide his insulin dosage adjustment We did obtain some nonfasting baseline labs at his visit today to include A1c, urinary microalbumin, creatinine, ALT, and LDL cholesterol 2. Morbid obesity Complicated by uncontrolled type 2 diabetes mellitus and obstructive sleep apnea and fatty liver disease Continue to encourage aggressive efforts at weight reduction with dietary modification increase physical activity and continued use of his GLP-1 receptor agonist 3. Hyperlipidemia He is nonfasting today. Cannot obtain a fasting lipid profile but will at least check an LDL cholesterol and ALT to gauge how effective his current statin doses. A note will be sent to the referring provider It was a pleasure to be involved in the care of Ronni Bañuelos. If you have any questions about the management and treatment plan as outlined above, or if I can be of further assistance, please do not hesitate to contact me. Sincerely, Lance Palacios MD ice maker Chief, Endocrinology Section [facility] Total time for this visit encompassing extensive and thorough chart review and previsit planning aswell as examination counseling and education of the patient = 75 minutes. 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, macular edema presence unspecified LDL CHOLESTEROL, DIRECT Routine 05/12/20 23 9:04 AM EST 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, macular edema presence unspecified HEMOGLOBIN A1C Routine 05/12/2023 9:04 AM EST 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 * ACEI or ARB recommended if diabetic; suggested if BP>130/80 without diabetes ACEI or ARB strongly recommended if diabetic; recommended if BP>130/80 without diabetes Two of three specimens collected within a 3 to 6 month period should be abnormal before considering a patient to have albuminuria. Transient causes: exercise, fever, infection, CHF, marked hyperglycemia or hypertension. Persistent albuminuria indicates CKD and is an independent risk factor for ASCVD. ADA Standards of Medical Care in Diabetes-2016; KDIGO: Kidney International Supplements (2012) 2, 357? 362 Albumin, Urine <3.0 mg/L [facility] Creatinine, Urine 35 mg/dL [facility] Urine 05/12/2023 9:09 AM EST 05/12/2023 9:41 AM EST Narrative Resulting Agency Comment Spec In Lab Lance Palacios MD URINE ORDERABLES Performing Organization Address City/[facility]/ZIP Co de Phone Number [facility] [place] [address] * LDL Cholesterol, Direct (05/12/2023 9:04 AM EST) LDL Cholesterol, Direct 118 mg/dL [facility] Comment: Lowest Risk: <100 mg/dL Lower Risk: 100-129 mg/dL Borderline High Risk: 130-159 mg/dL High Risk: 160-189 mg/dL Very High Risk: >dv=181 mg/dL Blood 05/12/2023 9:04 AM EST 05/12/2023 9:14 AM EST Narrative Resulting Agency Comment Spec In Lab Lance Palacios MD CHEMISTRY ORDERABLES Performing Organization Address [facility] Co de Phone Number [facility] [place] [address] * Creatinine (05/12/2023 9:04 AM EST) Creatinine 1.05 0.80 - 1.50 mg/dL [facility] Est Glomerular Filtration Rate 91 >=60 mL/min/1. 73 m?? [facility] Comment: This patient's estimated GFR was calculated using the 2020 CKD-EPI equation. The estimated GFR can vary from the measured GFR by up to 30% in the absence of rapidly changing kidney function. Assessment of the estimated GFR is not appropriate when creatinine concentrations are rapidly changing. For clinical situations in which a more precise estimate of GFR is necessary, consider alternative methods of GFR estimation such as a 24-hour urine creatinine clearance. Assignment of CKD stage 1-5 for patients with an eGFR near the transition point between stages may be based on clinical assessment of muscle mass and symptoms in addition to eGFR. Blood 05/12/2023 9:04 AM EST 05/12/2023 9:14 AM EST Narrative Resulting Agency Comment Spec In Lab Lance Palacios MD CHEMISTRY ORDERABLES Performing Organization Address City/[facility]/ZIP Co de Phone Number [facility] [place] [address] * (ABNORMAL) Alanine Aminotransferase (05/12/2023 9:04 AM EST) Alanine Aminotransferase 71(H) 0 - 55 unit/L [facility] Blood 05/12/2023 9:04 AM EST 05/12/2023 9:14 AM EST Narrative Resulting Agency Comment Spec In Lab Lance Palacios MD CHEMISTRY ORDERABLES Performing Organization Address [facility] Co de Phone Number [facility] [place] [address] * (ABNORMAL) Hemoglobin A1c (05/12/2023 9:04 AM EST) Hemoglobin A1c 10.7(H) 4.3 - 5.6 % [facility] Comment: Reference Range: 4.3 - 5.6% 5.7 - 6.4% - Increased Risk of Developing Diabetes Mellitus >= 6.5% - Consistent with diagnosis of Diabetes Mellitus In the absence of hyperglycemia (i.e. plasma glucose > 200 mg/dL) or classic symptoms of hyperglycemia a repeat measurement of HbA1c should be performed on a separate sample to confirm the diagnosis. Diagnosis and Classification of Diabetes Mellitus, Diabetes Care 2013; 36: Suppl. 1, S67-74 Estimated Average Glucose 260 mg/dL [facility] Comment: Note: The eAG calculation has not been proven valid for women, individuals below 18 years old or above 70 years old, or individuals with hemoglobinopathies. Estimated average glucose (eAG) is calculated from the equation described in: Renny WILLARD, Patric J, May R, et al. ??Translating the A1C assay into estimated average glucose values. ??Diabetes Care 2008:31(8):1145-7472. Additional resources are available on the ADA website (diabetes.org). 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
--- OUTSIDE RECORDS SUMMARY | 2024-07-14 00:52 | XMS_ITS | Encounter Summary ---
Author Organization Health system Address [address] [place] [address] Care Team Providers Care Chapter Relations Administrator Name Role Phone Sesar Lua MD Primary Care Provider +1 [phone] Encounter Details Date Type Department Care Team (Late st Contact Info) Description 01/20/2022 Lab Requisition [facility] Pathology & Laboratory Medicine - [facility] [address] [place] [address] Outr Resulting Lab, Provider Social History Tobacco [...] Procedure Name Priority Date/Time Associated Diagnosis Comments QUANTIFERON MITOGEN (PERFORMABLE) Today 01/19/2022 16:10 EDT QUANTIFERON TB2 (PERFORMABLE) Today 01/19/2022 16:10 EDT QUANTIFERON TB1 (PERFORMABLE) Today 01/19/2022 16:10 EDT QUANTIFERON NIL (PERFORMABLE) Today 01/19/2022 16:10 EDT QUANTIFERON INTERPRETATION (PERFORMABLE) Today 01/19/2022 16:10 EDT QUANTIFERON TB GOLD PLUS Routine 01/19/2022 16:10 EDT documented in this encounter Results * QUANTIFERON INTERPRETATION (PERFORMABLE) (01/19/2022 16:10 EDT) Quantiferon Interpretation Negative Negative 01/21/2022 12:14 EDT [facility] Comment:No interferon-gamma response to M. tuberculosis antigens was detected. ??Infection with M. tuberculosis is unlikely. A single negative result does not exclude infection with M. tuberculosis. ??In patients at high risk for M. tuberculosis infection, a second test should be considered. TB1 Ag minus Nil 0.07 IU/ml 01/22/20 12:14 EDT [facility] TB2 Ag minus Nil 0.08 IU/mL 01/22/20 12:14 EDT [facility] Blood VENOUS BLOOD / Unknown 01/19/2022 16:10 EDT 01/21/2022 12:01 EDT Narrative [facility] - 01/21/2022 12:14 EDT Results were obtained with the Qiagen QuantiFERON-TB Gold Plus CLIA. New platform in use 02/05/2021 us Provider Outr Resulting Lab IMMUNOLOGY AND SEROL OGY ORDERABLES Final Result Performing Organization Address [facility] Co de Phone Number [facility] [address] [place] [address] * QUANTIFERON MITOGEN (PERFORMABLE) (01/19/2022 16:10 EDT) Blood VENOUS BLOOD / Unknown 01/19/2022 16:10 EDT 01/20/2022 17:06 EDT us Provider Outr Resulting Lab IMMUNOLOGY AND SEROL OGY ORDERABLES Final Result Performing Organization Address City/[facility]/ZIP Co de Phone Number [facility] [address] [place] [address] * QUANTIFERON TB2 (PERFORMABLE) (01/19/2022 16:10 EDT) Blood VENOUS BLOOD / Unknown 01/19/2022 16:10 EDT 01/20/2022 17:06 EDT us Provider Outr Resulting Lab IMMUNOLOGY AND SEROL OGY ORDERABLES Final Result Performing Organization Address [facility] Co de Phone Number [facility] [address] [place] [address] * QUANTIFERON TB1 (PERFORMABLE) (01/19/2022 16:10 EDT) Blood VENOUS BLOOD / Unknown 01/19/2022 16:10 EDT 01/20/2022 17:06 EDT us Provider Outr Resulting Lab IMMUNOLOGY AND SEROL OGY ORDERABLES Final Result Performing Organization Address [facility] Co de Phone Number [facility] [address] [place] [address] * QUANTIFERON NIL (PERFORMABLE) (01/19/2022 16:10 EDT) Blood VENOUS BLOOD / Unknown 01/19/2022 16:10 EDT 01/20/2022 17:06 EDT us Provider Outr Resulting Lab IMMUNOLOGY AND SEROL OGY ORDERABLES Final Result Performing Organization Address [facility] Co de Phone Number [facility] [address] [place] [address] documented in this encounter Visit Diagnoses Not on filedocumented in this encounter Care Teams Chapter Relations Administrator Relationship Specialty Start Date End Date Sesar Lua MD [address] [place] [address] PCP - General 08/28/11 documented as of this encounter
--- OUTSIDE RECORDS SUMMARY | 2024-07-14 00:52 | XMS_ITS | Referral Summary ---
Author Organization [facility] Address [address] [place] [address] Care Team Providers Care Body Maker Machine Setter Name Role Phone Sesar Lua MD Primary Care Provider +1 [phone] Social History Tobacco Use Types Packs/Day Years Used Date Smoking Tobacco: Never Assessed Interpersonal Safety Answer Date Record ed Physically Hurt Never 12/31/2019 Verbally Threaten Not on file 12/31/2019 Sex and Gender Information Value Date Recorded Sex Assigned at Not on file Legal Sex Male 18:55 EST Gender Identity Not on file Sexual Orientation Not on file Last Filed Vital Signs Vital Sign Reading Time Taken Comments Blood Pressure - - Pulse - - Temperature - - Respiratory Rate - - Oxygen Saturation - - Inhaled Oxygen Concentration - - Weight 150.6 kg (332 lb) 11/03/2011 1324 EDT Height - - Body Mass Index - - Plan of Treatment Not on file Insurance MEDICAID [place] Care Teams Body Maker Machine Setter Relationship Specialty Start Date End Date Sesar Lua MD [facility] [address] [place] [address] [facility] - General 08/28/11
--- OUTSIDE RECORDS SUMMARY | 2024-07-14 00:52 | XMS_ITS | Encounter Summary ---
Author Organization [facility] Address [address] [place] [address] Care Team Providers Care Refresh Technician Name Role Phone Sesar Lua MD Primary Care Provider [phone] [phone] Encounter Details Date Type Department Care Team (Late st Contact Info) Description 12/09/2015 Historical Results Only [facility] Lab [address] [place] [address] Cesar Garrison MD [address] [place] [address] Social History Tobacco Use Types [...] Procedure Name Priority Date/Time Associated Diagnosis Comments HEPATIC FUNCTION PANEL (ALB,ALK PHOS,ALT,AST,DBIL,T OT BRANDYN,TOT PROT) Routine 12/09/2015 18:45 EDT documented in this encounter Results * (ABNORMAL) HEPATIC FUNCTION PANEL (ALB,ALK PHOS,ALT,AST,DBIL,TOT BRANDYN,TOT PROT) (12/09/2015 18:45 EDT) BILIRUBIN - PMC 0.40 0.00 - 1.00 12/09/2015 20:17 EDT [facility] DIRECT BILIRUBIN - PMC 0.10 0.00 - 0.30 12/09/2015 20:17 EDT [facility] INDIRECT BILIRUBIN - PMC 0.30 0.00 - 0.80 12/09/2015 20:17 T [facility] AST 38(H) 15 - 37 12/09/2015 20:17 T [facility] ALT 133(H) 12 - 78 12/09/2015 20:17 [facility] Alkaline Phosphatase 94 46 - 116 12/09/2015 20:17 T [facility] Total Protein 7.0 6.4 - 8.2 12/09/2015 20:17 [facility] Albumin 3.4 3.4 - 5.0 12/09/2015 20:17 [facility] GLOBULIN - PMC 3.6 12/09/2015 20:17 [facility] ALBUMIN/GLOBULIN RATIO - PMC 0.9 12/09/2015 20:17 [facility] 12/09/2015 18:4 5 EDT 12/09/2015 19:03 EDT Narrative [facility] - 12/09/2015 20:21 EDT Sample collected at time of saline lock or IV placement. Sample markedly lipemic which may interfere with accuracy of test results. @SVO=[id number] us Cesar Garrison MD CHEMISTRY & BLOOD GAS ORDER JAMES Final Result [facility] [address] [place] [address] documented in this encounter Visit Diagnoses Not on filedocumented in this encounter Care Teams Refresh Technician Relationship Specialty Start Date End Date Sesar Lua MD [facility] [address] [place] [address] PCP - General 08/28/11 documented as of this encounter
--- OUTSIDE RECORDS SUMMARY | 2024-07-14 00:52 | XMS_ITS | Encounter Summary ---
Author Organization [facility] Address [address] [place] [address] Care Team Providers Care Customer Experience Associate Name Role Phone Sesar Lua MD Primary Care Provider +1 [phone] Encounter Details Date Type Department Care Team (Late st Contact Info) Description 03/22/2019 Results Only [facility] Lab - Main [address] [address] Fanny Luna MD [address] [place] [phone] Social History Tobacco Use Types Packs/Day Years [...] Procedure Name Priority Date/Time Associated Diagnosis Comments POCT GLUCOSE, INTERFACED Routine 03/22/2019 17:17 EDT COMPLETE BLOOD COUNT WITH DIFFERENTIAL (AUTO) Routine 03/22/2019 12:26 EDT TROPONIN I Routine 03/22/2019 12:26 EDT MAGNESIUM Routine 03/22/2019 12:26 EDT COMPREHENSIVE METABOLIC PANEL (CMP) Routine 03/22/2019 12:26 EDT documented in this encounter Results * (ABNORMAL) POCT GLUCOSE, GLUCOMETER (03/22/2019 17:17 EDT) [facility] Glucose, POC 284(H) 70 - 100 mg/dL 03/22/2019 17:20 EDT [facility] 03/22/2019 17:1 7 EDT 03/22/2019 17:20 EDT Ilya Ocampo MD POINT OF CARE TEST OR DERABLES Final Result Performing Organization Address [facility] Co de Phone Number [facility] * TROPONIN I (03/22/2019 12:26 EDT) [facility] Troponin I (ng/mL) <0.034 0.000 - 0.034 ng/mL 03/22/2019 13:34 EDT [facility] Comment: Interpretation comments: ??Cutoff for a positive troponin result is set at the 99th percentile of the upper reference limit. ??Elevated troponin must always be interpreted in the context of the clinical presentation. ?Serial troponin testing 3-6 hr from baseline is favored over relying on a single troponin level. ?? The results of this assay can be falsely lowered due to the consumption of Biotin. 03/22/2019 12:2 6 EDT 03/22/2019 13:09 EDT Fanny Luna MD CHEMISTRY & BLOOD GAS ORDERABLE S Final Result Performing Organization Address [facility] Co de Phone Number [facility] * MAGNESIUM (03/22/2019 12:26 EDT) [facility] Magnesium 1.80 1.7 - 2.8 mg/dL 03/22/2019 13:23 EDT [facility] 03/22/2019 12:2 6 EDT 03/22/2019 13:09 EDT Fanny Luna MD CHEMISTRY & BLOOD GAS ORDERABLE S Final Result Performing Organization Address [facility]/ZIP Co de Phone Number [facility] * (ABNORMAL) COMPREHENSIVE METABOLIC PANEL (CMP) (03/22/2019 12:26 EDT) Albumin % 4.2 3.4 - 4.9 g/dL 03/22/2019 13:23 [facility] ALKALINE PHOSPHATASE - [facility] 94 38 - 126 U/L 03/22/2019 13:23 [facility] BILIRUBIN TOTAL 0.5 0.2 - 1.3 mg/dL 03/22/2019 13:23 [facility] BUN - [facility] 16 10 - 26 mg/dL 03/22/2019 13:23 [facility] CALCIUM - [facility] 9.4 8.5 - 10.5 mg/dL 03/22/2019 13:23 [facility] Chloride 103 96 - 110 mmol/L 03/22/2019 13:23 [facility] CO2 Total 23 21 - 32 mEq/L 03/22/2019 13:23 [facility] CREATININE 1.13 0.66 - 1.25 mg/dL 03/22/2019 13:23 [facility] eGFR >60 03/22/2019 13:23 [facility] Comment: Chronic renal impairment is defined as GFR <60 Multiply result by 1.210 for patients. Anion Gap 14 0 - 18 03/22/2019 13:23 [facility] GLUCOSE - [facility] 135(H) 70 - 100 mg/dL 03/22/2019 13:23 [facility] Potassium 4.4 3.5 - 5.0 mEq/L 03/22/2019 13:23 [facility] Sodium 140 136 - 145 mEq/L 03/22/2019 13:23 [facility] TOTAL PROTEIN - [facility] 7.5 6.2 - 8.2 gm/dL 03/22/2019 13:23 [facility] SGOT/AST - [facility] 27 17 - 59 U/L 03/22/2019 13:23 [facility] SGPT/ALT - [facility] 49 21 - 72 U/L 03/22/2019 13:23 [facility] 03/22/2019 12:2 6 EDT 03/22/2019 13:09 EDT us Fanny Luna MD CHEMISTRY & BLOOD GAS ORDERABLE S Final Result [facility] * (ABNORMAL) COMPLETE BLOOD COUNT WITH DIFFERENTIAL (AUTO) (03/22/2019 12:26 EDT) ABSOLUTE NEUTROPHIL COUN - [facility] 4.7 2.2 - 8.85 10e3/uL 03/22/2019 13:13 EDT [facility] BASO # - [facility] 0.01 0.01 - 0.11 10e/uL 03/22/2019 13:13 [facility] BASO % - [facility] 0 0 - 2 % 03/22/2019 13:13 [facility] EOS # - [facility] 0.01(L) 0.03 - 0.61 e3/ul 03/22/2019 13:13 [facility] EOS % - [facility] 0 0 - 5 % 03/22/2019 13:13 [facility] GRAN % - [facility] 51.1 40 - 80 % 03/22/2019 13:13 [facility] HEMATOCRIT - [facility] 51.4(H) 39.5 - 50.2 % 03/22/2019 13:13 [facility] HEMOGLOBIN - [facility] 17.4(H) 13.8 - 17.3 g/dl 03/22/2019 13:13 [facility] IG# - [facility] 0.02 0 - 0.7 e3/uL 03/22/2019 13:13 [facility] IG% - [facility] 0.2 0 - 0.9 % 03/22/2019 13:13 [facility] LYMPH # - [facility] 4.0(H) 1.09 - 3.3 10e3/ul 03/22/2019 13:13 [facility] LYMPH% - [facility] 44.1(H) 20 - 40 % 03/22/2019 13:13 [facility] MEAN CORPUSCULAR HGB - [facility] 29.8 27.6 - 33.0 pg 03/22/2019 13:13 [facility] MEAN CORPUSCULAR HGB CONC - [facility] 33.9 32.8 - 36.4 g/dL 03/22/2019 13:13 [facility] MEAN CELL VOLUME - [facility] 88.2 81 - 95 fl 03/22/2019 13:13 [facility] MONO # - [facility] 0.4 0.1 - 0.8 10e3/uL 03/22/2019 13:13 [facility] MONO% - [facility] 4.4 0 - 12 % 03/22/2019 13:13 [facility] PLATELET COUNT 436(H) 141 - 377 10e3/ul 03/22/2019 13:13 [facility] RED BLOOD COUNT - [facility] 5.83(H) 4.36 - 5.78 10e3/ul 03/22/2019 13:13 [facility] RED CELL DISTRI WIDTH - [facility] 14.9 <14.2 % 03/22/2019 13:13 [facility] WHITE BLOOD COUNT - [facility] 9.1 4.0 - 10.4 10e3/ul 03/22/2019 13:13 [facility] 03/22/2019 12:2 6 EDT 03/22/2019 13:09 EDT us Fanny Luna MD HEMATOLOGY & PF4 ORDERABLES Fin al Result [facility] documented in this encounter Visit Diagnoses Not on filedocumented in this encounter Care Teams Customer Experience Associate Relationship Specialty Start Date End Date Sesar Lua MD [facility] [address] [place] [address] PCP - General 08/28/11 documented as of this encounter
--- OUTSIDE RECORDS SUMMARY | 2024-07-14 00:52 | XMS_ITS | Clinical Summary ---
Author Organization [facility] Address [address] [place] [address] Care Team Providers Care Construction Project Coordinator Name Role Phone Sesar Lua MD Primary Care Provider [phone] Social History Tobacco Use Types Packs/Day Years [...] Mass Index - - Plan of Treatment Health Maintenance Due Date Last Done Comments Hepatitis C Screen 1980 Hepatitis B Vaccine (1 of 3 - 19+ 3-dose series) 11/12 COVID-19 Vaccine ( season) 2024 Insurance MEDICAID [place] Care Teams Construction Project Coordinator Relationship Specialty Start Date End Date Sesar Lua MD [facility] [address] [place] [address] PCP - General 08/28/11
--- OUTSIDE RECORDS SUMMARY | 2024-07-14 00:52 | XMS_ITS | Encounter Summary ---
[place] [address] Care Team Providers Care Branch Service Representative Name Role Phone Sandy Sanchez APRN Primary Care Provider Encounter Details Date Type Department Care Team (Late st Contact Info) Description 09/30/2018 Telephone [place] [phone] Jade Humphreys MD Social History Tobacco Use Types Packs/Day Years Used Date Smoking Tobacco: Every Day Cigarettes Smokeless Tobacco: Never Sex and Gender Information Value Date Recorded Sex Assigned at Not on file Gender Identity Not on file Sexual Orientation Not on file documented as of this encounter Miscellaneous Notes * Telephone Encounter - Jade Humphreys MD - 09/30/2018 10:20 AM EDT Unable to reach Mr. Bañuelos on home and mobile phone numbers. Voicemail message left on mobile phoneinforming him that initial lab tests (metanephrines) were normal. Jade Humphreys PGY 4 Endocrinology Pager [phone] documented in this encounter Plan of Treatment Not on file documented as of this encounter Visit Diagnoses Not on filedocumented in this encounter Care Teams Branch Service Representative Relationship Specialty Start Date End Date Sandy Sanchez APRN PCP - General Family Medicine 06/29/17 04/15/23 documented as of this encounter
--- OUTSIDE RECORDS SUMMARY | 2024-07-14 00:52 | XMS_ITS | Encounter Summary ---
Author Organization [facility] Address [address] [place] [address] Care Team Providers Care Homicide Squad Commanding Officer Name Role Phone Sesar Lua MD Primary Care Provider [phone] [phone] Encounter Details Date Type Department Care Team (Late st Contact Info) Description 12/09/2015 Historical Results Only [facility] Lab [address] [place] [address] Cesar Morrissey MD [address] [place] [address] Social History Tobacco Use Types [...] Procedure Name Priority Date/Time Associated Diagnosis Comments GLUCOSE,RANDOM - PMC Routine 12/09/2015 18:45 EDT documented in this encounter Results * (ABNORMAL) GLUCOSE,RANDOM - PMC (12/09/2015 18:45 EDT) GLUCOSE,RANDOM - PMC 584(QJ) 96 - 180 12/09/2015 20:07 EDT [facility] Comment: Results called and read back to me by: Location: ER Full name: CESAR MORRISSEY Credentials: PHYSICIAN at 2002 on 12/09/15 by KENJI. 12/09/2015 18:4 5 EDT 12/09/2015 19:03 EDT Narrative [facility] - 12/09/2015 20:21 EDT Sample collected at time of saline lock or IV placement. Sample markedly lipemic which may interfere with accuracy of test results. @[id number] us Cesar Morrissey MD CHEMISTRY & BLOOD GAS ORDER JAMES Final Result [facility] [address] [place] [address] documented in this encounter Visit Diagnoses Not on filedocumented in this encounter Care Teams Homicide Squad Commanding Officer Relationship Specialty Start Date End Date Sesar Lua MD [address] [place] [address] PCP - General 08/28/11 documented as of this encounter
--- OUTSIDE RECORDS SUMMARY | 2024-07-14 00:52 | XMS_ITS | Encounter Summary ---
[place] [address] Care Team Providers Care Independent Freight Agent Name Role Phone Sandy Sanchez APRN Primary Care Provider [phone] Reason for Referral * Consultation (Routine) - Closed Specialty Diagnoses / Procedures Referred By Contac t Referred To Contact Endocrinology Diagnoses Type 2 diabetes mellitus without complication, with long-term current use of insulin Bruno Brown DO [address] [place] [address] [facility] [address] [place] [id number] Referral ID Status Reason Start Date Expiration Date V isits Requested Visits Authorized [id number] Closed Consult, Test & Treat PCP Updated and/or Approved 04/06/2023 04/06/2024 6 6 Encounter Details Date Type Department Care Team (Late st Contact Info) Description 04/16/2023 Transcribe Orders eDH Incoming Referrals [phone] Bruno Brown DO [address] [place], [place] [id number] Type 2 diabetes mellitus without complication, with long-term current use of insulin Social History Tobacco Use Types Packs/Day Years Used Date Smoking Tobacco: Every Day Cigarettes Smokeless Tobacco: Never Sex and Gender Information Value Date Recorded Sex Assigned at Not on file Gender Identity Not on file Sexual Orientation Not on file documented as of this encounter Plan of Treatment Scheduled Referrals Name Type Priority Associated Diagnoses Order Schedule Referral to Endocrinology Outpatient Referral Routine Type 2 diabetes mellitus without complication, with long-term current use of insulin Ordered: 04/16/2023 documented as of this encounter Visit Diagnoses Diagnosis Type 2 diabetes mellitus without complication, with long-term current use of insulin documented in this encounter Care Teams Independent Freight Agent Relationship Specialty Start Date End Date Sandy Sanchez, HOSPITAL INSURANCE REPRESENTATIVE PCP - General Family Medicine 04/16/23 documented as of this encounter
--- OUTSIDE RECORDS SUMMARY | 2024-07-14 00:52 | XMS_ITS | Encounter Summary ---
Author Organization [facility] [place] [address] Care Team Providers Care Crossing Tender Name Role Phone Johann Alcocer MD Primary Care Provider [phone] Encounter Details Date Type Department Care Team (Latest Contact Info) Description 06/19/2017 - 06/19/2017 11:59 PM EST Hospital Encounter Radiology Library at [facility] [place] [place] [phone] Paulino Garcia MD [address] [place] [id number] Discharge Disposition: Home Social History Tobacco Use Types Packs/Day Years Used Date Smoking Tobacco: Never Assessed Sex and Gender Information Value Date Recorded Sex Assigned at Not on file Gender Identity Not on file Sexual Orientation Not on file documented as of this encounter Medications at Time of Discharge Medication Sig Dispensed Refills Start Date End Date insulin glargine (LANTUS SOLOSTAR U-100 INSULIN) 100 unit/mL (3 mL) pen 48 Units. 02/05/2017 09/25/2020 documented as of this encounter Plan of Treatment Not on file documented as of this encounter Procedures Procedure Name Priority Date/Time Associated Diagnosis Comments FILM LIBRARY STORAGE ONLY CT ABDOMEN AND PELVIS Routine 06/19/2017 12:00 AM EST documented in this encounter Results * Film Library- Storage Only CT Abdomen & Pelvis (06/19/2017 12:00 AM EST) Narrative [facility] - 06/25/2017 4:23 PM EST This exam is for storage only and is auto-finalizing. Paulino Garcia MD [facility] FILM LIBRARY ORD ERABLES [facility] [place], [place] documented in this encounter Visit Diagnoses Not on filedocumented in this encounter Care Teams Crossing Tender Relationship Specialty Start Date End Date Johann Alcocer MD [facility] [address] [place] [address] PCP - General 04/22/10 06/28/17 documented as of this encounter
--- OUTSIDE RECORDS SUMMARY | 2024-07-14 00:52 | XMS_ITS | Encounter Summary ---
Author Organization [facility] Address [address] [place] [address] Care Team Providers Care Bridge Game Director Name Role Phone Sesar Lua MD Primary Care Provider +1 [phone] Encounter Details Date Type Department Care Team (Late st Contact Info) Description 12/22/2019 Lab Requisition [facility] Pathology & Laboratory Medicine - [facility] [address] [place], [place] [id number] Outr Resulting Lab, Provider Social History Tobacco [...] Procedure Name Priority Date/Time Associated Diagnosis Comments ZZCOVID-19 TEST [facility] PCR Today 12/22/2019 7:10 EDT COVID-19 TESTING Routine 12/22/2019 7:10 EDT documented in this encounter Results * COVID-19 TEST [facility] PCR (12/22/2019 7:10 EDT) Swab ENTIRE NASOPHARYNX / Unknown 12/22/2019 7:10 EDT 12/22/2019 9:04 EDT us Provider Outr Resulting Lab MICROBIOLOGY - GENER AL ORDERABLES Final Result [facility] [address] [place] [address] * COVID-19 TESTING (12/22/2019 7:10 EDT) COVID-19 rt-PCR Result Negative Negative 12/22/2019 12:22 EDT [facility] Comment: This test has not been FDA cleared or approved. This test has been authorized by FDA under an EUA for use by authorized laboratories. This test has been authorized only for detection of nucleic acid from 2019-nCoV, not for any other viruses or pathogens. This test is only authorized for the duration of the declaration that circumstances exist justifying the authorization of emergency use of in vitro diagnostic tests for detection and/or diagnosis of 2019-nCoV under section 564(b)(1) of Act, 21 U.S.C ?? 360bbb-3(b) (1), unless the authorization is terminated or revoked sooner. Negative results do not preclude 2019-nCoV infection and should not be used as the sole basis for treatment or other patient management decisions. Negative results must be combined with clinical observations, patient history, and epidemiological information. Performed on the [email or web address] Fusion instrument Performing Lab [employer] [facility] 12/22/2019 12:22 EDT [facility] Swab 12/22/2019 7:10 EDT 12/22/2019 9:04 EDT us Provider Outr Resulting Lab MICROBIOLOGY - GENER AL ORDERABLES Final Result [facility] [address] [place] [address] documented in this encounter Visit Diagnoses Not on filedocumented in this encounter Care Teams Bridge Game Director Relationship Specialty Start Date End Date Sesar Lua MD [facility] [address] [place] [address] PCP - General 08/28/11 documented as of this encounter
--- OUTSIDE RECORDS SUMMARY | 2024-07-14 00:52 | XMS_ITS | Encounter Summary ---
[place] [address] Care Team Providers Care Dispute Resolution Analyst Name Role Phone Sandy Sanchez APRN Primary Care Provider Encounter Details Date Type Department Care Team (Latest Contact Info) Description 05/12/2023 Travel Social History Tobacco Use Types Packs/Day Years [...] on filedocumented in this encounter Care Teams Dispute Resolution Analyst Relationship Specialty Start Date End Date Sandy Sanchez APRN PCP - General Family Medicine 04/16/23 documented as of this encounter
--- OUTSIDE RECORDS SUMMARY | 2024-07-14 00:52 | XMS_ITS | Encounter Summary ---
Author Organization [facility] Address [address] [place] [address] Care Team Providers Care Warehouse Administrative Assistant Name Role Phone Sesar Lua MD Primary Care Provider [phone] [phone] Encounter Details Date Type Department Care Team (Late st Contact Info) Description 03/22/2019 Results Only Imaging [facility] Radiology Results [address] [place], [place] [id number] Fanny Luna MD [address] [place] [address] Social History Tobacco Use Types Packs/Day [...] Procedure Name Priority Date/Time Associated Diagnosis Comments XR CHEST 1 VIEW 03/22/2019 13:25 EDT EKG 12-LEAD 03/22/2019 12:59 EDT documented in this encounter Results * XR CHEST 1 VIEW (03/22/2019 13:25 EDT) Anatomical Region Laterality Modality Other 03/22/2019 13:2 2 EDT Narrative 03/22/2019 13:25 EDT ? EXAM: RADIOLOGY/CHEST-PORTABLE ?EX. D/ (1310) ? CLINICAL INFORMATION: ? hypoxia, anaphylaxis ? INDICATION: hypoxia, anaphylaxis ALLERGIC RXN ? TECHNIQUE: Single view chest. ? COMPARISON: None ? FINDINGS: There is minimal opacity at the medial aspect of the right ? lung base which may reflect atelectasis. The lungs are otherwise ? clear. Mild airways thickening is present. There is no pleural ? effusion or pneumothorax. The cardiac silhouette is within normal ? limits. ? IMPRESSION: ? 1. Mild peribronchial thickening. ? 2. Mild right medial lung base opacity. This may be secondary to ? airways thickening and/or vascular crowding. Please correlate for ? signs of infection. ? REPORT SIGNED IN OTHER VENDOR SYSTEM 03/22/2019 ?Reported By: Bogdan Berg MD ? CC: ? Transcribed Date/Time: 03/22/2019 (3677) ? Pit Clerk: ? Printed Date/Time: 03/22/2019 (9122) ? PAGE 1 ? Signed Report ? Procedure Note Bogdan Berg E - 04/08/2019 EXAM: RADIOLOGY/CHEST-PORTABLE EX. D/ (1310) CLINICAL INFORMATION: hypoxia, anaphylaxis INDICATION: hypoxia, anaphylaxis ALLERGIC RXN TECHNIQUE: Single view chest. COMPARISON: None FINDINGS: There is minimal opacity at the medial aspect of theright lung base which may reflect atelectasis. The lungs are otherwise clear. Mild airways thickening is present. There is no pleural effusion or pneumothorax. The cardiac silhouette is within normal limits. IMPRESSION: 1. Mild peribronchial thickening. 2. Mild right medial lung base opacity. This may be secondary to airways thickening and/or vascular crowding. Please correlate for signs of infection. REPORT SIGNED IN OTHER VENDOR SYSTEM 03/22/2019 Reported By: Bogdan Berg MD CC: Transcribed Date/Time: 03/22/2019 (0264) Pit Clerk: Printed Date/Time: 03/22/2019 (1499) PAGE 1 Signed Report us Fanny Luna MD IMG DIAGNOSTIC IMAGING ORDERABL ES Final Result * EKG 12-LEAD (03/22/2019 12:59 EDT) 03/22/2019 12:5 9 EDT [facility] - 03/22/2019 12:59 EDT ? CV ? Test Date: ?2019-03-22 12:59:56 Pat Name: ? INDU BARRIENTOS ?Department: ?Room: ? Gender: ? M ?Circus Performer: ?? RB : ?1980 ? Requested By: Order Number: ?Reading : ?? Jordyn Kate MD ? Measurements Intervals ?[place] ? Rate: ? 62 ? P: ?29 MS: ? 126 ?QRS: ?-5 QRSD: ? 98 ? T: ?66 QT: ? 396 ? QTc: ?401 ? Interpretive Statements Normal sinus rhythm Nonspecific ST abnormality Abnormal ECG No previous ECG available for comparison Electronically Signed On 03-22-2019 13:55:09 EDT by Jordyn Kate MD [email or web address] Procedure Note Jordyn Kate MD, - 04/08/2019 [facility] Test Date: 2019-03-22 12:59:56 Pat Name: INDU BARRIENTOS Department: Room: Gender: M Circus Performer: JESSA : 1980 Requested By: Order Number: Reading MD: Jordyn Kate MD Measurements Intervals [place] Rate: 62 P: 29 MS: 126 QRS: -5 QRSD: 98 T: 66 QT: 396 QTc: 401 Interpretive Statements Normal sinus rhythm Nonspecific ST abnormality Abnormal ECG No previous ECG available for comparison Electronically Signed On 03-22-2019 13:55:09 EDT by Jordyn Kate MD [email or web address] us Fanny Luna MD CARDIAC ECG ORDERABLES Final Re sult [facility] documented in this encounter Visit Diagnoses Not on filedocumented in this encounter Care Teams Warehouse Administrative Assistant Relationship Specialty Start Date End Date Sesar Lua MD [facility] [address] [place] [address] PCP - General 08/28/11 documented as of this encounter
--- OUTSIDE RECORDS SUMMARY | 2024-07-14 00:52 | XMS_ITS | Encounter Summary ---
Author Organization [facility] Address [address] [place] [address] Care Team Providers Care Water Plant Pump Operator Name Role Phone Sesar Lua MD Primary Care Provider +1 [phone] Encounter Details Date Type Department Care Team (Late st Contact Info) Description 12/09/2015 Historical Results Only [facility] [address] [place] [address] Cesar Garrison MD [address] [place] [address] Social History Tobacco Use Types [...] Procedure Name Priority Date/Time Associated Diagnosis Comments LIPASE Routine 12/09/2015 18:45 EDT documented in this encounter Results * LIPASE (12/09/2015 18:45 EDT) Lipase 157 73 - 393 12/09/2015 19:51 EDT [facility] 12/09/2015 18:4 5 EDT 12/09/2015 19:03 EDT Narrative [facility] - 12/09/2015 20:21 EDT Sample collected at time of saline lock or IV placement. Sample markedly lipemic which may interfere with accuracy of test results. @GLZ=801 us Cesar Garrison MD CHEMISTRY & BLOOD GAS ORDER JAMES Final Result [facility] [address] [place], [place] [phone] documented in this encounter Visit Diagnoses Not on filedocumented in this encounter Care Teams Water Plant Pump Operator Relationship Specialty Start Date End Date Sesar Lua MD [facility] [address] [place] [address] PCP - General 08/28/11 documented as of this encounter
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
--- OUTSIDE RECORDS SUMMARY | 2024-07-14 00:52 | XMS_ITS | Encounter Summary ---
Author Organization [facility] Address [address] [place] [address] Care Team Providers Care Service Inspector Name Role Phone Sesar Lua MD Primary Care Provider [phone] [phone] Encounter Details Date Type Department Care Team (Latest Contact Info) Description 03/22/2019 11:41 EDT - 03/22/2019 23:59 EDT Hospital Encounter [facility] [address] [place] [address] Unknown, Provider, MD Discharge Disposition: Home or Self Care Social History Tobacco Use Types Packs/Day Years Used Date Smoking Tobacco: Never Assessed Sex and Gender Information Value Date Recorded Sex Assigned at Not on file Legal Sex Male 18:55 EST Gender Identity Not on file Sexual Orientation Not on file documented as of this encounter Discharge Disposition Disposition Code Departure Means Destination Home or Self Group Home documented in this encounter Plan of Treatment Not on file documented as of this encounter Visit Diagnoses Not on filedocumented in this encounter Care Teams Service Inspector Relationship Specialty Start Date End Date Sesar Lua MD [facility] [address] [place] [address] PCP - General 08/28/11 documented as of this encounter
--- OUTSIDE RECORDS SUMMARY | 2024-07-14 00:52 | XMS_ITS | Encounter Summary ---
Author Organization [facility] Address [facility] [place] [address] Care Team Providers Care Family Practice Doctor Name Role Phone Sandy Sanchez APRN Primary Care Provider [phone] Reason for Visit * Consultation (Routine) - Closed Specialty Diagnoses / Procedures Referred By Contac t Referred To Contact Endocrinology Diagnoses HORMONALLY ACTIVE ADRENAL MASS? Sandy Sanchez APRN [address] [phone] [facility] [address] [place] [phone] Referral ID Status Reason Start Date Expiration Date V isits Requested Visits Authorized [id number] Closed Consult, Test & Treat Connection [facility] 06/27/2018 06/27/2019 1 1 Encounter Details Date Type Department Care Team (Latest Contact Info) Description 09/28/2018 9:00 AM EDT Office Visit [place] [address] Tex Watkins MD [facility] [address] Jade Humphreys MD Adrenal incidentaloma Social History Tobacco Use Types Packs/Day Years Used Date Smoking Tobacco: Every Day Cigarettes Smokeless Tobacco: Never Sex and Gender Information Value Date Recorded Sex Assigned at Not on file Gender Identity Not on file Sexual Orientation Not on file documented as of this encounter Last Filed Vital Signs Vital Sign Reading Time Taken Comments Blood Pressure 129/69 09/28/2018 9:10 AM EDT Pulse 74 09/28/2018 9:10 AM EDT Temperature - - Respiratory Rate - - Oxygen Saturation - - Inhaled Oxygen Concentration - - Weight 130.2 kg (287 lb) 09/28/2018 9:10 AM EDT Height 167.6 cm (5' 6) 09/28/2018 9:10 AM EDT Body Mass Index 46.32 09/28/2018 9:10 AM EDT documented in this encounter Patient Instructions * Patient Instructions* Jade Humphreys MD - 09/28/2018 9:00 AM EDT We are going to test you for excess adrenaline and stress hormone. You can go to 3L now to have the plasma metanephrine test performed--> you should relax lying down for 20 minutes before the blood is drawn. This test might be slightly positive because of the medications you are on/stress of the day, but with the condition we are trying to rule out (pheochromocytoma) this level is largely elevated (eg. 2-3 fold the normal limit). To test for Gays's syndrome or excess stress hormone: Take the 1 mg (2 x 0.5 mg tablets) of dexamethasone at 11 pm and the following morning bring the lab slip to your local lab at 8 am to have your cortisol measured. You should return to Endocrine clinic in 2 years for this test to be repeated if it is negative. documented in this encounter Progress Notes * Jade Humphreys MD - 09/28/2018 9:00 AM EDT ENDOCRINOLOGY NEW PATIENT APPOINTMENT Patient Name: Ronni Bañuelos Date of Appointment: 09/28/2018 ID: Mr. 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 History of Presenting Illness: Mr. Bañuelos had CT abdomen performed approximately 1 year ago for hematochezia and abdominal pain, which incidentally noted right adrenal nodule. Repeat CT scan was performed 05/2018, which demonstrated stable size at 1.9 x 1.2 cm and features consistent with adenoma. Mr. Bañuelos presents to Endocrine clinic today for evaluation of whether adrenal nodule is functional. Mr. Bañuelos has a history of anxiety and PTSD and is on venlafaxine and bupropion. He does not fairly frequent panic attacks. He has been having low- grade headaches many days a week, but denies any palpitations. He does have episodes of flushing approximately once per day and sweats profusely if >65 degrees. He has gained approximately 10 lbs abruptly and notes poor wound healing. He has a history of T2DM since 2012 with last HbA1c >9. He denies problems with excessive ecchymoses. Past Medical History: Hepatic steatosis Obesity Type 2 diabetes c/b retinopathy and neuropathy Tobacco use Asthma MANUEL Depression PTSD Anxiety Agoraphobia Past Surgical History None Current Outpatient Medications on File Prior to Visit Medication Sig Dispense Refill ??? metFORMIN (GLUCOPHAGE) 1,000 mg Tablet ??? insulin glargine (LANTUS SOLOSTAR U-100 INSULIN) 100 unit/mL (3 mL) pen 48 Units. ??? venlafaxine (EFFEXOR-XR) 75 mg Capsule, Sust. Release 24 hr ??? JARDIANCE 25 mg Tablet ??? buPROPion (WELLBUTRIN XL) 300 mg Tablet Extended Release 24 hr No current facility-administered medications on file prior to visit. Allergies: Bees ROS: Constitutional: No tiredness, weight gain+, no heat or cold intolerance Endocrine: No thyroid problems. abnormal sweating+, flushing+-looks like I have high blood pressure once a day. Neurological: headache+ or weakness. No seizure, fainting or dizziness+-since starting venlafaxine Eyes: No recent vision changes ENT: No dysphagia, dental issues+ Cardiovascular: No chest pain or palpitations Respiratory: No cough, wheezing, shortness of breath GI: Normal appetite. Nausea+-occasional, vomiting, diarrhea, constipation Musculoskeletal: joint aches+-left hip, muscle pain. No back pain Psychiatric: depression, anxiety+ Social History: Lives in [place], [place] with his and 2 children (10 and 8). 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 Physical Exam: General appearance: pleasant male patient sitting comfortably in chair, elevated BMI HEENT: Poor dentition, MMM Neck: No thyromegaly or nodules palpable, no dorsocervical fat pad CVS: RRR, +S1, S2. no murmurs or added sounds Pulm: clear to auscultation BL Abdomen: Central adiposity, soft, non-tender, no violaceous striae Extremities: No peripheral edema, normal muscle bulk Skin: No ecchymosis, small area of skin breakdown on abdomen (attributes to cat scratch) Pertinent Laboratory Findings: None Assessment: Mr. 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 There is low suspicion for hyperaldosterinism given no history of high blood pressure and potassium on last BMP was 3.6. He does experience flushing, sweating, headaches, and panic attacks, so will obtain plasma metanephrines to evaluate for potential pheochromocytoma; however, symptoms may also be secondary to underlying anxiety/PTSD. We discussed that there is high risk of false positive results in metanephrines with venlafaxine, but that in the setting of pheochromocytoma would expect 2-3 fold higher than upper normal l imit. He does have central adiposity, and diabetes with poor wound healing. Plan to obtain 1 mg dexamethasone suppression test to evaluate for potential Gays's syndrome. Mr. Bañuelos has already had 2 CT abdomen scans to evaluate R adrenal nodule. Low HU (<10), as well as small and stable size is reassuring that this nodule is benign. Consequently, no further imaging is felt to be indicated. Plan: #R adrenal nodule -Obtain plasma metanephrines and 1 mg dexamethasone suppression test -external lab slip provided for 8 am cortisol after dexamethasone taken the night prior--> askedthat Mr. Bañuelos contact our clinic if he has not heard back regarding results within 5 days to ensure lab result received -Return to Endocrine clinic in 2 months for repeat Mel's syndrome screen if initial testing negative This case has been discussed with Dr. Watkins, Staff Oliver Filter Operator. Jade Humphreys PGY 4 Endocrinology Pager [phone] * Tex Watkins MD - 09/28/2018 9:00 AM EDT Images from the original note were not included. I have seen the patient and reviewed Dr Humphreys's history and I agree with the details as written. The assessment and plan were formulated in discussion with me and I agree with them as documented. Review of systems as stated, otherwise it is negative Exam: As stated, but would add Neuro: no tremors, CN II-XII grossly intact Psych: normal affect, normal insight, awake/alert/oriented x3 I personally reviewed 2018 CT A/P images. In my review I saw that patient had small right adrenal nodule <2cm with low HU (<10) indicating a benign nodule. [address] scans showed stable right adrenal nodule Assessment/plan: Agree with plan as written Note will be sent to the referring provider Tex Watkins MD Intermediate Project Managerbin filler Endocrinology Section [facility] documented in this encounter Miscellaneous Notes * Addendum Note - Tex Watkins MD - 09/28/2018 9:00 AM EDTAddended by: TEX WATKINS on: 09/28/2018 05:05 PM Modules accepted: Level of Service documented in this encounter Plan of Treatment Not on file documented as of this encounter Results * Metanephrines, Fractionated Free, plasma (09/28/2018 10:37 AM EDT) Normetanephrine, Free (SEPTEMBER) 0.45 <0.90 nmol/L [facility] Comment: Test Performed by: [facility] [address] [place] [address] Metanephrine, Free (SEPTEMBER) <0.20 <0.50 nmol/L [facility] Comment: ADDITIONAL INFORMATION This test was developed and its performance characteristics determined by [facility] in a manner consistent with CLIA requirements. This test has not been cleared or approved by the U.S. Food and Drug Administration. Test Performed by: [facility] [address] [place] [address] Blood specimen (specimen) 09/28/2018 10:37 AM EDT 09/28/2018 12:42 PM EDT Narrative Resulting Agency Comment Spec In Lab Tex Watkins MD LAB SEND OUT ORDERA IAM [facility] [place] [address] documented in this encounter Visit Diagnoses Diagnosis Adrenal incidentaloma Other specified disorders of adrenal glands documented in this encounter Care Teams Family Practice Doctor Relationship Specialty Start Date End Date Sandy Sanchez, INVASIVE CARDIOVASCULAR TECHNOLOGIST PCP - General Family Medicine 06/29/17 04/15/23 documented as of this encounter
--- OUTSIDE RECORDS SUMMARY | 2024-07-14 00:52 | XMS_ITS | Encounter Summary ---
Author Organization [facility] Address [address] [place] [address] Care Team Providers Care Bus Person Dishwasher Name Role Phone Sesar Lua MD Primary Care Provider [phone] [phone] Encounter Details Date Type Department Care Team (Late st Contact Info) Description 12/09/2015 Historical Results Only [facility] [address] [place] [address] Cesar Garrison MD [address] [place] [address] Social History Tobacco Use Types [...] Procedure Name Priority Date/Time Associated Diagnosis Comments ELECTROLYTES Routine 12/09/2015 18:45 EDT documented in this encounter Results * (ABNORMAL) ELECTROLYTES (12/09/2015 18:45 EDT) Sodium 135(L) 136 - 145 12/09/2015 19:51 EDT [facility] Potassium 4.1 3.5 - 5.1 12/09/2015 19:51 EDT [facility] Chloride 97 96 - 107 12/09/2015 19:51 T [facility] CO2 Total 25.2 21 - 32 12/09/2015 19:51 T [facility] Anion Gap 16.9 12/09/2015 19:51 EDT [facility] 12/09/2015 18:4 5 EDT 12/09/2015 19:03 EDT Narrative [facility] - 12/09/2015 20:21 EDT Sample collected at time of saline lock or IV placement. Sample markedly lipemic which may interfere with accuracy of test results. @VMC=098 us Cesar Garrison MD CHEMISTRY & BLOOD GAS ORDER JAMES Final Result [facility] [address] [place] [address] documented in this encounter Visit Diagnoses Not on filedocumented in this encounter Care Teams Bus Person Dishwasher Relationship Specialty Start Date End Date Sesar Lua MD [address] [place] [address] PCP - General 08/28/11 documented as of this encounter
--- OUTSIDE RECORDS SUMMARY | 2024-07-14 00:52 | XMS_ITS | Encounter Summary ---
Author Organization [facility] [address] Care Team Providers Care Supervisor Green End Department Name Role Phone Johann Alcocer MD Primary Care Provider Encounter Details Date Type Department Care Team (Latest Contact Info) Description 04/12/2017 8:58 PM EST - 04/12/2017 11:59 PM EST Hospital [place] [address] Discharge Disposition: Home Social History Tobacco Use [...] Procedure Name Priority Date/Time Associated Diagnosis Comments SURGICAL PATHOLOGY REPORT Routine 04/12/2017 12:00 PM EST documented in this encounter Results * Surgical Pathology Report (04/12/2017 12:00 PM EST) Final Diagnosis [id number] ? Location: [facility] The signing pathologist has (i) examined the relevant preparation(s) for the specimen(s) and (ii) rendered or confirmed the diagnosis(es). . ?Surgical Pathology DIAGNOSIS Nail, right hallux, clippings: - PAS-positive fungal hyphae present throughout nail plate Electronically signed by: ??Lance Rush MD Verified: ??04/14/2017 ?Dermatopathol ogist Performed at: ??-[facility] [place] [place] Dept. of Pathology, [place], [place] CLINICAL INFORMATION Specimen Submitted: A - Toenail clippings of right hallux nail Clinical History: Onychomycosis Clinical Diagnosis: Onychomycosis Comment: PAS staining Referring Identifier: ??[id number] SPECIMEN PROCESSING A - ?? Labeled/Fixativ e: Toenail clippings right hallux nail, fresh. Quantity/Size: Two, 1.7 x 0.3 x 0.2 cm. Tissue Description: Yellow stauffer, semilunar unguis fragments; one with red discoloration. Sections/Proces sing: Submitted en-toto. (T1) ??shb 04/14/2017 3:59 PM EST [facility] NAIL SPECIMEN / Unknown 04/12/2017 12:00 PM EST 04/12/2017 12:00 PM EST Narrative Resulting Agency Comment Spec In Lab / [facility] Ariela Manuel DPM PATHOLOGY/CYTOLOGY O RDERABLES [facility] [place] [address] documented in this encounter Visit Diagnoses Not on filedocumented in this encounter Care Teams Supervisor Green End Department Relationship Specialty Start Date End Date Johann Alcocer MD [place] [address] [place] [address] PCP - General 04/22/10 06/28/17 documented as of this encounter
--- OUTSIDE RECORDS SUMMARY | 2024-07-14 00:52 | XMS_ITS | Encounter Summary ---
Author Organization [facility] Address [address] [place] [address] Care Team Providers Care Manager Credit Name Role Phone Sesar Lua MD Primary Care Provider [phone] [phone] Encounter Details Date Type Department Care Team (Late st Contact Info) Description 12/09/2015 Historical Results Only [facility] [address] [place] [address] Cesar Garrison MD [address] [place] [address] Social History Tobacco Use Types [...] Procedure Name Priority Date/Time Associated Diagnosis Comments AMYLASE Routine 12/09/2015 18:45 EDT documented in this encounter Results * AMYLASE (12/09/2015 18:45 EDT) Amylase 32 25 - 115 12/09/2015 19:51 EDT [facility] 12/09/2015 18:4 5 EDT 12/09/2015 19:03 EDT Narrative [facility] - 12/09/2015 20:21 EDT Sample collected at time of saline lock or IV placement. Sample markedly lipemic which may interfere with accuracy of test results. @OXC=851 us Cesar Garrison MD CHEMISTRY & BLOOD GAS ORDER JAMES Final Result [facility] [address] [place], [place] [id number] documented in this encounter Visit Diagnoses Not on filedocumented in this encounter Care Teams Manager Credit Relationship Specialty Start Date End Date Sesar Lua MD [facility] [address] [place] [address] PCP - General 08/28/11 documented as of this encounter
--- OUTSIDE RECORDS SUMMARY | 2024-07-14 00:52 | XMS_ITS | Encounter Summary ---
Author Organization [facility] Address [address] [place] [address] Care Team Providers Care Counter Waitress/Waiter Name Role Phone Sesar Lua MD Primary Care Provider [phone] [phone] Encounter Details Date Type Department Care Team (Late st Contact Info) Description 12/09/2015 Historical Results Only [facility] [address] [place] [address] Cesar Garrison MD [address] [place] [address] Social History Tobacco Use Types [...] Procedure Name Priority Date/Time Associated Diagnosis Comments CREATININE WITH GFR - PMC Routine 12/09/2015 18:45 EDT documented in this encounter Results * CREATININE WITH GFR - PMC (12/09/2015 18:45 EDT) Creatinine 1.25 0.7 - 1.30 12/09/2015 19:51 EDT [facility] Estimated GFR >60 >60 12/09/2015 19:51 EDT [facility] Comment: EGFR UNITS: mL/min/1.73 m 2 CKD-EPI Equation used to calculate. 12/09/2015 18:4 5 EDT 12/09/2015 19:03 EDT Narrative [facility] - 12/09/2015 20:21 EDT Sample collected at time of saline lock or IV placement. Sample markedly lipemic which may interfere with accuracy of test results. @IMO=[id number] us Cesar Garrison MD CHEMISTRY & BLOOD GAS ORDER JAMES Final Result [facility] [address] [place] [address] documented in this encounter Visit Diagnoses Not on filedocumented in this encounter Care Teams Counter Waitress/Waiter Relationship Specialty Start Date End Date Sesar Lua MD [address] [place] [address] PCP - General 08/28/11 documented as of this encounter
--- OUTSIDE RECORDS SUMMARY | 2024-07-14 00:52 | XMS_ITS | Encounter Summary ---
Author Organization [facility] Address [address] [place] [address] Care Team Providers Care Wetlands Technician Name Role Phone Sesar Lua MD Primary Care Provider [phone] [phone] Encounter Details Date Type Department Care Team (Late st Contact Info) Description 12/09/2015 Historical Results Only [facility] [address] [place] [address] Cesar Garrison MD [address] [place] [address] Social History Tobacco Use Types [...] Procedure Name Priority Date/Time Associated Diagnosis Comments BETA HYDROXYBUTYRATE Routine 12/09/2015 18:45 EDT COMPLETE BLOOD COUNT AND DIFFERENTIAL Routine 12/09/2015 18:45 EDT HEMOGLOBIN A1C Routine 12/09/2015 18:45 EDT documented in this encounter Results * (ABNORMAL) HEMOGLOBIN A1C (12/09/2015 18:45 EDT) Hemoglobin A1c 10.3(H) 4.8 - 5.6 12/09/2015 19:38 EDT [facility] Comment: INTERPRETIVE DATA (ADA Guidelines) ?<5.7% Normal 5.7-6.4% Increased risk for diabetes ?? =>6.5% Diagnostic for diabetes (if confirmed) The A1c goal for non adults in general is <7%. The A1c goal for selected patients may be significantly lower than 7% if this can be achieved without significant hypoglycemia or other adverse effects of treatment. EAG - PMC 249(H) 70 - 180 12/09/2015 19:38 [facility] 12/09/2015 18:4 5 EDT 12/09/2015 19:02 EDT Narrative [facility] - 12/09/2015 19:42 EDT Sample collected at time of saline lock or IV placement. us Cesar Garrison MD CHEMISTRY & BLOOD GAS ORDER JAMES Final Result [facility] [address] [place] [address] * (ABNORMAL) COMPLETE BLOOD COUNT AND DIFFERENTIAL (12/09/2015 18:45 EDT) WBC 7.2 4.0 - 10.5 12/09/2015 19:18 [facility] RBC 4.55(L) 4.70 - 6.00 12/09/2015 19:18 [facility] Hemoglobin 13.8 13.5 - 18.0 12/09/2015 19:18 [facility] HCT 38.7(L) 42.0 - 52.0 12/09/2015 19:18 [facility] MCV 85.1 78 - 100 12/09/2015 19:18 [facility] MCH 30.3 27 - 31 12/09/2015 19:18 [facility] MCHC 35.7 32 - 36 12/09/2015 19:18 [facility] RDW-CV - PMC 14.2(H) 11.5 - 14.0 12/09/2015 19:18 [facility] PLATELET COUNT - PMC 249 150 - 450 12/09/2015 19:18 [facility] NEUTROPHILS % (AUTO) - PMC 73.3 42.0 - 75.0 12/09/2015 19:18 [facility] LYMPHOCYTES % (AUTO) - PMC 20.4 16.0 - 52.0 12/09/2015 19:18 [facility] MONOCYTES % (AUTO) - PMC 5.0 1.0 - 11.0 12/09/2015 19:18 [facility] EOSINOPHILS % (AUTO) - PMC 1.0 0.0 - 7.0 12/09/2015 19:18 [facility] BASOPHILS % (AUTO) - PMC 0.3 0.0 - 4.0 12/09/2015 19:18 [facility] NEUTROPHILS # (AUTO) - PMC 5.3 1.5 - 6.6 12/09/2015 19:18 [facility] LYMPHOCYTES # (AUTO) - PMC 1.5 1.0 - 3.5 12/09/2015 19:18 [facility] MONOCYTES # (AUTO) - PMC 0.4 <1.0 12/09/2015 19:18 [facility] EOSINOPHILS # (AUTO) - PMC 0.1 <0.7 12/09/2015 19:18 [facility] BASOPHILS # (AUTO) - PMC 0.0 <0.1 12/09/2015 19:18 [facility] 12/09/2015 18:4 5 EDT 12/09/2015 19:02 EDT Narrative [facility] - 12/09/2015 19:42 EDT Sample collected at time of saline lock or IV placement. us Cesar Garrison MD PACKAGES & DNA PROBE ORDERA BLES Final Result [facility] [address] [place] [address] * BETA HYDROXYBUTYRATE (12/09/2015 18:45 EDT) Beta Hydroxybutyrate <0.27 <0.27 12/09/2015 19:36 [facility] 12/09/2015 18:4 5 EDT 12/09/2015 19:03 EDT Narrative [facility] - 12/09/2015 20:21 EDT Sample collected at time of saline lock or IV placement. Sample markedly lipemic which may interfere with accuracy of test results. @TXL=[id number] us Cesar Garrison MD CHEMISTRY & BLOOD GAS ORDER JAMES Final Result [facility] [address] [place] [address] documented in this encounter Visit Diagnoses Not on filedocumented in this encounter Care Teams Wetlands Technician Relationship Specialty Start Date End Date Sesar Lua MD [facility] [address] [place] [address] PCP - General 08/28/11 documented as of this encounter
--- OUTSIDE RECORDS SUMMARY | 2024-07-14 00:52 | XMS_ITS | Encounter Summary ---
Author Organization [facility] Address [address] [place] [address] Care Team Providers Care Environmental Services Specialist Name Role Phone Sesar Lua MD Primary Care Provider [phone] Encounter Details Date Type Department Care Team (Late st Contact Info) Description 12/09/2015 Historical Results Only [facility] [address] [place] [id number] Cesar Garrison MD [address] [place] [address] Social History Tobacco Use Types [...] Procedure Name Priority Date/Time Associated Diagnosis Comments TROPONIN I Routine 12/09/2015 18:45 EDT documented in this encounter Results * TROPONIN I (12/09/2015 18:45 EDT) Troponin I (ng/mL) <0.05 <0.10 12/09/2015 20:07 EDT [facility] 12/09/2015 18:4 5 EDT 12/09/2015 19:03 EDT Narrative [facility] - 12/09/2015 20:21 EDT Sample collected at time of saline lock or IV placement. Sample markedly lipemic which may interfere with accuracy of test results. @SXY=125 us Cesar Garrison MD CHEMISTRY & BLOOD GAS ORDER JAMES Final Result [facility] [address] [place] [address] documented in this encounter Visit Diagnoses Not on filedocumented in this encounter Care Teams Environmental Services Specialist Relationship Specialty Start Date End Date Sesar Lua MD [facility] [address] [place] [address] PCP - General 08/28/11 documented as of this encounter
--- OUTSIDE RECORDS SUMMARY | 2024-07-14 00:52 | XMS_ITS | Clinical Summary ---
Author Organization [facility] [place] [address] [place] [address] Care Team Providers Care Newspaper Carrier Name Role Phone Sandy Sanchez APRN Primary Care Provider [phone] Allergies Active Allergy Reactions Criticality Noted Date Comments Bee Venom Protein (Honey Bee) Anaphylaxis High 06/17/2020 Sulfa (Sulfonamide Antibiotics) 06/17/2020 Other reaction(s): HIVES, RASH Medications Medication Sig Dispensed Refills Start Date End Date Status venlafaxine (EFFEXOR-XR) 75 mg Capsule, Sust. Release 24 hr 09/14/2018 Active JARDIANCE 25 mg Tablet 09/14/2018 Active buPROPion (WELLBUTRIN XL) 300 mg Tablet Extended Release 24 hr 04/30/2018 Active metFORMIN XR (Glucophage XR) 500 mg Tablet Sustained Release 24 hr 1,000 mg 2 times daily. 06/19/2020 Active insulin glargine (Lantus) 100 unit/mL (3 mL) pen Inject 52 Units subcutaneously. 02/08/2020 Active liraglutide (VICTOZA) 0.6 mg/0.1 mL (18 mg/3 mL) Pen Injector Inject 1.8 mg subcutaneously daily. 02/08/2020 Active EPINEPHrine 0.3 mg/0.3 mL Auto-Injector Inject into the muscle. 09/14/2018 Active OneTouch Ultra Blue Test Strip Strip For back up if pump failure 06/20/2020 Active atorvastatin (Lipitor) 20 mg Tablet TAKE ONE TABLET BY MOUTH EVERY DAY 06/18/2020 Active aspirin EC 81 mg Tablet, Delayed Release (E.C.) Take by mouth. 08/26/2017 Active albuteroL 90 mcg/actuation HFA Aerosol Inhaler Inhale into the lungs. 07/04/2019 Active ARIPiprazole (Abilify) 10 mg tablet TAKE ONE-HALF TABLET BY MOUTH AT BEDTIME FOR 14 DAYS THEN STOP 05/03/2023 Active aspirin-acetaminop hen-caffeine (Excedrin Migraine) 250-250-65 mg Tablet 1 tab(s) orally prn Activ e FreeStyle Hina 2 Sensor Kit See Admin Instructions. 04/13/2023 Active fluticasone propionate (Flonase) 50 mcg/actuation [place], Suspension every 24 hours. Ac loan [facility] Spacer USE WITH INHALER 12/31/2022 Active lurasidone (Latuda) 20 mg tablet TAKE 1 TABLET BY MOUTH EVERY EVENING; MUST ADMINISTER WITH FOOD (AT LEAST 350 CALORIES) 04/13/2023 Active mirtazapine (Remeron) 15 mg tablet Take 15 mg by mouth nightly. 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 Chronic post-traumatic stress disorder (PTSD) Obstructive sleep apnea syndrome 09/25/2020 Obesity with body mass index 30 or greater 09/25 Mild intermittent asthma without complication Male erectile disorder 09/25/2020 Major depressive disorder 09/25/2020 Hepatic steatosis 09/25/2020 Gastroesophageal reflux disease without esophagi tis 09/25/2020 Adrenal mass, right 09/28/2018 Tobacco use disorder 05/13/2017 Peripheral polyneuropathy 03/19/2017 Hyperlipidemia 07/01/2016 Anxiety disorder 06/15/2016 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 06/10/2016 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 06/10/2016 Social History Tobacco Use Types Packs/Day Years [...] Mass Index 44.03 05/12/2023 7:50 AM EST Plan of Treatment Health Maintenance Due Date Last Done Comments DM Opthalmology Exam 1990 HIV screen 1998 Hepatitis C Screening 1998 Hepatitis B vaccine (0-59 yrs) (1) 11/13/1999 Pneumococcal Vaccine: At-Risk 5-49yrs (1 of 2 - PCV) 0 11/13/1999 Tetanus/Diphtheria/Pertussis Vaccines (1 - Tdap) 11/12 DM Hemoglobin A1c 08/11/2023 05/12/2023 Covid-19 Vaccine (1 - season) 2024 Influenza (Flu) vaccine (1 o f 1 - Influenza standard series) 01/30/2024 DM Creatinine yearly 05/12/2024 05/12/2023 DM Urine Microalbumin yearly 05/12/2024 05/12/2023 Procedures Procedure Name Priority Date/Time Associated Diagnosis Comments U ALBUMIN/CRE RATIO Routine 05/12/2023 9:09 AM EST Mild nonproliferative diabetic retinopathy of [...] 2 diabetes mellitus, macular edema presence unspecified from Last 3 Months or Most Recently Relevant to Health Maintenance Results * U Albumin/Cre Ratio (05/12/2023 9:09 AM EST) Albumin / Creatinin Ratio, Urine Not Calculated 0 - 29 mcg/mg Cr [facility] Comment: Reference Ranges: <30 mcg/mg: Normal [...] 2, 357? 362 Albumin, Urine <3.0 mg/L [facility] Creatinine, Urine 35 mg/dL [facility] Urine 05/12/2023 9:09 AM EST 05/12/2023 9:41 AM EST Narrative Resulting Agency Comment Spec In Lab Lance Palacios MD URINE ORDERABLES [facility] [place] [address] * Creatinine (05/12/2023 9:04 AM EST) Creatinine 1.05 0.80 - 1.50 mg/dL [facility] Est Glomerular Filtration Rate 91 >=60 mL/min/1. 73 m?? [facility] Comment: This patient's estimated GFR was [...] Palacios MD CHEMISTRY ORDERABLES Performing Organization Address [facility] Co de Phone Number [facility] [place] [address] * (ABNORMAL) Hemoglobin A1c (05/12/2023 9:04 AM EST) Hemoglobin A1c 10.7(H) 4.3 - 5.6 % [facility] Comment: Reference Range: 4.3 - 5.6% [...] Mellitus, Diabetes Care 2013; 36: Suppl. 1, S67-38 Estimated Average Glucose 260 mg/dL [facility] Comment: Note: The eAG calculation has not been proven valid for women, individuals below 18 years old or above 70 years old, or individuals with hemoglobinopathies. Estimated average glucose (eAG) is calculated from the equation described in: Renny WILLARD, Patric J, May R, et al. ??Translating the A1C assay into estimated average glucose values. ??Diabetes Care 2008:31(8):5422-7299. Additional resources are available on the ADA website (diabetes.org). Blood 05/12/2023 9:04 AM EST 05/12/2023 9:14 AM EST Narrative Resulting Agency Comment Spec In Lab Lance Palacios MD CHEMISTRY ORDERABLES [facility] [address] from Last 3 Months or Most Recently Relevant to Health Maintenance Care Teams Newspaper Carrier Relationship Specialty Start Date End Date Sandy Sanchez, DISTRIBUTOR SALES MANAGER PCP - General Family Medicine 04/16/23
--- OUTSIDE RECORDS SUMMARY | 2024-07-14 00:52 | XMS_ITS | Encounter Summary ---
Author Organization [facility] Address [address] [place] [address] Care Team Providers Care Hand Potter Name Role Phone Sesar Lua MD Primary Care Provider [phone] [phone] Encounter Details Date Type Department Care Team (Late st Contact Info) Description 01/20/2022 Lab Requisition [facility] Pathology & Laboratory Medicine - [facility] [address], [place] [id number] Outr Resulting Lab, Provider Social History Tobacco [...] Procedure Name Priority Date/Time Associated Diagnosis Comments HOLD SST Today 01/19/2022 16:10 EDT MEASLES IGG AB Today 01/19/2022 16:10 EDT RUBELLA IGG ANTIBODY Today 01/19/2022 16:10 EDT HEPATITIS B SURFACE ANTIBODY Today 01/19/2022 16:10 EDT VARICELLA IGG ANTIBODY Today 01/19/2022 16:10 EDT MUMPS ANTIBODY IGG Today 01/19/2022 16 :10 EDT documented in this encounter Results * HOLD SST (01/19/2022 16:10 EDT) Hold Hold 01/20/2022 18:15 EDT [facility] Blood VENOUS BLOOD / Unknown 01/19/2022 16:10 EDT 01/20/2022 17:08 EDT us Provider Outr Resulting Lab LAB INFO SERVICE AND SUPPORT & PHONE RESULT Final Result Performing Organization Address [facility] Co de Phone Number [facility] [address] [place] [address] * HEPATITIS B SURFACE ANTIBODY (01/19/2022 16:10 EDT) Hep B Surface Ab, Quantitative 6.5 See Note mIU/mL 01/21/2022 8:45 EDT [facility] Comment: Reference Range for Hep B Surface Ab, Quant: Positive: >= 10.0 mIU/mL Negative: ??< 10.0 mIU/mL Patient is presumed to not be immune to infection with Hepatitis B Virus. Hep B Surface Ab, Qualitative Negative See Note 01/21/2022 8:45 EDT [facility] Comment: Reference Range for Hep B Surface Ab, Qual: Unvaccinated: ??Negative Vaccinated: ??Positive Blood VENOUS BLOOD / Unknown 01/19/2022 16:10 EDT 01/20/2022 17:06 EDT us Provider Outr Resulting Lab CHEMISTRY & BLOOD GA S ORDERABLES Final Result Performing Organization Address [facility] Co de Phone Number [facility] [address] [place] [address] * MEASLES IGG AB (01/19/2022 16:10 EDT) Pathologist [facility] Measles IgG Ab Positive See Note 01/21/2022 11:40 EDT [facility] Comment:Presence of detectab le measles virus IgG antibodies. Blood VENOUS BLOOD / Unknown 01/19/2022 16:10 EDT 01/20/2022 17:06 EDT us Provider Outr Resulting Lab IMMUNOLOGY AND SEROL OGY ORDERABLES Final Result Performing Organization Address [facility] Co de Phone Number [facility] [address] [place] [address] * VARICELLA IGG ANTIBODY (01/19/2022 16:10 EDT) Varicella IgG Ab Positive See Note 01/21/2022 11:38 EDT [facility] Comment:Presence of detectab le Varicella Zoster virus IgG antibodies. Blood VENOUS BLOOD / Unknown 01/19/2022 16:10 EDT 01/20/2022 17:06 EDT us Provider Outr Resulting Lab IMMUNOLOGY AND SEROL OGY ORDERABLES Final Result Performing Organization Address [facility] Co de Phone Number [facility] [address] [place] [id number] * MUMPS ANTIBODY IGG (01/19/2022 16:10 EDT) Mumps Antibody IgG Positive See Note 01/21/2022 11:40 EDT [facility] Comment:Presence of detectab le mumps virus IgG antibodies. Blood VENOUS BLOOD / Unknown 01/19/2022 16:10 EDT 01/20/2022 17:06 EDT us Provider Outr Resulting Lab IMMUNOLOGY AND SEROL OGY ORDERABLES Final Result Performing Organization Address [facility] Co de Phone Number [facility] [address] [place] [id number] * RUBELLA IGG ANTIBODY (01/19/2022 16:10 EDT) Rubella IgG Ab Positive See Note 01/21/2022 11:41 EDT [facility] Comment:Positive for IgG ant ibodies to Rubella virus. Blood VENOUS BLOOD / Unknown 01/19/2022 16:10 EDT 01/20/2022 17:06 EDT us Provider Outr Resulting Lab CHEMISTRY & BLOOD GA S ORDERABLES Final Result [facility] [address] [place] [address] documented in this encounter Visit Diagnoses Not on filedocumented in this encounter Care Teams Hand Potter Relationship Specialty Start Date End Date Sesar Lua MD [address] [place] [address] PCP - General 08/28/11 documented as of this encounter
[2024-07-14 18:52] LABS: HBs Antibody, Quant 6.8 mIU/mL (See Note); Hepatitis B Surface Ab Negative (See Note)
[2024-07-14 18:53] LABS: HIV-1/2 Ag & Ab Screen Negative (Negative)
[2024-07-14 19:02] LABS: Hepatitis B Surface Ag Negative (Negative)
[2024-07-14 19:33] LABS: Hep B Core Antibody Negative (Negative)
[2024-07-14 19:35] LABS: Hepatitis C Ab w Rflx HCV PCR Negative (Negative)
[2024-07-17 11:30] LABS: Syphilis Serology (RPR) Negative (Negative)
[2024-07-17 12:40] LABS: Chlamydia Result Negative (Negative); GC Result Negative (Negative)
== END 2024-07-14 00:50 | disposition home or self-care (01) ==
LOC: LBO 00:50
PROVIDERS: PCP Nurse Practitioner; Referring Provider Nurse Practitioner; Visit Provider Nurse Practitioner
DX: Z11.59 Encounter for screening for other viral diseases (principal); Z20.2 Contact with and (suspected) exposure to infections with a predominantly sexual mode of transmission; E11.40 Type 2 diabetes mellitus with diabetic neuropathy, unspecified; M79.671 Pain in right foot; L84 Corns and callosities; M79.672 Pain in left foot
CPT/HCPCS: 36415; 86704; 86706; 86803; 87340; 87389; 87491; 87591; 86592

== ENCOUNTER 2024-12-27 05:59 | Emergency (ER) | payer MEDICAID, SELFPAY ==
--- NOTE | 2024-12-27 06:00 | RT.EKG_ITS ---
APPROVED REPORT Exam: Resting ECG Reason for Exam: chest pain Patient Location: E HR:81 bpm ECG Measurements Heart Rate 81 AXIS AK 152 P 43 QRSd 97 QRS -34 QT 383 T 77 QTc 445 Conclusion Sinus rhythm...normal P axis, V-rate 60- 99 Left axis deviation...QRS axis (-30,-90) I have reviewed and interpreted ECG and agree with software generated interpretation.
[2024-12-27 06:02] VITALS: BP 138/79; PULSE 87; RESP 18; TEMP 36.7; O2SAT 96
[2024-12-27 06:04] VITALS: RESP 18
--- NOTE | 2024-12-27 06:15 | DI.RAD_ITS ---
Exam(s) XR PORTABLE CHEST AP EXAM: XR PORTABLE CHEST AP CLINICAL HISTORY: cough, eval for pneumonia TECHNIQUE: 2D digital imaging was performed. COMPARISON: CR XR PORTABLE CHEST AP from 12/01/2023 FINDINGS: LUNGS: Clear. No pleural abnormality seen. HEART: Normal size. AORTA: Normal diameter. BONES: Unremarkable for age. Soft tissues: Unremarkable. IMPRESSION: No acute findings. DATA REPOSITORY: RADIATION DOSE DELIVERED:
--- NOTE | 2024-12-27 06:21 | W.ED.GENAD ---
Discharge Plan Disposition Patient Disposition: Home Condition: Good Discharge Details Clinical Impression: Bronchitis Primary Care Provider: Sonya Saul ED Provider: Edilson Kendrick Home Meds and New Rx's Prescriptions: New azithromycin 250 mg tablet See Rx Instructions .ROUTE .COMPLEX Qty: 6 0RF Rx Instructions: For 250 mg dose pack: take 500 mg today (day 1), then 250 mg for 4 days (days 2-5) No Action metformin 500 mg tablet extended release 24 hr 1,000 mg PO BID Qty: 360 3RF Rx Instructions: Administer once daily with the evening meal atorvastatin 40 mg tablet 40 mg PO DAILY Qty: 90 3RF (DME) FreeStyle Hina 2 Sensor Kit See Rx Instructions .ROUTE .MEDSUPPLY Qty: 6 3RF Rx Instructions: As directed hydroxyzine HCl 25 mg tablet 25 mg PO TID PRN (Reason: anxiety/insomnia) Qty: 90 0RF insulin glargine [Lantus Solostar U-100 Insulin] 100 unit/mL (3 mL) insulin pen 85 unit subcut HS Qty: 30 12RF omeprazole 20 mg capsule,delayed release(DR/EC) 20 mg PO DAILY Qty: 90 3RF Rx Instructions: take every AM on empty stomach (DME) lancets 23 gauge misc See Rx Instructions .Route Qty: 50 0RF Rx Instructions: As directed (DME) pen needle, diabetic [BD Ultra-Fine Orig Pen Needle] 29 gauge x 1/2 needle 1 ndl SQ DAILY Qty: 200 3RF Rx Instructions: Dx: E11.9 to maintain HbA1C less than 7% (31 g X 5 mm) albuterol sulfate 90 mcg/actuation HFA aerosol inhaler 1 - 2 puff Inhalation .Q4-6H PRN (Reason: shortness of breath or wheezing) Qty: 1 3RF Rx Instructions: DISPENSE ALBUTEROL INHALER BRAND COVERED BY INSURANCE venlafaxine 150 mg capsule,extended release 24hr See Rx Instructions .ROUTE .COMPLEX Qty: 180 3RF Dose Instruction: TAKE TWO CAPSULES BY MOUTH EVERY DAY Rx Instructions: TAKE TWO CAPSULES BY MOUTH EVERY DAY bupropion HCl [Wellbutrin XL] 300 mg tablet extended release 24 hr See Rx Instructions .ROUTE QAM Qty: 90 0RF Rx Instructions: Take one 150 mg pill + one 300 mg pill for a total daily dose of 450 mg daily every morning; bupropion HCl [Wellbutrin XL] 150 mg tablet extended release 24 hr See Rx Instructions PO QAM MDD 450 mg Qty: 90 0RF Rx Instructions: Take one 150 mg pill + one 300 mg pill for a total daily dose of 450 mg daily PO every morning; Jardiance 25 mg tablet 25 mg PO DAILY Qty: 90 3RF epinephrine [EpiPen 2-Jesus Alberto] 0.3 mg/0.3 mL auto-injector 0.3 mg IM ONCE PRN (Reason: anaphylaxis) Qty: 2 1RF (DME) FreeStyle Hian 2 [place] [facility] [place], [place] See Rx Instructions .ROUTE .MEDSUPPLY Qty: 1 0RF Rx Instructions: As directed insulin aspart U-100 [Novolog FlexPen U-100 Insulin] 100 unit/mL (3 mL) insulin pen See Rx Instructions .ROUTE .COMPLEX Qty: 15 3RF Dose Instruction: INJECT 4 UNITS UNDER THE SKIN BEFORE MEALS DIRECTED Rx Instructions: INJECT 4 UNITS UNDER THE SKIN BEFORE MEALS DIRECTED lurasidone 40 mg tablet 40 mg PO QPM Qty: 90 0RF Rx Instructions: must administer with food (at least 350 calories) venlafaxine 150 mg capsule,extended release 24hr 150 mg PO QAM Qty: 90 0RF Excedrin Extra Strength 1 EACH tablet 1 ea PO PRN Qty: 2 (DME) FreeStyle Lite Strips Strip See Rx Instructions .Route Qty: 50 0RF Rx Instructions: Check blood sugars twice a day. DX:E11.9.Keep A1c below 7 (DME) blood-glucose meter [FreeStyle Lite Meter] Kit See Rx Instructions .Route Qty: 1 0RF Rx Instructions: Check blood sugars twice a day. DX:E11.9. Keep A1c below 7 Rybelsus 3 mg tablet 3 mg PO DAILY 30 Days Qty: 30 3RF ibuprofen 600 mg tablet 600 mg PO QID PRN (Reason: pain) Qty: 20 0RF Discharge Instructions Instructions: Acute bronchitis Additional Instructions: At this time there is no evidence of severe pneumonia, however I do suspect that you are developing a mild bacterial infection secondary to a previous viral infection. Please take the Symbicort inhaler, 2 puffs every 12 hours in addition to your regular albuterol use. Please take the azithromycin antibiotic for the bronchitis/early pneumonia. If you notice any worsening of your symptoms, or any new symptoms such as vomiting, diarrhea, fever, chills, shortness of breath, chest pain, numbness, weakness, or fainting , please return immediately to the emergency department for reevaluation. Please follow up with your primary care provider as soon as possible for reassessment and reevaluation. As always, it was a pleasure participating in your medical care today. Referrals: Sonya Saul NP [Primary Care Provider, Medicine] HPI General Date/Time Provider Initiated Documentation: 12/27/24 06:08. HPI Narrative: 44-year-old male with a past medical history of hypertension, high cholesterol, diabetes, tobacco use, presents today for evaluation of runny nose, congestion, and cough for the last 2 days. He denies any fevers. He does admit to mild tightness when he breathes. He admits to pressure in his ears, and a notable runny nose. Admits to very mild headache and achiness. He denies fever. No other complaints at this time. Patient denies any hemoptysis, chest pain, crushing chest pain, vomiting or diarrhea. He denies any other sick contacts. Related Data Home Medications ?Medication ?Instructions ?Recorded ?Confirmed [id number] 250 1 ea PO PRN ##2 05/15/16 12/27/24 mg-250 mg-65 mg tablet (Excedrin Extra Strength) ibuprofen 600 mg tablet 600 mg PO QID PRN pain #20 tabs 04/26/18 12/27/24 pen needle, diabetic 29 gauge x #200 ea 02/08/20 11/10/24 1/2 (BD Ultra-Fine Original Pen Needle) metformin 500 mg tablet,extended 1,000 mg (2 x 500 mg) PO BID #360 11/08/23 12/27/24 release 24 hr tabs albuterol sulfate 90 mcg/actuation 1 - 2 puff inhalation .Q4-6H PRN 05/16/24 12/27/24 aerosol inhaler shortness of breath or wheezing #1 unit bupropion HCl 150 mg 24 hr tablet, See Rx Instructions PO QAM #90 05/16/24 12/27/24 extended release (Wellbutrin XL) tab-caps bupropion HCl 300 mg 24 hr tablet, See Rx Instructions .Route QAM #90 05/16/24 12/27/24 extended release (Wellbutrin XL) tab-caps empagliflozin 25 mg tablet 25 mg PO DAILY #90 tab-caps 05/16/24 12/27/24 (Jardiance) epinephrine 0.3 mg/0.3 mL 0.3 mg (0.3 mL) IM ONCE PRN 05/16/24 12/27/24 injection, auto-injector (EpiPen anaphylaxis #2 ea 2-Jesus Alberto) flash glucose scanning reader #1 ea 05/16/24 11/10/24 (FreeStyle Hina 2 [place]) insulin aspart U-100 100 unit/mL See Rx Instructions .Route 05/16/24 12/27/24 (3 mL) subcutaneous pen (Novolog .COMPLEX #15 mL FlexPen U-100 Insulin aspart) venlafaxine 150 mg See Rx Instructions .Route 05/16/24 12/27/24 capsule,extended release 24 hr .COMPLEX #180 caps lurasidone 40 mg tablet 40 mg PO QPM #90 tabs 07/03/24 12/27/24 venlafaxine 150 mg 150 mg PO QAM #90 caps 07/03/24 12/27/24 capsule,extended release 24 hr atorvastatin 40 mg tablet 40 mg PO DAILY #90 tab-caps 08/28/24 12/27/24 flash glucose sensor (FreeStyle #6 ea 08/28/24 11/10/24 Hina 2 Sensor kit) hydroxyzine HCl 25 mg tablet 25 mg PO TID PRN anxiety/insomnia 11/10/24 12/27/24 #90 tabs insulin glargine 100 unit/mL (3 85 unit (0.85 mL) subcut HS Dx: 11/10/24 12/27/24 mL) subcutaneous pen (Lantus E11.9 to maintain HbA1c less than Solostar U-100 Insulin) 7% #30 mL lancets 23 gauge #50 ea 11/10/24 11/10/24 omeprazole 20 mg capsule,delayed 20 mg PO DAILY #90 caps 11/10/24 12/27/24 release blood sugar diagnostic (FreeStyle #50 ea 11/14/24 Lite Strips) blood-glucose meter (FreeStyle #1 ea 11/14/24 Lite Meter kit) semaglutide 3 mg tablet (Rybelsus) 3 mg PO DAILY diabetes 30 days #30 11/14/24 12/27/24 tabs azithromycin 250 mg tablet See Rx Instructions PO .COMPLEX #6 12/27/24 tabs Previous Rx's ?Medication ?Instructions ?Recorded ibuprofen 600 mg tablet 600 mg PO QID PRN pain #20 tabs 04/26/18 pen needle, diabetic 29 gauge x #200 ea 02/08/20 1/ (BD Ultra-Fine Original Pen Needle) metformin 500 mg tablet,extended 1,000 mg (2 x 500 mg) PO BID #360 11/08/23 release 24 hr tabs albuterol sulfate 90 mcg/actuation 1 - 2 puff inhalation .Q4-6H PRN 05/16/24 aerosol inhaler shortness of breath or wheezing #1 unit bupropion HCl 150 mg 24 hr tablet, See Rx Instructions PO QAM #90 05/16/24 extended release (Wellbutrin XL) tab-caps bupropion HCl 300 mg 24 hr tablet, See Rx Instructions .Route QAM #90 05/16/24 extended release (Wellbutrin XL) tab-caps empagliflozin 25 mg tablet 25 mg PO DAILY #90 tab-caps 05/16/24 (Jardiance) epinephrine 0.3 mg/0.3 mL 0.3 mg (0.3 mL) IM ONCE PRN 05/16/24 injection, auto-injector (EpiPen anaphylaxis #2 ea 2-Jesus Alberto) flash glucose scanning reader #1 ea 05/16/24 (FreeStyle Hina 2 [place]) insulin aspart U-100 100 unit/mL See Rx Instructions .Route 05/16/24 (3 mL) subcutaneous pen (Novolog .COMPLEX #15 mL FlexPen U-100 Insulin aspart) venlafaxine 150 mg See Rx Instructions .Route 05/16/24 capsule,extended release 24 hr .COMPLEX #180 caps lurasidone 40 mg tablet 40 mg PO QPM #90 tabs 07/03/24 venlafaxine 150 mg 150 mg PO QAM #90 caps 07/03/24 capsule,extended release 24 hr atorvastatin 40 mg tablet 40 mg PO DAILY #90 tab-caps 08/28/24 flash glucose sensor (FreeStyle #6 ea 08/28/24 Hina 2 Sensor kit) hydroxyzine HCl 25 mg tablet 25 mg PO TID PRN anxiety/insomnia 11/10/24 #90 tabs insulin glargine 100 unit/mL (3 85 unit (0.85 mL) subcut HS Dx: 11/10/24 mL) subcutaneous pen (Lantus E11.9 to maintain HbA1c less than Solostar U-100 Insulin) 7% #30 mL lancets 23 gauge #50 ea 11/10/24 omeprazole 20 mg capsule,delayed 20 mg PO DAILY #90 caps 11/10/24 release blood sugar diagnostic (FreeStyle #50 ea 11/14/24 Lite Strips) blood-glucose meter (FreeStyle #1 ea 11/14/24 Lite Meter kit) semaglutide 3 mg tablet (Rybelsus) 3 mg PO DAILY diabetes 30 days #30 11/14/24 tabs azithromycin 250 mg tablet See Rx Instructions PO .COMPLEX #6 12/27/24 tabs Allergies Allergy/AdvReac Type Severity Reaction Status Date / Time bee venom protein (honey bee) Allergy Severe Anaphylaxsi Verified 12/27/24 06:06 s Sulfa (Sulfonamide Allergy Unknown HIVES, RASH Verified 12/27/24 06:06 Antibiotics) General Stated Complaint: Chest Pain GERARDO: 3 Exam Narrative Exam Narrative: 1.Const: Well-nourished, Well-developed, appearing stated age 2.Eyes: PERRL, no conjunctival injection, and symmetrical lids. 3.ENT: Atraumatic external nose and ears. Moist MM. Neck: Symmetric, trachea midline, No thyromegaly. Mild serous effusion behind the right tympanic membrane. Left tympanic membrane is carter and pearly. No mastoid tenderness. No erythema in the posterior oropharynx. 4.CVS: +S1/S2, Peripheral pulses 2+ and equal in all extremities. Brisk capillary refill in all extremities. 5.RESP: Unlabored respiratory effort. Minimal wheeze in the right upper lung field, no rhonchi or rails. 6.GI: Soft, Nontender/Nondistended, No hepatosplenomegaly. No guarding or rebound. 7.MSK: Normocephalic/Atraumatic, Extremities w/o deformity or ttp No cyanosis or clubbing, Normal movement of all extremities 8.Skin: Warm, Dry. No rashes or lesions. 9.Neuro: regional engineer II-XII grossly intact. Sensation grossly intact, no focal neurologic deficits. 10.Psych: (AAO) x3. Appropriate mood and affect Course Vital Signs Vital signs: Vital Signs Temperature 36.7 C 12/27/24 06:02 Pulse 87 12/27/24 06:02 Respiratory Rate 18 12/27/24 06:02 Blood Pressure 138/79 12/27/24 06:02 Pulse Oximetry 96 12/27/24 06:02 Temperature 36.7 C 12/27/24 06:02 Temperature Source Oral 12/27/24 06:02 Pulse 87 12/27/24 06:02 Respiratory Rate 18 12/27/24 06:04 Respiratory Effort Normal 12/27/24 06:04 Blood Pressure 138/79 12/27/24 06:02 Pulse Oximetry 96 12/27/24 06:02 Pain Level 3 12/27/24 06:02 Medical Decision Making 44-year-old male with a past medical history of hypertension, high cholesterol, diabetes, tobacco use, presents today for evaluation of runny nose, congestion, and cough for the last 2 days. He denies any fevers. He does admit to mild tightness when he breathes. He admits to pressure in his ears, and a notable runny nose. Admits to very mild headache and achiness. He denies fever. No other complaints at this time. Patient denies any hemoptysis, chest pain, crushing chest pain, vomiting or diarrhea. He denies any other sick contacts. Exam demonstrates runny nose, mild ear effusion, slight wheeze in the right upper lung field, but no other abnormalities. Vital signs are stable with no tachycardia tachypnea hypoxemia or hypotension. Symptoms appear consistent with a viral upper respiratory infection. Inconsistent with ACS, PE, or dissection. Differential does include mild pneumonia. Will get an x-ray, give a breathing treatment for his mild wheeze, check for COVID and flu, monitor closely and reassess. 7:19 AM COVID flu and RSV testing negative. Patient feeling better after breathing treatment. Chest x-ray shows no evidence of large pneumonia, but questionable small early infiltrate. Suspect bronchitis potentially developing into pneumonia. Will give Symbicort inhaler for home use to add the inhaled corticosteroid component. Will give azithromycin to treat bronchitis/early pneumonia. Discussed red flags for which to return. Patient remains hemodynamically stable with no signs of hypoxemia necessitating further management. 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) Goal HbA1c </= 7% 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 (Chronic 06/10/16) Last eye exam 06/10/2016: mild B/L Peripheral polyneuropathy (Chronic 03/19/17) Anxiety disorder, unspecified (Chronic 06/15/16) Allergy to bee sting (Acute) Chronic post-traumatic stress disorder (PTSD) (Chronic) Male erectile disorder (Acute) Tobacco use disorder (Acute) Hepatic steatosis (Acute) Hyperlipidemia (Chronic 07/01/16) 05/2020: started moderate intensity statin Type 2 diabetes mellitus, with long-term current use of insulin (Acute) Obstructive sleep apnea (Chronic) CPAP Mild intermittent asthma without complication (Chronic) Agoraphobia with panic attacks (Chronic) Medical History Bipolar disorder Lateral epicondylitis of right elbow Arthritis of right acromioclavicular joint Bursitis of right shoulder Intertrigo Hematoma of left hip Iliotibial band syndrome Adrenal mass, right 09/2018 [facility] [place] Endo consult: stable imaging, no further need for imaging & normal labs GERD without esophagitis Chronic laryngitis (05/13/17) Family History Daughter Chiari malformation type I Did well with operation Seizure disorder Mother Diabetes Sister Mental disorder Bipolar? Brother Substance abuse Brother Substance abuse Brother Substance abuse Brother Substance abuse Father Cancer Bladder Grandmother , Colon CA at age 70. Stroke Colon cancer Social History (Updated 05/16/24 @ 14:11 by Lolly Sanders LPN) Smoking/Tobacco Use Status: Current every day Tobacco Type: cigarettes Smoking packs per day: 1 Smoking cigarettes per day: 20.0 Years smoked: 20 Smoking pack-years: 20.00 Quit status: considering quitting Second Hand Exposure: No Smoking risk assessment performed?: Yes Alcohol Intake: current Alcohol Intake frequency: holidays/special occasions only Drug use: Daily Substance use type: marijuana Adopted: No Caregiver/Support person: No Foster care: No Household members: other Housing: apartment Number of Children: 2 Communication Needs: None and Corrective Lenses Education Level: middle school Do you need help understanding health information?: Rarely 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) Pets and animals: No Sexually active: Yes Do you think of yourself as: straight/heterosexual Current gender identity: male How often do you talk on the phone with friends or family?: once per week How often do you get together with friends or relatives?: once per week Do you belong to any clubs or organized social groups?: no Panel score (0-1 are the most socially isolated patients): 0 What type of physical activity do you participate in: walking Duration: 30-45 minutes/day Frequency: 3-4 times per week Janet/Mormon: None Seatbelt use: never Helmet use: No Drive intox or ride w/intox flag car driver: No Fire extinguisher in home: Yes Do you feel safe at home: Yes Do you feel safe in your relationship?: Yes
[2024-12-27] MEDS: Ibuprofen 800 MG TAB PO (06:29)
[2024-12-27] MEDS: Albuterol/Ipratropium 3 ML UPD VIAL UPD (06:30)
[2024-12-27 07:12] LABS: COVID-19 PCR Negative (Negative); RSV PCR Negative (Negative)
[2024-12-27] MEDS: Budesonide/Formoterol 160/4.5 6 GM 60 PUFF INH IH (07:26)
[2024-12-27 07:27] VITALS: BP 126/77; PULSE 79; RESP 17; O2SAT 98
--- NOTE | 2024-12-27 08:14 | DI.VRAD_ITS ---
PROCEDURE INFORMATION: Exam: XR Chest Exam date and time: 12/27/2024 6:28 AM Age: 44 years old Clinical indication: Cough, eval for pneumonia TECHNIQUE: Imaging protocol: Radiologic exam of the chest. Views: 1 view. COMPARISON: CR XR PORTABLE CHEST AP 12/01/2023 5:33 PM FINDINGS: Lungs: Clear. No consolidation or pulmonary edema. Pulmonary vasculature is normal in caliber. Pleural spaces: No pleural effusion or pneumothorax. Heart/Mediastinum: Heart size and cardiomediastinal contours are normal. Bones/joints: Unremarkable. IMPRESSION: No active disease in the chest. Dictated and Authenticated by: Sary Lyman MD. Orderin Aroldo Waggoner MD
== END 2024-12-27 07:35 | disposition home or self-care (01) ==
PROVIDERS: Emergency Provider Student in an Organized Health Care Education/Training Program; PCP Nurse Practitioner
DX: J20.9 Acute bronchitis, unspecified (principal)
CPT/HCPCS: 99284; 99283; 87637; 93005; 71045; 93010; J7620

== ENCOUNTER 2024-12-30 05:02 | Emergency (ER) | payer MEDICAID, SELFPAY ==
[2024-12-30 05:06] VITALS: BP 152/56; PULSE 71; RESP 18; TEMP 36.8; O2SAT 99
[2024-12-30 05:11] VITALS: BP 152/56; PULSE 71; RESP 18; TEMP 36.8; O2SAT 99
--- NOTE | 2024-12-30 05:30 | W.ED.GENAD ---
Discharge Plan Disposition Patient Disposition: Home Condition: Good Discharge Details Clinical Impression: Acute bacterial conjunctivitis of left eye Primary Care Provider: Sonya Saul ED Provider: Edilson Kendrick Home Meds and New Rx's Prescriptions: No Action metformin 500 mg tablet extended release 24 hr 1,000 mg PO BID Qty: 360 3RF Rx Instructions: Administer once daily with the evening meal atorvastatin 40 mg tablet 40 mg PO DAILY Qty: 90 3RF (DME) FreeStyle Hina 2 Sensor Kit See Rx Instructions .ROUTE .MEDSUPPLY Qty: 6 3RF Rx Instructions: As directed hydroxyzine HCl 25 mg tablet 25 mg PO TID PRN (Reason: anxiety/insomnia) Qty: 90 0RF insulin glargine [Lantus Solostar U-100 Insulin] 100 unit/mL (3 mL) insulin pen 85 unit subcut HS Qty: 30 12RF omeprazole 20 mg capsule,delayed release(DR/EC) 20 mg PO DAILY Qty: 90 3RF Rx Instructions: take every AM on empty stomach (DME) lancets 23 gauge misc See Rx Instructions .Route Qty: 50 0RF Rx Instructions: As directed (DME) pen needle, diabetic [BD Ultra-Fine Orig Pen Needle] 29 gauge x 1/2 needle 1 ndl SQ DAILY Qty: 200 3RF Rx Instructions: Dx: E11.9 to maintain HbA1C less than 7% (31 g X 5 mm) albuterol sulfate 90 mcg/actuation HFA aerosol inhaler 1 - 2 puff Inhalation .Q4-6H PRN (Reason: shortness of breath or wheezing) Qty: 1 3RF Rx Instructions: DISPENSE ALBUTEROL INHALER BRAND COVERED BY INSURANCE venlafaxine 150 mg capsule,extended release 24hr See Rx Instructions .ROUTE .COMPLEX Qty: 180 3RF Dose Instruction: TAKE TWO CAPSULES BY MOUTH EVERY DAY Rx Instructions: TAKE TWO CAPSULES BY MOUTH EVERY DAY bupropion HCl [Wellbutrin XL] 300 mg tablet extended release 24 hr See Rx Instructions .ROUTE QAM Qty: 90 0RF Rx Instructions: Take one 150 mg pill + one 300 mg pill for a total daily dose of 450 mg daily every morning; bupropion HCl [Wellbutrin XL] 150 mg tablet extended release 24 hr See Rx Instructions PO QAM MDD 450 mg Qty: 90 0RF Rx Instructions: Take one 150 mg pill + one 300 mg pill for a total daily dose of 450 mg daily PO every morning; Jardiance 25 mg tablet 25 mg PO DAILY Qty: 90 3RF epinephrine [EpiPen 2-Jesus Alberto] 0.3 mg/0.3 mL auto-injector 0.3 mg IM ONCE PRN (Reason: anaphylaxis) Qty: 2 1RF (DME) FreeStyle Hina 2 [facility] [place] See Rx Instructions .ROUTE .MEDSUPPLY Qty: 1 0RF Rx Instructions: As directed insulin aspart U-100 [Novolog FlexPen U-100 Insulin] 100 unit/mL (3 mL) insulin pen See Rx Instructions .ROUTE .COMPLEX Qty: 15 3RF Dose Instruction: INJECT 4 UNITS UNDER THE SKIN BEFORE MEALS DIRECTED Rx Instructions: INJECT 4 UNITS UNDER THE SKIN BEFORE MEALS DIRECTED lurasidone 40 mg tablet 40 mg PO QPM Qty: 90 0RF Rx Instructions: must administer with food (at least 350 calories) venlafaxine 150 mg capsule,extended release 24hr 150 mg PO QAM Qty: 90 0RF Excedrin Extra Strength 1 EACH tablet 1 ea PO PRN Qty: 2 (DME) FreeStyle Lite Strips Strip See Rx Instructions .Route Qty: 50 0RF Rx Instructions: Check blood sugars twice a day. DX:E11.9.Keep A1c below 7 (DME) blood-glucose meter [FreeStyle Lite Meter] Kit See Rx Instructions .Route Qty: 1 0RF Rx Instructions: Check blood sugars twice a day. DX:E11.9. Keep A1c below 7 Rybelsus 3 mg tablet 3 mg PO DAILY 30 Days Qty: 30 3RF azithromycin 250 mg tablet See Rx Instructions .ROUTE .COMPLEX Qty: 6 0RF Rx Instructions: For 250 mg dose pack: take 500 mg today (day 1), then 250 mg for 4 days (days 2-5) ibuprofen 600 mg tablet 600 mg PO QID PRN (Reason: pain) Qty: 20 0RF Discharge Instructions Instructions: Conjunctivitis ([facility]) ED Additional Instructions: At this time you have a bacterial infection in your left eye called bacterial conjunctivitis. Please apply 2 drops to the affected eye every 4 hours for the next 7 to 10 days. If you notice any worsening of your symptoms, or any new symptoms such as vomiting, diarrhea, fever, chills, shortness of breath, chest pain, numbness, weakness, or fainting , please return immediately to the emergency department for reevaluation. Please follow up with your primary care provider as soon as possible for reassessment and reevaluation. As always, it was a pleasure participating in your medical care today. Referrals: Sonya Saul NP [Primary Care Provider, Medicine] HPI General Date/Time Provider Initiated Documentation: 12/30/24 05:07. HPI Narrative: 44-year-old male with a past medical history of hypertension, high cholesterol, diabetes, tobacco use, presents today for left eye crusting. Patient was seen and assessed here 3 to 4 days ago. He was diagnosed with bronchitis, started on antibiotic and Symbicort inhaler. He states that the symptoms are improving, but states that this morning he woke up and had extreme crusting in his eye. He states that the eye feels irritated and scratchy. He denies any trauma or recent welding or foreign body. He states that there is a notable amount of goopy discharge this morning, that his girlfriend has similar symptoms for the last 2 days. He denies any significant vision changes. No severe eye pain. No other complaints at this time. He does not wear contact lenses. No known history of STDs. Related Data Home Medications ?Medication ?Instructions ?Recorded ?Confirmed trbonal-zyebykfdoguou-mlbktswn 250 1 ea PO PRN ##2 05/15/16 12/27/24 mg-250 mg-65 mg tablet (Excedrin Extra Strength) ibuprofen 600 mg tablet 600 mg PO QID PRN pain #20 tabs 04/26/18 12/27/24 pen needle, diabetic 29 gauge x #200 ea 02/08/20 11/10/24 1/2 (BD Ultra-Fine Original Pen Needle) metformin 500 mg tablet,extended 1,000 mg (2 x 500 mg) PO BID #360 11/08/23 12/27/24 release 24 hr tabs albuterol sulfate 90 mcg/actuation 1 - 2 puff inhalation .Q4-6H PRN 05/16/24 12/27/24 aerosol inhaler shortness of breath or wheezing #1 unit bupropion HCl 150 mg 24 hr tablet, See Rx Instructions PO QAM #90 05/16/24 12/27/24 extended release (Wellbutrin XL) tab-caps bupropion HCl 300 mg 24 hr tablet, See Rx Instructions .Route QAM #90 05/16/24 12/27/24 extended release (Wellbutrin XL) tab-caps empagliflozin 25 mg tablet 25 mg PO DAILY #90 tab-caps 05/16/24 12/27/24 (Jardiance) epinephrine 0.3 mg/0.3 mL 0.3 mg (0.3 mL) IM ONCE PRN 05/16/24 12/27/24 injection, auto-injector (EpiPen anaphylaxis #2 ea 2-Jesus Alberto) flash glucose scanning reader #1 ea 05/16/24 11/10/24 (FreeStyle Hina 2 [facility]) insulin aspart U-100 100 unit/mL See Rx Instructions .Route 05/16/24 12/27/24 (3 mL) subcutaneous pen (Novolog .COMPLEX #15 mL FlexPen U-100 Insulin aspart) venlafaxine 150 mg See Rx Instructions .Route 05/16/24 12/27/24 capsule,extended release 24 hr .COMPLEX #180 caps lurasidone 40 mg tablet 40 mg PO QPM #90 tabs 07/03/24 12/27/24 venlafaxine 150 mg 150 mg PO QAM #90 caps 07/03/24 12/27/24 capsule,extended release 24 hr atorvastatin 40 mg tablet 40 mg PO DAILY #90 tab-caps 08/28/24 12/27/24 flash glucose sensor (FreeStyle #6 ea 08/28/24 11/10/24 Hina 2 Sensor kit) hydroxyzine HCl 25 mg tablet 25 mg PO TID PRN anxiety/insomnia 11/10/24 12/27/24 #90 tabs insulin glargine 100 unit/mL (3 85 unit (0.85 mL) subcut HS Dx: 11/10/24 12/27/24 mL) subcutaneous pen (Lantus E11.9 to maintain HbA1c less than Solostar U-100 Insulin) 7% #30 mL lancets 23 gauge #50 ea 11/10/24 11/10/24 omeprazole 20 mg capsule,delayed 20 mg PO DAILY #90 caps 11/10/24 12/27/24 release blood sugar diagnostic (FreeStyle #50 ea 11/14/24 Lite Strips) blood-glucose meter (FreeStyle #1 ea 11/14/24 Lite Meter kit) semaglutide 3 mg tablet (Rybelsus) 3 mg PO DAILY diabetes 30 days #30 11/14/24 12/27/24 tabs azithromycin 250 mg tablet See Rx Instructions PO .COMPLEX #6 12/27/24 tabs Previous Rx's ?Medication ?Instructions ?Recorded ibuprofen 600 mg tablet 600 mg PO QID PRN pain #20 tabs 04/26/18 pen needle, diabetic 29 gauge x #200 ea 02/08/20 1/2 (BD Ultra-Fine Original Pen Needle) metformin 500 mg tablet,extended 1,000 mg (2 x 500 mg) PO BID #360 11/08/23 release 24 hr tabs albuterol sulfate 90 mcg/actuation 1 - 2 puff inhalation .Q4-6H PRN 05/16/24 aerosol inhaler shortness of breath or wheezing #1 unit bupropion HCl 150 mg 24 hr tablet, See Rx Instructions PO QAM #90 05/16/24 extended release (Wellbutrin XL) tab-caps bupropion HCl 300 mg 24 hr tablet, See Rx Instructions .Route QAM #90 05/16/24 extended release (Wellbutrin XL) tab-caps empagliflozin 25 mg tablet 25 mg PO DAILY #90 tab-caps 05/16/24 (Jardiance) epinephrine 0.3 mg/0.3 mL 0.3 mg (0.3 mL) IM ONCE PRN 05/16/24 injection, auto-injector (EpiPen anaphylaxis #2 ea 2-Jesus Alberto) flash glucose scanning reader #1 ea 05/16/24 (FreeStyle Hina 2 [facility]) insulin aspart U-100 100 unit/mL See Rx Instructions .Route 05/16/24 (3 mL) subcutaneous pen (Novolog .COMPLEX #15 mL FlexPen U-100 Insulin aspart) venlafaxine 150 mg See Rx Instructions .Route 05/16/24 capsule,extended release 24 hr .COMPLEX #180 caps lurasidone 40 mg tablet 40 mg PO QPM #90 tabs 07/03/24 venlafaxine 150 mg 150 mg PO QAM #90 caps 07/03/24 capsule,extended release 24 hr atorvastatin 40 mg tablet 40 mg PO DAILY #90 tab-caps 08/28/24 flash glucose sensor (FreeStyle #6 ea 08/28/24 Hina 2 Sensor kit) hydroxyzine HCl 25 mg tablet 25 mg PO TID PRN anxiety/insomnia 11/10/24 #90 tabs insulin glargine 100 unit/mL (3 85 unit (0.85 mL) subcut HS Dx: 11/10/24 mL) subcutaneous pen (Lantus E11.9 to maintain HbA1c less than Solostar U-100 Insulin) 7% #30 mL lancets 23 gauge #50 ea 11/10/24 omeprazole 20 mg capsule,delayed 20 mg PO DAILY #90 caps 11/10/24 release blood sugar diagnostic (FreeStyle #50 ea 11/14/24 Lite Strips) blood-glucose meter (FreeStyle #1 ea 11/14/24 Lite Meter kit) semaglutide 3 mg tablet (Rybelsus) 3 mg PO DAILY diabetes 30 days #30 11/14/24 tabs azithromycin 250 mg tablet See Rx Instructions PO .COMPLEX #6 12/27/24 tabs Allergies Allergy/AdvReac Type Severity Reaction Status Date / Time bee venom protein (honey bee) Allergy Severe Anaphylaxsi Verified 12/27/24 06:06 s Sulfa (Sulfonamide Allergy Unknown HIVES, RASH Verified 12/27/24 06:06 Antibiotics) General Stated Complaint: EyeProblem GERARDO: 4 Exam Narrative Exam Narrative: 1.Const: Well-nourished, Well-developed, appearing stated age 2.Eyes: PERRL, notable conjunctival injection in the left eye in the inferior aspect. No foreign body. Notable amount of crusting and generalized goopy discharge on the eye. Pupils otherwise equal round reactive, no proptosis. No haziness of the cornea. 3.ENT: Atraumatic external nose and ears. Moist MM. Neck: Symmetric, trachea midline, No thyromegaly. 4.CVS: +S1/S2, Peripheral pulses 2+ and equal in all extremities. Brisk capillary refill in all extremities. 5.RESP: Unlabored respiratory effort. Clear to auscultation bilaterally. No wheezes rales or rhonchi 6.GI: Soft, Nontender/Nondistended, No hepatosplenomegaly. No guarding or rebound. 7.MSK: Normocephalic/Atraumatic, Extremities w/o deformity or ttp No cyanosis or clubbing, Normal movement of all extremities 8.Skin: Warm, Dry. No rashes or lesions. 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 Sensation grossly intact, no focal neurologic deficits. 10.Psych: (AAO) x3. Appropriate mood and affect Course Vital Signs Vital signs: Vital Signs Temperature 36.8 C 12/30/24 05:06 Pulse 71 12/30/24 05:06 Respiratory Rate 18 12/30/24 05:06 Blood Pressure 152/56 H 12/30/24 05:06 Pulse Oximetry 99 12/30/24 05:06 Temperature 36.8 C 12/30/24 05:11 Temperature Source Oral 12/30/24 05:11 Pulse 71 12/30/24 05:11 Respiratory Rate 18 12/30/24 05:11 Blood Pressure 152/56 H 12/30/24 05:11 Blood Pressure Position Sitting 12/30/24 05:11 Pulse Oximetry 99 12/30/24 05:11 Oxygen Delivery Method Room Air 12/30/24 05:11 Oxygen Flow Rate 0 12/30/24 05:06 Pain Level 3 12/30/24 05:11 Medical Decision Making 44-year-old male with a past medical history of hypertension, high cholesterol, diabetes, tobacco use, presents today for left eye crusting. Patient was seen and assessed here 3 to 4 days ago. He was diagnosed with bronchitis, started on antibiotic and Symbicort inhaler. He states that the symptoms are improving, but states that this morning he woke up and had extreme crusting in his eye. He states that the eye feels irritated and scratchy. He denies any trauma or recent welding or foreign body. He states that there is a notable amount of goopy discharge this morning, that his girlfriend has similar symptoms for the last 2 days. He denies any significant vision changes. No severe eye pain. No other complaints at this time. He does not wear contact lenses. No known history of STDs. Physical exam demonstrates notable conjunctival injection in the left eye in the inferior aspect. No foreign body. Notable amount of crusting and generalized goopy discharge on the eye. Pupils otherwise equal round reactive, no proptosis. No haziness of the cornea. Symptoms are inconsistent with acute angle-closure glaucoma. Symptoms not made worse with light or darkness. No trauma history to suggest corneal abrasion. No proptosis. No evidence of pre or postseptal cellulitis, no significant tenderness of the lids. No evidence of orbital cellulitis. Symptoms appear consistent with bacterial conjunctivitis. Will give Cipro drops. Recommend application in both eyes for prevention of the right. Patient's lungs sound better than they did before, with no significant wheezes rales or rhonchi. Patient will be discharged home. Discussed red flags for which return. I have extensively reviewed the treatment plan and discharge instructions with the patient. I have addressed all patient concerns at this time. The patient was made aware of what symptoms to monitor for that would warrant a return to the emergency department. Discussed the plan with the patient, they demonstrate verbal understanding and agreement with our assessment and plan at this time. The documentation in this chart was dictated using [employer] dictation software. Please excuse any dictation errors. 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) Goal HbA1c </= 7% 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 (Chronic 06/10/16) Last eye exam 06/10/2016: mild B/L Peripheral polyneuropathy (Chronic 03/19/17) Anxiety disorder, unspecified (Chronic 06/15/16) Allergy to bee sting (Acute) Chronic post-traumatic stress disorder (PTSD) (Chronic) Male erectile disorder (Acute) Tobacco use disorder (Acute) Hepatic steatosis (Acute) Hyperlipidemia (Chronic 07/01/16) 05/2020: started moderate intensity statin Type 2 diabetes mellitus, with long-term current use of insulin (Acute) Obstructive sleep apnea (Chronic) CPAP Mild intermittent asthma without complication (Chronic) Agoraphobia with panic attacks (Chronic) Medical History Bipolar disorder Lateral epicondylitis of right elbow Arthritis of right acromioclavicular joint Bursitis of right shoulder Intertrigo Hematoma of left hip Iliotibial band syndrome Adrenal mass, right 09/2018 [facility] [place] consult: stable imaging, no further need for imaging & normal labs GERD without esophagitis Chronic laryngitis (05/13/17) Family History Daughter Chiari malformation type I Did well with operation Seizure disorder Mother Diabetes Sister Mental disorder Bipolar? Brother Substance abuse Brother Substance abuse Brother Substance abuse Brother Substance abuse Father Cancer Bladder Grandmother , Colon CA at age 70. Stroke Colon cancer Social History (Updated 05/16/24 @ 14:11 by Lolly Sanders LPN) Smoking/Tobacco Use Status: Current every day Tobacco Type: cigarettes Smoking packs per day: 1 Smoking cigarettes per day: 20.0 Years smoked: 20 Smoking pack-years: 20.00 Quit status: considering quitting Second Hand Exposure: No Smoking risk assessment performed?: Yes Alcohol Intake: current Alcohol Intake frequency: holidays/special occasions only Drug use: Daily Substance use type: marijuana Adopted: No Caregiver/Support person: No Foster care: No Household members: other Housing: apartment Number of Children: 2 Communication Needs: None and Corrective Lenses Education Level: middle school Do you need help understanding health information?: Rarely 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) Pets and animals: No Sexually active: Yes Do you think of yourself as: straight/heterosexual Current gender identity: male How often do you talk on the phone with friends or family?: once per week How often do you get together with friends or relatives?: once per week Do you belong to any clubs or organized social groups?: no Panel score (0-1 are the most socially isolated patients): 0 What type of physical activity do you participate in: walking Duration: 30-45 minutes/day Frequency: 3-4 times per week Janet/Denominational: None Seatbelt use: never Helmet use: No Drive intox or ride w/intox delivery route driver: No Fire extinguisher in home: Yes Do you feel safe at home: Yes Do you feel safe in your relationship?: Yes
[2024-12-30] MEDS: Ciprofloxacin 0.3% 2.5 ML BTL OS (05:46)
== END 2024-12-30 05:50 | disposition home or self-care (01) ==
PROVIDERS: Emergency Provider Student in an Organized Health Care Education/Training Program; PCP Nurse Practitioner
DX: H10.022 Other mucopurulent conjunctivitis, left eye (principal); E11.9 Type 2 diabetes mellitus without complications; E11.319 Type 2 diabetes mellitus with unspecified diabetic retinopathy without macular edema; I10 Essential (primary) hypertension; E78.5 Hyperlipidemia, unspecified; F17.210 Nicotine dependence, cigarettes, uncomplicated; Z79.4 Long term (current) use of insulin; Z79.84 Long term (current) use of oral hypoglycemic drugs
CPT/HCPCS: 99283

== ENCOUNTER 2025-02-09 09:00 | Day surgery (SDC) | payer MEDICAID, SELFPAY ==
[2025-02-09 09:21] VITALS: BP 131/67; PULSE 74; RESP 18; TEMP 36.4; O2SAT 96
[2025-02-09] MEDS: Tropicam./Phenyleph. (1/2.5%) 5 ML BTL OS ×3 (09:26→09:36)
--- NOTE | 2025-02-09 09:49 | W.ANESPRE ---
General Info Date of Service Date Performed: 02/09/25 Height: 5 ft 6 in Weight: 117.934 kg Body Mass Index (BMI): 41.9 Surgical Procedure: Operation Date: 02/09/25 11:40 Proposed Procedure Side Surgeon p Cataract Extraction with IOL Implant Left Sesar Liu MD Meds Allergies and Home Medications Allergies Allergy/AdvReac Type Severity Reaction Status Date / Time bee venom protein (honey bee) Allergy Severe Anaphylaxsi Verified 02/09/25 09:19 s Sulfa (Sulfonamide Allergy Unknown HIVES, RASH Verified 02/09/25 09:19 Antibiotics) Home Medication ?Medication ?Instructions ?Recorded gusxbvo-hhpnnbkbmjihz-zziwgozb 250 1 ea PO PRN ##2 05/15/16 mg-250 mg-65 mg tablet (Excedrin Extra Strength) ibuprofen 600 mg tablet 600 mg PO QID PRN pain #20 tabs 04/26/18 pen needle, diabetic 29 gauge x #200 ea 02/08/20 1/2 (BD Ultra-Fine Original Pen Needle) albuterol sulfate 90 mcg/actuation 1 - 2 puff inhalation .Q4-6H PRN 05/16/24 aerosol inhaler shortness of breath or wheezing #1 unit bupropion HCl 150 mg 24 hr tablet, See Rx Instructions PO QAM #90 05/16/24 extended release (Wellbutrin XL) tab-caps bupropion HCl 300 mg 24 hr tablet, See Rx Instructions .Route QAM #90 05/16/24 extended release (Wellbutrin XL) tab-caps empagliflozin 25 mg tablet 25 mg PO DAILY #90 tab-caps 05/16/24 (Jardiance) epinephrine 0.3 mg/0.3 mL 0.3 mg (0.3 mL) IM ONCE PRN 05/16/24 injection, auto-injector (EpiPen anaphylaxis #2 ea 2-Jesus Alberto) flash glucose scanning reader #1 ea 05/16/24 (FreeStyle Hina 2 [place]) insulin aspart U-100 100 unit/mL See Rx Instructions .Route 05/16/24 (3 mL) subcutaneous pen (Novolog .COMPLEX #15 mL FlexPen U-100 Insulin aspart) lurasidone 40 mg tablet 40 mg PO QPM #90 tabs 07/03/24 atorvastatin 40 mg tablet 40 mg PO DAILY #90 tab-caps 08/28/24 hydroxyzine HCl 25 mg tablet 25 mg PO TID PRN anxiety/insomnia 11/10/24 #90 tabs insulin glargine 100 unit/mL (3 85 unit (0.85 mL) subcut HS Dx: 11/10/24 mL) subcutaneous pen (Lantus E11.9 to maintain HbA1c less than Solostar U-100 Insulin) 7% #30 mL lancets 23 gauge #50 ea 11/10/24 omeprazole 20 mg capsule,delayed 20 mg PO DAILY #90 caps 11/10/24 release blood sugar diagnostic (FreeStyle #50 ea 11/14/24 Lite Strips) blood-glucose meter (FreeStyle #1 ea 11/14/24 Lite Meter kit) flash glucose sensor (FreeStyle #6 ea 02/06/25 Hina 2 Sensor kit) metformin 500 mg tablet,extended 1,000 mg (2 x 500 mg) PO BID #360 02/06/25 release 24 hr tabs semaglutide 7 mg tablet 7 mg PO DAILY Diabetes #30 tabs 02/06/25 venlafaxine 150 mg 150 mg PO QAM #90 caps 02/06/25 capsule,extended release 24 hr Current Visit Medications: Current Medications Generic Name Dose Route Start Last Admin Trade Name Freq PRN Reason Stop Dose Admin Acetaminophen 1,000 mg 02/09/25 06:00 Acetaminophen 500 Mg Tab PO 03/11/25 05:59 Q4H PRN PRN Balanced Salt Solution 500 ml 02/09/25 06:00 Balanced Salt Soln.-Plus 500 Ml Bag OP 03/11/25 05:59 DIRECTED [facility] Miscellaneous Medication 0 ml 02/09/25 06:00 Prednisolone 1%, Moxifloxacin 0.5%, Bromfenac 0.09% 5.6ml Btl OS 03/11/25 05:59 DIRECTED [facility] Miscellaneous Medication 0 ml 02/09/25 06:00 02/09/25 09:36 Tropicam./Phenyleph. (1/2.5%) 5 Ml Btl OS 03/11/25 05:59 1 drp DIRECTED [facility] Administration Tetracaine HCl 0 ml 02/09/25 06:00 Tetracaine 0.5% 4 Ml Btl OS 03/11/25 05:59 DIRECTED [facility] PFSH Active Problems Active Problems: Problem Status Onset Code Posterior subcapsular age-related cataract of left eye Acute H25.042 Acid reflux Chronic K21.9 Posterior subcapsular age-related cataract, right eye Resolved H25.041 Bipolar disorder with psychotic features Acute F31.9 Chronic pain in right foot Acute M79.671, G89.29 Arthritis of right glenohumeral joint Acute M19.011 Tendonitis of long head of biceps brachii of right shoulder Acute M75.21 Obesity Chronic E66.9 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 Chronic 06/10/16 E11.319 Peripheral polyneuropathy Chronic 03/19/17 G62.9 Anxiety disorder, unspecified Chronic 06/15/16 F41.9 Allergy to bee sting Acute Z91.030 Chronic post-traumatic stress disorder (PTSD) Chronic F43.12 Male erectile disorder Acute N52.9 Tobacco use disorder Acute F17.200 Hepatic steatosis Acute K76.0 Hyperlipidemia Chronic 07/01/16 E78.5 Type 2 diabetes mellitus, with long-term current use of insulin Acute E11.9, Z79.4 Obstructive sleep apnea Chronic G47.33 Mild intermittent asthma without complication Chronic J45.20 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 Medical History Medical History Bipolar disorder Lateral epicondylitis of right elbow Arthritis of right acromioclavicular joint Bursitis of right shoulder Intertrigo Hematoma of left hip Iliotibial band syndrome Adrenal mass, right 09/2018 [facility] Endo consult: stable imaging, no further need for imaging & normal labs GERD without esophagitis Chronic laryngitis (05/13/17) Tobacco Smoking/Tobacco Use Status: Current every day Tobacco Type: cigarettes Smoking packs per day: 1 Smoking cigarettes per day: 20.0 Years smoked: 20 Smoking pack-years: 20.00 Passive smoking exposure: No Second hand exposure: No Alcohol Alcohol Intake: current Alcohol intake frequency: holidays/special occasions only Substance Use Substance use: Daily Substance use type: marijuana Details: Marijuana last used 02/08/25 Vital Signs and Lab Results Vital Signs Most Recent Vital Signs in EMR: Most Recent Vital Signs Temp Pulse Resp BP Pulse Ox 36.4 C L 74 18 131/67 96 02/09/25 09:21 02/09/25 09:21 02/09/25 09:21 02/09/25 09:21 02/09/25 09:21 Point of Care Results Point of Care Results: Finger Stick Blood Glucose 226 02/09/25 09:14 Lab Results Complete Metabolic Panel: Hemoglobin A1c, (4.5-5.7) 9.8 % H 02/06/25, 14:51 Imaging and Studies Imaging and Studies Study information below may be from another EMR and interpreted by another provider. Please see original notes in EMR for more complete details. EKG Summary: EKG PATIENT NAME: Indu Barrientos UNIT #: [id number] ORDERING PROVIDER: Edilson Denton DO PRIMARY CARE PROVIDER: SAVANNAH SAMUEL NP DATE/TIME OF SERVICE: 12/27/24604 : 1980 PERFORMING LOCATION: ER APPROVED REPORT Exam: Resting ECG Reason for Exam: chest pain Patient Location: E HR:81 bpm ECG Measurements Heart Rate 81 AXIS DE 152 P 43 QRSd 97 QRS -34 QT 383 T77 QTc 445 Conclusion Sinus rhythm...normal P axis, V-rate 60- 99 Left axis deviation...QRS axis (-30,-90) I have reviewed and interpreted ECG and agree with software generated interpretation. <Electronically signed by EDILSON DENTON DO in OV> E-Sign Date: 12/27/24 E-Sign Time: 714 ADDENDUM APPROVED REPORT Exam: Resting ECG Reason for Exam: chest pain Patient Location: E HR:81 bpm ECG Measurements Heart Rate 81 AXIS DE 152 P 43 QRSd 97 QRS -34 QT 383 T77 QTc 445 Conclusion Sinus rhythm...normal P axis, V-rate 60- 99 Left axis deviation...QRS axis (-30,-90) I have reviewed and interpreted ECG and agree with software generated interpretation. I have reviewed and I agree with the emergency room physician's ECG interpretation. Electronically signed by: <Electronically signed by Yulia Iqbal M.D. in OV> 12/28/24 0810 Cosigned by: Stress Test Summary: STRESS TEST PATIENT NAME: INDU BARRIENTOS UNIT #: [id number] ADMITTING PROVIDER: JAMAL RETANA MD PRIMARY CARE PROVIDER: Sandy Sanchez NP DATE OF SERVICE: 02/02/18 : 1980 *[facility]* *[facility]* [address] [place] [address] Stress Electrocardiography Saurabh protocol Date of study: 02/02/2018 *PATIENT PRESENTATION* Height: 167.6cm (66in) Blood Pressure: Weight: 131.8kg (290lb) BSA: 2.55m^2 Ordering physician: Gus Womack Impressions: Indeterminate stress test due to inadequate heart rate. Summary: 1. Stress ECG conclusions: The stress ECG is negative to less than 85% MPHR. The stress ECG is non-diagnostic. The sensitivity of this test is limited by a failure to achieve target heart rate. 2. Stress: The target heart rate was not achieved. The heart rate response to stress is normal. There is a normal resting blood pressure with an appropriate response to stress. The patient experienced no chest pain during stress. Exercise capacity is mildly diminished for age. History: Patient's presenting symptoms: asymptomatic. REASON FOR VISIT: PATIENT PRESENTED TO EMERGENCY ROOM ON 01/23/18 FOR MULTIPLE COMPLAINTS INCLUDING CHEST PAIN, VOMITING, DIARRHEA, MALAISE, FATIGUE, SHORTNESS OF BREATH, AND OCCASIONAL SYNCOPE. FOR FOUR DAYS PATIENT REPORTS 8/10 STERNAL CHEST TIGHTNESS RADIATING DOWN BILATERAL ARMS, ASSOCIATED WITH MILD SHORTNESS OF BREATH. SYMPTOMS ARE WORSE AT NIGHT, WITH PALPATION, MOVEMENT OF ARMS, AND OCCASIONALLY WITH EATING. SYMPTOMS ARE NOT WORSENED WITH EXERTION. PATIENT REPORTS CHEST PAIN LASTS FOR A COUPLE OF DAYS AT A TIME WHEN IT OCCURS. CHEST PAIN LAST OCCURED YESTERDAY. NO CHEST PAIN TODAY. PAST MEDICAL HISTORY: DIABETES, SLEEP APNEA, MIGRAINES, TOBACCO ABUSE, ANXIETY. FAMILY HISTORY: NOT KNOWN. SMOKING STATUS:30 PACK YEAR HISTORY. EXERCISE STATUS: NONE. PMH: Asthma. Risk factors: Family history of coronary artery disease. Current tobacco use. Hypertension. Diabetes mellitus. Obesity. Dyslipidemia. Cholesterol: 210mg/dl. HDL: 31mg/dl. LDL: 152mg/dl. Triglycerides: 176mg/dl. ALLERGIES: INSECT VENOM, SULFA. MEDICATIONS: ALBUTEROL SULFATE 1-2 PUFF, PRN. ASPIRIN 81MG, DAILY. EXCEDRIN EXTRA STRENGTH, PRN. BUPROPION HCL 450MG, DAILY. EMPAGLIFLOZIN 25MG, DAILY. EPINEPHRINE INJECTION 0.3MG, PRN. FLUTICASONE, PRN. GABAPENTIN 300MG, HS. HYDROXYZINE 25-50MG, PRN. INSULIN GLARGINE 48UNITS, HS. METFORMIN 1500MG AM / 1000MG PM. VENLAFAXINE 225MG, DAILY. Protocol: Saurabh protocol. Baseline ECG: SINUS RHYTHM. HEART RATE 65 BPM. Stress protocol: + +---+ + + + !Stage !HR !BP (mmHg) !Symptoms !Comments ! + +---+ + + + !Baseline supine !65 !142/82 (102)! ! ! + +---+ + + + !Baseline standing!69 !112/80 (91) ! !BP 130/68 ON ! ! ! ! ! !RECHECK. ! + +---+ + + + !Stage I; 1.7mph, !98 !154/84 (107)! ! ! !10degrees; 3 min ! ! ! ! ! + +---+ + + + !Stage II; 2.5mph,!117!184/90 (121)!Leg fatigue, leg ! ! !12degrees; 3 min ! ! !pain ! ! + +---+ + + + !Stage III; !---! !Mild dyspnea, leg! ! !3.4mph, ! ! !pain ! ! !14degrees; 3 min ! ! ! ! ! + +---+ + + + !Peak stress !119! ! ! ! + +---+ + + + !Recovery; 1 min !106!170/88 (115)! ! ! + +---+ + + + !Recovery; 3 min !74 !172/80 (111)! ! ! + +---+ + + + !Recovery; 6 min !---!150/78 (102)! ! ! + +---+ + + + * Stress results: Maximal heart rate during stress was 119bpm (65% of maximal predicted heart rate). The maximal predicted heart rate was 183bpm. The target heart rate was not achieved. The heart rate response to stress is normal. There is a normal resting blood pressure with an appropriate response to stress. The rate-pressure product for the peak heart rate and blood pressure was 94142hc Hg/min. The patient experienced no chest pain during stress. Exercise capacity is mildly diminished for age. Stress ECG: TREADMILL PORTION OF EXERCISE STRESS TEST ENDED IN 6MIN 11SEC DUE TO PATIENT COMPLAINTS OF LEG PAIN/BURNING AND DYSPNEA. HYPOTENSIVE BLOOD PRESSURE RESPONSE TO STANDING WITH REPORTS OF LIGHTHEADEDNESS. RESOLVED AFTER FEW SECONDS WITH IMPROVEMENT OF BLOOD PRESSURE ON RECHECK. APPROPRIATE HEART RATE AND BLOOD PRESSURE RESPONSE TO EXERCISE. MAXIMAL HEART RATE 119 BPM, 65% OF TARGET. APPROXIMATE METS ACHIEVED 7.32. NO ANGINA REPORTED. NO ECTOPY NOTED. NO SIGNIFICANT ST SEGMENT CHANGES. MODERATELY DIMINISHED FUNCTIONAL CAPACITY. The stress ECG is negative to less than 85% MPHR. The stress ECG is non-diagnostic. The sensitivity of this test is limited by a failure to achieve target heart rate. Study data: Jamal Retana MD supervised and was readily available during the procedure. This study was interpreted by [facility]. Study status: Routine. Consent: The risks, benefits, and alternatives to the procedure were explained to the patient and informed consent was obtained. Procedure: Initial setup. A baseline ECG was recorded. Surface ECG leads and manual cuff blood pressure measurements were monitored. Heart sounds: Normal. Lung sounds: Normal. Treadmill exercise testing was performed using the Saurabh protocol. Study completion: The patient tolerated the procedure well and was discharged from the lab. Discharge: The patient left the laboratory in stable condition. Birthdate: Patient birthdate: 1980. Sex: Gender: male. Study date: Study date: 02/02/2018. Study time: 02:00 PM. Signature Documentation: The Stress ECG portion of this study was interpreted by Jamal Retana MD. Electronically signed by Jamal Retana 02/02/2018 16:30 Dictated by: JAMAL RETANA MD Dictated:: 02/02/18142902/02/[id number] Transcribed Date: Transcribed Time: By: BERNICE Pulmonary Function Summary: Pulmonary Function Test PATIENT NAME: Indu Barrientos UNIT #: [id number] ADMITTING PROVIDER: Mireille Penaloza M.D. PRIMARY CARE PROVIDER: SANDY SANCHEZ NP DATE OF ADMIT: 02/09/22 : 1980 Date of service: 02/09/22 Time of Service: 16:14 Pulmonary Function Test Result Requesting Provider Jong Butcher Indications: Pre-employment Interpretation Spirometry: There is no airflow limitation. Impression Normal spirometry Clinical Correlation therefore is recommended. cc: Dictated by: MIREILLE PENALOZA MD Dictated: 02/20/22 Time: 1637 <Electronically signed by Mireille Penaloza M.D.> Date: 02/20/221638 Date: Date: Transcribed Date: 02/20/22 Transcribed Time: 1637 By: MEIR This is privileged, confidential information, intended only for the provider named. Any use or distribution by any person other than this provider is strictly prohibited. If you receive this report in error, please notify us immediately at [phone] and return the original report to us at the address above. Thank you. Anesthesia Assessment and Plan Anesthesia History Personal History: No History of Anesthesia Complications Family History: No Family History of Anesthesia Complications Exercise Tolerance Exercise Tolerance: Metabolic Equivalents>4 Pertinent Negatives Pertinent Negatives: No Symptoms of GERD Cardiac & Pulmonary Exam Cardiac Exam: Normal S1/S2 Heart Sounds Pulmonary Exam: Clear Bilateral Breath Sounds Implantable Cardiac Device Does patient have a Pacemaker or an ICD?: No Airway Exam Known Difficult Airway: No Mallampati Class: 2 Mouth Opening: Normal (> 3cm) Thyromental Distance: Greater than 3 cm Neck Range of Motion: Full ROM Neck Circumference: Normal Teeth Condition: Generalized Poor Dentition ASA Classification ASA Score: ASA 3 Emergency Case?: No NPO Status NPO Status: NPO Clears >2 hours, Solids >8 hours Anesthesia Plan Resuscitation Status: Full Code Anesthesia Technique: MAC Anesthesia Airway Planned: Natural Airway Monitors Used: Standard Monitors Preoperative Comments:: Requesting MKO
[2025-02-09 09:51] VITALS: BMI 41.9
--- NOTE | 2025-02-09 10:23 | W.PREOPHP ---
Assessment and Plan Assessment and plan (1) Posterior subcapsular age-related cataract of left eye: Status: Acute History of Present Illness History of Present Illness Chief Complaint: Progressive decreased vision, left eye Narrative: The patient is a 44-year-old male with history of dense bilateral posterior subcapsular cataract, right eye greater than left. Visual acuity measured counting fingers in the right eye. He has previously undergone cataract surgery in the right eye on 06/16/2024. He is doing well postoperatively, and now presents for cataract surgery in his left eye due to his significant diminished visual acuity. Review of Systems All systems reviewed & are unremarkable except as noted in HPI and below PFSH All Active Problems Posterior subcapsular age-related cataract of left eye (Acute) Acid reflux (Chronic) Bipolar disorder with psychotic features (Acute) Chronic pain in right foot (Acute) Arthritis of right glenohumeral joint (Acute) Tendonitis of long head of biceps brachii of right shoulder (Acute) Obesity (Chronic) 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 (Chronic 06/10/16) Last eye exam 06/10/2016: mild B/L Peripheral polyneuropathy (Chronic 03/19/17) Anxiety disorder, unspecified (Chronic 06/15/16) Allergy to bee sting (Acute) Chronic post-traumatic stress disorder (PTSD) (Chronic) Male erectile disorder (Acute) Tobacco use disorder (Acute) Hepatic steatosis (Acute) Hyperlipidemia (Chronic 07/01/16) 05/2020: started moderate intensity statin Type 2 diabetes mellitus, with long-term current use of insulin (Acute) Obstructive sleep apnea (Chronic) CPAP Mild intermittent asthma without complication (Chronic) Agoraphobia with panic attacks (Chronic) Medical History Bipolar disorder Lateral epicondylitis of right elbow Arthritis of right acromioclavicular joint Bursitis of right shoulder Intertrigo Hematoma of left hip Iliotibial band syndrome Adrenal mass, right 09/2018 [facility] [place] Endo consult: stable imaging, no further need for imaging & normal labs GERD without esophagitis Chronic laryngitis (05/13/17) Family History Daughter Chiari malformation type I Did well with operation Seizure disorder Mother Diabetes Sister Mental disorder Bipolar? Brother Substance abuse Brother Substance abuse Brother Substance abuse Brother Substance abuse Father Cancer Bladder Grandmother , Colon CA at age 70. Stroke Colon cancer Social History Smoking/Tobacco Use Status: Current every day Tobacco Type: cigarettes Smoking packs per day: 1 Smoking cigarettes per day: 20.0 Years smoked: 20 Smoking pack-years: 20.00 Quit status: considering quitting Second Hand Exposure: No Smoking risk assessment performed?: Yes Alcohol Intake: current Alcohol Intake frequency: holidays/special occasions only Drug use: Daily Substance use type: marijuana Details: Marijuana last used 02/08/25 Adopted: No Caregiver/Support person: No Foster care: No Household members: other Housing: apartment Number of Children: 2 Communication Needs: None and Corrective Lenses Education Level: middle school Do you need help understanding health information?: Rarely 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) Pets and animals: No Sexually active: Yes Do you think of yourself as: straight/heterosexual Current gender identity: male How often do you talk on the phone with friends or family?: once per week How often do you get together with friends or relatives?: once per week Do you belong to any clubs or organized social groups?: no Panel score (0-1 are the most socially isolated patients): 0 What type of physical activity do you participate in: walking Duration: 30-45 minutes/day Frequency: 3-4 times per week Janet/Sikhism: None Seatbelt use: never Helmet use: No Drive intox or ride w/intox tour driver: No Fire extinguisher in home: Yes Do you feel safe at home: Yes Do you feel safe in your relationship?: Yes Meds Allergies and Home Medications Allergies Allergy/AdvReac Type Severity Reaction Status Date / Time bee venom protein (honey bee) Allergy Severe Anaphylaxsi Verified 02/09/25 09:19 s Sulfa (Sulfonamide Allergy Unknown HIVES, RASH Verified 02/09/25 09:19 Antibiotics) Home Medications ?Medication ?Instructions ?Recorded ?Confirmed ?Type iuueqdc-desmdsqzpelbm-dzmssthb 250 1 ea PO PRN ##2 05/15/16 02/07/25 History mg-250 mg-65 mg tablet (Excedrin Extra Strength) ibuprofen 600 mg tablet 600 mg PO QID PRN pain #20 tabs 04/26/18 02/07/25 Rx pen needle, diabetic 29 gauge x #200 ea 02/08/20 02/06/25 Rx 1/2 (BD Ultra-Fine Original Pen Needle) albuterol sulfate 90 mcg/actuation 1 - 2 puff inhalation .Q4-6H PRN 05/16/24 02/09/25 Rx aerosol inhaler shortness of breath or wheezing #1 unit bupropion HCl 150 mg 24 hr tablet, See Rx Instructions PO QAM #90 05/16/24 02/09/25 Rx extended release (Wellbutrin XL) tab-caps bupropion HCl 300 mg 24 hr tablet, See Rx Instructions .Route QAM #90 05/16/24 02/09/25 Rx extended release (Wellbutrin XL) tab-caps empagliflozin 25 mg tablet 25 mg PO DAILY #90 tab-caps 05/16/24 02/09/25 Rx (Jardiance) epinephrine 0.3 mg/0.3 mL 0.3 mg (0.3 mL) IM ONCE PRN 05/16/24 02/07/25 Rx injection, auto-injector (EpiPen anaphylaxis #2 ea 2-Jesus Alberto) flash glucose scanning reader #1 ea 05/16/24 02/06/25 Rx (FreeStyle Hina 2 [place]) insulin aspart U-100 100 unit/mL See Rx Instructions .Route 05/16/24 02/09/25 Rx (3 mL) subcutaneous pen (Novolog .COMPLEX #15 mL FlexPen U-100 Insulin aspart) lurasidone 40 mg tablet 40 mg PO QPM #90 tabs 07/03/24 02/09/25 Rx atorvastatin 40 mg tablet 40 mg PO DAILY #90 tab-caps 08/28/24 02/09/25 Rx hydroxyzine HCl 25 mg tablet 25 mg PO TID PRN anxiety/insomnia 11/10/24 02/09/25 Rx #90 tabs insulin glargine 100 unit/mL (3 85 unit (0.85 mL) subcut HS Dx: 11/10/24 02/09/25 Rx mL) subcutaneous pen (Lantus E11.9 to maintain HbA1c less than Solostar U-100 Insulin) 7% #30 mL lancets 23 gauge #50 ea 11/10/24 02/06/25 Rx omeprazole 20 mg capsule,delayed 20 mg PO DAILY #90 caps 11/10/24 02/09/25 Rx release blood sugar diagnostic (FreeStyle #50 ea 11/14/24 02/06/25 Rx Lite Strips) blood-glucose meter (FreeStyle #1 ea 11/14/24 02/06/25 Rx Lite Meter kit) flash glucose sensor (FreeStyle #6 ea 02/06/25 02/06/25 Rx Hina 2 Sensor kit) metformin 500 mg tablet,extended 1,000 mg (2 x 500 mg) PO BID #360 02/06/25 02/09/25 Rx release 24 hr tabs semaglutide 7 mg tablet 7 mg PO DAILY Diabetes #30 tabs 02/06/25 02/09/25 Rx venlafaxine 150 mg 150 mg PO QAM #90 caps 02/06/25 02/09/25 Rx capsule,extended release 24 hr Exam Eyes Other: Most recent ocular examination is significant for uncorrected visual acuity of 20/40 OD, 20/40 OS. Extraocular tone is normal. Intraocular pressure is 22 OD, 23 OS. Slightly examination shows a well-positioned PCIOL in the right eye with clear central posterior capsule. In the left eye there is mild posterior subcapsular opacity centrally. Funduscopic examination reveals disc cupping of 0.1 OU with normal vessels, macula, peripheral retina and vitreous. Cardio Rate: regular rate Rhythm: regular rhythm Results Last Vital Signs Temp 36.4 C L 02/09/25 09:21 Pulse 74 02/09/25 09:21 Resp 18 02/09/25 09:21 BP 131/67 02/09/25 09:21 Pulse Ox 96 02/09/25 09:21
[2025-02-09] MEDS: Duovisc Viscoelastic System EACH 1 EACH (10:45)
[2025-02-09] MEDS: Moxifloxacin-PF 1 MG/ML VIAL (10:46)
[2025-02-09] MEDS: Lidocaine 1% Pres-Free 5 ML VIAL (10:46)
[2025-02-09] MEDS: Phenylephrine/Lidocaine (15/10) MG/ML 1 ML VIAL (10:47)
[2025-02-09] MEDS: Trypan Blue 0.06% 0.5 ML SYR (10:48)
[2025-02-09] MEDS: Balanced Salt Soln.-PLUS 500 ML BAG OP (10:48)
[2025-02-09] MEDS: Povidone-Iodine Ophth 30 ML BTL (10:48)
[2025-02-09] MEDS: Prednisolone 1%, Moxifloxacin 0.5%, Bromfenac 0.09% 5.6ML BTL OS (10:49)
[2025-02-09] MEDS: Tetracaine 0.5% 4 ML BTL OS (10:49)
[2025-02-09 11:07] VITALS: BP 111/71; PULSE 67; RESP 17; TEMP 36.4; O2SAT 95
--- NOTE | 2025-02-09 11:15 | PDOC.DSDIS_ITS ---
Date of service: 02/09/25 Discharge Plan Disposition Patient Disposition: Home Discharge Details Attending Provider: Sesar Liu Primary Care Provider: Hussein Joseph Home Meds and New Rx's Prescriptions: No Action atorvastatin 40 mg tablet 40 mg PO DAILY Qty: 90 3RF hydroxyzine HCl 25 mg tablet 25 mg PO TID PRN (Reason: anxiety/insomnia) Qty: 90 0RF insulin glargine [Lantus Solostar U-100 Insulin] 100 unit/mL (3 mL) insulin pen 85 unit subcut HS Qty: 30 12RF omeprazole 20 mg capsule,delayed release(DR/EC) 20 mg PO DAILY Qty: 90 3RF Rx Instructions: take every AM on empty stomach (DME) lancets 23 gauge misc See Rx Instructions .Route Qty: 50 0RF Rx Instructions: As directed (DME) pen needle, diabetic [BD Ultra-Fine Orig Pen Needle] 29 gauge x 1/2 needle 1 ndl SQ DAILY Qty: 200 3RF Rx Instructions: Dx: E11.9 to maintain HbA1C less than 7% (31 g X 5 mm) albuterol sulfate 90 mcg/actuation HFA aerosol inhaler 1 - 2 puff Inhalation .Q4-6H PRN (Reason: shortness of breath or wheezing) Qty: 1 3RF Rx Instructions: DISPENSE ALBUTEROL INHALER BRAND COVERED BY INSURANCE bupropion HCl [Wellbutrin XL] 300 mg tablet extended release 24 hr See Rx Instructions .ROUTE QAM Qty: 90 0RF Rx Instructions: Take one 150 mg pill + one 300 mg pill for a total daily dose of 450 mg daily every morning; bupropion HCl [Wellbutrin XL] 150 mg tablet extended release 24 hr See Rx Instructions PO QAM MDD 450 mg Qty: 90 0RF Rx Instructions: Take one 150 mg pill + one 300 mg pill for a total daily dose of 450 mg daily PO every morning; Jardiance 25 mg tablet 25 mg PO DAILY Qty: 90 3RF epinephrine [EpiPen 2-Jesus Alberto] 0.3 mg/0.3 mL auto-injector 0.3 mg IM ONCE PRN (Reason: anaphylaxis) Qty: 2 1RF (DME) FreeStyle Hina 2 [place] Misc See Rx Instructions .ROUTE .MEDSUPPLY Qty: 1 0RF Rx Instructions: As directed insulin aspart U-100 [Novolog FlexPen U-100 Insulin] 100 unit/mL (3 mL) insulin pen See Rx Instructions .ROUTE .COMPLEX Qty: 15 3RF Dose Instruction: INJECT 4 UNITS UNDER THE SKIN BEFORE MEALS DIRECTED Rx Instructions: INJECT 4 UNITS UNDER THE SKIN BEFORE MEALS DIRECTED metformin 500 mg tablet extended release 24 hr 1,000 mg PO BID Qty: 360 3RF Rx Instructions: Administer once daily with the evening meal venlafaxine 150 mg capsule,extended release 24hr 150 mg PO QAM Qty: 90 0RF (DME) FreeStyle Hina 2 Sensor Kit See Rx Instructions .ROUTE .MEDSUPPLY Qty: 6 3RF Rx Instructions: As directed semaglutide 7 mg tablet 7 mg PO DAILY Qty: 30 2RF lurasidone 40 mg tablet 40 mg PO QPM Qty: 90 0RF Rx Instructions: must administer with food (at least 350 calories) iuzuetg-xjzjmxoaqplik-rundakxy [Excedrin Extra Strength] 1 EACH tablet 1 ea PO PRN Qty: 2 (DME) FreeStyle Lite Strips Strip See Rx Instructions .Route Qty: 50 0RF Rx Instructions: Check blood sugars twice a day. DX:E11.9.Keep A1c below 7 (DME) blood-glucose meter [FreeStyle Lite Meter] Kit See Rx Instructions .Route Qty: 1 0RF Rx Instructions: Check blood sugars twice a day. DX:E11.9. Keep A1c below 7 ibuprofen 600 mg tablet 600 mg PO QID PRN (Reason: pain) Qty: 20 0RF Discharge Instructions Stand Alone Forms: DSU Post-Op CataractSara (DSU) Discharge Orders Discharge Orders: Discharge Order (Routine); Ordered 02/09/25 Ordered By: Sesar Liu DS: Diagnosis Discharge Diagnosis (1) Posterior subcapsular age-related cataract of left eye: Status: Resolved
--- NOTE | 2025-02-09 11:15 | W.PM.OP ---
Operative Note Operative Note PRE-OP DIAGNOSIS: Dense posterior subcapsular cataract, left eye POST-OP DIAGNOSIS: same PROCEDURE: Cataract extraction using phacoemulsification with intraocular lens implant, left eye SURGEON: Sesar Liu ANESTHESIA TYPE: Local By Surgeon and MAC Refer to Anesthesia Record PATHOLOGY: none sent COMPLICATIONS: None Patient was transported to: same day Patient's condition: stable Implants: Adrian and Adrian Tecnis Eyhance [id number] Indications: Progressive decreased vision due to cataract, left eye Procedure Description: CATARACT SURGERY OPERATIVE REPORT PREOPERATIVE DIAGNOSIS: 1. Dense posterior subcapsular cataract, left eye POSTOPERATIVE DIAGNOSIS: Same OPERATION: 1. Cataract extraction using phacoemulsification with posterior chamber intraocular lens implant, left eye. IOL: IOL Molecular Geneticist/Model: Adrian [employer] Adrian Tecnis Eyhance [id number] IOL Power: + 28.0 diopters IOL Serial Number: [id number] Optic Diameter: 6.0 mm Haptic/Overall Diameter: 13.0 mm PHACO INFO: Heath Atigeourion Vision System with OZil and Active Fluidics Cumulative Dispersed Energy (CDE): 3.27 seconds SURGEON: Sesar Liu MD, PAGE ANESTHESIA: Monitored A [facility] ([facility] [place] with local sub-tenon's anesthetic infiltration COMPLICATIONS: None SPECIMENS: None INDICATIONS FOR PROCEDURE: The patient is a 44-year-old male with history of advanced posterior subcapsular cataract in the right eye with counting fingers vision. He underwent cataract surgery in the right eye in May 2024, and is doing well postoperatively. He has now developed a moderate posterior subcapsular cataract in the left eye with significant diminished visual acuity. The option of cataract surgery was offered to the patient and he wished to proceed. See office notes for detailed information. PROCEDURE: The correct surgical eye was identified and marked as the left eye and the pupil was dilated in the preoperative area using mydriatics and cycloplegics. The dilated pupil size was [] mm. Oral sedation was administered in the form of an Imprimis MKO Melt (midazolam 3mg/ketamine 25mg/ondansetron 2mg). The patient was brought to the operating room where cardiopulmonary monitoring was instituted and surgical time-out was performed, confirming the correct operative eye and IOL power. Topical anesthesia was administered and ophthalmic povidone-iodine 5% was instilled into the conjunctival fornices. The bronson-ocular area was prepped with Betadine 10% solution and draped in the usual sterile fashion for intraocular surgery, including an aperture drape. A Tegaderm transparent film dressing was cut in half and used to cover the lashes and lid margins. Care was taken to sequester the lashes and lid margins under the Tegaderm dressing. A lid speculum was placed between the lids of the operative eye and the Heath LuxOR Revalia operating microscope was maneuvered into position. Alexandra scissors were then used to make a conjunctival buttonhole approximately 6mm posterior to the limbus in the inferonasal quadrant. Blunt dissection was carried out to expose bare sclera, and a blunt-tipped sub-tenon?s anesthesia cannula was introduced and passed posteriorly along the globe where non-preserved plain lidocaine was injected into posterior sub-Tenon?s space. A sideport knife was used to make a paracentesis port. VisionBlue was injected into the anterior chamber and allowed to sit for 30 seconds. Intraocular phenylephrine/lidocaine was injected into the anterior chamber.. The anterior chamber was filled with viscoelastic. A keratome knife was used to construct a 2-plane near-clear corneal tunnel extending 2.0mm into clear cornea. A flap was raised on the anterior capsule and capsulorhexis forceps were used to complete a continuous curvilinear capsulorhexis of 5.0 mm. Balanced salt solution was then used to perform cortical cleaving hydrodissection and nuclear hydrodelineation until the lens could be freely rotated within the capsular bag. The lens nucleus was then disassembled and removed within the capsular bag and iris plane using phacoemulsification. Residual cortical material was removed using the irrigation/aspiration handpiece. The posterior capsule was carefully polished to remove as much residual lens epithelial cells as safely possible. Extensive capsular polishing was performed, but there was a significant amount of residual posterior subcapsular plaque which could not be safely removed, particularly in the subincisional area. The capsular bag was then inflated and the anterior chamber deepened with viscoelastic. The lens implant described above was inserted into the capsular bag using the Adrian and Adrian Simplicity pre-loaded injector. A Kuglen hook was used to dial the IOL into position. Residual viscoelastic was then removed first from posterior to the IOL, then from the anterior chamber using the I/A handpiece. The lens implant was noted to center nicely within the capsular bag. The incisions were stromally hydrated, and the anterior chamber was reformed using BSS. Then 0.5cc of moxifloxacin 1.0mg/ml were injected into the capsular bag and anterior chamber. The incisions were checked with a Weck spear and found to be secure. Several drops of ophthalmic povidone-iodine 5% were then applied to the eye followed by two drops of Imprimis combination prednisolone/moxifloxacin/nepafenac solution. The drapes were removed and a clear plastic protective eye shield was placed over the eye. The patient was then returned to Same Day Surgery in stable condition. Date of Procedure: 02/09/25
[2025-02-09 11:30] VITALS: BP 112/69; PULSE 68; RESP 17; TEMP 36.4; O2SAT 97
--- NOTE | 2025-02-09 11:39 | W.ANESPOSTOP ---
Postoperative Evaluation Date, Time and Location Date Performed: 02/09/25 Time Performed: 11:10 Patient Location: Day Surgery Unit Vital Signs Most Recent Imported Vital Signs: Most Recent Vital Signs Temp Pulse Resp BP Pulse Ox 36.4 C L 68 17 112/69 97 02/09/25 11:30 02/09/25 11:30 02/09/25 11:30 02/09/25 11:30 02/09/25 11:30 Pain Score Most Recent Pain Score: Most Recent Pain Score Pain Level 0 02/09/25 11:30 Assessment Mental Status: Awake (Alert & Oriented to Patient Baseline) Airway and Respiratory Function: Patent airway with normal (patient baseline) respiratory exam Cardiovascular Function: Hemodynamically Stable Hydration Status: Adequately Hydrated Nausea & Vomiting: No Nausea or Vomiting Pain: Pt. Denies Any Pain Peripheral Nerve Block: Other (Local by Dr. Liu)
== END 2025-02-09 11:35 | disposition home or self-care (01) ==
LOC: SUR 09:00
PROVIDERS: Visit Provider Ophthalmology
PROC: (CPT 66984; principal; 2025-02-09 11:30)
DX: H25.042 Posterior subcapsular polar age-related cataract, left eye (principal); Z98.41 Cataract extraction status, right eye
CPT/HCPCS: 66984; 00123; V2632; J2003